=== PATIENT | female | born 1945 | race Caucasian/White ===

== ENCOUNTER → 2016-12-03 | Outpatient (CLI) | payer OTHER ==
[~2016-12-03] MED LIST: CLX/20 PO; FLEC50TA PO; GLC/500 PO; GLIP-197 PO; HYD10 PO; HYDR5TAB PO; HYDR5TAB57 PO; INSU1.2I SC; LATA0.5S OPB; LEVO75TA PO; METO50TA7 PO; PRAV80TA PO; SIMV40TA2 PO; TMB100 PO; WARF5TAB7 PO; XLTOPS OPB
[2016-12-04 14:17] LABS: BASO % 0.3 %; BASO ABS # 0.01 K/uL (0-0.2); COMPLETE YES; EOS % 1.1 %; HEMATOCRIT 32.8 % (37-47); IG% 0.5 %; LYMPH % 23.8 %; LYMPH ABS # 0.89 K/uL (1.2-3.4); MEAN CELL VOLUME 84.5 fL (80-100); MEAN CORPUSCULAR HEMOGLOBIN 27.1 pg (25-34); MEAN PLATELET VOLUME 11.5 fL (7.4-10.4); NEUT % 66.3 %; PLATELET COUNT 181 K/uL (130-400); RED BLOOD COUNT 3.88 M/uL (4.2-5.4); WHITE BLOOD COUNT 3.74 K/uL (4.8-10.8)
[2016-12-04 14:26] LABS: ESTIMATED AVERAGE GLUCOSE 220 mg/dl; HA1C FLAG Normal (Normal)
[2016-12-04 14:46] LABS: ALT/SGPT 32 U/L (12-78); AST/SGOT 39 U/L (15-37); BLOOD UREA NITROGEN 18 mg/dl (7-18); BUN/CREATININE RATIO 20.3 (10-20); CALCIUM 8.9 mg/dl (8.5-10.1); CARBON DIOXIDE 28 mmol/L (21-32); CHLORIDE 103 mmol/L (98-107); CREATININE 0.91 mg/dl (0.60-1.20); GLUCOSE 100 mg/dl (70-99); POTASSIUM 4.2 mmol/L (3.5-5.1); SODIUM 139 mmol/L (136-145)
[2016-12-04 14:54] LABS: ALKALINE PHOSPHATASE 132 U/L (45-117); CHOLESTEROL 147 mg/dl (0-200); CHOLESTEROL/HDL RATIO 3.1; HDL CHOLESTEROL 47 mg/dl; LDL CHOLESTEROL CALCULATED 68 mg/dl; THYROID STIMULATING HORMONE 0.449 uIu/ml (0.300-4.500); TRIGLYCERIDES 162 mg/dl (0-150); VERY LOW DENSITY LIPOPROT CALC 32 mg/dl
== END | disposition home or self-care (01) ==
LOC: C.LABSPEC 13:37
PROVIDERS: ATTEND Family Medicine
DX: Z00.00 Encounter for general adult medical examination without abnormal findings (principal); E11.9 Type 2 diabetes mellitus without complications; I48.91 Unspecified atrial fibrillation; E03.9 Hypothyroidism, unspecified

== ENCOUNTER → 2017-01-05 | Outpatient (CLI) | payer OTHER ==
--- NOTE | 2017-01-05 15:51 | DIAGNOSTIC IMAGING REPORT ---
KUB CLINICAL HISTORY: Nephrolithiasis. FINDINGS: 2 AP abdominal radiographs are compared to study dated 03/10/2016 and correlated with abdominal CT dated 03/07/2015. There is a nonobstructed abdominal bowel gas pattern. There is no radiographic evidence of nephrolithiasis. The right renal shadow is partially obscured by overlying colonic contents. Numerous phleboliths are seen in the pelvis. The skeletal structures are osteopenic. There is moderate lumbosacral spondylosis. Arthritic change is also present in the hips. IMPRESSION: There is no radiographic evidence of nephrolithiasis on today's examination. Electronically signed by: Ang Giraldo M.D. 01/05/2017 3:50 PM Dictated Date/Time: 01/05/2017 3:46 PM
== END | disposition home or self-care (01) ==
LOC: C.RAD 15:20
PROVIDERS: ATTEND Nurse Practitioner Family
DX: N20.0 Calculus of kidney (principal)

== ENCOUNTER → 2017-03-01 | Day surgery (SDC) | payer OTHER ==
[2017-02-19 13:10] VITALS: Ht 162.6 cm; Wt 95.5 kg
[~2017-03-01] VITALS: Ht 162.6 cm; Wt 95.5 kg
[~2017-03-01] MED LIST changes: +500ML BSS 0.3ML EPI 1:1000PF IRRIG ONE; +ACETAMINOPHEN 325 MG TAB PO PRN; +AMVISC PLUS 0.8ML SYRINGE INT OCU ONE; +ATROPINE SULFATE 0.1 MG/ML 5ML SYR IV PRN; +BRIMONIDINE TART 0.2% OP SOLN PER DROP CHARGE ONE; +BSS FLUSH ONE; +ENDOCOAT 0.85ML SYRINGE INT OCU ONE; +EpHEDrine SULFATE INJ 50 MG/ML AMP IV PRN; +EpINEphrine INJ 1MG/ML AMP 1 MG/ML AMP ONE; +FENTANYL CITRATE INJ 50 MCG/1 ML 2 ML VIAL IV PRN; -HYD10 PO; -HYDR5TAB PO; +LACTATED RINGER'S 1000ML 500 ML IV SCH; +LIDOCAINE 4% OP SOLN DROP CHARGE ONE; +LIDOCAINE 4% OP SOLN DROP CHARGE OPR SCH; +LIDOCAINE HCL 1% MPF 2 ML VIAL ONE; +MIDAZOLAM HCL 1 MG/ML 2ML VIAL ONE; +MOXIFLOXACIN OPH SOLN PER DROP CHARGE ONE; +ONDANSETRON INJ 2 MG/ML 2 ML VIAL IV PRN; +POVIDONE-IODINE OP SOLN 30 ML BTL ONE; -PRAV80TA PO; +PROPARACAINE 0.5% OP SOLN PER DROP CHARGE OPR SCH; -TMB100 PO; +TOBRAMYCIN/DEXAMETHASONE OPH OINT PER APPLN CHARGE ONE; -XLTOPS OPB
[2017-03-01] MEDS: PHENYLEPHRINE HCL 2.5% OP SOLN PER DROP CHARGE OPR SCH ×2 (06:52→06:57)
[2017-03-01] MEDS: TROPICAMIDE 1% OP SOLN PER DROP CHARGE OPR SCH ×2 (06:53→06:58)
[2017-03-01] MEDS: CYCLOPENTOLATE HCL 1% OP SOLN PER DROP CHARGE OPR SCH ×2 (06:54→06:59)
--- NOTE | 2017-03-01 06:54 | History & Physical Bridge - SC ---
H&P Re-Evaluation Bridge Note: I have examined the patient, reviewed the History & Physical and in the interval since the performance of the History & Physical I have noted the following changes of clinical significance: No changes noted
[2017-03-01] MEDS: KETOROLAC 0.5% OP SOLN PER DROP CHARGE OPR SCH ×2 (06:55→07:00)
[2017-03-01] MEDS: MOXIFLOXACIN OPH SOLN PER DROP CHARGE OPR SCH ×2 (06:56→07:06)
[2017-03-01 07:58] VITALS: TEMP 36.5
--- NOTE | 2017-03-01 07:58 | [facility] Post Operative Brief Note ---
Immediate Operative Summary Operative Date Mar 01, 2017. Pre-Operative Diagnosis Cataract Right Eye Post-Operative Diagnosis Same Procedure(s) Performed Right Cataract Phacoemulsification With Intraocular Lens Implant Surgeon Dr. Farris Price Accuracy Supervisor Surgeon(s) None Estimated Blood Loss 0 Findings cataract right eye Specimens None Complication(s) None Disposition Recovery Room / PACU
--- NOTE | 2017-03-01 07:58 | Discharge Instructions-SurgCtr ---
Discharge Instructions Date of Service Mar 01, 2017. Visit Reason for Visit: Right Cataract Discharge Discharge Diagnosis / Problem: cataract right eye Discharge Goals Goal(s): Improve function Medications Stopped Medications Name(s): METFORMIN STOPPED ON WEDNESDAY Activity Recommendations Activity Limitations: per Instructions/Follow-up section Lifting Limitations: no more than 5 pounds Anesthesia . Post Anesthesia Instructions: If you have had General Anesthesia or IV Sedation: * Do not drive today. * Resume driving when surgeon permits. * Do not make important decisions or sign legal documents today. * Call surgeon for: 1. Temperature elevations greater than 101 degrees F. 2. Uncontrollable pain. 3. Excessive bleeding. 4. Persistent nausea and vomiting. 5. Medication intolerance (nausea, vomiting or rash). * For nausea and vomiting use only clear liquids such as: tea, soda, bouillon until nausea subsides, then gradually increase diet as tolerated. * If you have any concerns or questions, call your surgeon's office. If physician is unavailable and it is an emergency, call 911 or go to the nearest emergency room. . Instructions / Follow-Up Instructions / Follow-Up ACTIVITY RECOMMENDATIONS: * Light activities * You may walk outside, read, watch television. * Mild irritation and blurred vision are common for the first few days, redness around the white part of the eye is common. MEDICATIONS: Resume previous medications unless instructed otherwise by your surgeon. Eye drops (today and tomorrow): Tobramycin - one drop in operative eye every 2 hours while awake Prednisolone 1% - one drop in operative eye every 2 hours while awake Ketorolac - one drop in operative eye every 2 hours while awake SPECIAL CARE INSTRUCTIONS: * If any problems or concerns, please call Dr. Farris's office at . * Keep plastic shield taped over eye to sleep at night. * Keep plastic shield taped over eye except to administer eye drops. * Keep plastic shield on until office visit the following day. FOLLOW UP VISIT: Follow-up with Dr. Farris in the [place] office as scheduled. If not already scheduled, please call the office at . Diet Recommendations Home Diet: resume previous diet Procedures Procedures Performed: Right Cataract Phacoemulsification With Intraocular Lens Implant Pending Studies Studies pending at discharge: no Medical Emergencies . Who to Call and When: Medical Emergencies: If at any time you feel your situation is an emergency, please call 911 immediately. . Non-Emergent Contact Non-Emergency issues call your: Criminal Psychologist . . "Provider Documentation" section prepared by Graham Farris. .
--- NOTE | 2017-03-01 08:19 | OPERATIVE REPORT ---
DATE OF OPERATION: 03/01/2017 PREOPERATIVE DIAGNOSIS: Cataract, right eye. POSTOPERATIVE DIAGNOSIS: Cataract, right eye. PROCEDURE: Phacoemulsification cataract extraction with intraocular lens placement, right eye. SURGEON: Dr. Farris. COMPLICATIONS: None. ESTIMATED BLOOD LOSS: None. ANESTHESIA: Topical with sedation. OPERATION AND FINDINGS: After informed consent was obtained in the holding area the patient was wheeled back to the Operating Room where cardiac monitoring leads and oxygen by nasal cannula was administered by Anesthesia. Gentle IV sedation was given, and the patient's right eye was prepped and draped in usual sterile fashion. A wire lid speculum was placed into the right eye and the operating microscope was swung into position. Using 0.12 forceps and a Supersharp blade a paracentesis port was made 3 o'clock hours away from the 9 o'clock position of patient's right eye. 1% non-preserved Lidocaine was then injected into the anterior chamber for anesthesia. A 2.2 mm keratotome blade was then used to make a shelved clear corneal incision at the 9 o'clock position of her right eye. Amvisc was injected into the anterior chamber and a cystotome and Utrata forceps were used to perform a curvilinear capsulorrhexis. BSS on a hydrodissection cannula was used to hydrodissect the lens nucleus away from the capsular bag. The phacoemulsification handpiece was then used in a stop and chop fashion to remove the lens nucleus. The irrigation and aspiration handpiece was then used to remove the residual cortical material. Amvisc was injected into the capsular bag and anterior chamber and a Bausch \T\ Lomb MX60, 24.5 Diopter intraocular lens was injected into the capsular bag. Irrigation and aspiration handpiece was used to remove the residual viscoelastic material. The wounds were hydrated and noted to be watertight. The wire lid speculum was removed from the eye. Vigamox, Brimonidine, and TobraDex ointment were placed on the eye and it was shielded. It should be noted that EndoCoat was used during the case to protect the cornea endothelium. DISPOSITION: The patient tolerated the procedure well and was wheeled to the post anesthesia care unit in stable condition. I attest to the content of the Intraoperative Record and any orders documented therein. Any exceptions are noted below. I attest to the content of the Intraoperative Record and any orders documented therein. Any exceptio ns are noted below.
[2017-03-01 08:25] VITALS: BP 131/81; PULSE 52; O2SAT 98
--- NOTE | 2017-03-01 08:51 | Anesthesia Progress Nt - [facility] ---
Anesthesia Post Op Note Date & Time Mar 01, 2017 at 08:51 Vital Signs Pain Intensity: 0 Vital Signs Past 12 Hours Date Time Temp Pulse Resp B/P Pulse Ox O2 Delivery O2 Flow Rate FiO2 03/01/17 08:25 52 18 131/81 98 Room Air 03/01/17 07:58 36.5 66 16 137/81 99 Room Air 03/01/17 06:45 36.3 54 18 136/64 100 Room Air Notes Mental Status: alert / awake / arousable, participated in evaluation Pt Amnestic to Procedure: Yes Nausea / Vomiting: adequately controlled Pain: adequately controlled Airway Patency, RR, SpO2: stable & adequate BP & HR: stable & adequate Hydration State: stable & adequate Anesthetic Complications: no major complications apparent
== END | disposition home or self-care (01) ==
LOC: X.SURG 06:34
PROVIDERS: ATTEND Ophthalmology
DX: H25.11 Age-related nuclear cataract, right eye (principal); E11.9 Type 2 diabetes mellitus without complications; E03.9 Hypothyroidism, unspecified; Z79.84 Long term (current) use of oral hypoglycemic drugs; Z79.899 Other long term (current) drug therapy

== ENCOUNTER → 2017-03-11 | Outpatient (CLI) | payer OTHER ==
[~2017-03-11] MED LIST changes: -500ML BSS 0.3ML EPI 1:1000PF IRRIG ONE; -ACETAMINOPHEN 325 MG TAB PO PRN; -AMVISC PLUS 0.8ML SYRINGE INT OCU ONE; -ATROPINE SULFATE 0.1 MG/ML 5ML SYR IV PRN; -BRIMONIDINE TART 0.2% OP SOLN PER DROP CHARGE ONE; -BSS FLUSH ONE; -ENDOCOAT 0.85ML SYRINGE INT OCU ONE; -EpHEDrine SULFATE INJ 50 MG/ML AMP IV PRN; -EpINEphrine INJ 1MG/ML AMP 1 MG/ML AMP ONE; -FENTANYL CITRATE INJ 50 MCG/1 ML 2 ML VIAL IV PRN; -LACTATED RINGER'S 1000ML 500 ML IV SCH; -LIDOCAINE 4% OP SOLN DROP CHARGE ONE; -LIDOCAINE 4% OP SOLN DROP CHARGE OPR SCH; -LIDOCAINE HCL 1% MPF 2 ML VIAL ONE; -MIDAZOLAM HCL 1 MG/ML 2ML VIAL ONE; -MOXIFLOXACIN OPH SOLN PER DROP CHARGE ONE; -ONDANSETRON INJ 2 MG/ML 2 ML VIAL IV PRN; -POVIDONE-IODINE OP SOLN 30 ML BTL ONE; -PROPARACAINE 0.5% OP SOLN PER DROP CHARGE OPR SCH; -TOBRAMYCIN/DEXAMETHASONE OPH OINT PER APPLN CHARGE ONE
[2017-03-11 18:23] LABS: BASO % 0.6 %; BASO ABS # 0.02 K/uL (0-0.2); COMPLETE YES; EOS % 1.5 %; HEMATOCRIT 33.1 % (37-47); IG% 0.3 %; LYMPH % 24.6 %; LYMPH ABS # 0.83 K/uL (1.2-3.4); MEAN CELL VOLUME 85.3 fL (80-100); MEAN CORPUSCULAR HGB CONC 30.5 g/dl (32-36); MEAN PLATELET VOLUME 11.3 fL (7.4-10.4); MONO % 9.5 %; NEUT % 63.5 %; PLATELET COUNT 171 K/uL (130-400); RED BLOOD COUNT 3.88 M/uL (4.2-5.4); WHITE BLOOD COUNT 3.38 K/uL (4.8-10.8)
[2017-03-11 18:30] LABS: INR 2.4 (0.9-1.1)
[2017-03-11 18:33] LABS: ALT/SGPT 31 U/L (12-78); AST/SGOT 29 U/L (15-37); BLOOD UREA NITROGEN 12 mg/dl (7-18); BUN/CREATININE RATIO 14.3 (10-20); CALCIUM 8.9 mg/dl (8.5-10.1); CARBON DIOXIDE 29 mmol/L (21-32); CHLORIDE 104 mmol/L (98-107); CREATININE 0.87 mg/dl (0.60-1.20); GLUCOSE 303 mg/dl (70-99); POTASSIUM 4.1 mmol/L (3.5-5.1); SODIUM 140 mmol/L (136-145)
[2017-03-11 18:35] LABS: ALB/GLOB RATIO 0.9 (0.9-2); CHOLESTEROL 129 mg/dl (0-200)
[2017-03-11 18:42] LABS: ALKALINE PHOSPHATASE 146 U/L (45-117); BETA-HYDROXYBUTYRATE 1.34 mg/dL (0.2-2.81); CHOLESTEROL/HDL RATIO 3.5; HDL CHOLESTEROL 37 mg/dl; LDL CHOLESTEROL CALCULATED 53 mg/dl; TRIGLYCERIDES 197 mg/dl (0-150); VERY LOW DENSITY LIPOPROT CALC 39 mg/dl
[2017-03-12 07:53] LABS: ESTIMATED AVERAGE GLUCOSE 240 mg/dl; HA1C FLAG Normal (Normal)
== END | disposition home or self-care (01) ==
LOC: C.LABSPEC 09:45
PROVIDERS: ATTEND Family Medicine
DX: E11.9 Type 2 diabetes mellitus without complications (principal); I48.91 Unspecified atrial fibrillation; E03.9 Hypothyroidism, unspecified

== ENCOUNTER → 2017-08-24 | Outpatient (CLI) | payer OTHER ==
[2017-08-24 13:48] LABS: INR 2.5 (0.9-1.1); PROTHROMBIN TIME (PATIENT) 28.3 SECONDS (9.0-12.0)
== END | disposition home or self-care (01) ==
LOC: C.LABSPEC 13:19
PROVIDERS: ATTEND Family Medicine
DX: Z79.01 Long term (current) use of anticoagulants (principal)

== ENCOUNTER → 2017-10-06 | Outpatient (CLI) | payer OTHER ==
[~2017-10-06] MED LIST changes: +GADAVIST IV PRN
--- NOTE | 2017-10-06 14:56 | DIAGNOSTIC IMAGING REPORT ---
PITUITARY ONLY COMBO CLINICAL HISTORY: PITUITARY HYPOTHYROIDISM TECHNIQUE: Multi axial MRI acquisition of multi phase enhancement images of the pituitary COMPARISON STUDY: None FINDINGS: Empty sella. Pituitary stock and optic chiasm are unremarkable. No abnormal enhancement characteristics. Minimal pituitary tissue. No evidence for an negatively enhancing nodule. Mild mucosal thickening posterior aspect of the nasopharynx and ethmoid sinuses. Moderate mucosal thickening left maxillary sinus. IMPRESSION: 1. Empty sella. 2. No significant pituitary tissue. 3. No abnormal enhancement characteristics. 4. Moderate scattered mucosal thickening of the sinuses. The above report was generated using voice recognition software. It may contain grammatical, syntax or spelling errors. Electronically signed by: Clovis Jett M.D. 10/06/2017 2:54 PM Dictated Date/Time: 10/06/2017 2:51 PM
== END | disposition home or self-care (01) ==
LOC: C.MRIBC 13:47
PROVIDERS: ATTEND Internal Medicine Endocrinology, Diabetes & Metabolism
DX: E03.8 Other specified hypothyroidism (principal); E23.6 Other disorders of pituitary gland

== ENCOUNTER 2017-12-05 21:45 | Inpatient (IN) | payer OTHER ==
[~2017-12-05] VITALS: Ht 160 cm; Wt 91.0 kg
[~2017-12-05 21:45] MED LIST changes: -GADAVIST IV PRN; -METO50TA7 PO; +METO50TA8 PO
[2017-12-05] MEDS ORDERED: SODIUM CHLORIDE 0.9% 500ML 500 ML IV STA (22:25)
[2017-12-05] MEDS ORDERED: ONDANSETRON INJ 2 MG/ML 2 ML VIAL IV STA (22:34)
[2017-12-05] MEDS ORDERED: XLTOPS OPB (22:40)
[2017-12-05] MEDS ORDERED: ZCR40 PO (22:40)
[2017-12-05] MEDS ORDERED: GLC5 PO (22:40)
[2017-12-05] MEDS ORDERED: TPRSR/50 PO (22:40)
[2017-12-05] MEDS ORDERED: LEVO125T5 PO (22:40)
--- NOTE | 2017-12-05 22:42 | DIAGNOSTIC IMAGING REPORT ---
CHEST ONE VIEW PORTABLE HISTORY: Atypical chest pain. COMPARISON: Chest 10/03/2015. FINDINGS: The heart remains mildly enlarged. The lungs are now pleural effusions. No pneumothorax. No evidence for pulmonary edema. No focal lung consolidations to suggest pneumonia. Calcifications at the aortic knob. IMPRESSION: Stable mild cardiomegaly. No acute process within the chest. Electronically signed by: Easton Crook M.D. 12/05/2017 10:40 PM Dictated Date/Time: 12/05/2017 10:39 PM
[2017-12-05 23:05] LABS: INFLUENZA B ANTIGEN Neg for Influ B (NEG)
[2017-12-05 23:09] LABS: BASO % 0.4 %; BASO ABS # 0.03 K/uL (0-0.2); EOS % 0.3 %; EOS ABS # 0.02 K/uL (0-0.5); HEMATOCRIT 30.4 % (37-47); HEMOGLOBIN 9.4 g/dL (12.0-16.0); IG# 0.02 K/uL (0.00-0.02); LYMPH % 13.5 %; LYMPH ABS # 1.04 K/uL (1.2-3.4); MEAN CELL VOLUME 79.2 fL (80-100); MEAN CORPUSCULAR HEMOGLOBIN 24.5 pg (25-34); MEAN CORPUSCULAR HGB CONC 30.9 g/dl (32-36); MEAN PLATELET VOLUME 9.8 fL (7.4-10.4); MONO % 10.2 %; MONO ABS # 0.78 K/uL (0.11-0.59); NEUT % 75.3 %; NEUT ABS # 5.79 K/uL (1.4-6.5); PLATELET COUNT 199 K/uL (130-400); RED CELL DISTRIBUTION WIDTH CV 16.6 % (11.5-14.5); RED CELL DISTRIBUTION WIDTH SD 47.6 fL (36.4-46.3); WHITE BLOOD COUNT 7.68 K/uL (4.8-10.8)
[2017-12-05 23:27] LABS: CALCIUM 8.9 mg/dl (8.5-10.1); CREATININE 1.15 mg/dl (0.60-1.20)
[2017-12-05 23:29] LABS: INR 3.3 (0.9-1.1)
[2017-12-05 23:50] LABS: PTT PATIENT 46.7 SECONDS (21.0-31.0)
[2017-12-06] VITALS (12 sets, daily range): BP systolic 111–136; BP diastolic 46–60; PULSE 66–74; TEMP 36.9–39.3; O2SAT 93–98; BMI 34.1
[2017-12-06 00:21] LABS: INFLUENZA A PCR Neg for Influ A (NEG); INFLUENZA B PCR Neg for Influ B (NEG)
--- NOTE | 2017-12-06 00:49 | EMERGENCY ROOM VISIT NOTE ---
History Report prepared by Dc: Clau Lawson Under the Supervision of: Dr. Rasta Fine M.D. First contact with patient: 22:19 Chief Complaint: NAUSEA Stated Complaint: TEMPERATURE, COUGH, THROWING UP, WEAK Nursing Triage Summary: c/o not feeling well since wednesday. c/o n/v cough and resp difficulty. History of Present Illness The patient is a 72 year old female who presents to the Emergency Room with complaints of persistent flu-like symptoms since December 03, 2017. She reports a heaviness feeling in her chest at that time, though denies any shortness of breath or sweating at the time. She stated that she felt like something was sitting on her chest for about an hour. It did resolve spontaneously and she has not had any recurrence of any chest discomfort since. She denies any history of CAD although states that she does have A. fib and takes Coumadin. She notes it turned into congestion, cough and vomiting the next day. She notes increased tiredness, sweating, and loss of appetite. She reports diarrhea. She notes intermittent fevers with the highest recorded of 102. She denies any abdominal pain. Per , they notified their PCP who prescribed Tamiflu and the patient has been taking it since December 04, 2017. She has had the flu shot this season. Source of History: patient Onset: December 03, 2017 Position: other (global) Quality: other (flu-like symptoms) Timing: other (persistent) Associated Symptoms: + fevers, + cough, + chest pain (chest heaviness), + vomiting, + diarrhea, No SOB, No abdominal pain Note: She notes sweating. Review of Systems See HPI for pertinent positives & negatives. A total of 10 systems reviewed and were otherwise negative. Past Medical & Surgical Medical Problems: (1) Afib (2) Asthma, Unspecified (3) Depressive Disorder Nec (4) Diab Brie Wo Compl, Type Ii Or Unspec Type, Not Uncntrld (5) Flu-like symptoms (6) Hypertension Nos (7) Hypothyroidism Nos (8) Kidney stone (9) NSTEMI (non-ST elevated myocardial infarction) (10) PAF (paroxysmal atrial fibrillation) (11) Pituitary tumor (12) UTI (urinary tract infection) Surgical Problems: (1) H/O: hysterectomy Family History Cancer Diabetes mellitus Heart disease Hypertension Social History Smoking Status: Never Smoker Alcohol Use: none Drug Use: none Marital Status: Housing Status: lives with family Occupation Status: retired Current/Historical Medications Scheduled Citalopram (Citalopram Hydrobromide), 20 MG PO QAM Flecainide Acetate (Tambocor), 50 MG PO BID Glipizide (Glipizide), 5 MG PO BID Hydrocortisone (Cortef), 10 MG PO QAM Hydrocortisone (Cortef), 5 MG PO AFTERNOON Insulin Glargine (Toujeo Solostar), 60 UNITS SC HS Latanoprost (Latanoprost), 1 DROP OPB HS Levothyroxine Sodium (Levothyroxine Sodium), 125 MCG PO QAM Metformin Hcl (Glucophage), 1,000 MG PO BID Metoprolol Succinate (Metoprolol Succinate ER), 50 MG PO BID Simvastatin (Simvastatin), 40 MG PO QPM Warfarin Sod (Jantoven), 5 MG PO 2XWK Warfarin Sod (Jantoven), 7.5 MG PO 5XWK Allergies Coded Allergies: Iodinated Diagnostic Agents (Verified Allergy, Unknown, RASH, 03/01/17) Sulfa Drugs (Verified Allergy, Unknown, HIVES, 03/01/17) Ciprofloxacin (Verified Adverse Reaction, Unknown, VOMITING, 03/01/17) Physical Exam Vital Signs Date Time Temp Pulse Resp B/P (MAP) Pulse Ox O2 Delivery O2 Flow Rate FiO2 12/06/17 00:05 96/43 12/06/17 00:00 69 18 95 Room Air 12/05/17 23:30 68 20 96 Room Air 12/05/17 23:00 66 20 97 Room Air 12/05/17 22:54 38.1 67 18 99/47 94 Room Air 12/05/17 22:31 96 Room Air 12/05/17 22:24 68 12/05/17 21:49 37.5 68 20 103/50 98 Room Air Physical Exam Constitutional: Vital signs reviewed. Coughing throughout exam. Eyes: Pupils are equal round reactive to light. Conjunctiva are noninjected. ENT: Pharynx is clear without erythema or exudate. Mucous membranes are dry. Neck supple without meningeal signs. Respiratory: Clear to auscultation bilaterally. Breath sounds are equal bilaterally. Cardiovascular: Regular rate and rhythm. No rubs or gallops. GI: Soft, nondistended and nontender. Bowel sounds are present. Musculoskeletal: No peripheral edema. No lower extremity tenderness. Integumentary: No cyanosis. Neurological: The patient is awake and alert. No focal deficits. Psychiatric: Normal affect. Medical Decision & Procedures ER Provider Diagnostic Interpretation: Radiology results as stated below per my review and the radiologist's interpretation: CHEST ONE VIEW PORTABLE HISTORY: Atypical chest pain. COMPARISON: Chest 10/03/2015. FINDINGS: The heart remains mildly enlarged. The lungs are now pleural effusions. No pneumothorax. No evidence for pulmonary edema. No focal lung consolidations to suggest pneumonia. Calcifications at the aortic knob. IMPRESSION: Stable mild cardiomegaly. No acute process within the chest. Electronically signed by: Easton Crook M.D. 12/05/2017 10:40 PM Dictated Date/Time: 12/05/2017 10:39 PM Laboratory Results 12/05/17 22:40 Red Blood Count 3.84, Mean Corpuscular Volume 79.2, Mean Corpuscular Hemoglobin 24.5, Mean Corpuscular Hemoglobin Concent 30.9, Mean Platelet Volume 9.8, Neutrophils (%) (Auto) 75.3, Lymphocytes (%) (Auto) 13.5, Monocytes (%) (Auto) 10.2, Eosinophils (%) (Auto) 0.3, Basophils (%) (Auto) 0.4, Neutrophils # (Auto ) 5.79, Lymphocytes # (Auto) 1.04, Monocytes # (Auto) 0.78, Eosinophils # (Auto ) 0.02, Basophils # (Auto) 0.03 12/05/17 22:40 Test 12/05/17 22:35 12/05/17 22:40 12/05/17 23:01 Influenza Type A (RT-PCR) Neg for Influ A (NEG) Influenza Type A Antigen Neg for Influ A (NEG) Influenza Type B Antigen Neg for Influ B (NEG) Influenza Type B (RT-PCR) Neg for Influ B (NEG) White Blood Count 7.68 K/uL (4.8-10.8) Red Blood Count 3.84 M/uL (4.2-5.4) Hemoglobin 9.4 g/dL (12.0-16.0) Hematocrit 30.4 % (37-47) Mean Corpuscular Volume 79.2 fL (80-100) Mean Corpuscular Hemoglobin 24.5 pg (25-34) Mean Corpuscular Hemoglobin Concent 30.9 g/dl (32-36) Platelet Count 199 K/uL (130-400) Mean Platelet Volume 9.8 fL (7.4-10.4) Neutrophils (%) (Auto) 75.3 % Lymphocytes (%) (Auto) 13.5 % Monocytes (%) (Auto) 10.2 % Eosinophils (%) (Auto) 0.3 % Basophils (%) (Auto) 0.4 % Neutrophils # (Auto) 5.79 K/uL (1.4-6.5) Lymphocytes # (Auto) 1.04 K/uL (1.2-3.4) Monocytes # (Auto) 0.78 K/uL (0.11-0.59) Eosinophils # (Auto) 0.02 K/uL (0-0.5) Basophils # (Auto) 0.03 K/uL (0-0.2) RDW Standard Deviation 47.6 fL (36.4-46.3) RDW Coefficient of Variation 16.6 % (11.5-14.5) Immature Granulocyte % (Auto) 0.3 % Immature Granulocyte # (Auto) 0.02 K/uL (0.00-0.02) Prothrombin Time 34.2 SECONDS (9.0-12.0) Prothromb Time International Ratio 3.3 (0.9-1.1) Activated Partial Thromboplast Time 46.7 SECONDS (21.0-31.0) Partial Thromboplastin Ratio 1.8 Anion Gap 9.0 mmol/L (3-11) Est Creatinine Clear Calc Drug Dose 46.9 ml/min Estimated GFR () 54.7 Estimated GFR (Non- 47.2 BUN/Creatinine Ratio 13.7 (10-20) Calcium Level 8.9 mg/dl (8.5-10.1) Bedside Troponin I 1.940 ng/ml (0-0.045) Laboratory results as reviewed by me. Medications Administered Medications (Trade) Dose Ordered Sig/Gerald Route Start Time Stop Time Status Last Admin Dose Admin Sodium Chloride 500 ml @ 999 mls/hr Q31M STAT IV 12/05/17 22:25 12/05/17 22:55 DC 12/05/17 22:52 999 MLS/HR Ondansetron HCl (Zofran Inj) 4 mg NOW STAT IV 12/05/17 22:34 12/05/17 22:35 DC 12/05/17 22:51 4 MG ECG Indication: chest pain Rate (beats per minute): 67 Rhythm: normal sinus Findings: RBBB, no ectopy Change: no significant change (When compared to 02/22/2015) Change: Patient's electrocardiogram per my interpretation. ED Course 2219: The patient was evaluated in room B11B. A complete history and physical exam was performed. 2225: Ordered Sodium Chloride 500 ml @ 999 mls/hr IV 2234: Ordered Zofran 4 mg IV 2330: I reassessed the patient at this time. She is feeling better and denies any current chest pain. I discussed the results and treatment plan with the patient. 2335: I spoke with Dr. Green, [facility] hospitalist. We discussed the patient's case. He recommends consulting with cardiology. The patient will be evaluated by the [facility] for further management. 2339: I spoke with Dr. Mcclendon, [facility] cardiology. We discussed the patient's case. He recommends heparin drip and further evaluation. 2346: I reassessed the patient at this time. She is currently taking Coumadin for atrial fibrillation. I will hold Heparin until we know the INR result. 2351: The patient's INR is 3.3. We will not heparinize the patient. Medical Decision This is a 72-year-old female who presents with flulike symptoms and chest pain. Differential diagnosis includes unstable angina, NE, pneumonia, bronchitis, influenza, dehydration. I did perform a limited focused review of portions of the patient's old chart on the electronic medical record. The patient has had no recent pertinent visits to this hospital. I did evaluate the patient as noted above. IV access was established. The patient was placed on a continuous security monitor. I did treat patient with normal saline IV. She was also given IV Zofran. I did order and personally review the patient's 12-lead EKG and chest x-ray as described above. Her twelve -lead EKG demonstrates a right bundle branch block. She has an abnormal EKG but there are no significant changes when compared to her prior EKG. She is currently denying any chest discomfort. She stated the last time she had chest discomfort was on Wednesday. I did order and review the patient's blood work as noted in the electronic medical record. She is anemic. Her troponin is 1.9. I did order a rapid flu test which was negative. PCR testing for flu was also negative. I did discuss the test results with the patient. Again she denies having any chest discomfort or shortness of breath. I did discuss the case with Dr. Mcclendon. Initially we are going to treat her with IV heparin but the patient's INR came back at 3.3 with an elevated PTT as well. I did discuss the case with the hospitalist and lining caser. Medication Reconcilliation Current Medication List: was personally reviewed by me Blood Pressure Screening Patient's blood pressure: Normal blood pressure Consults Time Called: 1900 Consulting Physician: Dr. Green [facility] hospitalist I spoke with Jayme Brower hospitalist. We discussed the patient's case. He recommends consulting with cardiology. The patient will be evaluated by the [facility] for further management. Additional Consults: Time Called: [phone] Consulted Physician: Jayme Zhou cardiology Returned Call: [phone] Additional Comments: I spoke with Jayme Zhou cardiology. We discussed the patient's case. He recommends heparin drip and further evaluation. Impression Primary Impression: ACS (acute coronary syndrome) Additional Impressions: Dehydration Flu-like symptoms Vomiting and diarrhea Anemia Supratherapeutic INR Scribe Attestation The scribe's documentation has been prepared under my direct and personally reviewed by me in its entirety. I confirm that the note above accurately reflects all work, treatment, procedures, and medical decision making performed by me. Departure Information Dispostion Being Evaluated By Hospitalist Referrals No Doctor, Assigned (PCP) Patient Instructions My [facility] Problem Qualifiers Additional Impressions: Anemia Anemia type: unspecified type Qualified Codes: D64.9 - Anemia, unspecified
[2017-12-06] MEDS ORDERED: HYDROCORTISONE IV 50 MG in SYRINGE 0 ML IV ONE (00:58)
[2017-12-06] MEDS ORDERED: HYDROCORTISONE SOD SUCCINATE 100 MG/2 ML VIAL IV STA (01:07)
[2017-12-06 02:16] LABS: INR 3.5 (0.9-1.1)
[2017-12-06] MEDS ORDERED: INSULIN GLARGINE SOLOSTAR 100 UNITS/ML 3 ML PEN SC SCH (02:30)
[2017-12-06] MEDS ORDERED: GLUCAGON FOR INJ 1 MG VIAL SQ PRN (02:30)
[2017-12-06] MEDS ORDERED: GLUCOSE 10 TABS/TUBE PO PRN (02:30)
[2017-12-06] MEDS ORDERED: DEXTROSE 50% 50 ML SYR IV PRN (02:30)
[2017-12-06] MEDS ORDERED: GLUCOSE 40% GEL 15 GM TUBE PO PRN (02:30)
[2017-12-06] MEDS: HYDROCORTISONE IV 50 MG in SYRINGE 0 ML IV SCH ×3 (02:44→17:27)
[2017-12-06] MEDS: NSS + 20MEQ KCL 1000ML 1,000 ML IV SCH ×2 (02:47→17:28)
[2017-12-06] MEDS ORDERED: ONDANSETRON INJ 2 MG/ML 2 ML VIAL IV PRN (03:00)
--- NOTE | 2017-12-06 03:02 | HISTORY & PHYSICAL EXAMINATION ---
DATE OF ADMISSION: 12/05/2017 PRIMARY CARE PHYSICIAN: Dr. Laron Murphy. CHIEF COMPLAINT: Chest tightness on Wednesday, followed by flu-like symptoms since then. HISTORY OF PRESENT COMPLAINT: She is a 72-year-old female with significant past medical history including type 2 diabetes with vascular disease, adenoma of the pituitary, history of intracranial hemorrhage, sleep apnea, pituitary apoplexy, diarrhea, hypothyroidism, adrenal insufficiency, and paroxysmal atrial fibrillation, apparently has been complaining of flu-like symptoms since Wednesday. On Wednesday evening when she was going to go out, she complained to have a central chest pressure and she did not go out, she stayed at home and since that night, she was complaining of cough with more shortness of breath, nausea and vomiting, and body aches. She called her physician on Wednesday and then was given Tamiflu for possible flu infection. Her condition got worse and today, she is here in the ER with ongoing symptoms of anorexia, cough, nausea, vomiting, and some diarrhea and body aches. Her flu has been negative, but incidentally, she was noted to have a troponin of 1.9. From that point, she was admitted to telemetry unit. Cardiology was consulted. Her INR is therapeutic, so heparin was not started. She does not have any acute chest pain at this time. PAST MEDICAL HISTORY: Significant for type 2 diabetes with vascular disease, history of pituitary adenoma and pituitary apoplexy, adrenal insufficiency, history of intracranial hemorrhage, history of left third nerve palsy, sleep apnea, hypothyroidism, atrial fibrillation and also recurrent urticaria. PAST SURGICAL HISTORY: Significant for surgery for anal fissure, removal of pelvic structure, cataract surgery, nasal septum repair, and stereotactic cranial and intradural navigation. FAMILY HISTORY: Nothing significant. SOCIAL HISTORY: She is . She lives with her . She does not drink and does not smoke and she has been reasonably ambulant. ALLERGIES: SHE IS ALLERGIC TO CONTRAST MEDIA, SULFA, AND CIPROFLOXACIN. MEDICATIONS: She has been on metformin 500 mg tablet 2 tablets b.i.d., citalopram 20 mg daily, Tambocor 50 mg b.i.d., glipizide 5 mg b.i.d., hydrocortisone 10 mg in the morning and 5 in the afternoon, insulin Glargine 60 units at night, latanoprost 1 drop OPB at bedtime, levothyroxine 125 mcg daily, Toprol-XL 50 mg b.i.d., simvastatin 40 mg daily, warfarin 5 mg and 7.5 mg as directed. REVIEW OF SYSTEMS: Other system review unremarkable except those mentioned in history of present complaint. PHYSICAL EXAMINATION: GENERAL: On examination in the Emergency Room, she was generally weak, but no acute distress. VITAL SIGNS: Temperature is 38.1, pulse was 69, blood pressure 99/47, saturation 94% on room air. HEENT: Unremarkable. NECK: Supple. No JVD, no bruit. CHEST: Clear to auscultate bilaterally. HEART: S1, S2 regular. ABDOMEN: Soft, benign, nontender, no organomegaly. Bowel sounds present. EXTREMITIES: Negative for any edema. MUSCULOSKELETAL SYSTEM: Did not show any acute arthritis involving any joint. CENTRAL NERVOUS SYSTEM: Alert, awake, oriented x3 and no focal sensory and/or motor deficit appreciated. She was generally weak. LABORATORY DATA: Noted today, white count was 7.68, H&H 9.4/30.4, platelet was 199. Sodium 134, potassium 4.9, chloride 98, chloride 98, carbon dioxide 27, BUN 16, creatinine 1.15, random glucose 113 and troponin was 1.940, that was POC troponin. Influenza A and B negative. INR 3.3 and PTT ratio 1.8. Chest x-ray, stable mild cardiomegaly and no acute process within the chest. EKG was in sinus rhythm, rate of 67 per minute, normal axis, right bundle-branch block with associated ST-T wave changes. IMPRESSION AND PLAN: 1. Flu-like symptoms seem to be resolving. We will not continue any more Tamiflu because flu has been negative. Chest x-ray is not showing any pneumonia. We will give some asymptomatic treatment as well. 2. Probable non-ST elevation myocardial infarction with high troponin. We will check serial cardiac enzymes, echocardiogram and cardiology evaluation. She is not having any acute symptoms or acute chest pain from this. 3. Diabetes type 2, on insulin. We will continue her current insulin, hold metformin, and put her on sliding scale coverage while in the hospital. 4. Pituitary apoplexy with adrenal insufficiency. Continue with her usual hydrocortisone, but we will give her a stress dose of hydrocortisone as well. 5. Hypothyroidism. Continue with replacement. 6. Paroxysmal atrial fibrillation. Her heart rate is in sinus rhythm right now. She has been on Coumadin, continue with that, and no acute symptoms at this time. 7. Gastrointestinal prophylaxis with proton-pump inhibitor. 8. Deep venous thrombosis prophylaxis. She has been on Coumadin and INR therapeutic. 9. Code status. She will be a full code. In my clinical assessment, the beneficiary meets criteria as per CMS for 2 midnights' stay in the hospital. CELIO
[2017-12-06] MEDS ORDERED: NURSING VERBAL MED ORDER ONE (04:00)
[2017-12-06] MEDS ORDERED: ACETAMINOPHEN 500 MG TAB PO ONE (04:03)
[2017-12-06] MEDS: LEVOTHYROXINE 125 MCG TAB PO SCH (05:31)
[2017-12-06 07:26] LABS: HEMATOCRIT 28.6 % (37-47); HEMOGLOBIN 8.8 g/dL (12.0-16.0); MEAN CELL VOLUME 79.2 fL (80-100); MEAN CORPUSCULAR HEMOGLOBIN 24.4 pg (25-34); MEAN CORPUSCULAR HGB CONC 30.8 g/dl (32-36); MEAN PLATELET VOLUME 9.8 fL (7.4-10.4); PLATELET COUNT 185 K/uL (130-400); RED CELL DISTRIBUTION WIDTH CV 16.7 % (11.5-14.5); RED CELL DISTRIBUTION WIDTH SD 48.2 fL (36.4-46.3); WHITE BLOOD COUNT 6.57 K/uL (4.8-10.8)
[2017-12-06 07:43] LABS: INR 3.8 (0.9-1.1)
[2017-12-06 08:02] LABS: CALCIUM 9.1 mg/dl (8.5-10.1); CREATININE 0.99 mg/dl (0.60-1.20); POTASSIUM 3.9 mmol/L (3.5-5.1)
[2017-12-06 08:14] LABS: PHOSPHORUS 2.9 mg/dl (2.5-4.9)
[2017-12-06] MEDS: CITALOPRAM 20 MG TAB PO SCH (08:48)
[2017-12-06] MEDS: METOPROLOL SUCC 50MG EXT REL TAB PO SCH ×2 (08:49→22:00)
[2017-12-06] MEDS: FLECAINIDE ACETATE 100 MG TAB PO SCH (08:54)
--- NOTE | 2017-12-06 08:55 | ECHOCARDIOGRAM REPORT ---
*NOTICE TO RECEIVING REPUBLICAN AGENCY This information is strictly Confidential and protected under [place] law. [place] law prohibits you from making any further disclosure of this information unless further disclosure is expressly permitted by the written consent of the person to whom it pertains or is authorized by law. A general authorization for the release of medical or other information is not sufficient for this purpose. Hospital accepts no responsibility if the information is made available to any other person, INCLUDING THE PATIENT. Interpretation Summary * Name: GILBERT MCCULLOUGH Study Date: 12/06/2017 06:22 AM BP: 122/46 mmHg * Patient Location: [facility] ([place]) HR: 71 * : 1945 (M/d/yyyy) Gender: Female Height: 64 in * Age: 72 yrs Ethnicity: [place] Weight: 194 lb * Ordering Physician: Ximena Green * Referring Physician: Self, Referred * Performed By: So Fisher RCS * * Reason For Study: CHEST PAIN * BSA: 1.9 m2 * The study was technically adequate. * -- Conclusions -- * Sinsus rhythm was present during the echocardiogram. * There is mild concentric left ventricular hypertrophy. * No regional wall motion abnormalities noted. * Ejection Fraction = 55-60%. * The right ventricle is normal in size and function. * The left atrium is mildly dilated. * There is mild mitral annular calcification. * Diastolic dysfunction, Grade II (pseudonormalization pattern). * There is trace tricuspid regurgitation. * The calculated pulmonary artery systolic presssure =36 mm Hg (upper limit of normal). Procedure Details * A complete two-dimensional transthoracic echocardiogram was performed (2D, M-mode, Doppler and color flow Doppler). Left Ventricle * The left ventricle is normal in size. * There is mild concentric left ventricular hypertrophy. * Left ventricular systolic function is normal. * Ejection Fraction = 55-60%. * The left ventricular wall motion is normal. * No regional wall motion abnormalities noted. Right Ventricle * The right ventricle is normal in size and function. * The right ventricular systolic function is normal as assessed by tricuspid annular plane systolic excursion (TAPSE) (normal >1.5 cm). Atria * The left atrium is mildly dilated. * Right atrial size is normal. * There is no evidence of atrial septal defect, but resolution does not allow assessment for a patent foramen ovale. Mitral Valve * There is mild mitral annular calcification. * There is no mitral valve stenosis. * Significant mitral regurgitation is absent. Tricuspid Valve * The tricuspid valve is normal. * There is no tricuspid stenosis. * There is trace tricuspid regurgitation. * The calculated pulmonary artery systolic presssure =36 mm Hg (upper limit of normal). Aortic Valve * The aortic valve is trileaflet. * Aortic stenosis is absent. * There is no significant aortic regurgitation. Pulmonic Valve * The pulmonary valve is not well seen, but the Doppler examination is normal without significant regurgitation or stenosis. Great Vessels * The aortic root and proximal ascending aorta are normal sized. Pericardium/Pleural * There is no pericardial effusion. Great Vessels * Normal inferior vena cava diameter and respiratory variation suggests normal central venous pressure. Left Ventricular Diastolic Function * Diastolic dysfunction, Grade II (pseudonormalization pattern). MMode 2D Measurements and Calculations IVSd 1.3 cm IVSs 1.7 cm LVIDd 4.6 cm LVIDs 3.2 cm LVPWd 1.2 cm LVPWs 1.4 cm IVS/LVPW 1.1 FS 30.6 % EDV(Teich) 95.5 ml ESV(Teich) 39.9 ml EF(Teich) 58.2 % EDV(cubed) 95.1 ml ESV(cubed) 31.7 ml EF(cubed) 66.6 % % IVS thick 31.1 % % LVPW thick 15.6 % LV mass(C)d 211.7 grams LV mass(C)dI 109.6 grams/m\S\2 LV mass(C)s 174.8 grams LV mass(C)sI 90.5 grams/m\S\2 SV(Teich) 55.7 ml SI(Teich) 28.8 ml/m\S\2 SV(cubed) 63.3 ml SI(cubed) 32.8 ml/m\S\2 Ao root diam 2.9 cm Ao root area 6.7 cm\S\2 ACS 1.9 cm LA dimension 4.1 cm LA/Ao 1.4 LVOT diam 1.8 cm LVOT area 2.5 cm\S\2 LVAd ap4 32.7 cm\S\2 LVLd ap4 7.8 cm EDV(MOD-sp4) 110.7 ml EDV(sp4-el) 115.9 ml LVAs ap4 21.7 cm\S\2 LVLs ap4 7.1 cm ESV(MOD-sp4) 56.5 ml ESV(sp4-el) 56.1 ml EF(MOD-sp4) 49.0 % EF(sp4-el) 51.6 % LVAd ap2 32.5 cm\S\2 LVLd ap2 8.0 cm EDV(MOD-sp2) 106.7 ml EDV(sp2-el) 111.9 ml LVAs ap2 20.5 cm\S\2 LVLs ap2 6.9 cm ESV(MOD-sp2) 48.9 ml ESV(sp2-el) 51.4 ml EF(MOD-sp2) 54.2 % EF(sp2-el) 54.1 % LVLd %diff 1.9 % EDV(MOD-bp) 108.4 ml LVLs %diff -2.18 % ESV(MOD-bp) 51.8 ml EF(MOD-bp) 52.2 % SV(MOD-sp4) 54.2 ml SI(MOD-sp4) 28.1 ml/m\S\2 SV(MOD-sp2) 57.8 ml SI(MOD-sp2) 29.9 ml/m\S\2 SV(MOD-bp) 56.6 ml SI(MOD-bp) 29.3 ml/m\S\2 SV(sp4-el) 59.8 ml SI(sp4-el) 31.0 ml/m\S\2 SV(sp2-el) 60.5 ml SI(sp2-el) 31.3 ml/m\S\2 Doppler Measurements and Calculations MV E max frank 148.3 cm/sec MV A max frank 85.7 cm/sec MV E/A 1.7 MV P1/2t max frank 144.9 cm/sec MV P1/2t 102.2 msec MVA(P1/2t) 2.2 cm\S\2 MV dec slope 415.5 cm/sec\S\2 MV dec time 0.28 sec Ao V2 max 194.7 cm/sec Ao max PG 15.2 mmHg Ao max PG (full) 6.9 mmHg JAYME(V,A) 1.8 cm\S\2 JAYME(V,D) 1.8 cm\S\2 LV V1 max PG 8.3 mmHg LV V1 max 144.0 cm/sec MR max frank 467.4 cm/sec MR max PG 87.6 mmHg PA V2 max 131.1 cm/sec PA max PG 6.9 mmHg TR max frank 276.1 cm/sec
[2017-12-06] MEDS ORDERED: HYDROCORTISONE 10 MG TAB PO SCH ×2 (09:00→21:00)
[2017-12-06] MEDS ORDERED: FLECAINIDE ACETATE 100 MG TAB PO SCH (09:00)
[2017-12-06] MEDS ORDERED: ASPIRIN 81 MG ECTAB PO STA (09:46)
--- NOTE | 2017-12-06 09:46 | Cardiology Consultation ---
Cardiology Consultation Date of Consultation: Dec 06, 2017 History of Present Illness Aubree Rivera is a 72 year old female seen in cardiology consultation per the request of Dr. Green for evaluation of non-ST segment elevation myocardial infarction. The patient has a past history of paroxysmal atrial fibrillation which previously came to recognition in 2011 when she was admitted at [facility] for [place] resection and had perioperative atrial fibrillation. She was treated with metoprolol and flecainide. Initially there were concerns regarding bleeding risk with her surgery and her history of ITP that she has not anticoagulated but subsequently after she recovered and her platelet count normalized she was placed on warfarin and has remained on anticoagulation for the last few years. She follows with MANSOOR Chávez with EP at [facility]. 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 She had recently transitioned to a new advertising copy writer, Dr. Albarado and her thyroid replacement had been increased. Dentition to her baseline fatigue, she noted that on Wednesday evening she and her were going out for her evening meal, and as they started to prepare she had a sensation of midline chest discomfort that persisted for approximately 2 hours. Because she felt poorly, but never made it out to dinner. If the evening or on she felt progressively worse. The chest discomfort was better but she felt feverish and also had vomiting and a cough. She had taken her temperature at home with readings of 102F. She called her primary care physician and discussed her symptoms and a prescription for Tamiflu was called in which she picked up on Wednesday morning. Throughout the day on Wednesday she continued to feel poorly with viral syndrome symptoms and she was concerned that perhaps she had the flu and so she came to the emergency room last evening at 2149. Influenza antigen and PCR testing has been negative for both influenza A and influenza B. Patient's troponin however was elevated last evening with reading of 1.94 ng/ml on presentation and subsequent readings of 2.23 and 1.71. Her TSH was noted to be low at 0.0-3 gunits per liter. She had episodic fevers last night with subjective temperatures of 31.8 and 39.3C received thousand milligrams oral acetaminophen at 4 am. At present, she is talkative and feeling better. She denies any chest discomfort or shortness of breath. She denies any recurrence of her chest discomfort that she experienced on Wednesday , did not recur with today of course be Wednesday morning. Past Medical/Surgical History Problem List: Medical Problems: (1) Afib (2) Asthma, Unspecified (3) Depressive Disorder Nec (4) Diab Brie Wo Compl, Type Ii Or Unspec Type, Not Uncntrld (5) Flu-like symptoms (6) Hypertension Nos (7) Hypothyroidism Nos (8) Kidney stone (9) NSTEMI (non-ST elevated myocardial infarction) (10) PAF (paroxysmal atrial fibrillation) (11) Pituitary tumor (12) UTI (urinary tract infection) Surgical Problems: (1) H/O: hysterectomy History Past Medical History: 1. Type 2 diabetes mellitus 2. History of pituitary adenoma for which she underwent endoscopic endonasal pituitary resection 12/11/2011 at [facility], with postoperative atrial fibrillation noted 3. History of ITP and apparent intracranial bleeding around the time for initial pituitary surgery, she was subsequent treated with corticosteroids for both supplementation and treatment of the ITP with subsequent normalization of her platelet count. -chronic pituitary apoplexy 4. Paroxysmal atrial fibrillation as noted 5. Recurrent urticaria, recent dermatology and allergy workup in progress 6. Left third nerve palsy 7. Obstructive sleep apnea 8. Allergy to radiographic contrast with hives noted in the past Past Surgical History: 1. Endoscopic endonasal pituitary resection 12/11/11 at [facility] 2. Surgery for anal fissure 3. Nasal septal repair Social History: She is . Her accompanies her at the bedside today. She is a nonsmoker Family History: non contributory Review Of Systems See above for pertinent positives & negatives. A total of 10 systems reviewed and were otherwise negative. Allergies Coded Allergies: Iodinated Diagnostic Agents (Verified Allergy, Unknown, RASH, 03/01/17) Sulfa Drugs (Verified Allergy, Unknown, HIVES, 03/01/17) Ciprofloxacin (Verified Adverse Reaction, Unknown, VOMITING, 03/01/17) Medications Reported Home Medications Medications Dose Route/Sig Max Daily Dose Days Date Category Dose Instructions Glipizide 5 Mg Tab 5 Mg PO BID 12/05/17 Reported Metoprolol Succinate ER (Metoprolol Succinate) 50 Mg Tabcr 50 Mg PO BID 12/05/17 Reported Latanoprost 37 Drops/2.5 Ml Soln 1 Drop OPB HS 12/05/17 Reported Levothyroxine Sodium 125 Mcg Tab 125 Mcg PO QAM 12/05/17 Reported Simvastatin 40 Mg Tab 40 Mg PO QPM 12/05/17 Reported Corina Solostar (Insulin Glargine) 300 Unit/Ml Inj 60 Units SC HS 02/19/17 Reported Cortef (Hydrocortisone) 5 Mg Tab 5 Mg PO AFTERNOON 02/19/17 Reported Tambocor (Flecainide Acetate) 50 Mg Tab 50 Mg PO BID 02/19/17 Reported Cortef (Hydrocortisone) 5 Mg Tab 10 Mg PO QAM 02/19/17 Reported Jantoven (Warfarin Sodium) 5 Mg Tab 7.5 Mg PO 5XWK 10/03/15 Reported TAKE 7.5 MG EVERY WEDNESDAY,WEDNESDAY,WEDNESDAY,WEDNESDAY AND WEDNESDAY OR OTHERWISE DIRECTED TO TAKE BY ANTICOAGULATION CLINIC/ Jantoven (Warfarin Sodium) 5 Mg Tab 5 Mg PO 2XWK 10/03/15 Reported TAKE 5 MG EVERY WEDNESDAY AND WEDNESDAY OR OTHERWISE DIRECTED TO TAKE BY ANTICOAGULATION CLINIC/ Glucophage (Metformin Hcl) 500 Mg Tab 1,000 Mg PO BID 10/03/15 Reported Citalopram Hydrobromide (Citalopram) 20 Mg Tab 20 Mg PO QAM 02/22/15 Reported Physical Exam Vital Signs (Last 8hrs): Last 8 Hrs Date Time Temp Pulse Resp B/P (MAP) Pulse Ox O2 Delivery O2 Flow Rate FiO2 12/06/17 07:50 36.9 67 18 123/53 (76) 94 12/06/17 05:29 37.1 12/06/17 04:00 Room Air 12/06/17 03:40 39.3 74 18 122/46 (71) 93 Room Air General Appearance: Alert and Oriented x3. NAD. Head: Normocephalic Atraumatic. Eyes: PERRLA, EOMI, conjunctiva and sclera clear Neck: Supple. No carotid bruits noted. No JVD. No HJD. Respiratory: Breath sounds clear to auscultation bilaterally. No w/r/r. Cardiovascular: Reg rate and rhythm. S1 and S2 noted. No murmurs, rubs, gallops. PMI non displace. Abdomen: Normal bowel sounds, soft nontender. no abdominal bruits. Extremities: No edema, no clubbing or cyanosis. distal pulses 2/4 bilaterally. Neuro: No focal deficits. Psychiatric: Normal affect. Data Last Resulted 12/06/17 06:51 Last Resulted 12/06/17 06:51 Past 24 Hours Test 12/05/17 22:40 12/06/17 01:50 12/06/17 06:51 Range/Units Prothromb Time International Ratio 3.3 H 3.5 H 3.8 *H 0.9-1.1 Prothrombin Time 34.2 H 36.3 H 38.6 H 9.0-12.0 SECONDS Troponin I 2.230 *H 1.710 *H 0-0.045 ng/ml EKG performed on and reviewed independently: Normal sinus rhythm at 67 bpm , with right bundle branch block, lateral ischemia cannot be excluded, but there is significant artifact and lateral leads, in comparison to her past EKG tracings with the [facility] system, she has no lateral repolarization changes related to her history of right bundle branch block. Assessment & Plan Impression: 72-year-old female 1. Acute viral illness with intermittent fever. Influenza A and B Ag , and PCR testes negative. 2. NSTEMI 3. PAF, elevated INR on coumadin, 3.8 4. Radiographic contrast allergy 5. Past intolerance to the antihistamine, Benadryl, change in mental status, agitation Discussion and recommendations: The patient is free of symptoms from an anginal standpoint at present. Her resting echocardiogram revealed mild left atrial enlargement, normal ejection fraction, no regional wall motion abnormalities. Right ventricular size and systolic function were normal. At present, given her lack of anginal symptoms with her only chest pain having been 3 days ago, there is no need for emergent cardiac catheterization. Discussed the options of proceeding with invasive coronary angiography during this hospital stay for definitive evaluation, or proceeding with medication therapy and consideration toward outpatient stress testing for further risk stratification patient is over her viral illness. At present, recommend that we hold her Coumadin as her INR is climbing, and need INR < 2 if cardiac catheterization is pursued. Continue supportive care. Patient will be reassessed tomorrow, we will have further discussion regarding proceeding with cardiac catheterization this hospital stay were outpatient stress testing. The patient describes herself as having anxiety. She is not sure that she would like to have cardiac catheterization and she is going to think about things. Regarding medication, will start aspirin 81 mg daily. Continue current dose of metoprolol succinate 50 mg twice a day, and continue prior dose of simvastatin. Flecainide is typically contraindicated in the setting of known structural heart disease or CAD. I however concerns about the risk of her developing rapid atrial fibrillation due to her high catecholamine state with her viral illness given the fact that she has been on this medication for 5 years, I think it is most reasonable first unit rather than abruptly discontinue it and therefore I have reduced the dose from 50 mg every 12 hours to 50 mg daily. She is to remain on telemetry. If she develops significant ventricular ectopy, will discontinue flecainide. Differ further corticosteroid treatment, thyroid supplementation to primary service.
[2017-12-06 13:55] LABS: INR 4.3 (0.9-1.1)
[2017-12-06] MEDS ORDERED: WARFARIN SOD 5 MG TAB PO SCH (16:00)
--- NOTE | 2017-12-06 18:19 | Progress Note ---
Medicine Progress Note Date & Time of Visit: Dec 06, 2017 at 18:19. Subjective Patient reports ongoing complaints of fever/chills/sweats overnight. Denies any other complaints of HEATH, SOB, cough, N/V/D. States she feels weak. No recurrence of chest pain. No urinary complaints. No other overnight events noted. Patient' s was at the bedside and updated. Objective Last 8 Hrs Date Time Temp Pulse Resp B/P (MAP) Pulse Ox O2 Delivery O2 Flow Rate FiO2 12/06/17 16:29 94 Room Air 12/06/17 16:01 37.0 69 16 136/54 (81) 98 Room Air 12/06/17 12:08 94 Room Air 12/06/17 11:19 37.2 66 18 112/47 (68) 95 Physical Exam: GENERAL: Patient is in no acute distress. HEENT: No acute trauma, normocephalic atraumatic, mucous membranes moist, no nasal congestion, no scleral icterus, conjunctivae clear. NECK: No stridor, trachea is midline. LUNGS: Clear to auscultation bilaterally, no wheeze, no rhonchi, breath sounds equal. HEART: Without murmurs gallops or rubs, regular rate and rhythm. ABDOMEN: Soft, nontender, bowel sounds positive, non distended, no hepatosplenomegaly EXTREMITIES: No cyanosis or edema, full range of motion of all the joints without pain or difficulty, no signs for acute trauma. NEUROLOGIC: Oriented x 3, no acute motor or sensory deficits, no focal weakness. SKIN: No rash, no jaundice, no diaphoresis. Laboratory Results: Last 24 Hours Test 12/05/17 22:35 12/05/17 22:40 12/05/17 23:01 12/06/17 01:50 Influenza Type A (RT-PCR) Neg for Influ A Influenza Type A Antigen Neg for Influ A Influenza Type B Antigen Neg for Influ B Influenza Type B (RT-PCR) Neg for Influ B White Blood Count 7.68 K/uL Red Blood Count 3.84 M/uL Hemoglobin 9.4 g/dL Hematocrit 30.4 % Mean Corpuscular Volume 79.2 fL Mean Corpuscular Hemoglobin 24.5 pg Mean Corpuscular Hemoglobin Concent 30.9 g/dl Platelet Count 199 K/uL Mean Platelet Volume 9.8 fL Neutrophils (%) (Auto) 75.3 % Lymphocytes (%) (Auto) 13.5 % Monocytes (%) (Auto) 10.2 % Eosinophils (%) (Auto) 0.3 % Basophils (%) (Auto) 0.4 % Neutrophils # (Auto) 5.79 K/uL Lymphocytes # (Auto) 1.04 K/uL Monocytes # (Auto) 0.78 K/uL Eosinophils # (Auto) 0.02 K/uL Basophils # (Auto) 0.03 K/uL RDW Standard Deviation 47.6 fL RDW Coefficient of Variation 16.6 % Immature Granulocyte % (Auto) 0.3 % Immature Granulocyte # (Auto) 0.02 K/uL Prothrombin Time 34.2 SECONDS 36.3 SECONDS Prothromb Time International Ratio 3.3 3.5 Activated Partial Thromboplast Time 46.7 SECONDS Partial Thromboplastin Ratio 1.8 Sodium Level 134 mmol/L Potassium Level 4.0 mmol/L Chloride Level 98 mmol/L Carbon Dioxide Level 27 mmol/L Anion Gap 9.0 mmol/L Blood Urea Nitrogen 16 mg/dl Creatinine 1.15 mg/dl Est Creatinine Clear Calc Drug Dose 46.9 ml/min Estimated GFR () 54.7 Estimated GFR (Non- 47.2 BUN/Creatinine Ratio 13.7 Random Glucose 133 mg/dl Calcium Level 8.9 mg/dl Bedside Troponin I 1.940 ng/ml Troponin I 2.230 ng/ml Test 12/06/17 06:51 12/06/17 06:57 12/06/17 10:56 12/06/17 12:58 White Blood Count 6.57 K/uL Red Blood Count 3.61 M/uL Hemoglobin 8.8 g/dL Hematocrit 28.6 % Mean Corpuscular Volume 79.2 fL Mean Corpuscular Hemoglobin 24.4 pg Mean Corpuscular Hemoglobin Concent 30.8 g/dl RDW Standard Deviation 48.2 fL RDW Coefficient of Variation 16.7 % Platelet Count 185 K/uL Mean Platelet Volume 9.8 fL Prothrombin Time 38.6 SECONDS 43.5 SECONDS Prothromb Time International Ratio 3.8 4.3 Sodium Level 134 mmol/L Potassium Level 3.9 mmol/L Chloride Level 100 mmol/L Carbon Dioxide Level 23 mmol/L Anion Gap 11.0 mmol/L Blood Urea Nitrogen 16 mg/dl Creatinine 0.99 mg/dl Est Creatinine Clear Calc Drug Dose 53.4 ml/min Estimated GFR () 65.5 Estimated GFR (Non- 56.5 BUN/Creatinine Ratio 16.2 Random Glucose 137 mg/dl Calcium Level 9.1 mg/dl Phosphorus Level 2.9 mg/dl Magnesium Level 1.9 mg/dl Troponin I 1.710 ng/ml 1.050 ng/ml Thyroid Stimulating Hormone (TSH) 0.023 uIu/ml 0.017 uIu/ml Bedside Glucose 144 mg/dl 216 mg/dl Free Thyroxine 1.45 ng/dl Free Triiodothyronine 1.53 pg/ml Test 12/06/17 15:45 12/06/17 16:46 Urine Color YELLOW Urine Appearance CLEAR Urine pH 5.0 Urine Specific Micro 1.023 Urine Protein NEG Urine Glucose (UA) NEG Urine Ketones 1+ Urine Occult Blood 1+ Urine Nitrite NEG Urine Bilirubin NEG Urine Urobilinogen NEG Urine Leukocyte Esterase SMALL Urine WBC (Auto) 5-10 /hpf Urine RBC (Auto) 0-4 /hpf Urine Hyaline Casts (Auto) 1-5 /lpf Urine Epithelial Cells (Auto) 20-30 /lpf Urine Bacteria (Auto) NEG Bedside Glucose 194 mg/dl Date/Time Source Procedure Growth Status 12/05/17 22:45 Blood Blood Culture - Preliminary Gram Positive Cocci Resulted 12/05/17 22:40 Blood Blood Culture - Preliminary Gram Positive Cocci Resulted 12/06/17 15:45 Stool C.difficile Toxin B Gene (PCR) - Final No C. difficile toxin B gene detected Complete Assessment & Plan FEVER/FLU-LIKE SYMPTOMS: -PCR flu negative thus tamiflu was stopped -blood cultures 2/2 bottles growing gram positive cocci, origin unknown -urine and sputum cultures ordered -Chest x-ray is negative NSTEMI: -elevated troponins, trending down -TTE negative for any wall motion abnormality, EF: -Cardiology consulted, appreciate recs -EKG RBBB -no chest pressure or heaviness since admission -anticoagulated with coumadin already DM TYPE II: -continue on insulin -hold metformin -added correction scale coverage while in the hospital. 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 -continue with current stress dose hydrocortisone HYPOTHYROIDISM: -recently had dose of synthroid raised by Endocrine, obtain TSH, Free T4 and Free T3 -has been over 6 weeks since dose was raised -continue current dose for now pending labs PAF: -rate controlled, in NSR presently -on Coumadin, with supratherapeutic INR, thus coumadin held Current Inpatient Medications: Current Inpatient Medications Medications (Trade) Dose Ordered Sig/Gerald Route Start Time Stop Time Status Last Admin Dose Admin Potassium Chloride/Sodium Chloride 1,000 ml @ 75 mls/hr [id number] IV 12/06/17 02:00 12/07/17 04:39 12/06/17 17:28 75 MLS/HR Citalopram Hydrobromide (celeXA TAB) 20 mg QAM PO 12/06/17 09:00 01/05/18 08:59 12/06/17 08:48 20 MG Glipizide (Glucotrol Tab) 5 mg BIDM PO 12/06/17 07:30 01/05/18 07:29 12/06/17 17:26 5 MG Latanoprost (Xalatan Oph Soln) 1 drops HS OPB 12/06/17 21:00 01/05/18 20:59 Levothyroxine Sodium (Synthroid Tab) 125 mcg DAILYBB PO 12/06/17 06:00 01/05/18 05:59 12/06/17 05:31 125 MCG Metoprolol Succinate (Toprol Xl Tab) 50 mg BID PO 12/06/17 09:00 01/05/18 08:59 12/06/17 08:49 50 MG Simvastatin (Zocor Tab) 40 mg QPM PO 12/06/17 21:00 01/05/18 20:59 Hydrocortisone Sodium Succinate 50 mg/Syringe 1 ml @ 4 mls/min Q8H IV 12/06/17 02:00 12/07/17 18:01 12/06/17 17:27 4 MLS/MIN Insulin Glargine (Lantus Solostar Pen) 60 units HS SC 12/06/17 21:00 01/05/18 20:59 Glucose (Glucose 40% Gel) 15-30 GRAMS 15 GRAMS... UD PRN PO 12/06/17 02:30 01/05/18 02:29 Glucose (Glucose Chew Tab) 4-8 Tablets 4 Tabl... UD PRN PO 12/06/17 02:30 2/28/18 02:29 Dextrose (Dextrose 50% 50ML Syringe) 25-50ML OF 50% DW IV FOR... UD PRN IV 12/06/17 02:30 01/05/18 02:29 Glucagon (Glucagon Inj) 1 mg UD PRN SQ 12/06/17 02:30 01/05/18 02:29 Ondansetron HCl (Zofran Inj) 4 mg Q6H PRN IV 12/06/17 03:00 01/05/18 02:59 12/06/17 03:09 4 MG Acetaminophen (Tylenol Tab) 1,000 mg Q8H PRN PO 12/06/17 04:15 01/05/18 04:14 Flecainide Acetate (Tambocor Tab) 50 mg DAILY PO 12/06/17 09:00 01/05/18 08:59 12/06/17 08:54 50 MG Aspirin (Ecotrin Tab) 81 mg QAM PO 12/07/17 09:00 01/06/18 08:59
[2017-12-06] MEDS: ACETAMINOPHEN 500 MG TAB PO PRN (19:49)
[2017-12-06] MEDS ORDERED: VANCOMYCIN CONSULT ACTIVE PRN (21:30)
[2017-12-06] MEDS: INSULIN GLARGINE SOLOSTAR 100 UNITS/ML 3 ML PEN SC SCH (21:59)
[2017-12-06] MEDS ORDERED: VANCOMYCIN INJ 2,000 MG in SODIUM CHLORIDE 0.9% 500ML 500 ML IV STA (21:59)
[2017-12-06] MEDS: SIMVASTATIN 40 MG TAB PO SCH (22:00)
[2017-12-06] MEDS: LATANOPROST 0.005% OP SOLN 2.5 ML BTL OPB SCH (22:01)
[2017-12-06] MEDS: INSULIN ASPART 100 UNITS/ML 3 ML PEN SC SCH (23:13)
[2017-12-07] VITALS (10 sets, daily range): BP systolic 98–121; BP diastolic 46–99; PULSE 57–66; TEMP 36.8–37; O2SAT 94–98
[2017-12-07] MEDS ORDERED: NURSING VERBAL MED ORDER ONE (01:30)
[2017-12-07] MEDS ORDERED: LORAZEPAM 0.5 MG TAB PO ONE ×2 (01:45→23:30)
[2017-12-07] MEDS: HYDROCORTISONE IV 50 MG in SYRINGE 0 ML IV SCH ×3 (01:59→18:32)
[2017-12-07] MEDS: LEVOTHYROXINE 125 MCG TAB PO SCH (06:15)
[2017-12-07 07:03] LABS: HEMATOCRIT 27.2 % (37-47); HEMOGLOBIN 8.3 g/dL (12.0-16.0); MEAN CELL VOLUME 79.3 fL (80-100); MEAN CORPUSCULAR HEMOGLOBIN 24.2 pg (25-34); MEAN CORPUSCULAR HGB CONC 30.5 g/dl (32-36); MEAN PLATELET VOLUME 9.7 fL (7.4-10.4); PLATELET COUNT 165 K/uL (130-400); RED CELL DISTRIBUTION WIDTH CV 16.4 % (11.5-14.5); RED CELL DISTRIBUTION WIDTH SD 47.2 fL (36.4-46.3); WHITE BLOOD COUNT 5.27 K/uL (4.8-10.8)
[2017-12-07 07:21] LABS: INR 4.4 (0.9-1.1)
[2017-12-07 07:39] LABS: CALCIUM 8.6 mg/dl (8.5-10.1); CREATININE 0.79 mg/dl (0.60-1.20)
[2017-12-07] MEDS: INSULIN ASPART 100 UNITS/ML 3 ML PEN SC SCH ×4 (09:25→21:26)
[2017-12-07] MEDS: CITALOPRAM 20 MG TAB PO SCH (09:26)
[2017-12-07] MEDS: ASPIRIN 81 MG ECTAB PO SCH (09:27)
[2017-12-07] MEDS: FLECAINIDE ACETATE 100 MG TAB PO SCH (09:28)
[2017-12-07] MEDS: METOPROLOL SUCC 50MG EXT REL TAB PO SCH ×2 (09:28→09:37)
--- NOTE | 2017-12-07 09:37 | Progress Note ---
Internal Med Progress Note Date of Service: Dec 07, 2017. Provider Documentation: SUBJECTIVE: Seen and examined at bedside Feeling better today Denies chest pain, SOB, dizziness Diarrhea resolved Denies any bleeding issues No other complaints OBJECTIVE: Vital Signs-as noted below Physical Exam: General Appearance:Moderately built and nourished, no apparent distress Head: normocephalic, Atraumatic Eyes: normal inspection, EOMI, PERRL Neck: supple, Trachea midline Respiratory/Chest: Normal breath sounds, CTA Cardiovascular: S1, S2, No murmur Abdomen/GI:Soft, Non tender, Bowel sounds present Extremities/Musculoskelatal:normal inspection, 1+ b/l edema Neurologic/Psych:AAOX3, grossly no focal neurological deficits Skin: normal color, warm Lab data as noted below. ASSESSMENT & PLAN: Staph.aureus Bacteremia (POA): Blood Cultures X2: Staph.aureus PCR flu negative Stool for C.diff negative CXR:No acute process Continue Vancomycin Day #2 Consulted ID ECHO:as below Repeat Blood cultures in AM NSTEMI: Troponin trended down ECHO: No wall motion abnormality Continue Aspirin, Statin, Metoprolol Planned to weaned off Flecainide Appreciate Cardiology Input INR:4.4 Planned for Stress test as outpatient P.Afib: Continue Metoprolol Also on Flecainide Coumadin on hold as INR supratherapeutic Monitor INR:4.4 today Consider Vit K if INR continues to rise DM II: continue ISS, lantus hold metformin H/O 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 continue stress dose hydrocortisone Plan to resume PO meds tomorrow Hypothyroidism: recently levothyroxine dose increased by Endocrine TSH:low Free T4: normal continue levothyroxine 125mcg daily Needs follow up with Endocrinology as outpatient upon DC Recurrent LE rash: Currently rash resolved 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 There is mild concentric left ventricular hypertrophy. No regional wall motion abnormalities noted. Ejection Fraction = 55-60%. The right ventricle is normal in size and function. The left atrium is mildly dilated. There is mild mitral annular calcification. Diastolic dysfunction, Grade II (pseudonormalization pattern). There is trace tricuspid regurgitation. The calculated pulmonary artery systolic pressure =36 mm Hg (upper limit of normal). Vital Signs: Date Time Temp Pulse Resp B/P (MAP) Pulse Ox O2 Delivery O2 Flow Rate FiO2 12/07/17 16:44 Room Air 12/07/17 16:10 36.9 59 16 118/53 (74) 97 Room Air 12/07/17 12:10 94 Room Air 12/07/17 12:04 36.8 59 20 115/99 (104) 97 Room Air 12/07/17 11:33 Room Air 12/07/17 10:36 Room Air 12/07/17 08:27 94 Room Air 12/07/17 07:25 37.0 65 20 121/66 (84) 98 Room Air 12/07/17 04:10 36.8 66 20 100/57 (71) 98 Room Air 12/07/17 04:00 Room Air 12/07/17 00:00 Room Air 12/06/17 23:03 36.9 66 18 119/60 (79) 95 Room Air 12/06/17 21:52 37.1 12/06/17 20:00 Room Air 12/06/17 19:42 37.0 73 18 129/53 (78) 96 Room Air Lab Results: Results Past 24 Hours Test 12/06/17 21:05 12/07/17 04:13 12/07/17 06:41 12/07/17 06:42 Range/Units Bedside Glucose 333 170 182 70-90 mg/dl White Blood Count 5.27 4.8-10.8 K/uL Red Blood Count 3.43 4.2-5.4 M/uL Hemoglobin 8.3 12.0-16.0 g/dL Hematocrit 27.2 37-47 % Mean Corpuscular Volume 79.3 80-100 fL Mean Corpuscular Hemoglobin 24.2 25-34 pg Mean Corpuscular Hemoglobin Concent 30.5 32-36 g/dl RDW Standard Deviation 47.2 36.4-46.3 fL RDW Coefficient of Variation 16.4 11.5-14.5 % Platelet Count 165 130-400 K/uL Mean Platelet Volume 9.7 7.4-10.4 fL Prothrombin Time 44.7 9.0-12.0 SECONDS Prothromb Time International Ratio 4.4 0.9-1.1 Sodium Level 137 136-145 mmol/L Potassium Level 4.0 3.5-5.1 mmol/L Chloride Level 107 98-107 mmol/L Carbon Dioxide Level 25 21-32 mmol/L Anion Gap 5.0 3-11 mmol/L Blood Urea Nitrogen 17 7-18 mg/dl Creatinine 0.79 0.60-1.20 mg/dl Est Creatinine Clear Calc Drug Dose 67.9 ml/min Estimated GFR () 86.1 Estimated GFR (Non- 74.3 BUN/Creatinine Ratio 21.9 10-20 Random Glucose 163 70-99 mg/dl Calcium Level 8.6 8.5-10.1 mg/dl Magnesium Level 2.2 1.8-2.4 mg/dl Test 12/07/17 11:00 12/07/17 17:07 Range/Units Bedside Glucose 269 171 70-90 mg/dl
[2017-12-07] MEDS: METOPROLOL TARTRATE 25 MG TAB PO SCH ×2 (09:38→21:00)
--- NOTE | 2017-12-07 09:48 | Cardiology Follow-Up ---
Subjective General Date of Service: Dec 07, 2017. Chief Complaint: follow up elevation of troponin, fever , h/o PAF Pt evaluation today including: conversation w/ patient, physical exam History of Present Illness The patient is a 72 year old female seen in follow up. Patient with no additional objective fever yesterday, overnight, or so far this am. She feels much better, "like a new person". Patient's blood cultures resulted 2/2 bottles for Staph aureus, sensitivities are pending. Patient denies chest pain or shortness of breath. Denies dental, or back pain. No foot wounds. Telemetry reveals SR, in 60-70 bpm range without AF or significant ventricular ectopy. Allergies Coded Allergies: Iodinated Diagnostic Agents (Verified Allergy, Unknown, RASH, 03/01/17) Sulfa Drugs (Verified Allergy, Unknown, HIVES, 03/01/17) Ciprofloxacin (Verified Adverse Reaction, Unknown, VOMITING, 03/01/17) Social History Smoking Status: Never Smoker Hx Tobacco Use In Past Year?: No Hx Alcohol Use - Type And Amou: No Hx Substance Use - Type And Am: No Problem List Medical Problems: (1) ACS (acute coronary syndrome) Status: Acute (2) Anemia Status: Acute (3) Dehydration Status: Acute (4) Supratherapeutic INR Status: Acute (5) Vomiting and diarrhea Status: Acute Physical Exam Vital Signs Last Vital Signs Documentation Date Time Temp Pulse Resp B/P (MAP) Pulse Ox O2 Delivery O2 Flow Rate FiO2 12/07/17 08:27 94 Room Air 12/07/17 07:25 37.0 65 20 121/66 (84) Physical Exam Constitutional: Level of Distress: NAD Head: atraumatic Neck: supple Lungs: Auscultation: no wheezing, no rales/crackles, no rhonchi Cardiovascular: Heart Auscultation: normal S1, normal S2, no murmurs, no rubs Abdomen: Inspection & Palpation: soft, non-distended Extremities: no cyanosis, no edema Neurologic: Gait & Station: pertinent finding (no focal deficits ) Assessment and Plan Assessment and Plan Impression: 72-year-old female 1. Sepsis, acute febrile illness, with blood cultures revealing Staphylococcus Aureus bacteremia -fevers improved. Subjectively improved. -No valvular vegetation within scope of TTE capability. -source likely recent recurrent leg lesions. 2. NSTEMI -suspect Type II , supply demand mismatch event given presentation, normal resting wall motion, and lack of ongoing anginal symptoms rather that acute intracoronary plaque rupture. 3. h/o PAF, currently in SR -coagulopathy, likely due to coumadin prehospital / sepsis 4. Radiographic contrast allergy 5. Past intolerance to the antihistamine, Benadryl, change in mental status, agitation Recommendations: Proceed with supportive care for infection, on vancomycin. If developed persistent culture positive bacteremia, would have low threshold for ISABELLE, but at present , clinical improvement noted and ISABELLE not indicated. INR continues to climb despite holding coumadin. Will Rx 2.5 mg oral vitamin K now as INR may continue to climb with antibiotics. No active bleeding. Even though pt's presentation does not suggest acute intracoronary plaque rupture, given elevated troponin, possible CAD, LVH on echo, will wean off flecainide. No ventricular ectopy noted. AF has been stable since is occurred at time of pituitary surgery in 2011. Transition metoprolol succinate to tartrate, and increase dose from 50 mg BID to 75 mg BID to make up for reduced flecainide. Continue ASA and simvastatin. I discussed option of proceeding with invasive cardiac catheterization this admission with patient when I met her on 12/06. Patient favored, and still favors more conservative approach first and therefore will plan for outpatient nuclear stress and follow up, with medical Rx in the interim. Recommend pt remains in hospital on telemetry. Laboratory Results Last 24 Hours Test 12/06/17 10:56 12/06/17 12:58 12/06/17 15:45 12/06/17 16:46 Bedside Glucose 216 mg/dl 194 mg/dl Prothrombin Time 43.5 SECONDS Prothromb Time International Ratio 4.3 Troponin I 1.050 ng/ml Thyroid Stimulating Hormone (TSH) 0.017 uIu/ml Free Thyroxine 1.45 ng/dl Free Triiodothyronine 1.53 pg/ml Urine Color YELLOW Urine Appearance CLEAR Urine pH 5.0 Urine Specific [place] 1.023 Urine Protein NEG Urine Glucose (UA) NEG Urine Ketones 1+ Urine Occult Blood 1+ Urine Nitrite NEG Urine Bilirubin NEG Urine Urobilinogen NEG Urine Leukocyte Esterase SMALL Urine WBC (Auto) 5-10 /hpf Urine RBC (Auto) 0-4 /hpf Urine Hyaline Casts (Auto) 1-5 /lpf Urine Epithelial Cells (Auto) 20-30 /lpf Urine Bacteria (Auto) NEG Test 12/06/17 21:05 12/07/17 04:13 12/07/17 06:41 12/07/17 06:42 Bedside Glucose 333 mg/dl 170 mg/dl 182 mg/dl White Blood Count 5.27 K/uL Red Blood Count 3.43 M/uL Hemoglobin 8.3 g/dL Hematocrit 27.2 % Mean Corpuscular Volume 79.3 fL Mean Corpuscular Hemoglobin 24.2 pg Mean Corpuscular Hemoglobin Concent 30.5 g/dl RDW Standard Deviation 47.2 fL RDW Coefficient of Variation 16.4 % Platelet Count 165 K/uL Mean Platelet Volume 9.7 fL Prothrombin Time 44.7 SECONDS Prothromb Time International Ratio 4.4 Sodium Level 137 mmol/L Potassium Level 4.0 mmol/L Chloride Level 107 mmol/L Carbon Dioxide Level 25 mmol/L Anion Gap 5.0 mmol/L Blood Urea Nitrogen 17 mg/dl Creatinine 0.79 mg/dl Est Creatinine Clear Calc Drug Dose 67.9 ml/min Estimated GFR () 86.1 Estimated GFR (Non- 74.3 BUN/Creatinine Ratio 21.9 Random Glucose 163 mg/dl Calcium Level 8.6 mg/dl Magnesium Level 2.2 mg/dl
--- NOTE | 2017-12-07 10:36 | Medical Consult ---
Consultation Date of Consultation: Dec 07, 2017. 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 Had appointment pending with Rheumatology. Late last week , patient started noting worsening chest pressure, then diffuse myalgias and arthralgias with worsening fatigue, nausea and vomiting and cough. He was ultimately admitted to the hospital and now has been found to have positive blood cultures for Staph aureus, sensitivities pending. Has been started on vancomycin, patient feeling somewhat better. Has had transthoracic echocardiogram showing no significant valvular disease. Chest x-ray, read by me , shows no obvious acute infiltrate. She states that her lower extremity recurrent skin rash had recently worsened with marked erythema of the lower knees of both legs. No other localizing symptoms. She does state that she had previous history of infected kidney stone with staph sepsis several years ago. Past Medical/Surgical History Medical Problems: (1) ACS (acute coronary syndrome) Status: Acute (2) Anemia Status: Acute (3) Dehydration Status: Acute (4) Supratherapeutic INR Status: Acute (5) Vomiting and diarrhea Status: Acute Medical Problems: (1) Afib (2) Asthma, Unspecified (3) Depressive Disorder Nec (4) Diab Brie Wo Compl, Type Ii Or Unspec Type, Not Uncntrld (5) Flu-like symptoms (6) Hypertension Nos (7) Hypothyroidism Nos (8) Kidney stone (9) NSTEMI (non-ST elevated myocardial infarction) (10) PAF (paroxysmal atrial fibrillation) (11) Pituitary tumor (12) UTI (urinary tract infection) Surgical Problems: (1) H/O: hysterectomy Family History Cancer Diabetes mellitus Heart disease Hypertension Social History Smoking Status: Never Smoker Drug Use: none Marital Status: Housing Status: lives with family Occupation Status: retired Allergies Coded Allergies: Iodinated Diagnostic Agents (Verified Allergy, Unknown, RASH, 03/01/17) Sulfa Drugs (Verified Allergy, Unknown, HIVES, 03/01/17) Ciprofloxacin (Verified Adverse Reaction, Unknown, VOMITING, 03/01/17) Current Inpatient Medications Current Inpatient Medications Medications (Trade) Dose Ordered Sig/Gerald Route Start Time Stop Time Status Last Admin Dose Admin Citalopram Hydrobromide (celeXA TAB) 20 mg QAM PO 12/06/17 09:00 01/05/18 08:59 12/07/17 09:26 20 MG Glipizide (Glucotrol Tab) 5 mg BIDM PO 12/06/17 07:30 01/05/18 07:29 12/07/17 09:25 5 MG Latanoprost (Xalatan Oph Soln) 1 drops HS OPB 12/06/17 21:00 01/05/18 20:59 12/06/17 22:01 1 DROPS Levothyroxine Sodium (Synthroid Tab) 125 mcg DAILYBB PO 12/06/17 06:00 01/05/18 05:59 12/07/17 06:15 125 MCG Simvastatin (Zocor Tab) 40 mg QPM PO 12/06/17 21:00 01/05/18 20:59 12/06/17 22:00 40 MG Hydrocortisone Sodium Succinate 50 mg/Syringe 1 ml @ 4 mls/min Q8H IV 12/06/17 02:00 12/07/17 18:01 12/07/17 09:31 4 MLS/MIN Insulin Glargine (Lantus Solostar Pen) 60 units HS SC 12/06/17 21:00 01/05/18 20:59 12/06/17 21:59 60 UNITS Glucose (Glucose 40% Gel) 15-30 GRAMS 15 GRAMS... UD PRN PO 12/06/17 02:30 01/05/18 02:29 Glucose (Glucose Chew Tab) 4-8 Tablets 4 Tabl... UD PRN PO 12/06/17 02:30 01/05/18 02:29 Dextrose (Dextrose 50% 50ML Syringe) 25-50ML OF 50% DW IV FOR... UD PRN IV 12/06/17 02:30 01/05/18 02:29 Glucagon (Glucagon Inj) 1 mg UD PRN SQ 12/06/17 02:30 01/05/18 02:29 Ondansetron HCl (Zofran Inj) 4 mg Q6H PRN IV 12/06/17 03:00 01/05/18 02:59 12/06/17 03:09 4 MG Acetaminophen (Tylenol Tab) 1,000 mg Q8H PRN PO 12/06/17 04:15 01/05/18 04:14 12/06/17 19:49 1,000 MG Flecainide Acetate (Tambocor Tab) 50 mg DAILY PO 12/06/17 09:00 01/05/18 08:59 12/07/17 09:28 50 MG Aspirin (Ecotrin Tab) 81 mg QAM PO 12/07/17 09:00 01/06/18 08:59 12/07/17 09:27 81 MG Miscellaneous Information (Consult) 1 ea UD PRN N/A 12/06/17 21:30 01/05/18 21:29 Insulin Aspart (novoLOG ASPART) SLIDING SCALE G... ACHS SC 12/06/17 23:00 01/05/18 22:59 12/07/17 09:25 6 UNITS Vancomycin HCl 1250 mg/Sodium Chloride 275 ml @ 125 mls/hr Q18H IV 12/07/17 16:00 12/21/17 15:59 Metoprolol Tartrate (Lopressor Tab) 75 mg BID PO 12/07/17 10:00 01/06/18 09:59 12/07/17 09:38 75 MG Review of Systems Constitutional: + fever, + chills, + weakness, + fatigue Eyes: No problem reported ENT: No problem reported Respiratory: + cough Cardiovascular: + chest pain Abdomen: + nausea, + vomiting Musculoskeletal: + joint pain, + muscle pain Genitourinary - Female: No problem reported Neurologic: + weakness Psychiatric: No problem reported Endocrine: + fatigue Hematologic / Lymphatic: No problem reported Integumentary: + new/changing skin lesions Allergic / Immunologic: No problem reported Physical Exam Date Time Temp Pulse Resp B/P (MAP) Pulse Ox O2 Delivery O2 Flow Rate FiO2 12/07/17 08:27 94 Room Air 12/07/17 07:25 37.0 65 20 121/66 (84) 98 Room Air 12/07/17 04:10 36.8 66 20 100/57 (71) 98 Room Air 12/07/17 04:00 Room Air 12/07/17 00:00 Room Air 12/06/17 23:03 36.9 66 18 119/60 (79) 95 Room Air 12/06/17 21:52 37.1 1/29/18 20:00 Room Air 12/06/17 19:42 37.0 73 18 129/53 (78) 96 Room Air 12/06/17 16:29 94 Room Air 12/06/17 16:01 37.0 69 16 136/54 (81) 98 Room Air 12/06/17 12:08 94 Room Air 12/06/17 11:19 37.2 66 18 112/47 (68) 95 General Appearance: WD/WN, no apparent distress Head: normocephalic, atraumatic Eyes: normal inspection, EOMI, sclerae normal ENT: normal ENT inspection, hearing grossly normal, pharynx normal Neck: supple, no adenopathy, thyroid normal, trachea midline Respiratory/Chest: chest non-tender, lungs clear, normal breath sounds, no respiratory distress Cardiovascular: regular rate, rhythm, no gallop, no murmur Abdomen/GI: normal bowel sounds, non tender, soft, no organomegaly Back: normal inspection, no CVA tenderness Extremities/Musculoskelatal: normal inspection, no calf tenderness, normal capillary refill, non-tender Neurologic/Psych: alert, normal mood/affect, oriented x 3 Skin: normal color, no rash, + pertinent finding (Some chronic venous stasis changes of lower extremities) Lymphatic: no adenopathy Laboratory Results Date/Time Source Procedure Growth Status 12/06/17 15:45 Stool C.difficile Toxin B Gene (PCR) - Final No C. difficile toxin B gene detected Complete Last 24 Hours Test 12/06/17 10:56 12/06/17 12:58 12/06/17 15:45 12/06/17 16:46 Bedside Glucose 216 mg/dl 194 mg/dl Prothrombin Time 43.5 SECONDS Prothromb Time International Ratio 4.3 Troponin I 1.050 ng/ml Thyroid Stimulating Hormone (TSH) 0.017 uIu/ml Free Thyroxine 1.45 ng/dl Free Triiodothyronine 1.53 pg/ml Urine Color YELLOW Urine Appearance CLEAR Urine pH 5.0 Urine Specific [place] 1.023 Urine Protein NEG Urine Glucose (UA) NEG Urine Ketones 1+ Urine Occult Blood 1+ Urine Nitrite NEG Urine Bilirubin NEG Urine Urobilinogen NEG Urine Leukocyte Esterase SMALL Urine WBC (Auto) 5-10 /hpf Urine RBC (Auto) 0-4 /hpf Urine Hyaline Casts (Auto) 1-5 /lpf Urine Epithelial Cells (Auto) 20-30 /lpf Urine Bacteria (Auto) NEG Test 12/06/17 21:05 12/07/17 04:13 12/07/17 06:41 12/07/17 06:42 Bedside Glucose 333 mg/dl 170 mg/dl 182 mg/dl White Blood Count 5.27 K/uL Red Blood Count 3.43 M/uL Hemoglobin 8.3 g/dL Hematocrit 27.2 % Mean Corpuscular Volume 79.3 fL Mean Corpuscular Hemoglobin 24.2 pg Mean Corpuscular Hemoglobin Concent 30.5 g/dl RDW Standard Deviation 47.2 fL RDW Coefficient of Variation 16.4 % Platelet Count 165 K/uL Mean Platelet Volume 9.7 fL Prothrombin Time 44.7 SECONDS Prothromb Time International Ratio 4.4 Sodium Level 137 mmol/L Potassium Level 4.0 mmol/L Chloride Level 107 mmol/L Carbon Dioxide Level 25 mmol/L Anion Gap 5.0 mmol/L Blood Urea Nitrogen 17 mg/dl Creatinine 0.79 mg/dl Est Creatinine Clear Calc Drug Dose 67.9 ml/min Estimated GFR () 86.1 Estimated GFR (Non- 74.3 BUN/Creatinine Ratio 21.9 Random Glucose 163 mg/dl Calcium Level 8.6 mg/dl Magnesium Level 2.2 mg/dl Patient Name: GILBERT MCCULLOUGH Unit Number: [id number] Dictated: 12/05/172238 Transcribed: 12/05/172238 [employer] Printed Date/Time: [~ rep prt dt]/[~ rep prt tm] [~ rep ct labl] - [~ rep ct ivnm] [facility] [place] [address] Dictated: 12/05/172238 Transcribed: 12/05/172238 [employer] Printed Date/Time: [~ rep prt dt]/[~ rep prt tm] [~ rep ct labl] - [~ rep ct ivnm] [~ rep ct add3]] CHEST ONE VIEW PORTABLE HISTORY: Atypical chest pain. COMPARISON: Chest 10/03/2015. FINDINGS: The heart remains mildly enlarged. The lungs are now pleural effusions. No pneumothorax. No evidence for pulmonary edema. No focal lung consolidations to suggest pneumonia. Calcifications at the aortic knob. IMPRESSION: Stable mild cardiomegaly. No acute process within the chest. Electronically signed by: Easton Crook M.D. 12/05/2017 10:40 PM Dictated Date/Time: 12/05/2017 10:39 PM The status of this report is Signed. Draft = Not yet reviewed or approved by Radiologist. Signed = Reviewed and approved by Radiologist. <AttendingPhy></AttendingPhy> <FamilyPhy>No Doctor, Assigned</FamilyPhy> < PrimaryPhy>No Doctor, Assigned</PrimaryPhy> <UnitNumber>[id number]</UnitNumber> <VisitNumber>[id number]</VisitNumber> <PatientName>GILBERT MCCULLOUGH</PatientName > <DateOfBirth>1945</DateOfBirth> <Location>C.EDB</Location> <ServiceDate> 12/05/17</ServiceDate> <MNE>ESINDI</MNE> <OrderingPhy>Rasta Fine MD</ OrderingPhy> <OrderingPhyMNE>f rep ord dr reyes</OrderingPhyMNE> <DictatingPhyMNE> f rep dict dr reyes</DictatingPhyMNE> <CCListMNE>f rep ct amy</CCListMNE> < AdmittingPhyMNE>f pt admit dr reyes</AdmittingPhyMNE> <AttendingPhyMNE>f pt attend dr reyes</AttendingPhyMNE> <ConsultingPhyMNE>f pt consult dr reyes</ConsultingPhyMNE> <FamilyPhyMNE>f pt fam dr reyes</FamilyPhyMNE> <OtherPhyMNE>f pt other dr reyes</OtherPhyMNE> < PrimaryPhyMNE>f pt prim care dr reyes</PrimaryPhyMNE> <ReferringPhyMNE>f pt referring dr reyes</ReferringPhyMNE> Assessment & Plan 72-year-old female with pituitary insufficiency on replacement therapy, recurrent lower extremity rash in erythema, possible diagnosis of vasculitis, now with Staph aureus bacteremia and possible acute coronary event. It is possible that origin as Staph is her lower extremity infection, as no other localizing signs or symptoms noted. No obvious evidence of endocarditis on transthoracic echocardiogram, will need to discuss with Cardiology the need for ISABELLE. For now, vancomycin appropriate until sensitivities available. Will need follow-up blood cultures to ensure clearance of bacteremia. Will try to obtain results of recent skin biopsy and may require rheumatology consult as well. Will follow.
--- NOTE | 2017-12-07 12:12 | Clinical Documentation Query ---
Dr. DIAZ, [facility] : Please Document Present on Admission Status for - Staph Aureus Bacteremia H&P notes an impression of "flu-like symptoms" with subsequent progress note of "fever/flu-like symptoms". Accordingly, not until cultures demonstrate S.Aureus bacteremia on hospital day #3 (but were drawn on admission) does bacteremia appear in the record. So as to avoid confusion and possible post discharge query, please explicitly document the present on admission status (POA) of this important clinical diagnosis. Thank you. (X ) Staph Aureus Bacteremia, POA ( ) Staph Aureus Bacteremia, not POA Thank You, Gabriele Sweeney, RN [phone]
--- NOTE | 2017-12-07 13:18 | Pharmacy Progress Note ---
Pharmacy Antibiotic Consult Date of Service: Dec 07, 2017. Pharmacy Dosing Scope Pharmacy is consulted to initiate vancomcyin IV dosing therapy, order appropriate labs and adjust drug dose/frequency. Subjective The patient is a 72 year old female admitted on Dec 06, 2017 at 00:41. Objective Height (Feet): 5 Height (Inches): 3.00 Weight (Kilograms): 91.000 Lab Results (24hrs): Test 12/06/17 15:45 12/07/17 06:41 12/07/17 06:42 12/07/17 11:00 Urine Color YELLOW Urine Appearance CLEAR (CLEAR) Urine pH 5.0 (4.5-7.5) Urine Specific [place] 1.023 (1.000-1.030) Urine Protein NEG (NEG) Urine Glucose (UA) NEG (NEG) Urine Ketones 1+ (NEG) Urine Occult Blood 1+ (NEG) Urine Nitrite NEG (NEG) Urine Bilirubin NEG (NEG) Urine Urobilinogen NEG (NEG) Urine Leukocyte Esterase SMALL (NEG) Urine WBC (Auto) 5-10 /hpf (0-5) Urine RBC (Auto) 0-4 /hpf (0-4) Urine Hyaline Casts (Auto) 1-5 /lpf (0-5) Urine Epithelial Cells (Auto) 20-30 /lpf (0-5) Urine Bacteria (Auto) NEG (NEG) Bedside Glucose 182 mg/dl (70-90) 269 mg/dl (70-90) White Blood Count 5.27 K/uL (4.8-10.8) Red Blood Count 3.43 M/uL (4.2-5.4) Hemoglobin 8.3 g/dL (12.0-16.0) Hematocrit 27.2 % (37-47) Mean Corpuscular Volume 79.3 fL (80-100) Mean Corpuscular Hemoglobin 24.2 pg (25-34) Mean Corpuscular Hemoglobin Concent 30.5 g/dl (32-36) RDW Standard Deviation 47.2 fL (36.4-46.3) RDW Coefficient of Variation 16.4 % (11.5-14.5) Platelet Count 165 K/uL (130-400) Mean Platelet Volume 9.7 fL (7.4-10.4) Prothrombin Time 44.7 SECONDS (9.0-12.0) Prothromb Time International Ratio 4.4 (0.9-1.1) Sodium Level 137 mmol/L (136-145) Potassium Level 4.0 mmol/L (3.5-5.1) Chloride Level 107 mmol/L (98-107) Carbon Dioxide Level 25 mmol/L (21-32) Anion Gap 5.0 mmol/L (3-11) Blood Urea Nitrogen 17 mg/dl (7-18) Creatinine 0.79 mg/dl (0.60-1.20) Est Creatinine Clear Calc Drug Dose 67.9 ml/min Estimated GFR () 86.1 Estimated GFR (Non- 74.3 BUN/Creatinine Ratio 21.9 (10-20) Random Glucose 163 mg/dl (70-99) Calcium Level 8.6 mg/dl (8.5-10.1) Magnesium Level 2.2 mg/dl (1.8-2.4) Micro Results: staph aureus bacteremia Assessment & Plan Patient with 2/2 positive staph aureus blood cultures. Will check a level early just to ensure adequate dosing. Loading dose: 2000 mg IV X 1 dose (given 12/06 @2200) then: 1250 mg IV every 18 hours. Goal trough level estimate: between 15 - 20 mcg/mL. Peak and trough or random level has been ordered for: @4980. Pharmacy will continue to follow and will adjust dose/frequency as necessary. Thank you
[2017-12-07] MEDS ORDERED: WARFARIN SOD 5 MG TAB PO SCH (16:00)
[2017-12-07] MEDS: VANCOMYCIN INJ 1,250 MG in SODIUM CHLORIDE 0.9% 250ML 250 ML IV SCH (16:49)
[2017-12-07] MEDS ORDERED: INSULIN GLARGINE SOLOSTAR 100 UNITS/ML 3 ML PEN SC SCH (21:00)
[2017-12-07] MEDS: LATANOPROST 0.005% OP SOLN 2.5 ML BTL OPB SCH (21:22)
[2017-12-07] MEDS: SIMVASTATIN 40 MG TAB PO SCH (21:23)
[2017-12-07] MEDS: INSULIN GLARGINE SOLOSTAR 100 UNITS/ML 3 ML PEN SC SCH (21:26)
[2017-12-07] MEDS ORDERED: LORAZEPAM 0.5 MG TAB PO PRN (23:15)
[2017-12-08] VITALS (9 sets, daily range): BP systolic 90–113; BP diastolic 39–62; PULSE 53–64; TEMP 36.5–37.3; O2SAT 92–100
[2017-12-08] MEDS: LEVOTHYROXINE 125 MCG TAB PO SCH (06:11)
[2017-12-08 07:46] LABS: HEMATOCRIT 27.3 % (37-47); HEMOGLOBIN 8.4 g/dL (12.0-16.0); MEAN CELL VOLUME 79.8 fL (80-100); MEAN CORPUSCULAR HEMOGLOBIN 24.6 pg (25-34); MEAN CORPUSCULAR HGB CONC 30.8 g/dl (32-36); MEAN PLATELET VOLUME 9.6 fL (7.4-10.4); NUCLEATED RED BLOOD CELL ABS 0.03 K/uL (0-0); PLATELET COUNT 168 K/uL (130-400); RED CELL DISTRIBUTION WIDTH CV 16.5 % (11.5-14.5); RED CELL DISTRIBUTION WIDTH SD 47.7 fL (36.4-46.3); WHITE BLOOD COUNT 4.57 K/uL (4.8-10.8)
[2017-12-08 07:55] LABS: INR 3.2 (0.9-1.1)
[2017-12-08] MEDS: ASPIRIN 81 MG ECTAB PO SCH (08:16)
[2017-12-08] MEDS: CITALOPRAM 20 MG TAB PO SCH (08:16)
[2017-12-08] MEDS: METOPROLOL TARTRATE 25 MG TAB PO SCH ×2 (08:17→21:20)
[2017-12-08] MEDS: FLECAINIDE ACETATE 100 MG TAB PO SCH (08:18)
[2017-12-08 08:22] LABS: CALCIUM 8.6 mg/dl (8.5-10.1); CREATININE 0.8 mg/dl (0.60-1.20); POTASSIUM 3.6 mmol/L (3.5-5.1)
[2017-12-08] MEDS: INSULIN ASPART 100 UNITS/ML 3 ML PEN SC SCH ×4 (08:45→21:29)
[2017-12-08] MEDS ORDERED: VANCOMYCIN TROUGH ONE (09:30)
--- NOTE | 2017-12-08 09:38 | Progress Note ---
Internal Med Progress Note Date of Service: Dec 08, 2017. Provider Documentation: SUBJECTIVE: Seen and examined at bedside No new complaints Denies chest pain, SOB, dizziness Denies any bleeding issues OBJECTIVE: Vital Signs-as noted below Physical Exam: General Appearance:Moderately built and nourished, no apparent distress Head: normocephalic, Atraumatic Eyes: normal inspection, EOMI, PERRL Neck: supple, Trachea midline Respiratory/Chest: Normal breath sounds, CTA Cardiovascular: S1, S2, No murmur Abdomen/GI:Soft, Non tender, Bowel sounds present Extremities/Musculoskelatal:normal inspection, 1+ b/l edema Neurologic/Psych:AAOX3, grossly no focal neurological deficits Skin: normal color, warm Lab data as noted below. ASSESSMENT & PLAN: Staph.aureus Bacteremia (POA): Blood Cultures X2: Staph.aureus PCR flu negative Stool for C.diff negative CXR:No acute process Continue Vancomycin Day # 3 Appreciate ID Input ECHO:as below Repeat Blood cultures: pending consider ISABELLE if persistence of bacteremia NSTEMI: Troponin trended down ECHO: No wall motion abnormality Continue Aspirin, Statin, Metoprolol Planned to weaned off Flecainide Appreciate Cardiology Input INR:4.4>>3.2 Patient preferred conservative management first over Cath on 12/06 Planned for Stress test as outpatient P.Afib: Continue Metoprolol Also on Flecainide Coumadin on hold as INR supratherapeutic Monitor INR:3.2 today Plan to resume Coumadin when appropriate DM II: continue ISS, lantus hold metformin H/O 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 Received stress dose hydrocortisone Po Cortef resumed today Hypothyroidism: recently levothyroxine dose increased by Endocrine TSH:low Free T4: normal continue levothyroxine 125mcg daily Needs follow up with Endocrinology as outpatient upon DC Recurrent LE rash: Currently rash resolved 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 There is mild concentric left ventricular hypertrophy. No regional wall motion abnormalities noted. Ejection Fraction = 55-60%. The right ventricle is normal in size and function. The left atrium is mildly dilated. There is mild mitral annular calcification. Diastolic dysfunction, Grade II (pseudonormalization pattern). There is trace tricuspid regurgitation. The calculated pulmonary artery systolic pressure =36 mm Hg (upper limit of normal). Vital Signs: Date Time Temp Pulse Resp B/P (MAP) Pulse Ox O2 Delivery O2 Flow Rate FiO2 12/08/17 08:18 36.5 60 18 111/62 (78) 100 Room Air 12/08/17 04:00 Room Air 12/08/17 03:38 36.5 61 18 103/56 (72) 92 Room Air 12/08/17 00:00 Room Air 12/07/17 23:40 36.8 59 17 114/59 (77) 97 Room Air 12/07/17 20:23 36.9 57 20 98/46 (63) 97 Room Air 12/07/17 20:00 97 Room Air 12/07/17 16:44 Room Air 12/07/17 16:10 36.9 59 16 118/53 (74) 97 Room Air 12/07/17 16:00 97 Room Air 12/07/17 12:10 94 Room Air 12/07/17 12:04 36.8 59 20 115/99 (104) 97 Room Air 12/07/17 11:33 Room Air 12/07/17 10:36 Room Air Lab Results: Results Past 24 Hours Test 12/07/17 11:00 12/07/17 17:07 12/07/17 21:20 12/08/17 06:47 Range/Units Bedside Glucose 269 171 173 103 70-90 mg/dl Test 12/08/17 07:23 Range/Units White Blood Count 4.57 4.8-10.8 K/uL Red Blood Count 3.42 4.2-5.4 M/uL Hemoglobin 8.4 12.0-16.0 g/dL Hematocrit 27.3 37-47 % Mean Corpuscular Volume 79.8 80-100 fL Mean Corpuscular Hemoglobin 24.6 25-34 pg Mean Corpuscular Hemoglobin Concent 30.8 32-36 g/dl RDW Standard Deviation 47.7 36.4-46.3 fL RDW Coefficient of Variation 16.5 11.5-14.5 % Platelet Count 168 130-400 K/uL Mean Platelet Volume 9.6 7.4-10.4 fL Nucleated RBC Absolute Count (auto) 0.03 0-0 K/uL Nucleated Red Blood Cells % 0.6 % Prothrombin Time 32.6 9.0-12.0 SECONDS Prothromb Time International Ratio 3.2 0.9-1.1 Sodium Level 140 136-145 mmol/L Potassium Level 3.6 3.5-5.1 mmol/L Chloride Level 107 98-107 mmol/L Carbon Dioxide Level 25 21-32 mmol/L Anion Gap 8.0 3-11 mmol/L Blood Urea Nitrogen 23 7-18 mg/dl Creatinine 0.80 0.60-1.20 mg/dl Est Creatinine Clear Calc Drug Dose 66.4 ml/min Estimated GFR () 84.8 Estimated GFR (Non- 73.1 BUN/Creatinine Ratio 28.0 10-20 Random Glucose 77 70-99 mg/dl Calcium Level 8.6 8.5-10.1 mg/dl Microbiology Results 12/08/17 Blood Culture, Received Pending 12/08/17 Blood Culture, Received Pending
[2017-12-08] MEDS ORDERED: HYDROCORTISONE 10 MG TAB PO ONE (09:45)
[2017-12-08] MEDS: VANCOMYCIN INJ 1,250 MG in SODIUM CHLORIDE 0.9% 250ML 250 ML IV SCH (10:21)
[2017-12-08 10:35] LABS: RETIC COUNT % 2.1 % (0.5-2.0)
--- NOTE | 2017-12-08 10:44 | Cardiology Follow-Up ---
Subjective General Date of Service: Dec 08, 2017. Chief Complaint: follow up elevation of troponin, fever , h/o PAF Pt evaluation today including: conversation w/ patient, physical exam History of Present Illness The patient is a 72 year old female seen in cardiology follow up. Patient is feeling well. Afebrile. Denies chest pain. Allergies Coded Allergies: Iodinated Diagnostic Agents (Verified Allergy, Intermediate, RASH, 12/07/17 ) Sulfa Antibiotics (Verified Allergy, Intermediate, HIVES, 12/07/17) Ciprofloxacin (Verified Adverse Reaction, Mild, VOMITING, 12/07/17) Social History Smoking Status: Never Smoker Hx Tobacco Use In Past Year?: No Hx Alcohol Use - Type And Amou: No Hx Substance Use - Type And Am: No Problem List Medical Problems: (1) ACS (acute coronary syndrome) Status: Acute (2) Anemia Status: Acute (3) Dehydration Status: Acute (4) Supratherapeutic INR Status: Acute (5) Vomiting and diarrhea Status: Acute Physical Exam Vital Signs Last Vital Signs Documentation Date Time Temp Pulse Resp B/P (MAP) Pulse Ox O2 Delivery O2 Flow Rate FiO2 12/08/17 10:37 Room Air 12/08/17 08:18 36.5 60 18 111/62 (78) 100 Physical Exam Constitutional: Level of Distress: NAD Head: atraumatic Neck: supple Lungs: Auscultation: no wheezing, no rales/crackles, no rhonchi Cardiovascular: Heart Auscultation: normal S1, normal S2, no murmurs, no rubs Abdomen: Inspection & Palpation: soft, non-distended Extremities: no cyanosis, no edema Neurologic: Gait & Station: pertinent finding (no focal deficits ) Assessment and Plan Assessment and Plan Impression: 72-year-old female 1. Sepsis, acute febrile illness, with blood cultures revealing Staphylococcus Aureus bacteremia -fevers improved. Subjectively improved. -No valvular vegetation within scope of TTE capability. -source likely recent recurrent leg lesions. 2. NSTEMI -suspect Type II , supply demand mismatch event given presentation, normal resting wall motion, and lack of ongoing anginal symptoms rather that acute intracoronary plaque rupture. 3. h/o PAF, currently in SR -coagulopathy, likely due to coumadin prehospital / sepsis 4. Radiographic contrast allergy 5. Past intolerance to the antihistamine, Benadryl, change in mental status, agitation Recommendations: Proceed with supportive care for infection, on vancomycin. If developed persistent culture positive bacteremia, would have low threshold for ISABELLE, but at present , clinical improvement noted and ISABELLE not indicated. INR trending down. Continue to hold coumadin. Even though pt's presentation does not suggest acute intracoronary plaque rupture, given elevated troponin, possible CAD, LVH on echo have been weaning flecainide. Will stop flecainide after am dose 12/08. No ventricular ectopy noted. AF has been stable since is occurred at time of pituitary surgery in 2011. Transition metoprolol succinate to tartrate, and increase dose from 50 mg BID to 75 mg BID to make up for reduced flecainide. Continue ASA and simvastatin. I discussed option of proceeding with invasive cardiac catheterization this admission with patient when I met her on 12/06. Patient initially favored conservative therapy with stress testing, but she states that she may be open to proceeding with cardiac catheterization this admission. In the meantime however, persistent mild anemia has been present with Hgb 8.4 g/dl and low MCV. Will proceed with iron studies , heme test stool. Recommend pt remains in hospital on telemetry. Laboratory Results Last 24 Hours Test 12/07/17 11:00 12/07/17 17:07 12/07/17 21:20 12/08/17 06:47 Bedside Glucose 269 mg/dl 171 mg/dl 173 mg/dl 103 mg/dl Test 12/08/17 07:23 12/08/17 09:25 12/08/17 10:03 12/08/17 10:22 White Blood Count 4.57 K/uL Red Blood Count 3.42 M/uL Hemoglobin 8.4 g/dL Hematocrit 27.3 % Mean Corpuscular Volume 79.8 fL Mean Corpuscular Hemoglobin 24.6 pg Mean Corpuscular Hemoglobin Concent 30.8 g/dl RDW Standard Deviation 47.7 fL RDW Coefficient of Variation 16.5 % Platelet Count 168 K/uL Mean Platelet Volume 9.6 fL Nucleated RBC Absolute Count (auto) 0.03 K/uL Nucleated Red Blood Cells % 0.6 % Prothrombin Time 32.6 SECONDS Prothromb Time International Ratio 3.2 Sodium Level 140 mmol/L Potassium Level 3.6 mmol/L Chloride Level 107 mmol/L Carbon Dioxide Level 25 mmol/L Anion Gap 8.0 mmol/L Blood Urea Nitrogen 23 mg/dl Creatinine 0.80 mg/dl Est Creatinine Clear Calc Drug Dose 66.4 ml/min Estimated GFR () 84.8 Estimated GFR (Non- 73.1 BUN/Creatinine Ratio 28.0 Random Glucose 77 mg/dl Calcium Level 8.6 mg/dl Vancomycin Level Trough 11.2 mcg/ml Transferrin % Saturation % Absolute Reticulocyte Count 0.08 10^6/uL Percent Reticulocyte Count 2.1 %
--- NOTE | 2017-12-08 10:50 | Infectious Disease Progress Nt ---
Progress Note Date of Service Dec 08, 2017. Subjective Pt evaluation today including: conversation w/ patient, physical exam, chart review, lab review, review of studies, conversation w/ information systems consultant, review of inpatient medication list Patient offers no new complaints today. Denies chest pain. Remains afebrile. No sensitivities as yet for Staph aureus isolate. Follow-up blood cultures are pending. All Other Systems: Reviewed and Negative Medications Current Inpatient Medications Medications (Trade) Dose Ordered Sig/Gerald Route Start Time Stop Time Status Last Admin Dose Admin Citalopram Hydrobromide (celeXA TAB) 20 mg QAM PO 12/06/17 09:00 01/05/18 08:59 12/08/17 08:16 20 MG Glipizide (Glucotrol Tab) 5 mg BIDM PO 12/06/17 07:30 01/05/18 07:29 12/08/17 08:16 5 MG Latanoprost (Xalatan Oph Soln) 1 drops HS OPB 12/06/17 21:00 01/05/18 20:59 12/07/17 21:22 1 DROPS Levothyroxine Sodium (Synthroid Tab) 125 mcg DAILYBB PO 12/06/17 06:00 01/05/18 05:59 12/08/17 06:11 125 MCG Simvastatin (Zocor Tab) 40 mg QPM PO 12/06/17 21:00 01/05/18 20:59 12/07/17 21:23 40 MG Insulin Glargine (Lantus Solostar Pen) 60 units HS SC 12/06/17 21:00 01/05/18 20:59 12/07/17 21:26 60 UNITS Glucose (Glucose 40% Gel) 15-30 GRAMS 15 GRAMS... UD PRN PO 12/06/17 02:30 01/05/18 02:29 Glucose (Glucose Chew Tab) 4-8 Tablets 4 Tabl... UD PRN PO 12/06/17 02:30 01/05/18 02:29 Dextrose (Dextrose 50% 50ML Syringe) 25-50ML OF 50% DW IV FOR... UD PRN IV 12/06/17 02:30 01/05/18 02:29 Glucagon (Glucagon Inj) 1 mg UD PRN SQ 12/06/17 02:30 2/28/18 02:29 Ondansetron HCl (Zofran Inj) 4 mg Q6H PRN IV 12/06/17 03:00 01/05/18 02:59 12/06/17 03:09 4 MG Acetaminophen (Tylenol Tab) 1,000 mg Q8H PRN PO 12/06/17 04:15 01/05/18 04:14 12/06/17 19:49 1,000 MG Aspirin (Ecotrin Tab) 81 mg QAM PO 12/07/17 09:00 01/06/18 08:59 12/08/17 08:16 81 MG Miscellaneous Information (Consult) 1 ea UD PRN N/A 12/06/17 21:30 01/05/18 21:29 Insulin Aspart (novoLOG ASPART) SLIDING SCALE G... ACHS SC 12/06/17 23:00 01/05/18 22:59 12/08/17 08:45 3 UNITS Vancomycin HCl 1250 mg/Sodium Chloride 275 ml @ 125 mls/hr Q18H IV 12/07/17 16:00 12/21/17 15:59 12/08/17 10:21 125 MLS/HR Metoprolol Tartrate (Lopressor Tab) 75 mg BID PO 12/07/17 10:00 01/06/18 09:59 12/08/17 08:17 75 MG Lorazepam (Ativan Tab) 0.5 mg HS PRN PO 12/07/17 23:15 01/06/18 23:14 Hydrocortisone (Cortef Tab) 10 mg QAM PO 12/09/17 08:00 01/08/18 07:59 Hydrocortisone (Cortef Tab) 5 mg DAILY@1500 PO 12/08/17 15:00 01/07/18 14:59 Objective Vital Signs Date Time Temp Pulse Resp B/P (MAP) Pulse Ox O2 Delivery O2 Flow Rate FiO2 12/08/17 10:37 Room Air 12/08/17 08:18 36.5 60 18 111/62 (78) 100 Room Air 12/08/17 08:01 94 Room Air 12/08/17 04:00 Room Air 12/08/17 03:38 36.5 61 18 103/56 (72) 92 Room Air 12/08/17 00:00 Room Air 12/07/17 23:40 36.8 59 17 114/59 (77) 97 Room Air 12/07/17 20:23 36.9 57 20 98/46 (63) 97 Room Air 12/07/17 20:00 97 Room Air 12/07/17 16:44 Room Air 12/07/17 16:10 36.9 59 16 118/53 (74) 97 Room Air 12/07/17 16:00 97 Room Air 12/07/17 12:10 94 Room Air 12/07/17 12:04 36.8 59 20 115/99 (104) 97 Room Air 12/07/17 11:33 Room Air Physical Exam General Appearance: WD/WN, no apparent distress Eyes: normal inspection, EOMI, sclerae normal ENT: normal ENT inspection, hearing grossly normal, pharynx normal Neck: supple, no adenopathy, thyroid normal, trachea midline Respiratory/Chest: chest non-tender, lungs clear, normal breath sounds, no respiratory distress Cardiovascular: regular rate, rhythm, no gallop, no murmur Abdomen: normal bowel sounds, non tender, soft, no organomegaly Extremities: non-tender, no calf tenderness, normal capillary refill Neurologic/Psychiatric: alert, oriented x 3 Skin: normal color, no rash Lymphatic: no adenopathy Laboratory Results RUN DATE: 12/07/17 [facility] PAGE 1 RUN TIME: 1053 Specimen Inquiry PATIENT: GILBERT MCCULLOUGH LOC: Danny U # : [id number] AGE/SX: 72/F ROOM: [facility] REG : 12/06/[address]: Braulio Cannon MD : [id number] BED: 1 DIS : STATUS: ADM IN TLOC: SPEC #: [id number] EDOUARD: 12/05/17 STATUS: RES REQ #: [id number] RECD: 12/05/[address]: Rasta Fine M.D. SOURCE: BLOOD ENTR: 12/05/[address]: Paula Kaur, Assigned [facility]: ORDERED: BLOOD CULTURE Procedure Result Verified Site BLD CULT Preliminary 12/07/17-1053 Organism 1 STAPHYLOCOCCUS AUREUS SENS SENSITIVITY TO FOLLOW Phoned Positive Blood Culture Gram Stain Report to CARLITO FUENTES on 12/06/17 At 1649 By JENA. Results were verbalized back to JENA. Last 24 Hours Test 12/07/17 11:00 12/07/17 17:07 12/07/17 21:20 12/08/17 06:47 Bedside Glucose 269 mg/dl 171 mg/dl 173 mg/dl 103 mg/dl Test 12/08/17 07:23 12/08/17 09:25 12/08/17 10:03 12/08/17 10:22 White Blood Count 4.57 K/uL Red Blood Count 3.42 M/uL Hemoglobin 8.4 g/dL Hematocrit 27.3 % Mean Corpuscular Volume 79.8 fL Mean Corpuscular Hemoglobin 24.6 pg Mean Corpuscular Hemoglobin Concent 30.8 g/dl RDW Standard Deviation 47.7 fL RDW Coefficient of Variation 16.5 % Platelet Count 168 K/uL Mean Platelet Volume 9.6 fL Nucleated RBC Absolute Count (auto) 0.03 K/uL Nucleated Red Blood Cells % 0.6 % Prothrombin Time 32.6 SECONDS Prothromb Time International Ratio 3.2 Sodium Level 140 mmol/L Potassium Level 3.6 mmol/L Chloride Level 107 mmol/L Carbon Dioxide Level 25 mmol/L Anion Gap 8.0 mmol/L Blood Urea Nitrogen 23 mg/dl Creatinine 0.80 mg/dl Est Creatinine Clear Calc Drug Dose 66.4 ml/min Estimated GFR () 84.8 Estimated GFR (Non- 73.1 BUN/Creatinine Ratio 28.0 Random Glucose 77 mg/dl Calcium Level 8.6 mg/dl Vancomycin Level Trough 11.2 mcg/ml Transferrin % Saturation % Absolute Reticulocyte Count 0.08 10^6/uL Percent Reticulocyte Count 2.1 % Assessment and Plan 72-year-old female with pituitary insufficiency on replacement therapy, recurrent lower extremity rash in erythema, possible diagnosis of vasculitis, now with Staph aureus bacteremia and possible acute coronary event. It is possible that origin as Staph is her lower extremity infection, as no other localizing signs or symptoms noted. No obvious evidence of endocarditis on transthoracic echocardiogram. Patient should be continued on IV vancomycin pending final sensitivity data. Suspect patient will require 2 weeks of IV antibiotic therapy. Will follow.
[2017-12-08] MEDS: CEFAZOLIN IV 2,000 MG in SYRINGE 0 ML IV SCH ×2 (14:21→21:31)
[2017-12-08] MEDS: HYDROCORTISONE 10 MG TAB PO SCH (15:34)
[2017-12-08] MEDS: LATANOPROST 0.005% OP SOLN 2.5 ML BTL OPB SCH (21:18)
[2017-12-08] MEDS: SIMVASTATIN 40 MG TAB PO SCH (21:20)
[2017-12-08] MEDS: INSULIN GLARGINE SOLOSTAR 100 UNITS/ML 3 ML PEN SC SCH (21:22)
[2017-12-09] VITALS (8 sets, daily range): BP systolic 98–133; BP diastolic 48–87; PULSE 58–113; TEMP 36.7–37.5; O2SAT 96–100; BMI 36.9
[2017-12-09] MEDS ORDERED: VANCOMYCIN TROUGH ONE ×2 (03:30→09:30)
[2017-12-09] MEDS: LEVOTHYROXINE 125 MCG TAB PO SCH (04:48)
[2017-12-09 06:03] LABS: HEMATOCRIT 28.2 % (37-47); HEMOGLOBIN 8.6 g/dL (12.0-16.0); MEAN CELL VOLUME 79.9 fL (80-100); MEAN CORPUSCULAR HEMOGLOBIN 24.4 pg (25-34); MEAN CORPUSCULAR HGB CONC 30.5 g/dl (32-36); MEAN PLATELET VOLUME 9.7 fL (7.4-10.4); NUCLEATED RED BLOOD CELL ABS 0.06 K/uL (0-0); PLATELET COUNT 184 K/uL (130-400); RED CELL DISTRIBUTION WIDTH SD 48.6 fL (36.4-46.3); WHITE BLOOD COUNT 7.18 K/uL (4.8-10.8)
[2017-12-09 06:37] LABS: CALCIUM 8.1 mg/dl (8.5-10.1); CREATININE 0.83 mg/dl (0.60-1.20); POTASSIUM 3.3 mmol/L (3.5-5.1)
[2017-12-09] MEDS: CEFAZOLIN IV 2,000 MG in SYRINGE 0 ML IV SCH ×3 (06:43→22:05)
[2017-12-09 06:44] LABS: INR 1.9 (0.9-1.1)
[2017-12-09] MEDS: INSULIN ASPART 100 UNITS/ML 3 ML PEN SC SCH ×4 (07:00→21:19)
[2017-12-09] MEDS ORDERED: POTASSIUM CHLORIDE 20 MEQ TABCR PO STA (07:57)
[2017-12-09] MEDS: METOPROLOL TARTRATE 25 MG TAB PO SCH ×2 (08:35→21:15)
[2017-12-09] MEDS: CITALOPRAM 20 MG TAB PO SCH (08:35)
[2017-12-09] MEDS: ASPIRIN 81 MG ECTAB PO SCH (08:35)
[2017-12-09] MEDS: POTASSIUM CHLR 10 MEQ / WTR 10 MEQ in PREMIXED WATER 100 ML IV SCH ×2 (08:36→09:30)
[2017-12-09] MEDS: HYDROCORTISONE 10 MG TAB PO SCH ×3 (08:36→13:58)
[2017-12-09] MEDS ORDERED: METOPROLOL TARTRATE 1 MG/ML VIAL IV PRN (08:45)
--- NOTE | 2017-12-09 08:49 | Progress Note ---
Internal Med Progress Note Date of Service: Dec 09, 2017. Provider Documentation: SUBJECTIVE: Seen and examined at bedside Patient had hypoglycemia and was in Afib RVR this morning Reports palpitations Denies chest pain, SOB, dizziness, nausea No other complaints OBJECTIVE: Vital Signs-as noted below Physical Exam: General Appearance:Moderately built and nourished, no apparent distress Head: normocephalic, Atraumatic Eyes: normal inspection, EOMI, PERRL Neck: supple, Trachea midline Respiratory/Chest: Normal breath sounds, CTA Cardiovascular: Irregularly irregular, No murmur Abdomen/GI:Soft, Non tender, Bowel sounds present Extremities/Musculoskelatal:normal inspection, 1+ b/l edema Neurologic/Psych:AAOX3, grossly no focal neurological deficits Skin: normal color, warm Lab data as noted below. ASSESSMENT & PLAN: Staph.aureus Bacteremia (POA): Blood Cultures X2: Staph.aureus PCR flu negative Stool for C.diff negative CXR:No acute process Continue Vancomycin Day # 2>>>Cefazolin Day # 2 Appreciate ID Input ECHO:as below Repeat Blood cultures: pending consider ISABELLE if persistence of bacteremia NSTEMI: Troponin trended down ECHO: No wall motion abnormality Continue Aspirin, Statin, Metoprolol Planned to weaned off Flecainide Appreciate Cardiology Input INR:4.4>>3.2>>1.9 Patient preferred conservative management first over Cath on 12/06 Planned for Stress test as outpatient P.Afib: Continue Metoprolol Lopressor PRN Flecainide discontinued Coumadin was initially held due to supratherapeutic INR Monitor INR:1.9 today Resume Coumadin today DM II: continue ISS, lantus hold metformin, glipizide monitor BG levels H/O 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 There is mild concentric left ventricular hypertrophy. No regional wall motion abnormalities noted. Ejection Fraction = 55-60%. The right ventricle is normal in size and function. The left atrium is mildly dilated. There is mild mitral annular calcification. Diastolic dysfunction, Grade II (pseudonormalization pattern). There is trace tricuspid regurgitation. The calculated pulmonary artery systolic pressure =36 mm Hg (upper limit of normal). Vital Signs: Date Time Temp Pulse Resp B/P (MAP) Pulse Ox O2 Delivery O2 Flow Rate FiO2 12/09/17 07:22 36.8 113 20 115/87 (96) 100 Room Air 12/09/17 04:21 36.7 58 19 133/54 (80) 96 Room Air 12/09/17 04:00 Room Air 12/09/17 00:32 37.4 59 19 101/51 (68) 97 Room Air 12/09/17 00:00 Room Air 12/08/17 20:51 37.3 64 22 113/39 (63) 97 Room Air 12/08/17 20:00 97 Room Air 12/08/17 16:25 37.1 61 22 105/47 (66) 96 Room Air 12/08/17 16:00 96 Room Air 12/08/17 12:01 94 Room Air 12/08/17 11:15 37.1 53 20 90/52 (65) Room Air 12/08/17 10:37 Room Air Lab Results: Results Past 24 Hours Test 12/08/17 09:25 12/08/17 10:22 12/08/17 11:07 12/08/17 16:36 Range/Units Vancomycin Level Trough 11.2 SEE COMMENT mcg/ml Absolute Reticulocyte Count 0.08 0.02-0.10 10^6/uL Percent Reticulocyte Count 2.1 0.5-2.0 % Iron Level 24 35-150 mcg/dl Total Iron Binding Capacity 323 250-450 mcg/dl Transferrin 257 200-360 mg/dl Transferrin % Saturation 7 15-50 % Ferritin 63.9 8.0-388.0 ng/ml Vitamin B12 Level 517 211-911 pg/mL Folate 14.61 >5.38 ng/mL Bedside Glucose 195 124 70-90 mg/dl Test 12/08/17 20:34 12/09/17 05:36 12/09/17 06:55 Range/Units Bedside Glucose 164 67 70-90 mg/dl White Blood Count 7.18 4.8-10.8 K/uL Red Blood Count 3.53 4.2-5.4 M/uL Hemoglobin 8.6 12.0-16.0 g/dL Hematocrit 28.2 37-47 % Mean Corpuscular Volume 79.9 80-100 fL Mean Corpuscular Hemoglobin 24.4 25-34 pg Mean Corpuscular Hemoglobin Concent 30.5 32-36 g/dl RDW Standard Deviation 48.6 36.4-46.3 fL RDW Coefficient of Variation 17.0 11.5-14.5 % Platelet Count 184 130-400 K/uL Mean Platelet Volume 9.7 7.4-10.4 fL Nucleated RBC Absolute Count (auto) 0.06 0-0 K/uL Nucleated Red Blood Cells % 0.8 % Prothrombin Time 20.2 9.0-12.0 SECONDS Prothromb Time International Ratio 1.9 0.9-1.1 Sodium Level 137 136-145 mmol/L Potassium Level 3.3 3.5-5.1 mmol/L Chloride Level 105 98-107 mmol/L Carbon Dioxide Level 26 21-32 mmol/L Anion Gap 6.0 3-11 mmol/L Blood Urea Nitrogen 22 7-18 mg/dl Creatinine 0.83 0.60-1.20 mg/dl Est Creatinine Clear Calc Drug Dose 64.0 ml/min Estimated GFR () 81.1 Estimated GFR (Non- 70.0 BUN/Creatinine Ratio 26.5 10-20 Random Glucose 50 70-99 mg/dl Calcium Level 8.1 8.5-10.1 mg/dl Magnesium Level 2.1 1.8-2.4 mg/dl
[2017-12-09] MEDS: FERROUS SULFATE 325 MG TAB PO SCH (09:00)
[2017-12-09] MEDS ORDERED: AMIODARONE IV BOLUS / DRIP IV STA (09:44)
[2017-12-09] MEDS ORDERED: IRON COMPLEX POLYSACCHARIDE W/VIT C 150 MG CAP PO ONE (09:48)
--- NOTE | 2017-12-09 09:58 | Cardiology Follow-Up ---
Subjective General Date of Service: Dec 09, 2017. Chief Complaint: follow up elevation of troponin, fever , h/o PAF Pt evaluation today including: conversation w/ patient, physical exam History of Present Illness The patient is a 72 year old female seen in cardiology follow-up. Morning hours this morning she developed heavy perspiration. She was found to have multiple low glucose levels down to the range of 50 mg/dL. She was received dextrose, juice, and breakfast and is feeling better at present with improved glucose levels. At 640 this morning there was no acute change in her cardiac rhythm, and now atrial fibrillation with a rate of 120-126 bpm with right bundle branch block morphology is present. I ordered a bedside EKG which confirmed the diagnosis of atrial fibrillation. Allergies Coded Allergies: Iodinated Diagnostic Agents (Verified Allergy, Intermediate, RASH, 12/07/17 ) Sulfa Antibiotics (Verified Allergy, Intermediate, HIVES, 12/07/17) Ciprofloxacin (Verified Adverse Reaction, Mild, VOMITING, 12/07/17) Social History Smoking Status: Never Smoker Hx Tobacco Use In Past Year?: No Hx Alcohol Use - Type And Amou: No Hx Substance Use - Type And Am: No Problem List Medical Problems: (1) ACS (acute coronary syndrome) Status: Acute (2) Anemia Status: Acute (3) Dehydration Status: Acute (4) Supratherapeutic INR Status: Acute (5) Vomiting and diarrhea Status: Acute Physical Exam Vital Signs Last Vital Signs Documentation Date Time Temp Pulse Resp B/P (MAP) Pulse Ox O2 Delivery O2 Flow Rate FiO2 12/09/17 07:22 36.8 113 20 115/87 (96) 100 Room Air Physical Exam Constitutional: Level of Distress: NAD Head: atraumatic Neck: supple Lungs: Auscultation: no wheezing, no rales/crackles, no rhonchi Cardiovascular: Heart Auscultation: normal S1, normal S2, no murmurs, no rubs, tachycardia, irregular rate rhythm Abdomen: Inspection & Palpation: soft, non-distended Extremities: no cyanosis, no edema Neurologic: Gait & Station: pertinent finding (no focal deficits ) Assessment and Plan Assessment and Plan EKG performed this morning 12/09/17 reviewed independently, atrial fibrillation with rate of 100-126 bpm, inferior T-wave inversion, perhaps due to underlying right bundle branch block versus ischemia. Impression: 72-year-old female 1. Sepsis, acute febrile illness, with blood cultures revealing Staphylococcus Aureus bacteremia -fevers improved. Symptoms subjectively improved. -No valvular vegetation within scope of TTE capability. -source likely recent recurrent leg lesions. 2. NSTEMI -suspect Type II , supply demand mismatch event given presentation, normal resting wall motion, and lack of ongoing anginal symptoms rather that acute intracoronary plaque rupture. 3. h/o PAF, converted to atrial fibrillation mildly elevated ventricular rate, 6 :40 AM 12/09/17 -coagulopathy, likely due to coumadin prehospital / sepsis , INR down to 1.9-12/09 after having held Coumadin and administered a dose of vitamin K. 4. Radiographic contrast allergy 5. Past intolerance to the antihistamine, Benadryl, change in mental status, agitation 6. Microcytic anemia, iron indices consistent with iron deficiency. Patient denies any gross blood in her stool. Hemoccult testing is pending. Recommendations: Proceed with supportive care for infection, on vancomycin. Repeat cultures are negative thus far. Sensitivities come back. Await infectious disease input regarding tapering antibiotic therapy. If developed persistent culture positive bacteremia, would have low threshold for ISABELLE, but at present , clinical improvement noted and ISABELLE not indicated. The patient previously been on low-dose flecainide plus metoprolol plus Coumadin having had episodes of paroxysmal atrial fibrillation at that time for transsphenoidal pituitary tumor resection in 2011. Her atrial fibrillation has been seemingly quiescent since then. I weaned her flecainide given concerns of elevated troponin underlying structural heart disease including mild left ventricular hypertrophy, and now she has developed recurrent atrial fibrillation the setting of sepsis and hypoglycemia. Her ejection fraction was normal regional wall motion abnormalities. At present , will continue her oral metoprolol and add IV amiodarone for acute rhythm control. Her INR is 1.9 today. Will give her dose of Coumadin today. Her INR has otherwise been therapeutic or even above goal I think it is reasonable to proceed with antiarrhythmic therapy. Her clinical presentation would suggest this was a type II ischemic event in the setting of fever of 102F, staph aureus bacteremia. Although she is improved from a infectious standpoint, she does have a microcytic anemia with hemoglobin in the mid 8 range and is now developed atrial fibrillation as well as hypoglycemia this morning. At present, I think we should delay her ischemic workup until these other issues are addressed. Her only episode of angina to place prior to presentation to the hospital, lasted 1.5 hours, and has not occurred again. Check daily INR. Regarding screening test prior to amiodarone initiation. She does have a history of thyroid dysfunction leading to her pituitary surgery. Her levothyroxine dosage recently been increased as an outpatient due to concerns of hypothyroidism, but most recent blood work in the hospital revealed a low TSH , and therefore her thyroid replacement is being adjusted by the hospitalist team. We will have to proceed with close monitoring for thyroid function given amiodarone use, but I think at present is still the best medication for her in the short term. Laboratory Results Last 24 Hours Test 12/08/17 10:22 12/08/17 11:07 12/08/17 16:36 12/08/17 20:34 Absolute Reticulocyte Count 0.08 10^6/uL Percent Reticulocyte Count 2.1 % Iron Level 24 mcg/dl Total Iron Binding Capacity 323 mcg/dl Transferrin 257 mg/dl Transferrin % Saturation 7 % Ferritin 63.9 ng/ml Vitamin B12 Level 517 pg/mL Folate 14.61 ng/mL Bedside Glucose 195 mg/dl 124 mg/dl 164 mg/dl Test 12/09/17 05:36 12/09/17 06:55 12/09/17 08:30 White Blood Count 7.18 K/uL Red Blood Count 3.53 M/uL Hemoglobin 8.6 g/dL Hematocrit 28.2 % Mean Corpuscular Volume 79.9 fL Mean Corpuscular Hemoglobin 24.4 pg Mean Corpuscular Hemoglobin Concent 30.5 g/dl RDW Standard Deviation 48.6 fL RDW Coefficient of Variation 17.0 % Platelet Count 184 K/uL Mean Platelet Volume 9.7 fL Nucleated RBC Absolute Count (auto) 0.06 K/uL Nucleated Red Blood Cells % 0.8 % Prothrombin Time 20.2 SECONDS Prothromb Time International Ratio 1.9 Sodium Level 137 mmol/L Potassium Level 3.3 mmol/L Chloride Level 105 mmol/L Carbon Dioxide Level 26 mmol/L Anion Gap 6.0 mmol/L Blood Urea Nitrogen 22 mg/dl Creatinine 0.83 mg/dl Est Creatinine Clear Calc Drug Dose 64.0 ml/min Estimated GFR () 81.1 Estimated GFR (Non- 70.0 BUN/Creatinine Ratio 26.5 Random Glucose 50 mg/dl Calcium Level 8.1 mg/dl Magnesium Level 2.1 mg/dl Bedside Glucose 67 mg/dl 124 mg/dl
[2017-12-09] MEDS ORDERED: AMIODARONE / D5W 100 ML IV SCH (10:00)
[2017-12-09] MEDS ORDERED: AMIODARONE / D5W 200 ML IV SCH (10:10)
[2017-12-09] MEDS: AMIODARONE / D5W 200 ML IV SCH (16:46)
[2017-12-09] MEDS: WARFARIN SOD 5 MG TAB PO SCH (16:51)
[2017-12-09] MEDS: LATANOPROST 0.005% OP SOLN 2.5 ML BTL OPB SCH (21:14)
[2017-12-09] MEDS: IRON COMPLEX POLYSACCHARIDE W/VIT C 150 MG CAP PO SCH (21:15)
[2017-12-09] MEDS: SIMVASTATIN 10 MG TAB PO SCH (21:15)
[2017-12-09] MEDS: INSULIN GLARGINE SOLOSTAR 100 UNITS/ML 3 ML PEN SC SCH (21:18)
[2017-12-10] VITALS (10 sets, daily range): BP systolic 100–137; BP diastolic 41–65; PULSE 63–78; TEMP 36.9–37.7; O2SAT 95–98; Ht 160 cm; Wt 91.0 kg
[2017-12-10] MEDS ORDERED: VANCOMYCIN TROUGH ONE (03:30)
[2017-12-10] MEDS: ACETAMINOPHEN 500 MG TAB PO PRN ×2 (04:17→22:35)
[2017-12-10] MEDS: AMIODARONE / D5W 200 ML IV SCH (04:20)
[2017-12-10] MEDS: LEVOTHYROXINE 125 MCG TAB PO SCH (06:17)
[2017-12-10] MEDS: CEFAZOLIN IV 2,000 MG in SYRINGE 0 ML IV SCH ×3 (06:17→22:35)
[2017-12-10] MEDS: INSULIN ASPART 100 UNITS/ML 3 ML PEN SC SCH ×4 (07:00→21:37)
[2017-12-10 07:25] LABS: HEMATOCRIT 28.6 % (37-47); HEMOGLOBIN 8.7 g/dL (12.0-16.0)
[2017-12-10 07:32] LABS: INR 1.5 (0.9-1.1)
[2017-12-10] MEDS: HYDROCORTISONE 10 MG TAB PO SCH ×2 (08:12→14:17)
[2017-12-10] MEDS: CITALOPRAM 20 MG TAB PO SCH (08:12)
[2017-12-10] MEDS: ASPIRIN 81 MG ECTAB PO SCH (08:13)
[2017-12-10] MEDS: FERROUS SULFATE 325 MG TAB PO SCH (08:13)
[2017-12-10] MEDS: IRON COMPLEX POLYSACCHARIDE W/VIT C 150 MG CAP PO SCH ×2 (08:13→21:31)
[2017-12-10] MEDS: METOPROLOL TARTRATE 25 MG TAB PO SCH (08:13)
[2017-12-10 08:19] LABS: CALCIUM 8.3 mg/dl (8.5-10.1); CREATININE 1.03 mg/dl (0.60-1.20); POTASSIUM 3.8 mmol/L (3.5-5.1)
--- NOTE | 2017-12-10 09:30 | Progress Note ---
Internal Med Progress Note Date of Service: Dec 10, 2017. Provider Documentation: SUBJECTIVE: Seen and examined at bedside Converted to Sinus Amiodarone ggt transitioned to po Had an Hypoglycemic episode this morning Denies chest pain, SOB, dizziness, nausea No other complaints OBJECTIVE: Vital Signs-as noted below Physical Exam: General Appearance:Moderately built and nourished, no apparent distress Head: normocephalic, Atraumatic Eyes: normal inspection, EOMI, PERRL Neck: supple, Trachea midline Respiratory/Chest: Normal breath sounds, CTA Cardiovascular: S1, S2, No murmur Abdomen/GI:Soft, Non tender, Bowel sounds present Extremities/Musculoskelatal:normal inspection, 1+ b/l edema Neurologic/Psych:AAOX3, grossly no focal neurological deficits Skin: normal color, warm Lab data as noted below. ASSESSMENT & PLAN: Staph.aureus Bacteremia (POA): Blood Cultures X2: Staph.aureus PCR flu negative Stool for C.diff negative CXR:No acute process Continue Vancomycin Day # 2>>>Cefazolin Day # 3 Appreciate ID Input ECHO:as below Repeat Blood cultures:No growth to date ISABELLE not indicated currently NSTEMI: Troponin trended down ECHO: No wall motion abnormality Continue Aspirin, Statin, Metoprolol Appreciate Cardiology Input Patient preferred conservative management first over Cath on 12/06 Planned for Stress test as outpatient P.Afib: Continue Metoprolol Flecainide discontinued Continue Amiodarone per cardiology INR:4.4>>3.2>>1.9>>>1.5 Coumadin was initially held due to supratherapeutic INR Monitor INR:1.5 today Continue Coumadin DM II: continue ISS, lantus hold metformin, glipizide monitor BG levels Pharmacy Glycemic control consult Lantus dose adjusted given hypoglycemic episodes H/O 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 There is mild concentric left ventricular hypertrophy. No regional wall motion abnormalities noted. Ejection Fraction = 55-60%. The right ventricle is normal in size and function. The left atrium is mildly dilated. There is mild mitral annular calcification. Diastolic dysfunction, Grade II (pseudonormalization pattern). There is trace tricuspid regurgitation. The calculated pulmonary artery systolic pressure =36 mm Hg (upper limit of normal). Vital Signs: Date Time Temp Pulse Resp B/P (MAP) Pulse Ox O2 Delivery O2 Flow Rate FiO2 12/10/17 08:01 98 Room Air 12/10/17 07:53 36.9 78 20 100/47 (64) 97 Room Air 12/10/17 04:30 37.1 69 28 132/65 (87) 98 Room Air 12/10/17 04:00 Room Air 12/10/17 01:03 37.2 63 17 103/57 (72) 98 Room Air 12/10/17 00:00 Room Air 12/09/17 20:55 37.2 67 22 111/48 (69) 98 Room Air 12/09/17 20:00 98 Room Air 12/09/17 16:00 96 Room Air 12/09/17 15:56 37.5 63 24 98/52 (67) 96 Room Air 12/09/17 12:30 37.5 58 20 105/55 (72) 99 Room Air 12/09/17 12:00 Room Air Lab Results: Results Past 24 Hours Test 12/09/17 11:21 12/09/17 16:08 12/09/17 21:12 12/10/17 06:26 Range/Units Bedside Glucose 210 152 142 56 70-90 mg/dl Test 12/10/17 06:45 12/10/17 06:56 Range/Units Bedside Glucose 76 70-90 mg/dl Hemoglobin 8.7 12.0-16.0 g/dL Hematocrit 28.6 37-47 % Prothrombin Time 15.5 9.0-12.0 SECONDS Prothromb Time International Ratio 1.5 0.9-1.1 Sodium Level 137 136-145 mmol/L Potassium Level 3.8 3.5-5.1 mmol/L Chloride Level 103 98-107 mmol/L Carbon Dioxide Level 26 21-32 mmol/L Anion Gap 7.0 3-11 mmol/L Blood Urea Nitrogen 19 7-18 mg/dl Creatinine 1.03 0.60-1.20 mg/dl Est Creatinine Clear Calc Drug Dose 52.7 ml/min Estimated GFR () 62.5 Estimated GFR (Non- 53.9 BUN/Creatinine Ratio 18.4 10-20 Random Glucose 83 70-99 mg/dl Calcium Level 8.3 8.5-10.1 mg/dl Magnesium Level 2.1 1.8-2.4 mg/dl
[2017-12-10] MEDS ORDERED: AMIODARONE 200 MG TAB PO ONE (09:44)
[2017-12-10] MEDS ORDERED: PHARMACY GLYCEMIC MGMT CONSULT PRN (09:59)
--- NOTE | 2017-12-10 11:06 | Pharmacy Progress Note ---
Glycemic Control Intl Consult Date of Service Dec 10, 2017. Scope Glycemic Pharmacist consulted by Dr Cannon on 12/10/17 for glycemic control and to write orders per [facility] inpatient glycemic control protocol Objective Weight (Kilograms): 93.000 Accuchecks BSG (last 24hrs): Test 12/09/17 11:21 12/09/17 16:08 12/09/17 21:12 12/10/17 06:26 Bedside Glucose 210 mg/dl (70-90) 152 mg/dl (70-90) 142 mg/dl (70-90) 56 mg/dl (70-90) Test 12/10/17 06:45 12/10/17 06:56 Bedside Glucose 76 mg/dl (70-90) Random Glucose 83 mg/dl (70-99) Laboratory Data (last 24hrs) Test 12/10/17 06:56 Anion Gap 7.0 mmol/L BUN/Creatinine Ratio 18.4 Blood Urea Nitrogen 19 mg/dl Creatinine 1.03 mg/dl Potassium Level 3.8 mmol/L Sodium Level 137 mmol/L Recent Pertinent Medications Outpatient Anti-diabetic Regimen: * Lantus 60 units HS * Glipizide 5mg PO BID * Metformin 1g PO BID * A1c = 10 % 03/11/17 - new A1c ordered with AM labs The patient is currently receiving: * Basal insulin: Lantus 60 units every 24 hours * Correctional Insulin: Novolog Correction per scale ACHS Goal Range: Low 110 mg/dL - High 140 mg/dL Correction Factor: 25 mg/dL/unit * Prandial insulin: Per carb ratio of 1 unit per 15 grams CHO consumed * Oral Agents: on hold Risk Factors for Insulin Resistance: * Steroids: Hydrocortisone 10mg po QAM 5mg po daily at 1500 - this is a home medication * Infection: staph aureus bacteremia - Ancef * Diet: Type 2 DM Assessment & Plan ASSESSMENT: * 72 year old uncontrolled type 2 diabetic admitted with staph aureus bacteremia , experiencing hypoglycemia as inpatient * Will start by reducing Lantus dose based on BSG and loosening CF and CR to prevent hypoglycemia and titrate to goal PLAN FOR INPATIENT GLYCEMIC CONTROL: * Holding outpatient oral diabetes medications * DECREASE Basal insulin with LANTUS SQ HS * 0 units for BSG < 110mg/dl * 20 units for BSG 110-160mg/dl * 40 units for BSG > 160mg/dl * LOOSEN: Correctional Insulin with NOVOLOG per scale ACHS or Q6hrs while NPO * Goal Range: Low 110 mg/dL - High 140 mg/dL * Correction Factor: 40 mg/dL/unit * Nutritional / Prandial insulin per carb ratio of 1 unit per 20 grams CHO consumed * Please note that the plan above was derived based on current level of insulin resistance and hospital stress. These recommendations are appropriate for inpatient admission only. Plan of care upon discharge will need to be reassessed to avoid potential outpatient hypo/hyperglycemia. Thank you.
--- NOTE | 2017-12-10 12:05 | Cardiology Follow-Up ---
Subjective General Date of Service: Dec 10, 2017. Chief Complaint: follow up elevation of troponin, fever , h/o PAF Pt evaluation today including: conversation w/ patient, physical exam, chart review, lab review, review of studies, conversation w/ market consultant, review of inpatient medication list History of Present Illness Patient feeling ok this AM. Feels tired but denies other acute complaints. SOB improved. Cough improving. No chest pain. NO orthopnea, PND or edema. No sense of palpitations or tachypalpitations. Telemetry reviewed: She converted to normal sinus rhythm approximately 11:00 a.m. yesterday, 12/09/17 Allergies Coded Allergies: Iodinated Diagnostic Agents (Verified Allergy, Intermediate, RASH, 12/07/17 ) Sulfa Antibiotics (Verified Allergy, Intermediate, HIVES, 12/07/17) Ciprofloxacin (Verified Adverse Reaction, Mild, VOMITING, 12/07/17) Social History Smoking Status: Never Smoker Hx Tobacco Use In Past Year?: No Hx Alcohol Use - Type And Amou: No Hx Substance Use - Type And Am: No Problem List Medical Problems: (1) ACS (acute coronary syndrome) Status: Acute (2) Anemia Status: Acute (3) Dehydration Status: Acute (4) Supratherapeutic INR Status: Acute (5) Vomiting and diarrhea Status: Acute Review of Systems Respiratory: No cough, No sputum, No wheezing, No shortness of breath, No dyspnea at rest, No hemoptysis Cardiac: No chest pain, No orthopnea, No PND, No edema, No palpitations Physical Exam Vital Signs Last Vital Signs Documentation Date Time Temp Pulse Resp B/P (MAP) Pulse Ox O2 Delivery O2 Flow Rate FiO2 12/10/17 08:01 98 Room Air 12/10/17 07:53 36.9 78 20 100/47 (64) Physical Exam Constitutional: General Apperance: overweight Level of Distress: NAD, chronically ill Head: atraumatic Neck: supple Lungs: Auscultation: no wheezing, no rales/crackles, no rhonchi Cardiovascular: Heart Auscultation: RRR, normal S1, normal S2, no murmurs, no rubs Abdomen: Inspection & Palpation: soft, non-distended Extremities: no cyanosis, no edema Neurologic: Gait & Station: pertinent finding (no focal deficits ) Assessment and Plan Assessment and Plan Impression: 72-year-old female 1. Sepsis, acute febrile illness, with blood cultures revealing Staphylococcus Aureus bacteremia -fevers improved. Symptoms subjectively improved. -No valvular vegetation within scope of TTE capability. -source likely recent recurrent leg lesions. -possible PICC line placement today 2. NSTEMI -suspect Type II , supply demand mismatch event given presentation, normal resting wall motion, and lack of ongoing anginal symptoms rather that acute intracoronary plaque rupture. 3. h/o PAF, converted to atrial fibrillation mildly elevated ventricular rate, 6 :40 AM 12/09/17, converting back to NSR approx 11:00 AM on 12/09/2017. -coagulopathy, likely due to coumadin prehospital / sepsis , INR down to 1.5 today. Need to determine when PICC line is to be placed and dose Coumadin appropriately 4. Radiographic contrast allergy 5. Past intolerance to the antihistamine, Benadryl, change in mental status, agitation 6. Microcytic anemia, iron indices consistent with iron deficiency. Patient denies any gross blood in her stool. Hemoccult testing is pending. Recommendations: Proceed with supportive care for infection, on cefazolin Repeat cultures are negative Await infectious disease input regarding tapering antibiotic therapy. Possible PICC line placement today. No indication for ISABELLE at this time. Patient converted to NSR yesterday on amiodarone gtt. D/C gtt and transition to oral amiodarone 200 mg BID. Reduce metoprolol to 50 mg BID. EKG in AM to monitor QT/Qtc. Continue Coumadin. INR 1.5 today. PICC line to be placed while INR lower. Consider future outpatient stress test vs inpatient cath pending on remainder of hospital course. Case discussed with Dr. Mcclendon. Will follow. CARDIOLOGY ATTENDING ADDENDUM: The patient was seen and personally examined. Agree with Amy Flanagan PA-C's findings and plans as documented above. Reducing medications today. The patient is otherwise stable. Laboratory Results Last 24 Hours Test 12/09/17 16:08 12/09/17 21:12 12/10/17 06:26 12/10/17 06:45 Bedside Glucose 152 mg/dl 142 mg/dl 56 mg/dl 76 mg/dl Test 12/10/17 06:56 Hemoglobin 8.7 g/dL Hematocrit 28.6 % Prothrombin Time 15.5 SECONDS Prothromb Time International Ratio 1.5 Sodium Level 137 mmol/L Potassium Level 3.8 mmol/L Chloride Level 103 mmol/L Carbon Dioxide Level 26 mmol/L Anion Gap 7.0 mmol/L Blood Urea Nitrogen 19 mg/dl Creatinine 1.03 mg/dl Est Creatinine Clear Calc Drug Dose 52.7 ml/min Estimated GFR () 62.5 Estimated GFR (Non- 53.9 BUN/Creatinine Ratio 18.4 Random Glucose 83 mg/dl Calcium Level 8.3 mg/dl Magnesium Level 2.1 mg/dl
[2017-12-10] MEDS ORDERED: PROMETHAZINE HCL INJ 12.5 MG in SODIUM CHLORIDE 0.9% 50ML 50 ML IV PRN (12:45)
--- NOTE | 2017-12-10 13:02 | Rheumatology Consultation ---
Rheumatology Consultation Date of Consultation: Dec 10, 2017. Reason for Consultation: Evaluation of the leukocytoclastic vasculitis History of Present Illness Patient is a 72-year-old female who is currently in the hospital for bacteremia for gram-positive cocci she is on IV antibiotics Prior to the admission she has had 5 years of an intermittent rash on her legs, this rash goes from her knees to her ankles. The rash is red . It starts as small little red areas then they seem to bland together. They are not painful and then they resolve. They do not form pustules they are not raised. Patient does not remember having of an had any other localizing symptoms at this time when she gets the rash. There has been no change in medication there has not been no change in local environment or products that she uses. 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 She was then referred to an autism teacher who could not identify any cause for the leukocytoclastic vasculitis. At that time an OLEGARIO was performed and other workup and she was told that she did not have lupus. They recommended that she see remote sensing surveyor I was consulted to determine if she has an underlying systemic vasculitis or whether this is just cutaneous vasculitis. Past Medical/Surgical History Medical History: diabetes (type 2), other (pituitary adenoma,3 ed nerve palsy left,sleep apnea) Surgical History: hysterectomy, other (anal fussure repair) Family History negative for vasculitis otherwise non contributory Social History Smoking Status: Never Smoker History of Alcohol Use: No Drug Use: none Marital Status: Housing Status: lives with family Occupation Status: retired Review of Systems Constitutional: No see HPI, No fever, No chills, No sweats, No weight loss, No weakness, No fatigue, No problem reported Eyes: No see HPI, No worsening of vision, No eye pain, No redness, No discharge , No diplopia, No problem reported ENT: No see HPI, No hearing loss, No unusual epistaxis, No nasal symptoms, No sore throat, No tinnitus, No dental problems, No trouble swallowing, No problem reported Respiratory: No see HPI, No cough, No sputum, No wheezing, No shortness of breath, No dyspnea on exertion, No dyspnea at rest, No hemoptysis, No problem reported Cardiac: No see HPI, No chest pain, No orthopnea, No PND, No edema, No claudication, No palpitations, No problem reported Abdomen: No see HPI, No pain, No nausea, No vomiting, No diarrhea, No constipation, No GI bleeding, No problem reported Heme: No see HPI, No abnormal bleeding/bruising, No clotting problems, No swollen lymph nodes, No night sweats, No problem reported Skin: + rash (She has visible discoloration on her shins and calves related to wear the vasculitis was but there is no evidence of active by vasculitis at this time.) Allergies Coded Allergies: Iodinated Diagnostic Agents (Verified Allergy, Intermediate, RASH, 12/07/17 ) Sulfa Antibiotics (Verified Allergy, Intermediate, HIVES, 12/07/17) Ciprofloxacin (Verified Adverse Reaction, Mild, VOMITING, 12/07/17) Medications Current Inpatient Medications Medications (Trade) Dose Ordered Sig/Gerald Route Start Time Stop Time Status Last Admin Dose Admin Citalopram Hydrobromide (celeXA TAB) 20 mg QAM PO 12/06/17 09:00 01/05/18 08:59 12/10/17 08:12 20 MG Glipizide (Glucotrol Tab) 5 mg BIDM PO 12/06/17 07:30 01/05/18 07:29 Future Hold 12/08/17 17:29 5 MG Latanoprost (Xalatan Oph Soln) 1 drops HS OPB 12/06/17 21:00 01/05/18 20:59 12/09/17 21:14 1 DROPS Levothyroxine Sodium (Synthroid Tab) 125 mcg DAILYBB PO 12/06/17 06:00 01/05/18 05:59 12/10/17 06:17 125 MCG Glucose (Glucose 40% Gel) 15-30 GRAMS 15 GRAMS... UD PRN PO 12/06/17 02:30 01/05/18 02:29 Glucose (Glucose Chew Tab) 4-8 Tablets 4 Tabl... UD PRN PO 12/06/17 02:30 01/05/18 02:29 Dextrose (Dextrose 50% 50ML Syringe) 25-50ML OF 50% DW IV FOR... UD PRN IV 12/06/17 02:30 01/05/18 02:29 Glucagon (Glucagon Inj) 1 mg UD PRN SQ 12/06/17 02:30 01/05/18 02:29 Acetaminophen (Tylenol Tab) 1,000 mg Q8H PRN PO 12/06/17 04:15 01/05/18 04:14 12/10/17 04:17 1,000 MG Aspirin (Ecotrin Tab) 81 mg QAM PO 12/07/17 09:00 01/06/18 08:59 12/10/17 08:13 81 MG Insulin Aspart (novoLOG ASPART) SLIDING SCALE G... ACHS SC 12/06/17 23:00 01/05/18 22:59 12/10/17 12:38 3 UNITS Lorazepam (Ativan Tab) 0.5 mg HS PRN PO 12/07/17 23:15 01/06/18 23:14 Hydrocortisone (Cortef Tab) 10 mg QAM PO 12/09/17 08:00 01/08/18 07:59 12/10/17 08:12 10 MG Hydrocortisone (Cortef Tab) 5 mg DAILY@1500 PO 12/08/17 15:00 01/07/18 14:59 12/09/17 13:58 5 MG Cefazolin Sodium 2000 mg/Syringe 15 ml @ 3.75 mls/ min Q8H IV 12/08/17 14:00 12/22/17 13:59 12/10/17 06:17 3.75 MLS/MIN Warfarin Sodium (Coumadin Tab) 5 mg DAILY@16 PO 12/09/17 16:00 01/08/18 15:59 12/09/17 16:51 5 MG Metoprolol Tartrate (Lopressor Iv) 2.5 mg Q6 PRN IV 12/09/17 08:45 01/08/18 08:44 Ferrous Sulfate (Feosol Tab) 325 mg QAM PO 12/09/17 09:00 01/08/18 08:59 12/10/17 08:13 325 MG Simvastatin (Zocor Tab) 10 mg PM PO 12/09/17 21:00 01/08/18 20:59 12/09/17 21:15 10 MG Polysaccharide Iron Complex (Niferex-150 w/ Vit C Cap) 150 mg BID PO 12/09/17 21:00 01/08/18 20:59 12/10/17 08:13 150 MG Warfarin Sodium (Coumadin Tab) 2 mg ONE ONCE PO 12/10/17 16:00 12/10/17 16:01 Miscellaneous Information (Consult Glycemic Management Pharmacy) 1 ea UD PRN N/A 12/10/17 09:59 01/09/18 09:58 Metoprolol Tartrate (Lopressor Tab) 50 mg BID PO 12/10/17 21:00 01/06/18 09:59 Amiodarone HCl (Cordarone Tab) 200 mg BID PO 12/10/17 21:00 01/09/18 20:59 Insulin Glargine (Lantus Solostar Pen) SEE PROTOCOL HS SC 12/10/17 21:00 01/09/18 20:59 Promethazine HCl 12.5 mg/Sodium Chloride 50.5 ml @ 204 mls/hr Q6H PRN IV 12/10/17 12:45 01/09/18 12:44 Physical Exam Date Time Temp Pulse Resp B/P (MAP) Pulse Ox O2 Delivery O2 Flow Rate FiO2 12/10/17 12:08 98 Room Air 12/10/17 10:59 37.1 63 20 114/63 (80) 97 Room Air 12/10/17 08:01 98 Room Air 12/10/17 07:53 36.9 78 20 100/47 (64) 97 Room Air 12/10/17 04:30 37.1 69 28 132/65 (87) 98 Room Air 12/10/17 04:00 Room Air 12/10/17 01:03 37.2 63 17 103/57 (72) 98 Room Air 12/10/17 00:00 Room Air 12/09/17 20:55 37.2 67 22 111/48 (69) 98 Room Air 12/09/17 20:00 98 Room Air 12/09/17 16:00 96 Room Air 12/09/17 15:56 37.5 63 24 98/52 (67) 96 Room Air General Appearance: WD/WN Eyes: bilateral eyes normal inspection ENT: normal ENT inspection Neck: supple, no adenopathy Respiratory: lungs clear, normal breath sounds, no respiratory distress Cardiovascular: regular rate, rhythm, no edema, no gallop Abdomen: normal bowel sounds Neurologic/Psychiatric: alert, oriented x 3 Skin: + rash (Patient has residual decoloration from her knees down from repeated episodes of leukocytoclastic vasculitis No active lesions now) Laboratory Results Last 24 Hours Test 12/09/17 16:08 12/09/17 21:12 12/10/17 06:26 12/10/17 06:45 Bedside Glucose 152 mg/dl 142 mg/dl 56 mg/dl 76 mg/dl Test 12/10/17 06:56 12/10/17 11:21 Hemoglobin 8.7 g/dL Hematocrit 28.6 % Prothrombin Time 15.5 SECONDS Prothromb Time International Ratio 1.5 Sodium Level 137 mmol/L Potassium Level 3.8 mmol/L Chloride Level 103 mmol/L Carbon Dioxide Level 26 mmol/L Anion Gap 7.0 mmol/L Blood Urea Nitrogen 19 mg/dl Creatinine 1.03 mg/dl Est Creatinine Clear Calc Drug Dose 52.7 ml/min Estimated GFR () 62.5 Estimated GFR (Non- 53.9 BUN/Creatinine Ratio 18.4 Random Glucose 83 mg/dl Calcium Level 8.3 mg/dl Magnesium Level 2.1 mg/dl Bedside Glucose 178 mg/dl Assessment & Plan Assessment & Plan: Leukocytoclastic vasculitis biopsy proven recurrent. she has had 6 episodes since 2012 painless coalescent, and then they resolve. not associated with any other localizing symptoms OLEGARIO and lupus work up was negative.Her hepatitis serologies are negative. recommend checking cryoglobulins I can follow up with the patient as an outpatient in 1 month , in the [place] office once this acute bacteremia has resolved the rash occurred prior to the bacteremia
[2017-12-10] MEDS ORDERED: WARFARIN SOD 2 MG TAB PO ONE (16:00)
[2017-12-10] MEDS: WARFARIN SOD 5 MG TAB PO SCH (17:56)
--- NOTE | 2017-12-10 19:04 | Infectious Disease Progress Nt ---
Progress Note Date of Service Dec 10, 2017. Subjective Pt evaluation today including: conversation w/ patient, physical exam, chart review, lab review, review of studies, conversation w/ strategic sourcing consultant, review of inpatient medication list Patient offers no new complaints today. Rheumatology consultation noted. Remains afebrile. No increase in shortness of breath or chest pain All Other Systems: Reviewed and Negative Medications Current Inpatient Medications Medications (Trade) Dose Ordered Sig/Gerald Route Start Time Stop Time Status Last Admin Dose Admin Citalopram Hydrobromide (celeXA TAB) 20 mg QAM PO 12/06/17 09:00 01/05/18 08:59 12/10/17 08:12 20 MG Glipizide (Glucotrol Tab) 5 mg BIDM PO 12/06/17 07:30 01/05/18 07:29 Future Hold 12/08/17 17:29 5 MG Latanoprost (Xalatan Oph Soln) 1 drops HS OPB 12/06/17 21:00 01/05/18 20:59 12/09/17 21:14 1 DROPS Levothyroxine Sodium (Synthroid Tab) 125 mcg DAILYBB PO 12/06/17 06:00 01/05/18 05:59 12/10/17 06:17 125 MCG Glucose (Glucose 40% Gel) 15-30 GRAMS 15 GRAMS... UD PRN PO 12/06/17 02:30 01/05/18 02:29 Glucose (Glucose Chew Tab) 4-8 Tablets 4 Tabl... UD PRN PO 12/06/17 02:30 01/05/18 02:29 Dextrose (Dextrose 50% 50ML Syringe) 25-50ML OF 50% DW IV FOR... UD PRN IV 12/06/17 02:30 01/05/18 02:29 Glucagon (Glucagon Inj) 1 mg UD PRN SQ 12/06/17 02:30 01/05/18 02:29 Acetaminophen (Tylenol Tab) 1,000 mg Q8H PRN PO 12/06/17 04:15 01/05/18 04:14 12/10/17 04:17 1,000 MG Aspirin (Ecotrin Tab) 81 mg QAM PO 12/07/17 09:00 01/06/18 08:59 12/10/17 08:13 81 MG Insulin Aspart (novoLOG ASPART) SLIDING SCALE G... ACHS SC 12/06/17 23:00 01/05/18 22:59 12/10/17 17:26 3 UNITS Lorazepam (Ativan Tab) 0.5 mg HS PRN PO 12/07/17 23:15 01/06/18 23:14 Hydrocortisone (Cortef Tab) 10 mg QAM PO 12/09/17 08:00 01/08/18 07:59 12/10/17 08:12 10 MG Hydrocortisone (Cortef Tab) 5 mg DAILY@1500 PO 12/08/17 15:00 01/07/18 14:59 12/10/17 14:17 5 MG Cefazolin Sodium 2000 mg/Syringe 15 ml @ 3.75 mls/ min Q8H IV 12/08/17 14:00 12/22/17 13:59 12/10/17 14:19 3.75 MLS/MIN Warfarin Sodium (Coumadin Tab) 5 mg DAILY@16 PO 12/09/17 16:00 01/08/18 15:59 12/10/17 17:56 5 MG Metoprolol Tartrate (Lopressor Iv) 2.5 mg Q6 PRN IV 12/09/17 08:45 01/08/18 08:44 Ferrous Sulfate (Feosol Tab) 325 mg QAM PO 12/09/17 09:00 01/08/18 08:59 12/10/17 08:13 325 MG Simvastatin (Zocor Tab) 10 mg PM PO 12/09/17 21:00 01/08/18 20:59 12/09/17 21:15 10 MG Polysaccharide Iron Complex (Niferex-150 w/ Vit C Cap) 150 mg BID PO 12/09/17 21:00 01/08/18 20:59 12/10/17 08:13 150 MG Miscellaneous Information (Consult Glycemic Management Pharmacy) 1 ea UD PRN N/A 12/10/17 09:59 01/09/18 09:58 Metoprolol Tartrate (Lopressor Tab) 50 mg BID PO 12/10/17 21:00 01/06/18 09:59 Amiodarone HCl (Cordarone Tab) 200 mg BID PO 12/10/17 21:00 01/09/18 20:59 Insulin Glargine (Lantus Solostar Pen) SEE PROTOCOL HS SC 12/10/17 21:00 01/09/18 20:59 Promethazine HCl 12.5 mg/Sodium Chloride 50.5 ml @ 204 mls/hr Q6H PRN IV 12/10/17 12:45 01/09/18 12:44 12/10/17 14:14 204 MLS/HR Objective Vital Signs Date Time Temp Pulse Resp B/P (MAP) Pulse Ox O2 Delivery O2 Flow Rate FiO2 12/10/17 16:01 98 Room Air 12/10/17 15:53 37.7 70 28 137/49 (78) 98 Room Air 12/10/17 12:08 98 Room Air 12/10/17 10:59 37.1 63 20 114/63 (80) 97 Room Air 12/10/17 08:01 98 Room Air 12/10/17 07:53 36.9 78 20 100/47 (64) 97 Room Air 12/10/17 04:30 37.1 69 28 132/65 (87) 98 Room Air 12/10/17 04:00 Room Air 12/10/17 01:03 37.2 63 17 103/57 (72) 98 Room Air 12/10/17 00:00 Room Air 12/09/17 20:55 37.2 67 22 111/48 (69) 98 Room Air 12/09/17 20:00 98 Room Air Physical Exam General Appearance: WD/WN, no apparent distress Eyes: normal inspection, EOMI, sclerae normal ENT: normal ENT inspection, pharynx normal Neck: supple, no adenopathy, thyroid normal, trachea midline Respiratory/Chest: chest non-tender, lungs clear, normal breath sounds, no respiratory distress Cardiovascular: regular rate, rhythm, no gallop, no murmur Abdomen: normal bowel sounds, non tender, soft, no organomegaly Extremities: non-tender, no calf tenderness, normal capillary refill Neurologic/Psychiatric: alert, oriented x 3 Skin: normal color, warm/dry Lymphatic: no adenopathy Laboratory Results RUN DATE: 12/08/17 [facility] LAB PAGE 1 RUN TIME: 1138 Specimen Inquiry PATIENT: GILBERT MCCULLOUGH LOC: Danny U # : [id number] AGE/SX: 72/F ROOM: [facility] REG : 12/06/[address]: Braulio Cannon MD : [id number] BED: 1 DIS : STATUS: ADM IN TLOC: SPEC #: [id number] EDOUARD: 12/05/17 STATUS: RES REQ #: [id number] RECD: 12/05/17 [facility] DR: Rasta Fine M.D. SOURCE: BLOOD ENTR: 12/05/[address]: Paula Kaur, Assigned SPDESC: ORDERED: BLOOD CULTURE Procedure Result Verified Site BLD CULT Preliminary 12/08/17-1138 Organism 1 STAPHYLOCOCCUS AUREUS SENS SENSITIVITY TO FOLLOW Phoned Positive Blood Culture Gram Stain Report to CARLITO FUENTES on 12/06/17 At 1649 By JENA. Results were verbalized back to JENA. 1. STAPHYLOCOCCUS AUREUS Target Route Dose RX AB Cost M.I.C. IQ ------ ----- ------ -- ------ -------- - ------ TRIMET/SULFA S <=0.5/ 9.5 * OXACILLIN S 0.5 VANCOMYCIN S 2 ERYTHROMYCIN R >4 TETRACYCLINE S <=4 CLINDAMYCIN R <=0.5 DAPTOMYCIN S 1 S = SENSITIVE I = INTERMEDIATE R = RESISTANT Last 24 Hours Test 12/09/17 21:12 12/10/17 06:26 12/10/17 06:45 12/10/17 06:56 Bedside Glucose 142 mg/dl 56 mg/dl 76 mg/dl Hemoglobin 8.7 g/dL Hematocrit 28.6 % Prothrombin Time 15.5 SECONDS Prothromb Time International Ratio 1.5 Sodium Level 137 mmol/L Potassium Level 3.8 mmol/L Chloride Level 103 mmol/L Carbon Dioxide Level 26 mmol/L Anion Gap 7.0 mmol/L Blood Urea Nitrogen 19 mg/dl Creatinine 1.03 mg/dl Est Creatinine Clear Calc Drug Dose 52.7 ml/min Estimated GFR () 62.5 Estimated GFR (Non- 53.9 BUN/Creatinine Ratio 18.4 Random Glucose 83 mg/dl Calcium Level 8.3 mg/dl Magnesium Level 2.1 mg/dl Test 12/10/17 11:21 12/10/17 16:40 Bedside Glucose 178 mg/dl 142 mg/dl Assessment and Plan 72-year-old female with pituitary insufficiency on replacement therapy, recurrent lower extremity rash in erythema, possible diagnosis of vasculitis, now with Staph aureus(MSSA) bacteremia and possible acute coronary event. It is possible that origin as Staph is her lower extremity infection, as no other localizing signs or symptoms noted. No obvious evidence of endocarditis on transthoracic echocardiogram. Patient to continue on cefazolin for now. Likely 2 weeks IV Rx. Will follow.
[2017-12-10] MEDS ORDERED: INSULIN GLARGINE SOLOSTAR 100 UNITS/ML 3 ML PEN SC SCH (21:00)
[2017-12-10] MEDS: LATANOPROST 0.005% OP SOLN 2.5 ML BTL OPB SCH (21:29)
[2017-12-10] MEDS: AMIODARONE 200 MG TAB PO SCH (21:30)
[2017-12-10] MEDS: SIMVASTATIN 10 MG TAB PO SCH (21:31)
[2017-12-10] MEDS: METOPROLOL TARTRATE 50 MG TAB PO SCH (21:32)
[2017-12-10] MEDS: INSULIN GLARGINE SOLOSTAR 100 UNITS/ML 3 ML PEN SC SCH (23:23)
[2017-12-11] MEDS ORDERED: POTASSIUM CHLORIDE 10 MEQ TABCR PO STA (02:51)
[2017-12-11 03:26] LABS: BASO % 0.4 %; BASO ABS # 0.03 K/uL (0-0.2); EOS ABS # 0.07 K/uL (0-0.5); HEMATOCRIT 31.1 % (37-47); HEMOGLOBIN 9.4 g/dL (12.0-16.0); IG# 0.18 K/uL (0.00-0.02); LYMPH % 15.8 %; LYMPH ABS # 1.13 K/uL (1.2-3.4); MEAN CELL VOLUME 79.9 fL (80-100); MEAN CORPUSCULAR HEMOGLOBIN 24.2 pg (25-34); MEAN CORPUSCULAR HGB CONC 30.2 g/dl (32-36); MEAN PLATELET VOLUME 9.8 fL (7.4-10.4); MONO ABS # 0.43 K/uL (0.11-0.59); NEUT % 74.3 %; NUCLEATED RED BLOOD CELL ABS 0.05 K/uL (0-0); PLATELET COUNT 214 K/uL (130-400); RED CELL DISTRIBUTION WIDTH CV 17.2 % (11.5-14.5); RED CELL DISTRIBUTION WIDTH SD 49.3 fL (36.4-46.3); WHITE BLOOD COUNT 7.14 K/uL (4.8-10.8)
[2017-12-11 03:34] LABS: INR 1.7 (0.9-1.1)
[2017-12-11 03:36] VITALS: BP 100/73; PULSE 90; TEMP 36.8; O2SAT 97
[2017-12-11 03:43] LABS: CALCIUM 8.9 mg/dl (8.5-10.1); CREATININE 0.94 mg/dl (0.60-1.20); POTASSIUM 4.2 mmol/L (3.5-5.1)
[2017-12-11] MEDS: CEFAZOLIN IV 2,000 MG in SYRINGE 0 ML IV SCH ×3 (06:03→21:33)
[2017-12-11] MEDS: LEVOTHYROXINE 125 MCG TAB PO SCH (06:04)
[2017-12-11 07:41] LABS: HEMOGLOBIN A1C 6.9 % (4.5-5.6)
[2017-12-11 07:54] VITALS: BP 126/70; PULSE 72; TEMP 37.4; O2SAT 98
[2017-12-11] MEDS: CITALOPRAM 20 MG TAB PO SCH (08:03)
[2017-12-11] MEDS: IRON COMPLEX POLYSACCHARIDE W/VIT C 150 MG CAP PO SCH ×2 (08:03→21:36)
[2017-12-11] MEDS: FERROUS SULFATE 325 MG TAB PO SCH (08:03)
[2017-12-11] MEDS: ASPIRIN 81 MG ECTAB PO SCH (08:03)
[2017-12-11] MEDS: HYDROCORTISONE 10 MG TAB PO SCH ×2 (08:04→16:23)
[2017-12-11] MEDS: METOPROLOL TARTRATE 50 MG TAB PO SCH ×2 (08:04→21:36)
[2017-12-11] MEDS: AMIODARONE 200 MG TAB PO SCH ×2 (08:04→21:35)
[2017-12-11] MEDS: INSULIN ASPART 100 UNITS/ML 3 ML PEN SC SCH ×4 (08:09→21:46)
--- NOTE | 2017-12-11 09:29 | Progress Note ---
Internal Med Progress Note Date of Service: Dec 11, 2017. Provider Documentation: SUBJECTIVE: Seen and examined at bedside Feels tired Requests to change Cortef to be given at 6:00 AM Denies chest pain, SOB, dizziness, nausea No other complaints Had PICC placed yesterday OBJECTIVE: Vital Signs-as noted below Physical Exam: General Appearance:Moderately built and nourished, no apparent distress Head: normocephalic, Atraumatic Eyes: normal inspection, EOMI, PERRL Neck: supple, Trachea midline Respiratory/Chest: Normal breath sounds, CTA Cardiovascular: S1, S2, No murmur Abdomen/GI:Soft, Non tender, Bowel sounds present Extremities/Musculoskelatal:normal inspection, 1+ b/l edema Neurologic/Psych:AAOX3, grossly no focal neurological deficits Skin: normal color, warm Lab data as noted below. ASSESSMENT & PLAN: Staph.aureus Bacteremia (POA): Blood Cultures X2: MSSA PCR flu negative Stool for C.diff negative CXR:No acute process Continue Vancomycin Day # 2>>>Cefazolin Day # 4 (Needs 2 weeks Abx) Appreciate ID Input ECHO:as below Repeat Blood cultures:No growth to date ISABELLE not indicated currently PICC line placed on 12/10/17 Needs Home Health NSTEMI: Troponin trended down ECHO: No wall motion abnormality Continue Aspirin, Statin, Metoprolol Appreciate Cardiology Input Patient preferred conservative management first over Cath on 12/06 Planned for Stress test as outpatient P.Afib: Continue Metoprolol Flecainide discontinued Continue Amiodarone per cardiology INR:4.4>>3.2>>1.9>>>1.5>>1.7 Coumadin was initially held due to supratherapeutic INR Monitor INR:1.7 today Continue Coumadin DM II: A1C:6.9 continue ISS, lantus hold metformin, glipizide monitor BG levels Pharmacy Glycemic control consult Lantus dose adjusted given hypoglycemic episodes H/O 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 Received stress dose hydrocortisone Continue Po Cortef Hypothyroidism: recently levothyroxine dose increased by Endocrine TSH:low Free T4: normal continue levothyroxine 125mcg daily Needs follow up with Endocrinology as outpatient upon DC Leukocytoclastic vasculitis H/O recurrent LE rash: Currently rash resolved Recent Skin Biopsy:Pathology suggestive of Leukocytoclastic Vasculitis Appreciate Rheumatology Input OLEGARIO, lupus, Hepatitis negative Cryoglobulins pending Needs follow up with Rheumatology Dr.Susan James in 1 month as outpatient at [place] office DVT Px: on Coumadin Code Status: Full Code Disposition: Monitor in Telemetry PROCEDURES: ECHO: Sinus rhythm was present during the echocardiogram. There is mild concentric left ventricular hypertrophy. No regional wall motion abnormalities noted. Ejection Fraction = 55-60%. The right ventricle is normal in size and function. The left atrium is mildly dilated. There is mild mitral annular calcification. Diastolic dysfunction, Grade II (pseudonormalization pattern). There is trace tricuspid regurgitation. The calculated pulmonary artery systolic pressure =36 mm Hg (upper limit of normal). Vital Signs: Date Time Temp Pulse Resp B/P (MAP) Pulse Ox O2 Delivery O2 Flow Rate FiO2 12/11/17 07:54 37.4 72 20 126/70 (88) 98 Room Air 12/11/17 07:45 Room Air 12/11/17 04:00 Room Air 12/11/17 03:36 36.8 90 17 100/73 (82) 97 Room Air 12/11/17 00:00 Room Air 12/10/17 23:35 37.5 63 17 103/41 (61) 95 Room Air 12/10/17 20:00 Room Air 12/10/17 19:28 37.3 74 23 130/55 (80) 96 Room Air 12/10/17 16:01 98 Room Air 12/10/17 15:53 37.7 70 28 137/49 (78) 98 Room Air 12/10/17 12:08 98 Room Air 12/10/17 10:59 37.1 63 20 114/63 (80) 97 Room Air Lab Results: Results Past 24 Hours Test 12/10/17 11:21 12/10/17 16:40 12/10/17 20:27 12/11/17 02:01 Range/Units Bedside Glucose 178 142 146 137 70-90 mg/dl Test 12/11/17 03:06 12/11/17 05:55 12/11/17 06:49 Range/Units White Blood Count 7.14 4.8-10.8 K/uL Red Blood Count 3.89 4.2-5.4 M/uL Hemoglobin 9.4 12.0-16.0 g/dL Hematocrit 31.1 37-47 % Mean Corpuscular Volume 79.9 80-100 fL Mean Corpuscular Hemoglobin 24.2 25-34 pg Mean Corpuscular Hemoglobin Concent 30.2 32-36 g/dl Platelet Count 214 130-400 K/uL Mean Platelet Volume 9.8 7.4-10.4 fL Neutrophils (%) (Auto) 74.3 % Lymphocytes (%) (Auto) 15.8 % Monocytes (%) (Auto) 6.0 % Eosinophils (%) (Auto) 1.0 % Basophils (%) (Auto) 0.4 % Neutrophils # (Auto) 5.30 1.4-6.5 K/uL Lymphocytes # (Auto) 1.13 1.2-3.4 K/uL Monocytes # (Auto) 0.43 0.11-0.59 K/uL Eosinophils # (Auto) 0.07 0-0.5 K/uL Basophils # (Auto) 0.03 0-0.2 K/uL RDW Standard Deviation 49.3 36.4-46.3 fL RDW Coefficient of Variation 17.2 11.5-14.5 % Immature Granulocyte % (Auto) 2.5 % Immature Granulocyte # (Auto) 0.18 0.00-0.02 K/uL Nucleated RBC Absolute Count (auto) 0.05 0-0 K/uL Nucleated Red Blood Cells % 0.7 % Prothrombin Time 17.4 9.0-12.0 SECONDS Prothromb Time International Ratio 1.7 0.9-1.1 Sodium Level 138 136-145 mmol/L Potassium Level 4.2 3.5-5.1 mmol/L Chloride Level 103 98-107 mmol/L Carbon Dioxide Level 30 21-32 mmol/L Anion Gap 5.0 3-11 mmol/L Blood Urea Nitrogen 18 7-18 mg/dl Creatinine 0.94 0.60-1.20 mg/dl Est Creatinine Clear Calc Drug Dose 57.7 ml/min Estimated GFR () 69.8 Estimated GFR (Non- 60.2 BUN/Creatinine Ratio 18.8 10-20 Random Glucose 97 70-99 mg/dl Estimated Average Glucose 151 mg/dl Hemoglobin A1c 6.9 4.5-5.6 % Calcium Level 8.9 8.5-10.1 mg/dl Magnesium Level 2.3 1.8-2.4 mg/dl Bedside Glucose 86 70-90 mg/dl
--- NOTE | 2017-12-11 13:00 | Cardiology Follow-Up ---
Subjective General Date of Service: Dec 11, 2017. Chief Complaint: follow up elevation of troponin, fever , h/o PAF Pt evaluation today including: conversation w/ patient, physical exam History of Present Illness The patient is a 72 year old female seen in follow up. Patient remains in SR on telemetry and EKG . No more AF since am of 12/09/17. Allergies Coded Allergies: Iodinated Diagnostic Agents (Verified Allergy, Intermediate, RASH, 12/07/17 ) Sulfa Antibiotics (Verified Allergy, Intermediate, HIVES, 12/07/17) Ciprofloxacin (Verified Adverse Reaction, Mild, VOMITING, 12/07/17) Social History Smoking Status: Never Smoker Hx Tobacco Use In Past Year?: No Hx Alcohol Use - Type And Amou: No Hx Substance Use - Type And Am: No Problem List Medical Problems: (1) ACS (acute coronary syndrome) Status: Acute (2) Anemia Status: Acute (3) Dehydration Status: Acute (4) Supratherapeutic INR Status: Acute (5) Vomiting and diarrhea Status: Acute Physical Exam Vital Signs Last Vital Signs Documentation Date Time Temp Pulse Resp B/P (MAP) Pulse Ox O2 Delivery O2 Flow Rate FiO2 12/11/17 07:54 37.4 72 20 126/70 (88) 98 Room Air Physical Exam Constitutional: General Apperance: overweight Level of Distress: NAD, chronically ill Head: atraumatic Neck: supple Lungs: Auscultation: no wheezing, no rales/crackles, no rhonchi Cardiovascular: Heart Auscultation: RRR, normal S1, normal S2, no murmurs, no rubs Abdomen: Inspection & Palpation: soft, non-distended Extremities: no cyanosis, no edema Neurologic: Gait & Station: pertinent finding (no focal deficits ) Assessment and Plan Assessment and Plan Impression: 72-year-old female 1. Sepsis, acute febrile illness, with blood cultures revealing MSSA bacteremia -fevers improved. Symptoms subjectively improved. -No valvular vegetation within scope of TTE capability. -source likely recent recurrent leg lesions. 2. NSTEMI -suspect Type II , supply demand mismatch event given presentation, normal resting wall motion, and lack of ongoing anginal symptoms rather that acute intracoronary plaque rupture. 3. h/o PAF, converted to atrial fibrillation mildly elevated ventricular rate, 6 :40 AM 12/09/17, then back to SR 2 hours after IV amiodrone on 12/09. 4. Radiographic contrast allergy 5. Past intolerance to the antihistamine, Benadryl, change in mental status, agitation 6. Microcytic anemia, iron indices consistent with iron deficiency. Patient denies any gross blood in her stool. Hemoccult testing is pending. 7. Pituitary insufficiency Recommendations: Continue antibiotics. Flecainide DC'd, transitioned to amiodarone and metoprolol. Back on coumadin. INR trending up compared to 12/10. Continue medication therapy for presumed underlying CAD. Simvastatin dose reduced given amiodarone therapy. Futher ischemic work up as outpt after IV antibiotics completed. Continue oral iron replacement. Laboratory Results Last 24 Hours Test 12/10/17 16:40 12/10/17 20:27 12/11/17 02:01 12/11/17 03:06 Bedside Glucose 142 mg/dl 146 mg/dl 137 mg/dl White Blood Count 7.14 K/uL Red Blood Count 3.89 M/uL Hemoglobin 9.4 g/dL Hematocrit 31.1 % Mean Corpuscular Volume 79.9 fL Mean Corpuscular Hemoglobin 24.2 pg Mean Corpuscular Hemoglobin Concent 30.2 g/dl Platelet Count 214 K/uL Mean Platelet Volume 9.8 fL Neutrophils (%) (Auto) 74.3 % Lymphocytes (%) (Auto) 15.8 % Monocytes (%) (Auto) 6.0 % Eosinophils (%) (Auto) 1.0 % Basophils (%) (Auto) 0.4 % Neutrophils # (Auto) 5.30 K/uL Lymphocytes # (Auto) 1.13 K/uL Monocytes # (Auto) 0.43 K/uL Eosinophils # (Auto) 0.07 K/uL Basophils # (Auto) 0.03 K/uL RDW Standard Deviation 49.3 fL RDW Coefficient of Variation 17.2 % Immature Granulocyte % (Auto) 2.5 % Immature Granulocyte # (Auto) 0.18 K/uL Nucleated RBC Absolute Count (auto) 0.05 K/uL Nucleated Red Blood Cells % 0.7 % Prothrombin Time 17.4 SECONDS Prothromb Time International Ratio 1.7 Sodium Level 138 mmol/L Potassium Level 4.2 mmol/L Chloride Level 103 mmol/L Carbon Dioxide Level 30 mmol/L Anion Gap 5.0 mmol/L Blood Urea Nitrogen 18 mg/dl Creatinine 0.94 mg/dl Est Creatinine Clear Calc Drug Dose 57.7 ml/min Estimated GFR () 69.8 Estimated GFR (Non- 60.2 BUN/Creatinine Ratio 18.8 Random Glucose 97 mg/dl Estimated Average Glucose 151 mg/dl Hemoglobin A1c 6.9 % Calcium Level 8.9 mg/dl Magnesium Level 2.3 mg/dl Test 12/11/17 05:55 12/11/17 06:49 12/11/17 09:40 Bedside Glucose 86 mg/dl Stool Occult Blood POSITIVE
[2017-12-11 15:40] VITALS: BP 102/58; PULSE 64; TEMP 37; O2SAT 98
[2017-12-11] MEDS: WARFARIN SOD 5 MG TAB PO SCH (16:23)
[2017-12-11] MEDS ORDERED: HEPARIN 100 UNIT/ML IV ONE (16:25)
[2017-12-11] MEDS ORDERED: FLUSH IV ONE (16:25)
[2017-12-11 19:39] VITALS: BP 109/64; PULSE 68; TEMP 37.4; O2SAT 97
[2017-12-11] MEDS: LATANOPROST 0.005% OP SOLN 2.5 ML BTL OPB SCH (21:34)
[2017-12-11] MEDS: SIMVASTATIN 10 MG TAB PO SCH (21:37)
[2017-12-11] MEDS: INSULIN GLARGINE SOLOSTAR 100 UNITS/ML 3 ML PEN SC SCH (21:43)
[2017-12-11 23:50] VITALS: BP 129/56; PULSE 64; TEMP 37.3; O2SAT 97
[2017-12-12 03:31] VITALS: BP 115/56; PULSE 67; TEMP 36.7; O2SAT 95
[2017-12-12] MEDS: CEFAZOLIN IV 2,000 MG in SYRINGE 0 ML IV SCH ×3 (05:51→22:14)
[2017-12-12] MEDS: LEVOTHYROXINE 125 MCG TAB PO SCH (05:52)
[2017-12-12] MEDS: HYDROCORTISONE 10 MG TAB PO SCH ×3 (05:52→16:55)
[2017-12-12 06:50] LABS: HEMATOCRIT 26.6 % (37-47)
[2017-12-12 07:19] LABS: CALCIUM 8.6 mg/dl (8.5-10.1); CREATININE 0.92 mg/dl (0.60-1.20); POTASSIUM 4.3 mmol/L (3.5-5.1)
[2017-12-12 07:30] VITALS: BP 115/47; PULSE 67; TEMP 37; O2SAT 97
[2017-12-12] MEDS: CITALOPRAM 20 MG TAB PO SCH (07:59)
[2017-12-12] MEDS: AMIODARONE 200 MG TAB PO SCH ×2 (07:59→22:02)
[2017-12-12] MEDS: IRON COMPLEX POLYSACCHARIDE W/VIT C 150 MG CAP PO SCH ×2 (08:00→22:01)
[2017-12-12] MEDS: METOPROLOL TARTRATE 50 MG TAB PO SCH ×2 (08:01→22:01)
[2017-12-12] MEDS: FERROUS SULFATE 325 MG TAB PO SCH (08:02)
[2017-12-12] MEDS: INSULIN ASPART 100 UNITS/ML 3 ML PEN SC SCH ×4 (08:06→22:09)
--- NOTE | 2017-12-12 08:38 | Progress Note ---
Internal Med Progress Note Date of Service: Dec 12, 2017. Provider Documentation: SUBJECTIVE: Seen and examined at bedside Reports generalized weakness Denies chest pain, SOB, dizziness, nausea Positive FOBT but patient denies any bleeding issues/melena No other complaints OBJECTIVE: Vital Signs-as noted below Physical Exam: General Appearance:Moderately built and nourished, no apparent distress Head: normocephalic, Atraumatic Eyes: normal inspection, EOMI, PERRL Neck: supple, Trachea midline Respiratory/Chest: Normal breath sounds, CTA Cardiovascular: S1, S2, No murmur Abdomen/GI:Soft, Non tender, Bowel sounds present Extremities/Musculoskelatal:normal inspection, 1+ b/l edema Neurologic/Psych:AAOX3, grossly no focal neurological deficits Skin: normal color, warm Lab data as noted below. ASSESSMENT & PLAN: Staph.aureus Bacteremia (POA): Blood Cultures X2: MSSA PCR flu negative Stool for C.diff negative CXR:No acute process Continue Vancomycin Day # 2>>>Cefazolin Day # 5 (Needs 2 weeks Abx) Appreciate ID Input ECHO:as below Repeat Blood cultures:No growth to date ISABELLE not indicated currently PICC line placed on 12/10/17 Needs Home Health NSTEMI: Troponin trended down ECHO: No wall motion abnormality Continue Aspirin, Statin, Metoprolol Appreciate Cardiology Input Patient preferred conservative management first over Cath on 12/06 Planned for Stress test as outpatient P.Afib: Continue Metoprolol Flecainide discontinued Continue Amiodarone per cardiology INR:4.4>>3.2>>1.9>>>1.5>>1.7>>2.0 Coumadin was initially held due to supratherapeutic INR Monitor INR:2.0 today Continue Coumadin Microcytic Anemia: Iron deficiency: Positive FOBT while on Aspirin and Coumadin H/O Polyps and Anal fissure per patient Patient denies any bleeding Issues Monitor Hb Patient currently not Interested in Blood transfusions Add Metamucil and stool softener Plan to hold Aspirin and Coumadin and GI eval if Hb continues to drop DM II: A1C:6.9 continue ISS, lantus hold metformin, glipizide monitor BG levels Pharmacy Glycemic control consult Lantus dose adjusted given hypoglycemic episodes H/O 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 Received stress dose hydrocortisone Continue Po Cortef Hypothyroidism: recently levothyroxine dose increased by Endocrine TSH:low Free T4: normal continue levothyroxine 125mcg daily Needs follow up with Endocrinology as outpatient upon DC Leukocytoclastic vasculitis H/O recurrent LE rash: Currently rash resolved Recent Skin Biopsy:Pathology suggestive of Leukocytoclastic Vasculitis Appreciate Rheumatology Input OLEGARIO, lupus, Hepatitis negative Cryoglobulins pending Needs follow up with Rheumatology Dr.Susan James in 1 month as outpatient at [place] office DVT Px: on Coumadin Code Status: Full Code Disposition: Monitor in Telemetry PROCEDURES: ECHO: Sinus rhythm was present during the echocardiogram. There is mild concentric left ventricular hypertrophy. No regional wall motion abnormalities noted. Ejection Fraction = 55-60%. The right ventricle is normal in size and function. The left atrium is mildly dilated. There is mild mitral annular calcification. Diastolic dysfunction, Grade II (pseudonormalization pattern). There is trace tricuspid regurgitation. The calculated pulmonary artery systolic pressure =36 mm Hg (upper limit of normal). Vital Signs: Date Time Temp Pulse Resp B/P (MAP) Pulse Ox O2 Delivery O2 Flow Rate FiO2 12/12/17 07:30 37.0 67 20 115/47 (69) 97 Room Air 12/12/17 04:00 Room Air 12/12/17 03:31 36.7 67 17 115/56 (75) 95 Room Air 12/12/17 00:00 Room Air 12/11/17 23:50 37.3 64 17 129/56 (80) 97 Room Air 12/11/17 20:00 Room Air 12/11/17 19:39 37.4 68 20 109/64 (79) 97 Room Air 12/11/17 16:00 Room Air 12/11/17 15:40 37.0 64 20 102/58 (73) 98 Room Air 12/11/17 12:00 Room Air Lab Results: Results Past 24 Hours Test 12/11/17 09:40 12/11/17 11:37 12/11/17 16:36 12/11/17 20:49 Range/Units Stool Occult Blood POSITIVE NEGATIVE Bedside Glucose 121 115 183 70-90 mg/dl Test 12/12/17 06:16 12/12/17 06:48 12/12/17 08:01 Range/Units Hemoglobin 8.0 12.0-16.0 g/dL Hematocrit 26.6 37-47 % Prothrombin Time 20.5 9.0-12.0 SECONDS Prothromb Time International Ratio 2.0 0.9-1.1 Sodium Level 136 136-145 mmol/L Potassium Level 4.3 3.5-5.1 mmol/L Chloride Level 102 98-107 mmol/L Carbon Dioxide Level 27 21-32 mmol/L Anion Gap 7.0 3-11 mmol/L Blood Urea Nitrogen 17 7-18 mg/dl Creatinine 0.92 0.60-1.20 mg/dl Est Creatinine Clear Calc Drug Dose 58.4 ml/min Estimated GFR () 71.6 Estimated GFR (Non- 61.8 BUN/Creatinine Ratio 18.5 10-20 Random Glucose 69 70-99 mg/dl Calcium Level 8.6 8.5-10.1 mg/dl Magnesium Level 2.2 1.8-2.4 mg/dl Bedside Glucose 75 70-90 mg/dl
[2017-12-12 08:39] LABS: HEMATOCRIT 27.9 % (37-47); HEMOGLOBIN 8.4 g/dL (12.0-16.0)
--- NOTE | 2017-12-12 11:35 | Pharmacy Progress Note ---
Pharmacy Glycemic Short Note 2 Date of Service Dec 12, 2017. OUTPATIENT ANTIDIABETIC REGIMEN: * Lantus 60 units HS * Glipizide 5mg PO BID * Metformin 1g PO BID Test 12/11/17 11:37 12/11/17 16:36 12/11/17 20:49 12/12/17 06:16 Bedside Glucose 121 mg/dl (70-90) 115 mg/dl (70-90) 183 mg/dl (70-90) Random Glucose 69 mg/dl (70-99) Test 12/12/17 06:48 Bedside Glucose 75 mg/dl (70-90) ASSESSMENT: * Blood sugars looking good, but did drop overnight, d/t too much basal, will reduce basal dose starting tonight and hold CR with breakfast to prevent hypoglycemia. * I will also change BSG parameters for Lantus dose so that patient does not get extra unless BSG > 180mg/dl. PLAN FOR INPATIENT GLYCEMIC CONTROL: * Holding outpatient oral diabetes medications * DECREASE Basal insulin with LANTUS SQ HS * 0 units for BSG < 110mg/dl * 30 units for BSG 110-180mg/dl * 40 units for BSG > 180mg/dl * Correctional Insulin with NOVOLOG per scale ACHS or Q6hrs while NPO - hold AM dose with breakfast * Goal Range: Low 110 mg/dL - High 140 mg/dL * Correction Factor: 40 mg/dL/unit * Nutritional / Prandial insulin per carb ratio of 1 unit per 15 grams CHO consumed PLAN FOR DISCHARGE: * A1c = 6.9% - no changes needed, unless pt is experiencing hypoglycemia as outpatient.
--- NOTE | 2017-12-12 12:00 | Cardiology Follow-Up ---
Subjective General Date of Service: Dec 12, 2017. Chief Complaint: follow up elevation of troponin, fever , h/o PAF Pt evaluation today including: conversation w/ patient, physical exam History of Present Illness The patient is a 72 year old female seen in follow up. Patient feeling well without fever, chest pain, palpitations or shortness of breath. Allergies Coded Allergies: Iodinated Diagnostic Agents (Verified Allergy, Intermediate, RASH, 12/07/17 ) Sulfa Antibiotics (Verified Allergy, Intermediate, HIVES, 12/07/17) Ciprofloxacin (Verified Adverse Reaction, Mild, VOMITING, 12/07/17) Social History Smoking Status: Never Smoker Hx Tobacco Use In Past Year?: No Hx Alcohol Use - Type And Amou: No Hx Substance Use - Type And Am: No Problem List Medical Problems: (1) ACS (acute coronary syndrome) Status: Acute (2) Anemia Status: Acute (3) Dehydration Status: Acute (4) Supratherapeutic INR Status: Acute (5) Vomiting and diarrhea Status: Acute Physical Exam Vital Signs Last Vital Signs Documentation Date Time Temp Pulse Resp B/P (MAP) Pulse Ox O2 Delivery O2 Flow Rate FiO2 12/12/17 11:11 Room Air 12/12/17 07:30 37.0 67 20 115/47 (69) 97 Physical Exam Constitutional: General Apperance: overweight Level of Distress: NAD, chronically ill Head: atraumatic Neck: supple Lungs: Auscultation: no wheezing, no rales/crackles, no rhonchi Cardiovascular: Heart Auscultation: RRR, normal S1, normal S2, no murmurs, no rubs Abdomen: Inspection & Palpation: soft, non-distended Extremities: no cyanosis, no edema Neurologic: Gait & Station: pertinent finding (no focal deficits ) Assessment and Plan Assessment and Plan Impression: 72-year-old female 1. Sepsis, acute febrile illness, with blood cultures revealing MSSA bacteremia -fevers improved. Symptoms subjectively improved. -No valvular vegetation within scope of TTE capability. -source likely recent recurrent leg lesions. 2. NSTEMI -suspect Type II , supply demand mismatch event given presentation, normal resting wall motion, and lack of ongoing anginal symptoms rather that acute intracoronary plaque rupture. 3. h/o PAF, converted to atrial fibrillation mildly elevated ventricular rate, 6 :40 AM 12/09/17, then back to SR 2 hours after IV amiodrone on 12/09. 4. Radiographic contrast allergy 5. Past intolerance to the antihistamine, Benadryl, change in mental status, agitation 6. Microcytic anemia, iron indices consistent with iron deficiency. Patient denies any gross blood in her stool. Hemoccult stool positive. 7. Pituitary insufficiency Recommendations: Continue antibiotics. Flecainide DC'd, transitioned to amiodarone and metoprolol. Had another episode of AF am of 12/11 , with spontaneous conversion to SR. Continue medication therapy for presumed underlying CAD. Simvastatin dose reduced given amiodarone therapy. Futher ischemic work up as outpt after IV antibiotics completed. Continue oral iron replacement. Has anemia, heme + stool, however no ideal time to consider endoscopy with recent bacteremia, and mild troponin elevation. She requires ASA and coumadin for [place] and stroke prevention, will continue for now. Laboratory Results Last 24 Hours Test 12/11/17 16:36 12/11/17 20:49 12/12/17 06:16 12/12/17 06:48 Bedside Glucose 115 mg/dl 183 mg/dl 75 mg/dl Hemoglobin 8.0 g/dL Hematocrit 26.6 % Prothrombin Time 20.5 SECONDS Prothromb Time International Ratio 2.0 Sodium Level 136 mmol/L Potassium Level 4.3 mmol/L Chloride Level 102 mmol/L Carbon Dioxide Level 27 mmol/L Anion Gap 7.0 mmol/L Blood Urea Nitrogen 17 mg/dl Creatinine 0.92 mg/dl Est Creatinine Clear Calc Drug Dose 58.4 ml/min Estimated GFR () 71.6 Estimated GFR (Non- 61.8 BUN/Creatinine Ratio 18.5 Random Glucose 69 mg/dl Calcium Level 8.6 mg/dl Magnesium Level 2.2 mg/dl Test 12/12/17 08:17 12/12/17 11:14 Hemoglobin 8.4 g/dL Hematocrit 27.9 % Bedside Glucose 168 mg/dl
[2017-12-12 12:03] VITALS: BP 116/53; PULSE 57; TEMP 36.9; O2SAT 96
[2017-12-12] MEDS: PSYLLIUM 58.6% PWD PACK S\\F PO SCH (12:40)
[2017-12-12] MEDS: ASPIRIN 81 MG ECTAB PO SCH (12:42)
[2017-12-12 16:11] VITALS: BP 109/64; PULSE 60; TEMP 37.1; O2SAT 98
[2017-12-12] MEDS: WARFARIN SOD 5 MG TAB PO SCH (16:54)
[2017-12-12 19:56] VITALS: BP 111/53; PULSE 65; TEMP 37.3; O2SAT 96
[2017-12-12] MEDS ORDERED: DOCUSATE SODIUM 100 MG CAP PO SCH (21:00)
[2017-12-12] MEDS: SIMVASTATIN 10 MG TAB PO SCH (21:59)
[2017-12-12] MEDS: LATANOPROST 0.005% OP SOLN 2.5 ML BTL OPB SCH (22:04)
[2017-12-12] MEDS: INSULIN GLARGINE SOLOSTAR 100 UNITS/ML 3 ML PEN SC SCH (22:08)
[2017-12-12 23:41] VITALS: BP 124/60; PULSE 58; TEMP 36.7; O2SAT 98
[2017-12-13 03:29] VITALS: BP 136/52; PULSE 62; TEMP 37; O2SAT 97
[2017-12-13] MEDS: LEVOTHYROXINE 125 MCG TAB PO SCH (06:18)
[2017-12-13] MEDS: CEFAZOLIN IV 2,000 MG in SYRINGE 0 ML IV SCH (06:20)
[2017-12-13 06:29] LABS: HEMATOCRIT 27.9 % (37-47); HEMOGLOBIN 8.4 g/dL (12.0-16.0); MEAN CELL VOLUME 80.9 fL (80-100); MEAN CORPUSCULAR HEMOGLOBIN 24.3 pg (25-34); MEAN CORPUSCULAR HGB CONC 30.1 g/dl (32-36); MEAN PLATELET VOLUME 9.7 fL (7.4-10.4); NUCLEATED RED BLOOD CELL ABS 0.03 K/uL (0-0); PLATELET COUNT 226 K/uL (130-400); RED CELL DISTRIBUTION WIDTH CV 17.1 % (11.5-14.5); RED CELL DISTRIBUTION WIDTH SD 49.9 fL (36.4-46.3); WHITE BLOOD COUNT 5.42 K/uL (4.8-10.8)
[2017-12-13 06:34] LABS: INR 2.1 (0.9-1.1)
[2017-12-13] MEDS: INSULIN ASPART 100 UNITS/ML 3 ML PEN SC SCH ×2 (07:00→11:06)
[2017-12-13 08:13] VITALS: BP 122/56; PULSE 63; TEMP 36.9; O2SAT 97
[2017-12-13] MEDS: AMIODARONE 200 MG TAB PO SCH (08:28)
[2017-12-13] MEDS: ASPIRIN 81 MG ECTAB PO SCH (08:28)
[2017-12-13] MEDS: METOPROLOL TARTRATE 50 MG TAB PO SCH (08:28)
[2017-12-13] MEDS: HYDROCORTISONE 10 MG TAB PO SCH (08:28)
[2017-12-13] MEDS: CITALOPRAM 20 MG TAB PO SCH (08:28)
[2017-12-13] MEDS: IRON COMPLEX POLYSACCHARIDE W/VIT C 150 MG CAP PO SCH (08:29)
[2017-12-13] MEDS: PSYLLIUM 58.6% PWD PACK S\\F PO SCH (08:29)
[2017-12-13] MEDS ORDERED: DAPTOMYCIN CONSULT ACTIVE SCH (10:11)
--- NOTE | 2017-12-13 10:13 | Progress Note ---
Internal Med Progress Note Date of Service: Dec 13, 2017. Provider Documentation: SUBJECTIVE: Seen and examined at bedside States feeling much better Denies chest pain, SOB, dizziness, nausea No acute bleeding issues Eager to get discharged No other complaints OBJECTIVE: Vital Signs-as noted below Physical Exam: General Appearance:Moderately built and nourished, no apparent distress Head: normocephalic, Atraumatic Eyes: normal inspection, EOMI, PERRL Neck: supple, Trachea midline Respiratory/Chest: Normal breath sounds, CTA Cardiovascular: S1, S2, No murmur Abdomen/GI:Soft, Non tender, Bowel sounds present Extremities/Musculoskelatal:normal inspection, 1+ b/l edema Neurologic/Psych:AAOX3, grossly no focal neurological deficits Skin: normal color, warm Lab data as noted below. ASSESSMENT & PLAN: Staph.aureus Bacteremia (POA): Blood Cultures X2: MSSA PCR flu negative Stool for C.diff negative CXR:No acute process Received 2 days of Vancomycin and 5 days of Cefazolin>>> switch to Daptomycin to complete 2 weeks course Appreciate ID Input (Discussed with ) ECHO:as below Repeat Blood cultures:No growth to date ISABELLE not indicated currently PICC line placed on 12/10/17 Needs Home Health NSTEMI: Likely Type II Troponin trended down ECHO: No wall motion abnormality Continue Aspirin, Metoprolol Appreciate Cardiology Input Patient preferred conservative management first over Cath on 12/06 Planned for Stress test as outpatient Zocor initially decreased in dose secondary to being started on amiodarone and since on Daptomycin, will hold it for now Plan to resume zocor as outpatient after completion of antibiotics. (Appreciate Cardiology help) P.Afib: Continue Metoprolol Flecainide discontinued Continue Amiodarone per cardiology INR:4.4>>3.2>>1.9>>>1.5>>1.7>>2.1 Coumadin was initially held due to supratherapeutic INR Monitor INR:2.1 today Continue Coumadin Microcytic Anemia: Iron deficiency: Positive FOBT while on Aspirin and Coumadin H/O Polyps and Anal fissure per patient Patient denies any bleeding Issues Monitor Hb Patient currently not Interested in Blood transfusions Add Metamucil and stool softener Advised to get Colonoscopy as outpatient DM II: A1C:6.9 continue ISS, lantus hold metformin, glipizide monitor BG levels Pharmacy Glycemic control consult Lantus dose adjusted given hypoglycemic episodes H/O 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 Received stress dose hydrocortisone Continue Po Cortef Hypothyroidism: recently levothyroxine dose increased by Endocrine TSH:low Free T4: normal continue levothyroxine 125mcg daily Needs follow up with Endocrinology as outpatient upon DC Leukocytoclastic vasculitis H/O recurrent LE rash: Currently rash resolved Recent Skin Biopsy:Pathology suggestive of Leukocytoclastic Vasculitis Appreciate Rheumatology Input OLEGARIO, lupus, Hepatitis negative Cryoglobulins pending Needs follow up with Rheumatology Dr.Susan James in 1 month as outpatient at [facility] DVT Px: on Coumadin Code Status: Full Code Disposition: Plan to discharge home today Follow up with your Primary Care Physician in 1 week Follow up with your Filing Machine Operator on at 10:45 Am and get Stress test as outpatient Follow up with Rheumatology Dr.Susan James in 4 weeks at [facility] Complete the IV antibiotics course as prescribed for 6 more days Get colonoscopy as outpatient as advised Also get Thyroid function test (TSH, Free T4) in 2 weeks and follow up with your doctor with results Follow up with Coumadin clinic for Coumadin dosing Seek immediate medical attention if your symptoms reoccur or worsen PROCEDURES: ECHO: Sinus rhythm was present during the echocardiogram. There is mild concentric left ventricular hypertrophy. No regional wall motion abnormalities noted. Ejection Fraction = 55-60%. The right ventricle is normal in size and function. The left atrium is mildly dilated. There is mild mitral annular calcification. Diastolic dysfunction, Grade II (pseudonormalization pattern). There is trace tricuspid regurgitation. The calculated pulmonary artery systolic pressure =36 mm Hg (upper limit of normal). Vital Signs: Date Time Temp Pulse Resp B/P (MAP) Pulse Ox O2 Delivery O2 Flow Rate FiO2 12/13/17 12:00 Room Air 12/13/17 11:53 36.8 54 16 118/56 (76) 97 Room Air 12/13/17 08:13 36.9 63 20 122/56 (78) 97 Room Air 12/13/17 08:00 Room Air 12/13/17 04:00 Room Air 12/13/17 03:29 37.0 62 17 136/52 (80) 97 Room Air 12/12/17 23:59 Room Air 12/12/17 23:41 36.7 58 22 124/60 (81) 98 Room Air 12/12/17 20:00 Room Air 12/12/17 19:56 37.3 65 65 111/53 (72) 96 Room Air 12/12/17 16:20 Room Air 12/12/17 16:11 37.1 60 20 109/64 (79) 98 Room Air Lab Results: Results Past 24 Hours Test 12/12/17 16:38 12/12/17 20:21 12/13/17 05:46 12/13/17 06:35 Range/Units Bedside Glucose 122 258 112 70-90 mg/dl White Blood Count 5.42 4.8-10.8 K/uL Red Blood Count 3.45 4.2-5.4 M/uL Hemoglobin 8.4 12.0-16.0 g/dL Hematocrit 27.9 37-47 % Mean Corpuscular Volume 80.9 80-100 fL Mean Corpuscular Hemoglobin 24.3 25-34 pg Mean Corpuscular Hemoglobin Concent 30.1 32-36 g/dl RDW Standard Deviation 49.9 36.4-46.3 fL RDW Coefficient of Variation 17.1 11.5-14.5 % Platelet Count 226 130-400 K/uL Mean Platelet Volume 9.7 7.4-10.4 fL Nucleated RBC Absolute Count (auto) 0.03 0-0 K/uL Nucleated Red Blood Cells % 0.5 % Prothrombin Time 22.1 9.0-12.0 SECONDS Prothromb Time International Ratio 2.1 0.9-1.1 Total Creatine Kinase 21 26-192 U/L Test 12/13/17 11:03 Range/Units Bedside Glucose 202 70-90 mg/dl
[2017-12-13] MEDS ORDERED: METO50TA16 PO (10:17)
[2017-12-13] MEDS ORDERED: ASPEC81 PO (10:17)
[2017-12-13] MEDS ORDERED: CRD200 PO (10:17)
--- NOTE | 2017-12-13 10:22 | Discharge Instructions ---
Discharge Instructions Date of Service Dec 13, 2017. Admission Reason for Admission: Flu-Like Symptoms, Nstemi, Paf Discharge Discharge Diagnosis / Problem: MSSA Bacteremia, Type II NSTEMI Discharge Goals Goal(s): Decrease discomfort, Improve function Activity Recommendations Activity Limitations: per Instructions/Follow-up section Lifting Limitations: gradually increase as tolerated Exercise/Sports Limitations: gradually increase as tolerated . Instructions / Follow-Up Instructions / Follow-Up Follow up with your Primary Care Physician in 1 week Follow up with your Chart Snatcher on at 10:45 Am and get Stress test as outpatient Follow up with Rheumatology Dr.Susan James in 4 weeks at [facility] Complete the IV antibiotics course as prescribed for 6 more days Get colonoscopy as outpatient as advised Get CPK levels in 1 week and follow up with your primary care physician Also get Thyroid function test (TSH, Free T4) in 2 weeks and follow up with your doctor with results Follow up with Coumadin clinic for Coumadin dosing Seek immediate medical attention if your symptoms reoccur or worsen Medication Changes: Your Zocor is discontinued. It will be restarted as outpatient after completion of your antibiotics Your were discontinued on Flecainide and started on amiodarone 200mg twice a day Your Metoprolol succinate is discontinued and started on Metoprolol Tartrate 50mg twice a day Also started on Aspirin 81mg daily Current Hospital Diet Patient's current hospital diet: AHA Diet (Heart Healthy), Diabetes Type 2 Diet Discharge Diet Recommended Diet: AHA Diet (Heart Healthy), Diabetes Type 2 Diet Pending Studies Studies pending at discharge: yes List of pending studies: Cryoglobulin levels Laboratory Results Hemoglobin A1c Test 12/11/17 03:06 Range/Units Estimated Average Glucose 151 mg/dl Hemoglobin A1c 6.9 H 4.5-5.6 % Medical Emergencies . Who to Call and When: Medical Emergencies: If at any time you feel your situation is an emergency, please call 911 immediately. . Non-Emergent Contact Non-Emergency issues call your: Primary Care Provider, Chart Snatcher Call Non-Emergent contact if: you have a fever, your pain is not controlled, your pain is worsening, your pain is unusual for you, your pain is concerning you, you have any medication questions If you develop any bleeding issues . . "Provider Documentation" section prepared by Braulio Cannon. . VTE Core Measure Inpt VTE Proph given/why not?: Warfarin (Coumadin)
--- NOTE | 2017-12-13 10:34 | Infectious Disease Progress Nt ---
Progress Note Date of Service Dec 13, 2017. Subjective Pt evaluation today including: conversation w/ patient, physical exam, chart review, lab review, review of studies, conversation w/ clinical program consultant, review of inpatient medication list Offers no new complaints today. Remains afebrile. No chest pain. Continues to tolerate antibiotics without apparent difficulty. Follow-up blood cultures negative. All Other Systems: Reviewed and Negative Medications Current Inpatient Medications Medications (Trade) Dose Ordered Sig/Gerald Route Start Time Stop Time Status Last Admin Dose Admin Citalopram Hydrobromide (celeXA TAB) 20 mg QAM PO 12/06/17 09:00 01/05/18 08:59 12/13/17 08:28 20 MG Glipizide (Glucotrol Tab) 5 mg BIDM PO 12/06/17 07:30 01/05/18 07:29 Future Hold 12/08/17 17:29 5 MG Latanoprost (Xalatan Oph Soln) 1 drops HS OPB 12/06/17 21:00 01/05/18 20:59 12/12/17 22:04 1 DROPS Levothyroxine Sodium (Synthroid Tab) 125 mcg DAILYBB PO 12/06/17 06:00 01/05/18 05:59 12/13/17 06:18 125 MCG Glucose (Glucose 40% Gel) 15-30 GRAMS 15 GRAMS... UD PRN PO 12/06/17 02:30 01/05/18 02:29 Glucose (Glucose Chew Tab) 4-8 Tablets 4 Tabl... UD PRN PO 12/06/17 02:30 01/05/18 02:29 Dextrose (Dextrose 50% 50ML Syringe) 25-50ML OF 50% DW IV FOR... UD PRN IV 12/06/17 02:30 01/05/18 02:29 Glucagon (Glucagon Inj) 1 mg UD PRN SQ 12/06/17 02:30 01/05/18 02:29 Acetaminophen (Tylenol Tab) 1,000 mg Q8H PRN PO 12/06/17 04:15 01/05/18 04:14 12/10/17 22:35 1,000 MG Aspirin (Ecotrin Tab) 81 mg QAM PO 12/07/17 09:00 01/06/18 08:59 12/13/17 08:28 81 MG Insulin Aspart (novoLOG ASPART) SLIDING SCALE G... ACHS SC 12/06/17 23:00 01/05/18 22:59 12/12/17 22:09 3 UNITS Lorazepam (Ativan Tab) 0.5 mg HS PRN PO 12/07/17 23:15 01/06/18 23:14 Hydrocortisone (Cortef Tab) 5 mg DAILY@1500 PO 12/08/17 15:00 01/07/18 14:59 12/12/17 16:55 5 MG Warfarin Sodium (Coumadin Tab) 5 mg DAILY@16 PO 12/09/17 16:00 01/08/18 15:59 12/12/17 16:54 5 MG Metoprolol Tartrate (Lopressor Iv) 2.5 mg Q6 PRN IV 12/09/17 08:45 01/08/18 08:44 Simvastatin (Zocor Tab) 10 mg PM PO 12/09/17 21:00 01/08/18 20:59 12/12/17 21:59 10 MG Polysaccharide Iron Complex (Niferex-150 w/ Vit C Cap) 150 mg BID PO 12/09/17 21:00 01/08/18 20:59 12/13/17 08:29 150 MG Miscellaneous Information (Consult Glycemic Management Pharmacy) 1 ea UD PRN N/A 12/10/17 09:59 01/09/18 09:58 Metoprolol Tartrate (Lopressor Tab) 50 mg BID PO 12/10/17 21:00 01/06/18 09:59 12/13/17 08:28 50 MG Amiodarone HCl (Cordarone Tab) 200 mg BID PO 12/10/17 21:00 01/09/18 20:59 12/13/17 08:28 200 MG Insulin Glargine (Lantus Solostar Pen) SEE PROTOCOL HS SC 12/10/17 21:00 01/09/18 20:59 12/12/17 22:08 40 UNITS Promethazine HCl 12.5 mg/Sodium Chloride 50.5 ml @ 204 mls/hr Q6H PRN IV 12/10/17 12:45 01/09/18 12:44 12/10/17 14:14 204 MLS/HR Hydrocortisone (Cortef Tab) 10 mg QAM PO 12/12/17 06:00 01/08/18 07:59 12/13/17 08:28 10 MG Docusate Sodium (coLACE CAP) 100 mg HS PO 12/12/17 21:00 01/11/18 20:59 Psyllium Hydrophilic Mucilloid (Metamucil Powder) 1 pkt QAM PO 12/12/17 09:00 01/11/18 08:59 12/12/17 12:40 1 PKT Daptomycin (Consult) 1 ea UD N/A 12/13/17 10:11 01/12/18 10:10 Objective Vital Signs Date Time Temp Pulse Resp B/P (MAP) Pulse Ox O2 Delivery O2 Flow Rate FiO2 12/13/17 08:13 36.9 63 20 122/56 (78) 97 Room Air 12/13/17 04:00 Room Air 12/13/17 03:29 37.0 62 17 136/52 (80) 97 Room Air 12/12/17 23:59 Room Air 12/12/17 23:41 36.7 58 22 124/60 (81) 98 Room Air 12/12/17 20:00 Room Air 12/12/17 19:56 37.3 65 65 111/53 (72) 96 Room Air 12/12/17 16:20 Room Air 12/12/17 16:11 37.1 60 20 109/64 (79) 98 Room Air 12/12/17 12:03 36.9 57 16 116/53 (74) 96 Room Air 12/12/17 11:11 Room Air Physical Exam General Appearance: WD/WN, no apparent distress Eyes: normal inspection, EOMI, sclerae normal ENT: normal ENT inspection, hearing grossly normal, pharynx normal Neck: supple, no adenopathy, thyroid normal, trachea midline Respiratory/Chest: chest non-tender, lungs clear, normal breath sounds, no respiratory distress Cardiovascular: regular rate, rhythm, no gallop, no murmur Abdomen: normal bowel sounds, non tender, soft, no organomegaly Extremities: non-tender, no pedal edema, + pedal edema Neurologic/Psychiatric: alert, normal mood/affect, oriented x 3 Skin: normal color, warm/dry, no rash Lymphatic: no adenopathy Laboratory Results RUN DATE: 12/10/17 [facility] LAB PAGE 1 RUN TIME: 821 Specimen Inquiry PATIENT: GILBERT MCCULLOUGH LOC: Danny U # : [id number] AGE/SX: 72/F ROOM: [facility] REG : 12/06/[address]: Braulio Cannon MD : [id number] BED: 1 DIS : STATUS: ADM IN TLOC: SPEC #: [id number] EDOUARD: 12/08/17 STATUS: RES REQ #: [id number] RECD: 12/08/[address]: Braulio Cannon MD SOURCE: BLOOD ENTR: 12/08/[address] [facility] [address]: Chance Carvajal MD [facility]: Laron Murphy M.D., Manabendra, M.D. Lesko, Michael G., DO ( [place]) ORDERED: BLOOD CULTURE Procedure Result Verified Site BLD CULT Preliminary 12/10/17-821 NO GROWTH TO DATE. Last 24 Hours Test 12/12/17 11:14 12/12/17 16:38 12/12/17 20:21 12/13/17 05:46 Bedside Glucose 168 mg/dl 122 mg/dl 258 mg/dl White Blood Count 5.42 K/uL Red Blood Count 3.45 M/uL Hemoglobin 8.4 g/dL Hematocrit 27.9 % Mean Corpuscular Volume 80.9 fL Mean Corpuscular Hemoglobin 24.3 pg Mean Corpuscular Hemoglobin Concent 30.1 g/dl RDW Standard Deviation 49.9 fL RDW Coefficient of Variation 17.1 % Platelet Count 226 K/uL Mean Platelet Volume 9.7 fL Nucleated RBC Absolute Count (auto) 0.03 K/uL Nucleated Red Blood Cells % 0.5 % Prothrombin Time 22.1 SECONDS Prothromb Time International Ratio 2.1 Test 12/13/17 06:35 Bedside Glucose 112 mg/dl Assessment and Plan 72-year-old female with pituitary insufficiency on replacement therapy, recurrent lower extremity rash in erythema, possible diagnosis of vasculitis, now with Staph aureus(MSSA) bacteremia and possible acute coronary event. It is possible that origin as Staph is her lower extremity infection, as no other localizing signs or symptoms noted. No obvious evidence of endocarditis on transthoracic echocardiogram. Given that patient is stable for outpatient therapy, would think that use of daptomycin 6 milligrams/kilogram daily would provide easiest outpatient therapy. Will need to follow CPK levels while on daptomycin. Will need to complete 2 weeks of IV antibiotics since no evidence of endocarditis.
[2017-12-13] MEDS ORDERED: DAPTOmycin IV 500 MG in SYRINGE 0 ML IV SCH (11:00)
[2017-12-13 11:53] VITALS: BP 118/56; PULSE 54; TEMP 36.8; O2SAT 97
--- NOTE | 2017-12-13 15:15 | Cardiology Follow-Up ---
Subjective General Date of Service: Dec 13, 2017. Chief Complaint: follow up elevation of troponin, fever , h/o PAF Pt evaluation today including: conversation w/ patient, conversation w/ family , physical exam History of Present Illness The patient is a 72 year old female seen in follow up. No additional AF on telemetry since 12/11.. SR at present. Denies chest pain or palpitations. Allergies Coded Allergies: Iodinated Diagnostic Agents (Verified Allergy, Intermediate, RASH, 12/07/17 ) Sulfa Antibiotics (Verified Allergy, Intermediate, HIVES, 12/07/17) Ciprofloxacin (Verified Adverse Reaction, Mild, VOMITING, 12/07/17) Social History Smoking Status: Never Smoker Hx Tobacco Use In Past Year?: No Hx Alcohol Use - Type And Amou: No Hx Substance Use - Type And Am: No Problem List Medical Problems: (1) ACS (acute coronary syndrome) Status: Acute (2) Anemia Status: Acute (3) Dehydration Status: Acute (4) Supratherapeutic INR Status: Acute (5) Vomiting and diarrhea Status: Acute Physical Exam Vital Signs Last Vital Signs Documentation Date Time Temp Pulse Resp B/P (MAP) Pulse Ox O2 Delivery O2 Flow Rate FiO2 12/13/17 12:00 Room Air 12/13/17 11:53 36.8 54 16 118/56 (76) 97 Physical Exam Constitutional: General Apperance: overweight Level of Distress: NAD, chronically ill Head: atraumatic Neck: supple Lungs: Auscultation: no wheezing, no rales/crackles, no rhonchi Cardiovascular: Heart Auscultation: RRR, normal S1, normal S2, no murmurs, no rubs Abdomen: Inspection & Palpation: soft, non-distended Extremities: no cyanosis, no edema Neurologic: Gait & Station: pertinent finding (no focal deficits ) Assessment and Plan Assessment and Plan Impression: 72-year-old female 1. Sepsis, acute febrile illness, with blood cultures revealing MSSA bacteremia -fevers improved. Symptoms subjectively improved. -No valvular vegetation within scope of TTE capability. -source likely recent recurrent leg lesions. 2. NSTEMI -suspect Type II , supply demand mismatch event given presentation, normal resting wall motion, and lack of ongoing anginal symptoms rather that acute intracoronary plaque rupture. 3. h/o PAF, converted to atrial fibrillation mildly elevated ventricular rate, 6 :40 AM 2/1/18, then back to SR 2 hours after IV amiodrone on 12/09, 2nd brief AF episode am of 12/11 4. Radiographic contrast allergy 5. Past intolerance to the antihistamine, Benadryl, change in mental status, agitation 6. Microcytic anemia, iron indices consistent with iron deficiency. Patient denies any gross blood in her stool. Hemoccult stool positive. 7. Pituitary insufficiency Recommendations: Continue antibiotics. ID input noted and appreciated. With Daptomycin need to hold statin therapy and I have therefore cancelled simvastatin. Flecainide DC'd, transitioned to amiodarone and metoprolol. Continue medication therapy for presumed underlying CAD. Simvastatin dose reduced given amiodarone therapy. Futher ischemic work up as outpt after IV antibiotics completed. Pt would like to follow up with me. I will request an appointment to be completed in 1-2 weeks. Continue oral iron replacement. Has anemia, heme + stool, however no ideal time to consider endoscopy with recent bacteremia, and mild troponin elevation. She requires ASA and coumadin for NC and stroke prevention, will continue for now. Stable from my perspective for DC. I will contact my office to request visit. Laboratory Results Last 24 Hours Test 12/12/17 16:38 12/12/17 20:21 12/13/17 05:46 12/13/17 06:35 Bedside Glucose 122 mg/dl 258 mg/dl 112 mg/dl White Blood Count 5.42 K/uL Red Blood Count 3.45 M/uL Hemoglobin 8.4 g/dL Hematocrit 27.9 % Mean Corpuscular Volume 80.9 fL Mean Corpuscular Hemoglobin 24.3 pg Mean Corpuscular Hemoglobin Concent 30.1 g/dl RDW Standard Deviation 49.9 fL RDW Coefficient of Variation 17.1 % Platelet Count 226 K/uL Mean Platelet Volume 9.7 fL Nucleated RBC Absolute Count (auto) 0.03 K/uL Nucleated Red Blood Cells % 0.5 % Prothrombin Time 22.1 SECONDS Prothromb Time International Ratio 2.1 Total Creatine Kinase 21 U/L Test 12/13/17 11:03 Bedside Glucose 202 mg/dl
--- NOTE | 2017-12-13 15:26 | Discharge Summary ---
Discharge Summary Date of Service Dec 13, 2017. Discharge Summary Admission Date: Dec 06, 2017 at 00:41 Discharge Date: Dec 13, 2017 Discharge Disposition: Home with services Principal Diagnosis: MSSA Bacteremia, Type II NSTEMI Procedures: ECHO: * Sinsus rhythm was present during the echocardiogram. * There is mild concentric left ventricular hypertrophy. * No regional wall motion abnormalities noted. * Ejection Fraction = 55-60%. * The right ventricle is normal in size and function. * The left atrium is mildly dilated. * There is mild mitral annular calcification. * Diastolic dysfunction, Grade II (pseudonormalization pattern). * There is trace tricuspid regurgitation. * The calculated pulmonary artery systolic presssure =36 mm Hg (upper limit of normal). CXR: Stable mild cardiomegaly. No acute process within the chest. Consultations: Cardiology, ID, Rheumatology Pending Studies/Follow-Up: Follow up with your Primary Care Physician in 1 week Follow up with your Relief Mate on at 10:45 Am and get Stress test as outpatient Follow up with Rheumatology Dr.Susan James in 4 weeks at [facility] Complete the IV antibiotics course as prescribed for 6 more days Get colonoscopy as outpatient as advised Get CPK levels in 1 week and follow up with your primary care physician Also get Thyroid function test (TSH, Free T4) in 2 weeks and follow up with your doctor with results Follow up with Coumadin clinic for Coumadin dosing Seek immediate medical attention if your symptoms reoccur or worsen Medication Changes: Your Zocor is discontinued. It will be restarted as outpatient after completion of your antibiotics Your were discontinued on Flecainide and started on amiodarone 200mg twice a day Your Metoprolol succinate is discontinued and started on Metoprolol Tartrate 50mg twice a day Also started on Aspirin 81mg daily Medication Reconciliation New Medications: Amiodarone HCl (Amiodarone HCl) 200 Mg Tab 200 MG PO BID for 30 Days, #60 TAB 1 Refill Aspirin (Aspirin EC Low Dose) 81 Mg Ectab 81 MG PO QAM for 30 Days, #30 EA Metoprolol Tartrate (Lopressor) (Lopressor) 50 Mg Tab 50 MG PO BID for 30 Days, #60 TAB 1 Refill Continued Medications: Citalopram (Citalopram Hydrobromide) 20 Mg Tab 20 MG PO QAM Glipizide (Glipizide) 5 Mg Tab 5 MG PO BID Hydrocortisone (Cortef) 5 Mg Tab 10 MG PO QAM Hydrocortisone (Cortef) 5 Mg Tab 5 MG PO AFTERNOON Insulin Glargine (Toujeo Solostar) 300 Unit/Ml Inj 60 UNITS SC HS Latanoprost (Latanoprost) 37 Drops/2.5 Ml Soln 1 DROP OPB HS Levothyroxine Sodium (Levothyroxine Sodium) 125 Mcg Tab 125 MCG PO QAM Metformin Hcl (Glucophage) 500 Mg Tab 1000 MG PO BID Warfarin Sod (Jantoven) 5 Mg Tab 5 MG PO 2XWK TAKE 5 MG EVERY WEDNESDAY AND WEDNESDAY OR OTHERWISE DIRECTED TO TAKE BY ANTICOAGULATION CLINIC/MD Warfarin Sod (Jantoven) 5 Mg Tab 7.5 MG PO 5XWK TAKE 7.5 MG EVERY WEDNESDAY,WEDNESDAY,WEDNESDAY,WEDNESDAY AND WEDNESDAY OR OTHERWISE DIRECTED TO TAKE BY ANTICOAGULATION CLINIC/MD Discontinued Medications: Flecainide Acetate (Tambocor) 50 Mg Tab 50 MG PO BID Metoprolol Succinate (Metoprolol Succinate ER) 50 Mg Tabcr 50 MG PO BID Simvastatin (Simvastatin) 40 Mg Tab 40 MG PO QPM Admission Information HPI (per Admitting provider): CHIEF COMPLAINT: Chest tightness on Wednesday, followed by flu-like symptoms since then. HISTORY OF PRESENT COMPLAINT: She is a 72-year-old female with significant past medical history including type 2 diabetes with vascular disease, adenoma of the pituitary, history of intracranial hemorrhage, sleep apnea, pituitary apoplexy, diarrhea, hypothyroidism, adrenal insufficiency, and paroxysmal atrial fibrillation, apparently has been complaining of flu-like symptoms since Wednesday. On Wednesday evening when she was going to go out, she complained to have a central chest pressure and she did not go out, she stayed at home and since that night, she was complaining of cough with more shortness of breath, nausea and vomiting, and body aches. She called her physician on Wednesday and then was given Tamiflu for possible flu infection. Her condition got worse and today, she is here in the ER with ongoing symptoms of anorexia, cough, nausea, vomiting, and some diarrhea and body aches. Her flu has been negative, but incidentally, she was noted to have a troponin of 1.9. From that point, she was admitted to telemetry unit. Cardiology was consulted. Her INR is therapeutic, so heparin was not started. She does not have any acute chest pain at this time. Physical Exam (per Admitting): PHYSICAL EXAMINATION: GENERAL: On examination in the Emergency Room, she was generally weak, but no acute distress. VITAL SIGNS: Temperature is 38.1, pulse was 69, blood pressure 99/47, saturation 94% on room air. HEENT: Unremarkable. NECK: Supple. No JVD, no bruit. CHEST: Clear to auscultate bilaterally. HEART: S1, S2 regular. ABDOMEN: Soft, benign, nontender, no organomegaly. Bowel sounds present. EXTREMITIES: Negative for any edema. MUSCULOSKELETAL SYSTEM: Did not show any acute arthritis involving any joint. CENTRAL NERVOUS SYSTEM: Alert, awake, oriented x3 and no focal sensory and/or motor deficit appreciated. She was generally weak. Hospital Course Staph.aureus Bacteremia (POA): Blood Cultures X2: MSSA PCR flu negative Stool for C.diff negative CXR:No acute process Received 2 days of Vancomycin and 5 days of Cefazolin>>> switch to Daptomycin to complete 2 weeks course Appreciate ID Input (Discussed with ) ECHO:as below Repeat Blood cultures:No growth to date ISABELLE not indicated currently PICC line placed on 12/10/17 Needs Home Health NSTEMI: Likely Type II Troponin trended down ECHO: No wall motion abnormality Continue Aspirin, Metoprolol Appreciate Cardiology Input Patient preferred conservative management first over Cath on 12/06 Planned for Stress test as outpatient Zocor initially decreased in dose secondary to being started on amiodarone and since on Daptomycin, will hold it for now Plan to resume zocor as outpatient after completion of antibiotics. (Appreciate Cardiology help) P.Afib: Continue Metoprolol Flecainide discontinued Continue Amiodarone per cardiology INR:4.4>>3.2>>1.9>>>1.5>>1.7>>2.1 Coumadin was initially held due to supratherapeutic INR Monitor INR:2.1 today Continue Coumadin Microcytic Anemia: Iron deficiency: Positive FOBT while on Aspirin and Coumadin H/O Polyps and Anal fissure per patient Patient denies any bleeding Issues Monitor Hb Patient currently not Interested in Blood transfusions Add Metamucil and stool softener Advised to get Colonoscopy as outpatient DM II: A1C:6.9 continue ISS, lantus hold metformin, glipizide monitor BG levels Pharmacy Glycemic control consult Lantus dose adjusted given hypoglycemic episodes H/O 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 Received stress dose hydrocortisone Continue Po Cortef Hypothyroidism: recently levothyroxine dose increased by Endocrine TSH:low Free T4: normal continue levothyroxine 125mcg daily Needs follow up with Endocrinology as outpatient upon DC Leukocytoclastic vasculitis H/O recurrent LE rash: Currently rash resolved Recent Skin Biopsy:Pathology suggestive of Leukocytoclastic Vasculitis Appreciate Rheumatology Input OLEGARIO, lupus, Hepatitis negative Cryoglobulins pending Needs follow up with Rheumatology Dr.Susan James in 1 month as outpatient at [facility] DVT Px: on Coumadin Code Status: Full Code Disposition: Plan to discharge home today Follow up with your Primary Care Physician in 1 week Follow up with your Relief Mate on at 10:45 Am and get Stress test as outpatient Follow up with Rheumatology Dr.Susan James in 4 weeks at [facility] Complete the IV antibiotics course as prescribed for 6 more days Get colonoscopy as outpatient as advised Also get Thyroid function test (TSH, Free T4) in 2 weeks and follow up with your doctor with results Follow up with Coumadin clinic for Coumadin dosing Seek immediate medical attention if your symptoms reoccur or worsen PROCEDURES: ECHO: Sinus rhythm was present during the echocardiogram. There is mild concentric left ventricular hypertrophy. No regional wall motion abnormalities noted. Ejection Fraction = 55-60%. The right ventricle is normal in size and function. The left atrium is mildly dilated. There is mild mitral annular calcification. Diastolic dysfunction, Grade II (pseudonormalization pattern). There is trace tricuspid regurgitation. The calculated pulmonary artery systolic pressure =36 mm Hg (upper limit of normal). Total time spent on discharge = 40 minutes This includes examination of the patient, discharge planning, medication reconciliation, and communication with other providers. Discharge Instructions Discharge Instructions Date of Service Dec 13, 2017. Admission Reason for Admission: Flu-Like Symptoms, Nstemi, Paf Discharge Discharge Diagnosis / Problem: MSSA Bacteremia, Type II NSTEMI Discharge Goals Goal(s): Decrease discomfort, Improve function Activity Recommendations Activity Limitations: per Instructions/Follow-up section Lifting Limitations: gradually increase as tolerated Exercise/Sports Limitations: gradually increase as tolerated . Instructions / Follow-Up Instructions / Follow-Up Follow up with your Primary Care Physician in 1 week Follow up with your Relief Mate on at 10:45 Am and get Stress test as outpatient Follow up with Rheumatology Dr.Susan James in 4 weeks at [facility] Complete the IV antibiotics course as prescribed for 6 more days Get colonoscopy as outpatient as advised Get CPK levels in 1 week and follow up with your primary care physician Also get Thyroid function test (TSH, Free T4) in 2 weeks and follow up with your doctor with results Follow up with Coumadin clinic for Coumadin dosing Seek immediate medical attention if your symptoms reoccur or worsen Medication Changes: Your Zocor is discontinued. It will be restarted as outpatient after completion of your antibiotics Your were discontinued on Flecainide and started on amiodarone 200mg twice a day Your Metoprolol succinate is discontinued and started on Metoprolol Tartrate 50mg twice a day Also started on Aspirin 81mg daily Current Hospital Diet Patient's current hospital diet: AHA Diet (Heart Healthy), Diabetes Type 2 Diet Discharge Diet Recommended Diet: AHA Diet (Heart Healthy), Diabetes Type 2 Diet Pending Studies Studies pending at discharge: yes List of pending studies: Cryoglobulin levels Laboratory Results Hemoglobin A1c Test 12/11/17 03:06 Range/Units Estimated Average Glucose 151 mg/dl Hemoglobin A1c 6.9 H 4.5-5.6 % Medical Emergencies . Who to Call and When: Medical Emergencies: If at any time you feel your situation is an emergency, please call 911 immediately. . Non-Emergent Contact Non-Emergency issues call your: Primary Care Provider, Relief Mate Call Non-Emergent contact if: you have a fever, your pain is not controlled, your pain is worsening, your pain is unusual for you, your pain is concerning you, you have any medication questions If you develop any bleeding issues . . "Provider Documentation" section prepared by Braulio Cannon. . VTE Core Measure Inpt VTE Proph given/why not?: Warfarin (Coumadin)
[2017-12-13 15:43] VITALS: BP 118/56; PULSE 54; TEMP 36.8; O2SAT 97
[2017-12-13] MEDS ORDERED: INSULIN ASPART 100 UNITS/ML 3 ML PEN SC SCH ×3 (16:15→21:00)
== END 2017-12-13 18:55 | disposition home or self-care (01) | DRG 871 ==
LOC: C.EDB 21:46 → C.2E 12-06 00:41 → ENRESERV 12-06 00:58
PROVIDERS: ADMIT Internal Medicine; ATTEND Internal Medicine
PROC: 05H933Z Insertion of Infusion Device into Right Brachial Vein, Percutaneous Approach (ICD-10-PCS; principal; 2017-12-10)
DX: R78.81 Bacteremia (principal); I21.4 Non-ST elevation (NSTEMI) myocardial infarction; A39.1 Waterhouse-Friderichsen syndrome; E27.40 Unspecified adrenocortical insufficiency; Z82.49 Family history of ischemic heart disease and other diseases of the circulatory system; Z83.3 Family history of diabetes mellitus; Z79.4 Long term (current) use of insulin; E03.9 Hypothyroidism, unspecified; I48.0 Paroxysmal atrial fibrillation; Z79.01 Long term (current) use of anticoagulants; A49.01 Methicillin susceptible Staphylococcus aureus infection, unspecified site; E11.9 Type 2 diabetes mellitus without complications; D50.9 Iron deficiency anemia, unspecified; L95.8 Other vasculitis limited to the skin

== ENCOUNTER → 2017-12-20 | Outpatient (CLI) | payer OTHER ==
[~2017-12-20] MED LIST changes: +ASPEC81 PO; +CRD200 PO; -FLEC50TA PO; +GLC5 PO; -GLIP-197 PO; -LATA0.5S OPB; +LEVO125T5 PO; -LEVO75TA PO; +METO50TA16 PO; -METO50TA8 PO; -SIMV40TA2 PO; +XLTOPS OPB
[2017-12-20 13:38] LABS: BASO % 0.4 %; BASO ABS # 0.02 K/uL (0-0.2); EOS ABS # 0.05 K/uL (0-0.5); HEMOGLOBIN 8.8 g/dL (12.0-16.0); IG# 0.03 K/uL (0.00-0.02); LYMPH % 14.7 %; LYMPH ABS # 0.75 K/uL (1.2-3.4); MEAN CELL VOLUME 80.6 fL (80-100); MEAN CORPUSCULAR HEMOGLOBIN 23.7 pg (25-34); MEAN CORPUSCULAR HGB CONC 29.3 g/dl (32-36); MEAN PLATELET VOLUME 9.6 fL (7.4-10.4); MONO % 8.8 %; MONO ABS # 0.45 K/uL (0.11-0.59); NEUT % 74.5 %; NEUT ABS # 3.81 K/uL (1.4-6.5); PLATELET COUNT 226 K/uL (130-400); RED CELL DISTRIBUTION WIDTH CV 17.3 % (11.5-14.5); RED CELL DISTRIBUTION WIDTH SD 50.6 fL (36.4-46.3); WHITE BLOOD COUNT 5.11 K/uL (4.8-10.8)
[2017-12-20 14:01] LABS: INR 3.6 (0.9-1.1)
== END | disposition home or self-care (01) ==
LOC: C.LABSPEC 12:33
PROVIDERS: ATTEND Family Medicine
DX: Z51.81 Encounter for therapeutic drug level monitoring (principal); Z79.01 Long term (current) use of anticoagulants; I21.4 Non-ST elevation (NSTEMI) myocardial infarction; B34.9 Viral infection, unspecified; E03.9 Hypothyroidism, unspecified

== ENCOUNTER → 2018-01-27 | Outpatient (CLI) | payer OTHER ==
[~2018-01-27] MED LIST changes: +AMIO200T4 PO; +ASPI81TA28 PO; +ATOR-22 PO; +CLR10 PO; +LSX20 PO; +METO50TA17 PO; +WARF-246 PO
[2018-01-27 18:51] LABS: ALBUMIN 3.3 gm/dl (3.4-5.0); ALT/SGPT 19 U/L (12-78); BLOOD UREA NITROGEN 23 mg/dl (7-18); CALCIUM 8.4 mg/dl (8.5-10.1); CARBON DIOXIDE 27 mmol/L (21-32); CREATININE 1.14 mg/dl (0.60-1.20); GLUCOSE 80 mg/dl (70-99); POTASSIUM 4.2 mmol/L (3.5-5.1); SODIUM 139 mmol/L (136-145)
[2018-01-27 18:52] LABS: INR 2.6 (0.9-1.1)
[2018-01-27 18:54] LABS: HEMATOCRIT 25.9 % (37-47); HEMOGLOBIN 7.5 g/dL (12.0-16.0); MEAN CORPUSCULAR HEMOGLOBIN 22.6 pg (25-34); MEAN PLATELET VOLUME 10.3 fL (7.4-10.4); PLATELET COUNT 223 K/uL (130-400); RED CELL DISTRIBUTION WIDTH CV 18.1 % (11.5-14.5); RED CELL DISTRIBUTION WIDTH SD 51.9 fL (36.4-46.3); WHITE BLOOD COUNT 6.06 K/uL (4.8-10.8)
[2018-01-27 18:56] LABS: ALKALINE PHOSPHATASE 96 U/L (45-117); AST/SGOT 19 U/L (15-37); TOTAL PROTEIN 6.9 gm/dl (6.4-8.2)
[2018-01-27 19:01] LABS: BASO % 0.7 %; BASO ABS # 0.04 K/uL (0-0.2); EOS % 1.5 %; EOS ABS # 0.09 K/uL (0-0.5); IG# 0.04 K/uL (0.00-0.02); LYMPH % 25.2 %; LYMPH ABS # 1.53 K/uL (1.2-3.4); MONO % 8.4 %; MONO ABS # 0.51 K/uL (0.11-0.59); NEUT % 63.5 %; NEUT ABS # 3.85 K/uL (1.4-6.5)
== END | disposition home or self-care (01) ==
LOC: C.LABSPEC 18:21
PROVIDERS: ATTEND Family Medicine
DX: R06.02 Shortness of breath (principal); Z79.01 Long term (current) use of anticoagulants

== ENCOUNTER → 2018-02-01 | Outpatient (CLI) | payer OTHER ==
[~2018-02-01] MED LIST changes: +FRRS300 PO; +HYD10 PO; +PANT1TAB3 PO
[2018-02-01 18:28] LABS: ALBUMIN 3.6 gm/dl (3.4-5.0); ALT/SGPT 19 U/L (12-78); BLOOD UREA NITROGEN 22 mg/dl (7-18); CALCIUM 9.2 mg/dl (8.5-10.1); CARBON DIOXIDE 27 mmol/L (21-32); CREATININE 1.12 mg/dl (0.60-1.20); GLUCOSE 57 mg/dl (70-99); SODIUM 139 mmol/L (136-145)
[2018-02-01 18:31] LABS: ALKALINE PHOSPHATASE 107 U/L (45-117); AST/SGOT 18 U/L (15-37); TOTAL PROTEIN 7.4 gm/dl (6.4-8.2)
[2018-02-01 19:00] LABS: HEMATOCRIT 28.4 % (37-47); HEMOGLOBIN 8.3 g/dL (12.0-16.0); MEAN CORPUSCULAR HEMOGLOBIN 22.8 pg (25-34); MEAN CORPUSCULAR HGB CONC 29.2 g/dl (32-36); MEAN PLATELET VOLUME 10.1 fL (7.4-10.4); PLATELET COUNT 252 K/uL (130-400); RED CELL DISTRIBUTION WIDTH CV 18.1 % (11.5-14.5); RED CELL DISTRIBUTION WIDTH SD 51.8 fL (36.4-46.3); WHITE BLOOD COUNT 8.98 K/uL (4.8-10.8)
[2018-02-01 19:15] LABS: BASO % 0.8 %; BASO ABS # 0.07 K/uL (0-0.2); EOS % 1.6 %; EOS ABS # 0.14 K/uL (0-0.5); IG# 0.05 K/uL (0.00-0.02); LYMPH ABS # 1.71 K/uL (1.2-3.4); MONO % 9.4 %; MONO ABS # 0.84 K/uL (0.11-0.59); NEUT % 68.6 %; NEUT ABS # 6.17 K/uL (1.4-6.5)
== END | disposition home or self-care (01) ==
LOC: C.LABSPEC 18:00
PROVIDERS: ATTEND Family Medicine
DX: R06.02 Shortness of breath (principal); R63.5 Abnormal weight gain; I48.91 Unspecified atrial fibrillation; D64.9 Anemia, unspecified

== ENCOUNTER → 2018-02-02 | Outpatient (CLI) | payer OTHER ==
--- NOTE | 2018-02-03 08:32 | ECHOCARDIOGRAM REPORT ---
*NOTICE TO RECEIVING CONSTITUTION PARTY AGENCY This information is strictly Confidential and protected under [place] law. [place] law prohibits you from making any further disclosure of this information unless further disclosure is expressly permitted by the written consent of the person to whom it pertains or is authorized by law. A general authorization for the release of medical or other information is not sufficient for this purpose. Hospital accepts no responsibility if the information is made available to any other person, INCLUDING THE PATIENT. Interpretation Summary * Name: GILBERT MCCULLOUGH Study Date: 02/02/2018 01:54 PM BP: 131/40 mmHg * Patient Location: [facility] HR: 58 * : 1945 (M/d/yyyy) Gender: Female Height: 64 in * Age: 72 yrs Ethnicity: [place] Weight: 214 lb * Ordering Physician: Laron Murphy * Referring Physician: Laron Murphy ([place]) * Performed By: Candida Rabago RDCS * * Reason For Study: SOB, Abnormal weight gain * BSA: 2.0 m2 * -- Conclusions -- * Normal LV chamber size with mild concentric LVH. * Normal LV systolic function, EF 60-65%. * No segmental left ventricular wall motion abnormalities are noted. * Grade III diastolic dysfunction (restrictive physiology). * Aortic valve sclerosis mild, without significant aortic valvular stenosis. * Calcified mitral apparatus. * There is mild mitral regurgitation. * There is no mitral valve stenosis. * Mild tricuspid regurgitation. * Mild left atrial enlargement. Procedure Details * A complete two-dimensional transthoracic echocardiogram was performed (2D, M-mode, Doppler and color flow Doppler). Left Ventricle * The left ventricle is normal in size. * There is mild concentric left ventricular hypertrophy. * Ejection Fraction = 60-65%. * Left ventricular systolic function is normal. * No segmental left ventricular wall motion abnormalities are noted. * The left ventricular wall motion is normal. Right Ventricle * The right ventricular cavity size is normal (basal dimension <4.2 cm in right ventricular apical 4-chamber view). * The right ventricular systolic function is normal as assessed by tricuspid annular plane systolic excursion (TAPSE) (normal >1.5 cm). Atria * The left atrium is mildly dilated. * Right atrial size is normal. * No ASD detected; PFO is not assessed. Mitral Valve * Calcified mitral apparatus. * There is no mitral valve stenosis. * There is mild mitral regurgitation. Tricuspid Valve * The tricuspid valve anatomy is normal. * There is no tricuspid stenosis. * There is mild tricuspid regurgitation. Aortic Valve * The aortic valve is trileaflet. * Aortic valve sclerosis mild, without significant aortic valvular stenosis. * There is no significant aortic regurgitation. Pulmonic Valve * The pulmonary valve is not well seen, but the Doppler examination is normal without significant regurgitation or stenosis. Great Vessels * The aortic root and proximal ascending aorta are normal sized. Pericardium/Pleural * There is no pericardial effusion. Left Ventricular Diastolic Function * Diastolic dysfunction, Grade III (restrictive pattern), consistent with markedly increased left atrial pressure. MMode 2D Measurements and Calculations IVSd 1.1 cm LVIDd 4.5 cm LVIDs 3.0 cm LVPWd 1.2 cm IVS/LVPW 0.90 FS 33.5 % EDV(Teich) 94.9 ml ESV(Teich) 35.8 ml EF(Teich) 62.3 % EDV(cubed) 94.2 ml ESV(cubed) 27.7 ml EF(cubed) 70.5 % LV mass(C)d 188.2 grams LV mass(C)dI 93.5 grams/m\S\2 SV(Teich) 59.1 ml SI(Teich) 29.4 ml/m\S\2 SV(cubed) 66.4 ml SI(cubed) 33.0 ml/m\S\2 Ao root diam 2.3 cm Ao root area 4.0 cm\S\2 ACS 1.7 cm LA dimension 4.2 cm asc Aorta Diam 1.9 cm LA/Ao 1.9 LVOT diam 2.0 cm LVOT area 3.1 cm\S\2 LVAd ap4 24.5 cm\S\2 LVLd ap4 7.4 cm EDV(MOD-sp4) 68.8 ml EDV(sp4-el) 68.9 ml LVAs ap4 14.1 cm\S\2 LVLs ap4 6.7 cm ESV(MOD-sp4) 26.0 ml ESV(sp4-el) 25.2 ml EF(MOD-sp4) 62.2 % EF(sp4-el) 63.4 % LVAd ap2 23.5 cm\S\2 LVLd ap2 7.5 cm EDV(MOD-sp2) 60.3 ml EDV(sp2-el) 62.3 ml LVAs ap2 13.6 cm\S\2 LVLs ap2 6.7 cm ESV(MOD-sp2) 22.3 ml ESV(sp2-el) 23.4 ml EF(MOD-sp2) 63.1 % EF(sp2-el) 62.5 % LVLd %diff 1.5 % EDV(MOD-bp) 64.8 ml LVLs %diff -0.64 % ESV(MOD-bp) 24.0 ml EF(MOD-bp) 63.0 % SV(MOD-sp4) 42.8 ml SI(MOD-sp4) 21.3 ml/m\S\2 SV(MOD-sp2) 38.1 ml SI(MOD-sp2) 18.9 ml/m\S\2 SV(MOD-bp) 40.8 ml SI(MOD-bp) 20.3 ml/m\S\2 SV(sp4-el) 43.7 ml SI(sp4-el) 21.7 ml/m\S\2 SV(sp2-el) 39.0 ml SI(sp2-el) 19.4 ml/m\S\2 Doppler Measurements and Calculations MV E max frank 153.1 cm/sec MV A max frank 81.4 cm/sec MV E/A 1.9 MV V2 max 176.9 cm/sec MV max PG 12.5 mmHg MV V2 mean 69.4 cm/sec MV mean PG 2.6 mmHg MV V2 VTI 51.4 cm MV P1/2t max frank 176.9 cm/sec MV P1/2t 77.1 msec MVA(P1/2t) 2.9 cm\S\2 MV dec slope 672.2 cm/sec\S\2 MV dec time 0.22 sec Ao V2 max 176.7 cm/sec Ao max PG 12.5 mmHg Ao max PG (full) 6.7 mmHg JAYME(V,A) 2.1 cm\S\2 JAYME(V,D) 2.1 cm\S\2 LV V1 max PG 5.8 mmHg LV V1 max 120.5 cm/sec MR max frank 495.2 cm/sec MR max PG 98.1 mmHg MR mean frank 397.0 cm/sec MR mean PG 69.5 mmHg MR VTI 167.2 cm PA V2 max 109.6 cm/sec PA max PG 4.8 mmHg PA acc slope 462.6 cm/sec\S\2 PA acc time 0.16 sec PI max frank 135.5 cm/sec PI max PG 7.3 mmHg PI dec slope 262.4 cm/sec\S\2 PI P1/2t 151.2 msec TR max frank 228.9 cm/sec PA pr(Accel) 6.1 mmHg
== END | disposition home or self-care (01) ==
LOC: C.CPL 13:40
PROVIDERS: ATTEND Family Medicine
DX: R06.02 Shortness of breath (principal); R63.5 Abnormal weight gain; R79.9 Abnormal finding of blood chemistry, unspecified

== ENCOUNTER 2018-02-06 12:52 | Inpatient (IN) | payer OTHER ==
[~2018-02-06] VITALS: Ht 162.6 cm; Wt 94.0 kg
[~2018-02-06 12:52] MED LIST changes: -AMIO200T4 PO; -ASPI81TA28 PO; -ATOR-22 PO; -CLR10 PO; -FRRS300 PO; -HYD10 PO; -METO50TA17 PO; -PANT1TAB3 PO; -WARF-246 PO
[2018-02-06] MEDS ORDERED: AMIO200T4 PO (13:13)
[2018-02-06] MEDS ORDERED: ATOR-22 PO (13:13)
[2018-02-06] MEDS ORDERED: WARF-246 PO (13:13)
[2018-02-06] MEDS ORDERED: METO50TA17 PO (13:13)
[2018-02-06] MEDS ORDERED: ASPI81TA28 PO (13:13)
[2018-02-06] MEDS ORDERED: CLR10 PO (13:14)
--- NOTE | 2018-02-06 13:17 | EMERGENCY ROOM VISIT NOTE ---
History Report prepared by Dc: Mason Barber Under the Supervision of: Dr. Ben Campbell M.D. First contact with patient: 12:58 Chief Complaint: DIZZY Stated Complaint: DIZZY,WEAK History of Present Illness The patient is a 72 year old female who presents to the Emergency Room with complaints of a constant headache rated as 2/10 that began prior to arrival. She complains of dizziness, diarrhea (3x yesterday), and SOB. She states that exertion worsens her symptoms and that sitting down and lying down relieves her symptoms. The patient states that she has gained 20 pounds in the past 3 weeks. She states that she takes steroids (pituitary tumor) and thyroid medication. Her last ultrasound was done at [facility] and she states she is supposed to get another ultrasound on 02/08/2018. She follows with Dr. Murphy who is her family doctor and Dr. Roman who is her sand temperer. She had a heart attack in November 2017. She denies leg swelling, chest pain, rashes, back pain, fevers, and urinary burning. 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 She denies leg swelling. Review of Systems See HPI for pertinent positives & negatives. A total of 10 systems reviewed and were otherwise negative. Past Medical & Surgical Medical Problems: (1) Afib (2) Asthma, Unspecified (3) Depressive Disorder Nec (4) Diab Brie Wo Compl, Type Ii Or Unspec Type, Not Uncntrld (5) Flu-like symptoms (6) Hypertension Nos (7) Hypothyroidism Nos (8) Kidney stone (9) NSTEMI (non-ST elevated myocardial infarction) (10) PAF (paroxysmal atrial fibrillation) (11) Pituitary tumor (12) UTI (urinary tract infection) (13) Volume overload Surgical Problems: (1) H/O: hysterectomy Family History Cancer Diabetes mellitus Heart disease Hypertension Social History Smoking Status: Never Smoker Alcohol Use: none Drug Use: none Marital Status: Housing Status: lives with family Occupation Status: retired Current/Historical Medications Scheduled Amiodarone Hcl (Cordarone), 200 MG PO DAILY Aspirin (Aspirin Ec), 81 MG PO DAILY Atorvastatin (Lipitor), 20 MG PO HS Citalopram (Citalopram Hydrobromide), 20 MG PO QAM Glipizide (Glipizide), 5 MG PO QAM Hydrocortisone (Cortef), 10 MG PO QAM Hydrocortisone (Cortef), 5 MG PO AFTERNOON Insulin Glargine (Toujeo Solostar), 66 UNITS SC HS Latanoprost (Latanoprost), 1 DROP OPB HS Levothyroxine Sodium (Levothyroxine Sodium), 125 MCG PO QAM Metformin Hcl (Glucophage), 1,000 MG PO BID Metoprolol Tartrate (Metoprolol Tartrate), 1 TAB PO BID Warfarin Sodium (Warfarin Sodium), 1 TAB PO DAILYUD Scheduled PRN Furosemide (Furosemide), 1 TAB PO DAILY PRN for EDEMA Loratadine (Claritin), 10 MG PO DAILY PRN for ALLERGIES Allergies Coded Allergies: Iodinated Diagnostic Agents (Verified Allergy, Intermediate, RASH, 02/06/18) Sulfa Antibiotics (Verified Allergy, Intermediate, HIVES, 02/06/18) Ciprofloxacin (Verified Adverse Reaction, Mild, VOMITING, 02/06/18) Physical Exam Vital Signs Date Time Temp Pulse Resp B/P (MAP) Pulse Ox O2 Delivery O2 Flow Rate FiO2 02/06/18 16:01 141/63 02/06/18 16:00 56 20 99 Room Air 02/06/18 15:31 148/56 02/06/18 15:30 56 19 99 Room Air 02/06/18 15:12 57 22 129/60 99 Room Air 02/06/18 14:30 56 17 123/58 100 Room Air 02/06/18 13:57 56 18 121/56 100 Room Air 02/06/18 13:19 57 02/06/18 13:11 58 106/49 100 58 129/61 58 97/58 02/06/18 12:55 36.7 58 20 94/49 97 Room Air Physical Exam GENERAL: Patient is tired appearing and in mild distress. EYES: Pale conjunctiva. No scleral icterus, unremarkable pupils. ENT: Mucous membranes moist, no nasal congestion. NECK: No masses appreciated, no meningismus, trachea is midline. RESPIRATORY: No dyspnea. Clear to auscultation and equal bilaterally. No wheeze , no rhonchi. CARDIOVASCULAR: Regular rate and rhythm. No murmurs, rubs, gallops appreciated. GASTROINTESTINAL: Distended abdomen with fluid wave. Minimal tenderness to palpation. Abdomen soft, no peritonitis. Distant bowel sounds. No masses appreciated. BACK: No midline tenderness, no CVA tenderness EXTREMITIES: Normal motion all extremities, no cyanosis, no edema. NEUROLOGIC: Alert and oriented, no acute motor or sensory deficits, no focal weakness, cranial nerves grossly intact. SKIN: No rash, no jaundice, no diaphoresis. Medical Decision & Procedures ER Provider Diagnostic Interpretation: Radiology results and stated below per my review and radiologist interpretation: SINGLE VIEW CHEST CLINICAL HISTORY: Atypical chest pain. FINDINGS: An AP, portable, upright chest radiograph is compared to study dated 12/05/2017. The examination is degraded by portable technique and patient rotation. The heart is enlarged and there is atherosclerotic calcification of the thoracic aorta. The pulmonary vasculature is noncongested. Chronic interstitial thickening is similar to previous. No airspace consolidation or large pleural effusion is identified. No pneumothorax is seen. The skeletal structures are osteopenic. The bony thorax is grossly intact. Calcific tendinopathy is noted in the right shoulder. IMPRESSION: Cardiomegaly with no acute cardiopulmonary abnormality. Electronically signed by: Ang Giraldo M.D. 02/06/2018 1:39 PM Dictated Date/Time: 02/06/2018 1:[address] SCAN OF THE ABDOMEN AND PELVIS WITHOUT IV CONTRAST CLINICAL HISTORY: Abdominal distention. COMPARISON STUDY: Abdominal CT dated 03/07/2015 an 09/22/2013. TECHNIQUE: CT scan of the abdomen and pelvis is performed from the lung bases to the proximal femora. Images are reviewed in the axial, sagittal, and coronal planes. IV contrast was not administered for this examination as per the referring clinician. Note that the examination was performed in suboptimal fashion without oral and IV contrast. A dose lowering technique was utilized adhering to the principles of ALARA. CT DOSE: 1503.10 mGy.cm FINDINGS: Lung bases: The heart is enlarged and without pericardial effusion. There is diminished attenuation of the cardiac blood pool as compared to the myocardium suggesting anemia. There is a small right pleural effusion with associated atelectasis. A 4 mm nodule in the right middle lobe on image #8 and a 3 mm pleural-based nodule in the right lower lobe along the major fissure seen on image #8 are unchanged from 2015 and of doubtful significance. There is a small hiatal hernia. Liver: The unenhanced liver is enlarged measuring 20.3 cm and cirrhotic in morphology. The liver is heterogeneous in attenuation. There is hypertrophy of the left lobe and caudate, as well as nodularity of the hepatic surface contour. There is no intrahepatic biliary ductal dilatation. Gallbladder: Mild gallbladder wall thickening is nonspecific, and likely related to cirrhosis and ascites. There is no convincing CT evidence of acute cholecystitis. Spleen: The spleen is enlarged, measuring 16.5 cm in length. Pancreas: Unenhanced pancreas is atrophic and grossly unremarkable. Adrenal glands: Unremarkable. Kidneys: The unenhanced kidneys are atrophic and without hydronephrosis. There are no renal calculi identified. There is no evidence of contour deforming renal mass lesion. Abdominal vasculature: The abdominal aorta is normal in course and caliber noting advanced atherosclerotic calcification. Bowel: There is mild colonic diverticulosis without CT evidence of acute diverticulitis. No bowel obstruction is seen. The appendix is well-visualized and normal. Peritoneum: There is a small volume of abdominopelvic ascites. No intraperitoneal free air is seen. There is a large fat and fluid containing hernia in the ventral pelvis. Lymphadenopathy: Mildly enlarged lymph nodes in the matilda hepatis measure up to 2.0 cm in short axis. These are likely related to chronic liver disease. Pelvic viscera: The bladder, bladder is normal as visualized. The uterus is surgically absent. No adnexal lesion is seen. Skeletal structures: The skeletal structures are osteopenic. Mild lumbosacral spondylosis is observed. Is a mild superior endplate compression deformity of T12. No lytic or blastic lesions are seen. Soft tissues: There is mild body wall edema. IMPRESSION: 1. Suboptimal examination without oral and IV contrast. 2. The liver is enlarged and cirrhotic in morphology. 3. Splenomegaly and a small volume of abdominopelvic ascites indicate portal hypertension. 4. Cardiomegaly and small right pleural effusion. 5. Mild colonic diverticulosis without CT evidence of acute diverticulitis. 6. Additional findings as above. Electronically signed by: Ang Giraldo M.D. 02/06/2018 3:10 PM Dictated Date/Time: 02/06/2018 3:00 PM Laboratory Results 02/06/18 13:18 Red Blood Count 3.64, Mean Corpuscular Volume 77.5, Mean Corpuscular Hemoglobin 21.7, Mean Corpuscular Hemoglobin Concent 28.0, Mean Platelet Volume 10.4, Neutrophils (%) (Auto) 67.0, Lymphocytes (%) (Auto) 20.3, Monocytes (%) (Auto) 9.9, Eosinophils (%) (Auto) 1.5, Basophils (%) (Auto) 0.6, Neutrophils # (Auto) 4.82, Lymphocytes # (Auto) 1.46, Monocytes # (Auto) 0.71, Eosinophils # (Auto) 0.11, Basophils # (Auto) 0.04 02/06/18 13:18 Test 02/06/18 13:18 White Blood Count 7.19 K/uL (4.8-10.8) Red Blood Count 3.64 M/uL (4.2-5.4) Hemoglobin 7.9 g/dL (12.0-16.0) Hematocrit 28.2 % (37-47) Mean Corpuscular Volume 77.5 fL (80-100) Mean Corpuscular Hemoglobin 21.7 pg (25-34) Mean Corpuscular Hemoglobin Concent 28.0 g/dl (32-36) Platelet Count 249 K/uL (130-400) Mean Platelet Volume 10.4 fL (7.4-10.4) Neutrophils (%) (Auto) 67.0 % Lymphocytes (%) (Auto) 20.3 % Monocytes (%) (Auto) 9.9 % Eosinophils (%) (Auto) 1.5 % Basophils (%) (Auto) 0.6 % Neutrophils # (Auto) 4.82 K/uL (1.4-6.5) Lymphocytes # (Auto) 1.46 K/uL (1.2-3.4) Monocytes # (Auto) 0.71 K/uL (0.11-0.59) Eosinophils # (Auto) 0.11 K/uL (0-0.5) Basophils # (Auto) 0.04 K/uL (0-0.2) RDW Standard Deviation 52.0 fL (36.4-46.3) RDW Coefficient of Variation 18.2 % (11.5-14.5) Immature Granulocyte % (Auto) 0.7 % Immature Granulocyte # (Auto) 0.05 K/uL (0.00-0.02) Giant Platelets 1+ Polychromasia 1+ Hypochromasia PRESENT Ovalocytes 1+ Anion Gap 10.0 mmol/L (3-11) Est Creatinine Clear Calc Drug Dose 40.5 ml/min Estimated GFR () 42.7 Estimated GFR (Non- 36.9 BUN/Creatinine Ratio 16.4 (10-20) Calcium Level 8.4 mg/dl (8.5-10.1) Magnesium Level 2.0 mg/dl (1.8-2.4) Total Bilirubin 0.4 mg/dl (0.2-1) Direct Bilirubin 0.1 mg/dl (0-0.2) Aspartate Amino Transf (AST/SGOT) 20 U/L (15-37) Alanine Aminotransferase (ALT/SGPT) 17 U/L (12-78) Alkaline Phosphatase 106 U/L (45-117) Total Creatine Kinase 65 U/L (26-192) Creatine Kinase MB 0.6 ng/ml (0.5-3.6) Creatine Kinase MB Ratio 0.9 (0-3.0) Troponin I < 0.015 ng/ml (0-0.045) C-Reactive Protein 2.46 mg/dl (0-0.29) Pro-B-Type Natriuretic Peptide 1905 pg/ml (0-900) Total Protein 7.2 gm/dl (6.4-8.2) Albumin 3.4 gm/dl (3.4-5.0) Lipase 217 U/L (73-393) Thyroid Stimulating Hormone (TSH) 0.172 uIu/ml (0.300-4.500) Laboratory results as reviewed by me. Medications Administered Medications (Trade) Dose Ordered Sig/Gerald Route Start Time Stop Time Status Last Admin Dose Admin Sodium Chloride 500 ml @ 999 mls/hr Q31M STAT IV 02/06/18 13:47 02/06/18 14:17 DC 02/06/18 13:57 999 MLS/HR ECG Per My Interpretation Indication: other (headache and dizziness) Rate (beats per minute): 57 Rhythm: sinus bradycardia Findings: RBBB, prolonged QT (504), other (anaterior T wave inversion which is seen on previous EKG; no STEMI) Change: Similar to previous EKGs. ED Course 1258: The patient was evaluated in room B12B. A complete history and physical exam was performed. 1345: I checked on the patient and she is stable. She is agreeable to IV fluids. 1415: I checked on the patient and she states she feels better after IV fluids. We will CT her abdomen. 1520: I checked on the patient and she notes she feels better. She is agreeable to coming into the hospital. 1546: Discussed the patient's case with Dr. Cannon. The patient will be evaluated for further treatment and disposition. 1550: Upon reevaluation, the patient is resting comfortably. Discussed results and treatment plan with the patient. She verbalized understanding and agreement with the treatment plan. The patient will be evaluated for further management. Medical Decision Differential: Sepsis, Infectious (UTI/Pneumonia/Meningitis/etc), Metabolic/ Electrolyte Abnormality, Cardiac, Dehydration, Anemia, Hepatic, Endocrine, Toxicologic, Neurologic, amongst other pathologies entertained. 72 yr old female arrives for evaluation of dizziness and abdominal distension. 20+lbs weight gain last 2-3 weeks of uncertain etiology. On arrival she appears dry with orthostatic VS thus given IV bolus. CT abdo with evidence portal hypertension and diffuse ascites likely secondary to this. With hypotension, renal insufficiency and new ascites in setting of significant weight gain I feel she will need to come in for further work-up. Suspect dehydration secondary to diarrhea. She has no evidence this is bacterial infectious. No evidence ACS nor PE at this time. Anemia chronic though mildly worse than usual. No significant headache, recent trauma, nor neuro deficits thus hold off from brain imaging at this time. Medication Reconcilliation Current Medication List: was personally reviewed by me Blood Pressure Screening Patient's blood pressure: Low blood pressure Blood pressure disposition: Did not require urgent referral Consults Time Called: 1540 Consulting Physician: Dr. Cannon Returned Call: 1546 Discussed the patient's case. The patient will be evaluated for further treatment and disposition. Impression Primary Impression: Portal hypertension Additional Impressions: Anemia Orthostatic hypotension Dehydration Ascites Scribe Attestation The scribe's documentation has been prepared under my direction and personally reviewed by me in its entirety. I confirm that the note above accurately reflects all work, treatment, procedures, and medical decision making performed by me. Departure Information Referrals Laron Murphy M.D. ([place]) (PCP) Patient Instructions My [facility] Problem Qualifiers
--- NOTE | 2018-02-06 13:40 | DIAGNOSTIC IMAGING REPORT ---
SINGLE VIEW CHEST CLINICAL HISTORY: Atypical chest pain. FINDINGS: An AP, portable, upright chest radiograph is compared to study dated 12/05/2017. The examination is degraded by portable technique and patient rotation. The heart is enlarged and there is atherosclerotic calcification of the thoracic aorta. The pulmonary vasculature is noncongested. Chronic interstitial thickening is similar to previous. No airspace consolidation or large pleural effusion is identified. No pneumothorax is seen. The skeletal structures are osteopenic. The bony thorax is grossly intact. Calcific tendinopathy is noted in the right shoulder. IMPRESSION: Cardiomegaly with no acute cardiopulmonary abnormality. Electronically signed by: Ang Giraldo M.D. 02/06/2018 1:39 PM Dictated Date/Time: 02/06/2018 1:38 PM
[2018-02-06] MEDS ORDERED: SODIUM CHLORIDE 0.9% 500ML 500 ML IV STA (13:47)
[2018-02-06 13:51] LABS: ALBUMIN 3.4 gm/dl (3.4-5.0); ALT/SGPT 17 U/L (12-78); AST/SGOT 20 U/L (15-37); BLOOD UREA NITROGEN 23 mg/dl (7-18); CALCIUM 8.4 mg/dl (8.5-10.1); CARBON DIOXIDE 23 mmol/L (21-32); CREATININE 1.41 mg/dl (0.60-1.20); GLUCOSE 83 mg/dl (70-99); LIPASE 217 U/L (73-393); POTASSIUM 4.6 mmol/L (3.5-5.1); SODIUM 139 mmol/L (136-145)
[2018-02-06 13:53] LABS: HEMATOCRIT 28.2 % (37-47); HEMOGLOBIN 7.9 g/dL (12.0-16.0); MEAN CELL VOLUME 77.5 fL (80-100); MEAN CORPUSCULAR HEMOGLOBIN 21.7 pg (25-34); MEAN PLATELET VOLUME 10.4 fL (7.4-10.4); PLATELET COUNT 249 K/uL (130-400); RED CELL DISTRIBUTION WIDTH CV 18.2 % (11.5-14.5); WHITE BLOOD COUNT 7.19 K/uL (4.8-10.8)
[2018-02-06 13:59] LABS: ALKALINE PHOSPHATASE 106 U/L (45-117); CKMB 0.6 ng/ml (0.5-3.6); TOTAL PROTEIN 7.2 gm/dl (6.4-8.2)
[2018-02-06 14:08] LABS: BASO % 0.6 %; BASO ABS # 0.04 K/uL (0-0.2); EOS % 1.5 %; EOS ABS # 0.11 K/uL (0-0.5); IG# 0.05 K/uL (0.00-0.02); LYMPH % 20.3 %; LYMPH ABS # 1.46 K/uL (1.2-3.4); MONO % 9.9 %; MONO ABS # 0.71 K/uL (0.11-0.59); NEUT ABS # 4.82 K/uL (1.4-6.5)
--- NOTE | 2018-02-06 15:11 | DIAGNOSTIC IMAGING REPORT ---
CT SCAN OF THE ABDOMEN AND PELVIS WITHOUT IV CONTRAST CLINICAL HISTORY: Abdominal distention. COMPARISON STUDY: Abdominal CT dated 03/07/2015 an 09/22/2013. TECHNIQUE: CT scan of the abdomen and pelvis is performed from the lung bases to the proximal femora. Images are reviewed in the axial, sagittal, and coronal planes. IV contrast was not administered for this examination as per the referring clinician. Note that the examination was performed in suboptimal fashion without oral and IV contrast. A dose lowering technique was utilized adhering to the principles of ALARA. CT DOSE: 1503.10 mGy.cm FINDINGS: Lung bases: The heart is enlarged and without pericardial effusion. There is diminished attenuation of the cardiac blood pool as compared to the myocardium suggesting anemia. There is a small right pleural effusion with associated atelectasis. A 4 mm nodule in the right middle lobe on image #8 and a 3 mm pleural-based nodule in the right lower lobe along the major fissure seen on image #8 are unchanged from 2015 and of doubtful significance. There is a small hiatal hernia. Liver: The unenhanced liver is enlarged measuring 20.3 cm and cirrhotic in morphology. The liver is heterogeneous in attenuation. There is hypertrophy of the left lobe and caudate, as well as nodularity of the hepatic surface contour. There is no intrahepatic biliary ductal dilatation. Gallbladder: Mild gallbladder wall thickening is nonspecific, and likely related to cirrhosis and ascites. There is no convincing CT evidence of acute cholecystitis. Spleen: The spleen is enlarged, measuring 16.5 cm in length. Pancreas: Unenhanced pancreas is atrophic and grossly unremarkable. Adrenal glands: Unremarkable. Kidneys: The unenhanced kidneys are atrophic and without hydronephrosis. There are no renal calculi identified. There is no evidence of contour deforming renal mass lesion. Abdominal vasculature: The abdominal aorta is normal in course and caliber noting advanced atherosclerotic calcification. Bowel: There is mild colonic diverticulosis without CT evidence of acute diverticulitis. No bowel obstruction is seen. The appendix is well-visualized and normal. Peritoneum: There is a small volume of abdominopelvic ascites. No intraperitoneal free air is seen. There is a large fat and fluid containing hernia in the ventral pelvis. Lymphadenopathy: Mildly enlarged lymph nodes in the matilda hepatis measure up to 2.0 cm in short axis. These are likely related to chronic liver disease. Pelvic viscera: The bladder, bladder is normal as visualized. The uterus is surgically absent. No adnexal lesion is seen. Skeletal structures: The skeletal structures are osteopenic. Mild lumbosacral spondylosis is observed. Is a mild superior endplate compression deformity of T12. No lytic or blastic lesions are seen. Soft tissues: There is mild body wall edema. IMPRESSION: 1. Suboptimal examination without oral and IV contrast. 2. The liver is enlarged and cirrhotic in morphology. 3. Splenomegaly and a small volume of abdominopelvic ascites indicate portal hypertension. 4. Cardiomegaly and small right pleural effusion. 5. Mild colonic diverticulosis without CT evidence of acute diverticulitis. 6. Additional findings as above. Electronically signed by: Ang Giraldo M.D. 02/06/2018 3:10 PM Dictated Date/Time: 02/06/2018 3:00 PM
[2018-02-06] MEDS ORDERED: ONDANSETRON INJ 2 MG/ML 2 ML VIAL IV PRN (17:00)
[2018-02-06] MEDS ORDERED: ACETAMINOPHEN 325 MG TAB PO PRN (17:00)
[2018-02-06] MEDS ORDERED: HYDROCORTISONE 10 MG TAB PO ONE (17:00)
[2018-02-06] MEDS ORDERED: PHARMACY GLYCEMIC MGMT CONSULT PRN (17:09)
--- NOTE | 2018-02-06 17:11 | History and Physical ---
History & Physical Date & Time of Service: Feb 06, 2018 at 17:11 Chief Complaint: Dizzy,Weak Primary Care Physician: Laron Murphy M.D. (NAVARRE) History of Present Illness Source: patient Patient is a 72 yr female with PMH of DM II, Diastolic CHF, MSSA bacteremia, P.Afib, Microcytic anemia, H/O pituitary tumor s/p surgery, Hypothyroidism, Leukocytoclastic Vasculitis and other problems who was recently treated for MSSA bacteremia presents with history of progressively worsening abdominal distention and fullness, dyspnea on exertion, weight gain of about 20 pounds in 3 weeks and leg swelling. She states she had 3 loose BMs yesterday which resolved. Also noticed that she had dizziness this morning and felt as if she would pass out which she believes could be secondary to low blood sugar levels and so came to ED for further evaluation. She reports that she follows with her health safety manager who increased her Cortef recently and since last 2 days she cut the dose in half as she thought the weight gain is secondary to side effects. She is scheduled to get an abdominal ultrasound on Wednesday as per her PCP recommendations. Also reports mild headache, no change in vision. Denies any history of chest pain, orthopnea, PND, diaphoresis, cough, fever, chills, LOC, nausea, vomiting, abdominal pain, blood in stools, dysuria. Past Medical/Surgical History Medical Problems: (1) ACS (acute coronary syndrome) (2) Afib (3) Anemia (4) Anticoagulated on Coumadin (5) Asthma, Unspecified (6) Atrial fibrillation with rapid ventricular response (7) Atrial fibrillation with RVR (8) Dehydration (9) Depressive Disorder Nec (10) Diab Brie Wo Compl, Type Ii Or Unspec Type, Not Uncntrld (11) Fever (12) Flu-like symptoms (13) Gastroenteritis (14) Hypertension Nos (15) Hypothyroidism Nos (16) [id number] (17) Kidney stone (18) Nausea & vomiting (19) Nausea vomiting and diarrhea (20) NSTEMI (non-ST elevated myocardial infarction) (21) PAF (paroxysmal atrial fibrillation) (22) Petechial rash (23) Pituitary tumor (24) Renal colic (25) Sepsis (26) Sepsis with hypotension (27) Supratherapeutic INR (28) Ureteral calculus, right (29) UTI (urinary tract infection) (30) Volume overload (31) Vomiting and diarrhea Surgical Problems: (1) H/O: hysterectomy Family History Cancer Diabetes mellitus Heart disease Hypertension Not contributory Social History Smoking Status: Never Smoker Alcohol Use: none Drug Use: none Marital Status: Housing status: lives with family Occupational Status: retired Immunizations History of Influenza Vaccine: Yes History of Tetanus Vaccine?: Unknown History of Pneumococcal: Yes History of Hepatitis B Vaccine: Unknown Allergies Coded Allergies: Iodinated Diagnostic Agents (Verified Allergy, Intermediate, RASH, 02/06/18) Sulfa Antibiotics (Verified Allergy, Intermediate, HIVES, 02/06/18) Ciprofloxacin (Verified Adverse Reaction, Mild, VOMITING, 02/06/18) Home Medications Scheduled Amiodarone Hcl (Cordarone), 200 MG PO DAILY Aspirin (Aspirin Ec), 81 MG PO DAILY Atorvastatin (Lipitor), 20 MG PO HS Citalopram (Citalopram Hydrobromide), 20 MG PO QAM Glipizide (Glipizide), 5 MG PO QAM Hydrocortisone (Cortef), 10 MG PO QAM Hydrocortisone (Cortef), 5 MG PO AFTERNOON Insulin Glargine (Toujeo Solostar), 66 UNITS SC HS Latanoprost (Latanoprost), 1 DROP OPB HS Levothyroxine Sodium (Levothyroxine Sodium), 125 MCG PO QAM Metformin Hcl (Glucophage), 1,000 MG PO BID Metoprolol Tartrate (Metoprolol Tartrate), 1 TAB PO BID Warfarin Sodium (Warfarin Sodium), 1 TAB PO DAILYUD Scheduled PRN Furosemide (Furosemide), 1 TAB PO DAILY PRN for EDEMA Loratadine (Claritin), 10 MG PO DAILY PRN for ALLERGIES Review of Systems See HPI for pertinent positives & negatives. A total of 10 systems reviewed and were otherwise negative. Physical Exam Vital Signs Date Time Temp Pulse Resp B/P (MAP) Pulse Ox O2 Delivery O2 Flow Rate FiO2 02/06/18 16:01 141/63 02/06/18 16:00 56 20 99 Room Air 02/06/18 15:31 148/56 02/06/18 15:30 56 19 99 Room Air 02/06/18 15:12 57 22 129/60 99 Room Air 02/06/18 14:30 56 17 123/58 100 Room Air 02/06/18 13:57 56 18 121/56 100 Room Air 02/06/18 13:19 57 02/06/18 13:11 58 106/49 100 58 129/61 58 97/58 02/06/18 12:55 36.7 58 20 94/49 97 Room Air General Appearance: no apparent distress, + obese Head: normocephalic, atraumatic Eyes: normal inspection, PERRL, EOMI, sclerae normal ENT: normal ENT inspection, hearing grossly normal Neck: supple, trachea midline Respiratory/Chest: chest non-tender, lungs clear, normal breath sounds, no respiratory distress, no accessory muscle use Cardiovascular: regular rate, rhythm, no murmur, + pertinent finding (1+ b/l edema) Abdomen/GI: normal bowel sounds, non tender, soft, + distended Back: normal inspection Extremities/Musculoskelatal: normal inspection, + pedal edema Neurologic/Psych: fruit cutter II-XII nml as tested, no motor/sensory deficits, alert, normal mood/affect, oriented x 3 Skin: normal color, warm/dry Diagnostics Laboratory Results Results Past 24 Hours Test 02/06/18 13:18 Range/Units White Blood Count 7.19 4.8-10.8 K/uL Red Blood Count 3.64 4.2-5.4 M/uL Hemoglobin 7.9 12.0-16.0 g/dL Hematocrit 28.2 37-47 % Mean Corpuscular Volume 77.5 80-100 fL Mean Corpuscular Hemoglobin 21.7 25-34 pg Mean Corpuscular Hemoglobin Concent 28.0 32-36 g/dl Platelet Count 249 130-400 K/uL Mean Platelet Volume 10.4 7.4-10.4 fL Neutrophils (%) (Auto) 67.0 % Lymphocytes (%) (Auto) 20.3 % Monocytes (%) (Auto) 9.9 % Eosinophils (%) (Auto) 1.5 % Basophils (%) (Auto) 0.6 % Neutrophils # (Auto) 4.82 1.4-6.5 K/uL Lymphocytes # (Auto) 1.46 1.2-3.4 K/uL Monocytes # (Auto) 0.71 0.11-0.59 K/uL Eosinophils # (Auto) 0.11 0-0.5 K/uL Basophils # (Auto) 0.04 0-0.2 K/uL RDW Standard Deviation 52.0 36.4-46.3 fL RDW Coefficient of Variation 18.2 11.5-14.5 % Immature Granulocyte % (Auto) 0.7 % Immature Granulocyte # (Auto) 0.05 0.00-0.02 K/uL Giant Platelets 1+ Polychromasia 1+ Hypochromasia PRESENT Ovalocytes 1+ Sodium Level 139 136-145 mmol/L Potassium Level 4.6 3.5-5.1 mmol/L Chloride Level 106 98-107 mmol/L Carbon Dioxide Level 23 21-32 mmol/L Anion Gap 10.0 3-11 mmol/L Blood Urea Nitrogen 23 7-18 mg/dl Creatinine 1.41 0.60-1.20 mg/dl Est Creatinine Clear Calc Drug Dose 40.5 ml/min Estimated GFR () 42.7 Estimated GFR (Non- 36.9 BUN/Creatinine Ratio 16.4 10-20 Random Glucose 83 70-99 mg/dl Calcium Level 8.4 8.5-10.1 mg/dl Magnesium Level 2.0 1.8-2.4 mg/dl Total Bilirubin 0.4 0.2-1 mg/dl Direct Bilirubin 0.1 0-0.2 mg/dl Aspartate Amino Transf (AST/SGOT) 20 15-37 U/L Alanine Aminotransferase (ALT/SGPT) 17 12-78 U/L Alkaline Phosphatase 106 45-117 U/L Total Creatine Kinase 65 26-192 U/L Creatine Kinase MB 0.6 0.5-3.6 ng/ml Creatine Kinase MB Ratio 0.9 0-3.0 Troponin I < 0.015 0-0.045 ng/ml C-Reactive Protein 2.46 0-0.29 mg/dl Pro-B-Type Natriuretic Peptide 1905 0-900 pg/ml Total Protein 7.2 6.4-8.2 gm/dl Albumin 3.4 3.4-5.0 gm/dl Lipase 217 73-393 U/L Thyroid Stimulating Hormone (TSH) 0.172 0.300-4.500 uIu/ml Diagnostic Radiology CT ABD: 1. Suboptimal examination without oral and IV contrast. 2. The liver is enlarged and cirrhotic in morphology. 3. Splenomegaly and a small volume of abdominopelvic ascites indicate portal hypertension. 4. Cardiomegaly and small right pleural effusion. 5. Mild colonic diverticulosis without CT evidence of acute diverticulitis. 6. Additional findings as above. CXR: Cardiomegaly with no acute cardiopulmonary abnormality. EKG Sinus Bradycardia, RBBB Impression Assessment and Plan Volume Overload: Likely multifactorial: Portal hypertension, Acute on chronic diastolic CHF exacerbation Seemed to be intravascularly volume depleted 2/2 diarrhea Will give Albumin, Lasix Low sodium diet Daily weight, I/Os, fluid restriction ECHO: on 02/02/18: * Normal LV systolic function, EF 60-65%. * No segmental left ventricular wall motion abnormalities are noted. * Grade III diastolic dysfunction (restrictive physiology). Monitor renal function, electrolytes while on diuretics Check abdominal ultrasound for ascites Consulted GI and Cardiology 1st set of Troponin negative Oxygen support PRN KHARI: Likely secondary to diarrhea and intravascular volume depletion Monitor renal function Avoid nephrotoxic agents Sinus Bradycardia: Hold Metoprolol P.Afib: Continue amiodarone Hold Coumadin as INR: 4.2 resume Coumadin as able monitor INR DM II: A1C:6.9 on 12/11/17 continue ISS, lantus hold metformin, glipizide monitor BG levels Pharmacy Glycemic control consult H/O 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 Continue Po Cortef Hypothyroidism: recently levothyroxine dose increased by Endocrine TSH:low check Free T4 continue levothyroxine 125mcg daily H/O Leukocytoclastic vasculitis H/O recurrent LE rash: stable Follows with Rheumatology DVT Px: on Coumadin Code Status: Full Code Resuscitation Status VTE Prophylaxis Will order VTE Prophylaxis: Yes
[2018-02-06] MEDS ORDERED: GLUCAGON FOR INJ 1 MG VIAL SQ PRN (17:15)
[2018-02-06] MEDS ORDERED: GLUCOSE 10 TABS/TUBE PO PRN (17:15)
[2018-02-06] MEDS ORDERED: GLUCOSE 40% GEL 15 GM TUBE PO PRN (17:15)
[2018-02-06] MEDS ORDERED: DEXTROSE 50% 50 ML SYR IV PRN (17:15)
--- NOTE | 2018-02-06 17:46 | DIAGNOSTIC IMAGING REPORT ---
ULTRASOUND ASCITES CHECK CLINICAL HISTORY: Ascites. COMPARISON STUDY: Abdominal CT performed the same 02/06/2018. FINDINGS: Real-time grayscale sonography of all 4 quadrants of the abdomen is performed to assess for abdominal ascites. There is a small volume of abdominopelvic ascites identified. IMPRESSION: Small volume of ascites. Electronically signed by: Ang Giraldo M.D. 02/06/2018 5:45 PM Dictated Date/Time: 02/06/2018 5:44 PM
[2018-02-06 17:53] VITALS: BP 98/61; PULSE 57; TEMP 36.9; O2SAT 99
[2018-02-06] MEDS ORDERED: ALBUMIN 25% 50 ML with FUROSEMIDE INJ 40 MG IV ONE ×2 (18:00)
[2018-02-06 18:01] VITALS: BP 98/61; PULSE 57; TEMP 36.9; O2SAT 99; BMI 37.3
[2018-02-06] MEDS ORDERED: NURSING VERBAL MED ORDER ONE (19:00)
[2018-02-06] MEDS ORDERED: ALBUMIN HUMAN 25% 12.5 GM/50 ML VIAL IV ONE (19:00)
[2018-02-06 19:33] VITALS: BP 122/62; PULSE 43; TEMP 36.9; O2SAT 100
[2018-02-06] MEDS: LATANOPROST 0.005% OP SOLN 2.5 ML BTL OPB SCH (20:54)
[2018-02-06] MEDS: ATORVASTATIN 20 MG TAB PO SCH (20:55)
[2018-02-06] MEDS: INSULIN GLARGINE SOLOSTAR 100 UNITS/ML 3 ML PEN SC SCH (20:56)
[2018-02-06] MEDS ORDERED: INSULIN ASPART 100 UNITS/ML 3 ML PEN SC SCH (21:00)
[2018-02-06] MEDS ORDERED: METOPROLOL TARTRATE 50 MG TAB PO SCH (21:00)
[2018-02-06] MEDS ORDERED: INSULIN GLARGINE SC SCH (21:00)
[2018-02-06 21:46] VITALS: PULSE 39; O2SAT 99
[2018-02-06 23:21] VITALS: BP 119/68; PULSE 61; TEMP 36.5; O2SAT 97
[2018-02-07] VITALS (12 sets, daily range): BP systolic 100–141; BP diastolic 61–81; PULSE 57–73; TEMP 36.1–37.5; O2SAT 92–99
--- NOTE | 2018-02-07 01:08 | Progress Note ---
Internal Med Progress Note Date of Service: Feb 07, 2018. Provider Documentation: Made aware by RN of hemoglobin of 6.9 Stool FOBT done at bedside negative Vital Signs: Date Time Temp Pulse Resp B/P (MAP) Pulse Ox O2 Delivery O2 Flow Rate FiO2 02/07/18 08:30 37.0 59 16 121/72 (88) 98 Room Air 02/07/18 04:00 Room Air 02/07/18 03:18 36.6 59 20 118/71 (87) 99 CPAP 02/07/18 00:00 Room Air 02/06/18 23:21 36.5 61 18 119/68 (85) 97 CPAP 02/06/18 21:46 39 99 21 02/06/18 20:00 Room Air 02/06/18 19:33 36.9 43 16 122/62 (82) 100 Room Air 02/06/18 18:01 36.9 57 20 98/61 99 Room Air 02/06/18 17:53 36.9 57 20 98/61 (73) 99 Room Air 02/06/18 17:35 55 22 134/66 96 02/06/18 17:00 55 22 134/66 96 Room Air 02/06/18 16:01 141/63 02/06/18 16:00 56 20 99 Room Air 02/06/18 15:31 148/56 02/06/18 15:30 56 19 99 Room Air 02/06/18 15:12 57 22 129/60 99 Room Air 02/06/18 14:30 56 17 123/58 100 Room Air 02/06/18 13:57 56 18 121/56 100 Room Air 02/06/18 13:19 57 02/06/18 13:11 58 106/49 100 58 129/61 58 97/58 02/06/18 12:55 36.7 58 20 94/49 97 Room Air Lab Results: Results Past 24 Hours Test 02/06/18 13:18 02/06/18 17:09 02/06/18 19:36 02/06/18 19:39 Range/Units White Blood Count 7.19 4.8-10.8 K/uL Red Blood Count 3.64 4.2-5.4 M/uL Hemoglobin 7.9 12.0-16.0 g/dL Hematocrit 28.2 37-47 % Mean Corpuscular Volume 77.5 80-100 fL Mean Corpuscular Hemoglobin 21.7 25-34 pg Mean Corpuscular Hemoglobin Concent 28.0 32-36 g/dl Platelet Count 249 130-400 K/uL Mean Platelet Volume 10.4 7.4-10.4 fL Neutrophils (%) (Auto) 67.0 % Lymphocytes (%) (Auto) 20.3 % Monocytes (%) (Auto) 9.9 % Eosinophils (%) (Auto) 1.5 % Basophils (%) (Auto) 0.6 % Neutrophils # (Auto) 4.82 1.4-6.5 K/uL Lymphocytes # (Auto) 1.46 1.2-3.4 K/uL Monocytes # (Auto) 0.71 0.11-0.59 K/uL Eosinophils # (Auto) 0.11 0-0.5 K/uL Basophils # (Auto) 0.04 0-0.2 K/uL RDW Standard Deviation 52.0 36.4-46.3 fL RDW Coefficient of Variation 18.2 11.5-14.5 % Immature Granulocyte % (Auto) 0.7 % Immature Granulocyte # (Auto) 0.05 0.00-0.02 K/uL Giant Platelets 1+ Polychromasia 1+ Hypochromasia PRESENT Ovalocytes 1+ Sodium Level 139 136-145 mmol/L Potassium Level 4.6 3.5-5.1 mmol/L Chloride Level 106 98-107 mmol/L Carbon Dioxide Level 23 21-32 mmol/L Anion Gap 10.0 3-11 mmol/L Blood Urea Nitrogen 23 7-18 mg/dl Creatinine 1.41 0.60-1.20 mg/dl Est Creatinine Clear Calc Drug Dose 40.5 ml/min Estimated GFR () 42.7 Estimated GFR (Non- 36.9 BUN/Creatinine Ratio 16.4 10-20 Random Glucose 83 70-99 mg/dl Calcium Level 8.4 8.5-10.1 mg/dl Magnesium Level 2.0 1.8-2.4 mg/dl Total Bilirubin 0.4 0.2-1 mg/dl Direct Bilirubin 0.1 0-0.2 mg/dl Aspartate Amino Transf (AST/SGOT) 20 15-37 U/L Alanine Aminotransferase (ALT/SGPT) 17 12-78 U/L Alkaline Phosphatase 106 45-117 U/L Total Creatine Kinase 65 26-192 U/L Creatine Kinase MB 0.6 0.5-3.6 ng/ml Creatine Kinase MB Ratio 0.9 0-3.0 Troponin I < 0.015 < 0.015 0-0.045 ng/ml C-Reactive Protein 2.46 0-0.29 mg/dl Pro-B-Type Natriuretic Peptide 1905 0-900 pg/ml Total Protein 7.2 6.4-8.2 gm/dl Albumin 3.4 3.4-5.0 gm/dl Lipase 217 73-393 U/L Thyroid Stimulating Hormone (TSH) 0.172 0.300-4.500 uIu/ml Bedside Prothrombin Time INR 4.2 0.9-1.1 Bedside Glucose 108 70-90 mg/dl Test 02/07/18 00:20 02/07/18 04:13 02/07/18 04:15 02/07/18 04:31 Range/Units Bedside Glucose 88 69 95 70-90 mg/dl Urine Color YELLOW Urine Appearance CLEAR CLEAR Urine pH 6.0 4.5-7.5 Urine Specific [place] 1.016 1.000-1.030 Urine Protein NEG NEG Urine Glucose (UA) NEG NEG Urine Ketones NEG NEG Urine Occult Blood NEG NEG Urine Nitrite NEG NEG Urine Bilirubin NEG NEG Urine Urobilinogen NEG NEG Urine Leukocyte Esterase TRACE NEG Urine WBC (Auto) 1-5 0-5 /hpf Urine RBC (Auto) 0-4 0-4 /hpf Urine Hyaline Casts (Auto) 1-5 0-5 /lpf Urine Epithelial Cells (Auto) 10-20 0-5 /lpf Urine Bacteria (Auto) NEG NEG Test 02/07/18 05:23 02/07/18 06:45 02/07/18 08:03 Range/Units White Blood Count 3.96 4.8-10.8 K/uL Red Blood Count 2.85 4.2-5.4 M/uL Hemoglobin 6.5 12.0-16.0 g/dL Hematocrit 22.1 37-47 % Mean Corpuscular Volume 77.5 80-100 fL Mean Corpuscular Hemoglobin 22.8 25-34 pg Mean Corpuscular Hemoglobin Concent 29.4 32-36 g/dl RDW Standard Deviation 51.9 36.4-46.3 fL RDW Coefficient of Variation 18.2 11.5-14.5 % Platelet Count 173 130-400 K/uL Mean Platelet Volume 9.7 7.4-10.4 fL Nucleated RBC Absolute Count (auto) 0.02 0-0 K/uL Nucleated Red Blood Cells % 0.5 % Prothrombin Time 34.0 9.0-12.0 SECONDS Prothromb Time International Ratio 3.3 0.9-1.1 Sodium Level 139 136-145 mmol/L Potassium Level 4.2 3.5-5.1 mmol/L Chloride Level 106 98-107 mmol/L Carbon Dioxide Level 25 21-32 mmol/L Anion Gap 8.0 3-11 mmol/L Blood Urea Nitrogen 25 7-18 mg/dl Creatinine 1.40 0.60-1.20 mg/dl Est Creatinine Clear Calc Drug Dose 40.5 ml/min Estimated GFR () 43.1 Estimated GFR (Non- 37.2 BUN/Creatinine Ratio 18.2 10-20 Random Glucose 106 70-99 mg/dl Calcium Level 8.2 8.5-10.1 mg/dl Magnesium Level 2.1 1.8-2.4 mg/dl Pro-B-Type Natriuretic Peptide 1543 0-900 pg/ml Thyroid Stimulating Hormone (TSH) 0.147 0.300-4.500 uIu/ml Free Thyroxine 0.97 0.80-1.60 ng/dl Bedside Glucose 86 70-90 mg/dl Transferrin % Saturation 15-50 %
[2018-02-07 06:04] LABS: HEMATOCRIT 22.1 % (37-47); HEMOGLOBIN 6.5 g/dL (12.0-16.0); MEAN CELL VOLUME 77.5 fL (80-100); MEAN CORPUSCULAR HEMOGLOBIN 22.8 pg (25-34); MEAN CORPUSCULAR HGB CONC 29.4 g/dl (32-36); MEAN PLATELET VOLUME 9.7 fL (7.4-10.4); NUCLEATED RED BLOOD CELL ABS 0.02 K/uL (0-0); PLATELET COUNT 173 K/uL (130-400); RED CELL DISTRIBUTION WIDTH CV 18.2 % (11.5-14.5); RED CELL DISTRIBUTION WIDTH SD 51.9 fL (36.4-46.3); WHITE BLOOD COUNT 3.96 K/uL (4.8-10.8)
[2018-02-07 06:07] LABS: INR 3.3 (0.9-1.1)
[2018-02-07] MEDS: LEVOTHYROXINE 125 MCG TAB PO SCH (06:11)
[2018-02-07 06:29] LABS: CALCIUM 8.2 mg/dl (8.5-10.1); CREATININE 1.4 mg/dl (0.60-1.20); POTASSIUM 4.2 mmol/L (3.5-5.1)
[2018-02-07] MEDS ORDERED: NURSING VERBAL MED ORDER ONE (08:45)
[2018-02-07] MEDS ORDERED: AMIODARONE 200 MG TAB PO SCH (09:00)
[2018-02-07] MEDS ORDERED: ASPIRIN 81 MG ECTAB PO SCH (09:00)
[2018-02-07] MEDS ORDERED: FUROSEMIDE 20 MG TAB PO SCH (09:00)
--- NOTE | 2018-02-07 09:06 | Progress Note ---
Medicine Progress Note Date & Time of Visit: Feb 07, 2018 at 08:51. Subjective seen resting in bed comfortable states she feels slightly better than yesterday can "move around" more with less dyspnea no chest pain no melena/hematochezia no other symptoms Objective Last 8 Hrs Date Time Temp Pulse Resp B/P (MAP) Pulse Ox O2 Delivery O2 Flow Rate FiO2 02/07/18 08:30 37.0 59 16 121/72 (88) 98 Room Air 02/07/18 04:00 Room Air 02/07/18 03:18 36.6 59 20 118/71 (87) 99 CPAP Physical Exam: General-oriented x 3, not in distress, speaks in sentences with no effort Head- atraumatic Eyes- PERRL, EOMI, anicteric ENT- dry oral mucosa, oropharynx clear Neck- supple, no JVD, no adenopathy, no thyromegaly; carotids +2/2, no bruits appreciated Lungs- mild rales bilateral bases Heart- normal rate, regular rhythm, (+) grade 2-3 holosystolic murmur Abdomen- normal bowel sounds, soft, nontender, mildly distended Extremities- no pretibial edema, no calf tenderness; peripheral pulses intact Neuro- alert, oriented x 3; no gross focal deficits Skin- warm & dry Laboratory Results: Last 24 Hours Test 02/06/18 13:18 02/06/18 17:09 02/06/18 19:36 02/06/18 19:39 White Blood Count 7.19 K/uL Red Blood Count 3.64 M/uL Hemoglobin 7.9 g/dL Hematocrit 28.2 % Mean Corpuscular Volume 77.5 fL Mean Corpuscular Hemoglobin 21.7 pg Mean Corpuscular Hemoglobin Concent 28.0 g/dl Platelet Count 249 K/uL Mean Platelet Volume 10.4 fL Neutrophils (%) (Auto) 67.0 % Lymphocytes (%) (Auto) 20.3 % Monocytes (%) (Auto) 9.9 % Eosinophils (%) (Auto) 1.5 % Basophils (%) (Auto) 0.6 % Neutrophils # (Auto) 4.82 K/uL Lymphocytes # (Auto) 1.46 K/uL Monocytes # (Auto) 0.71 K/uL Eosinophils # (Auto) 0.11 K/uL Basophils # (Auto) 0.04 K/uL RDW Standard Deviation 52.0 fL RDW Coefficient of Variation 18.2 % Immature Granulocyte % (Auto) 0.7 % Immature Granulocyte # (Auto) 0.05 K/uL Giant Platelets 1+ Polychromasia 1+ Hypochromasia PRESENT Ovalocytes 1+ Sodium Level 139 mmol/L Potassium Level 4.6 mmol/L Chloride Level 106 mmol/L Carbon Dioxide Level 23 mmol/L Anion Gap 10.0 mmol/L Blood Urea Nitrogen 23 mg/dl Creatinine 1.41 mg/dl Est Creatinine Clear Calc Drug Dose 40.5 ml/min Estimated GFR () 42.7 Estimated GFR (Non- 36.9 BUN/Creatinine Ratio 16.4 Random Glucose 83 mg/dl Calcium Level 8.4 mg/dl Magnesium Level 2.0 mg/dl Total Bilirubin 0.4 mg/dl Direct Bilirubin 0.1 mg/dl Aspartate Amino Transf (AST/SGOT) 20 U/L Alanine Aminotransferase (ALT/SGPT) 17 U/L Alkaline Phosphatase 106 U/L Total Creatine Kinase 65 U/L Creatine Kinase MB 0.6 ng/ml Creatine Kinase MB Ratio 0.9 Troponin I < 0.015 ng/ml < 0.015 ng/ml C-Reactive Protein 2.46 mg/dl Pro-B-Type Natriuretic Peptide 1905 pg/ml Total Protein 7.2 gm/dl Albumin 3.4 gm/dl Lipase 217 U/L Thyroid Stimulating Hormone (TSH) 0.172 uIu/ml Bedside Prothrombin Time INR 4.2 Bedside Glucose 108 mg/dl Test 02/07/18 00:20 02/07/18 04:13 02/07/18 04:15 02/07/18 04:31 Bedside Glucose 88 mg/dl 69 mg/dl 95 mg/dl Urine Color YELLOW Urine Appearance CLEAR Urine pH 6.0 Urine Specific [place] 1.016 Urine Protein NEG Urine Glucose (UA) NEG Urine Ketones NEG Urine Occult Blood NEG Urine Nitrite NEG Urine Bilirubin NEG Urine Urobilinogen NEG Urine Leukocyte Esterase TRACE Urine WBC (Auto) 1-5 /hpf Urine RBC (Auto) 0-4 /hpf Urine Hyaline Casts (Auto) 1-5 /lpf Urine Epithelial Cells (Auto) 10-20 /lpf Urine Bacteria (Auto) NEG Test 02/07/18 05:23 02/07/18 06:45 02/07/18 08:03 White Blood Count 3.96 K/uL Red Blood Count 2.85 M/uL Hemoglobin 6.5 g/dL Hematocrit 22.1 % Mean Corpuscular Volume 77.5 fL Mean Corpuscular Hemoglobin 22.8 pg Mean Corpuscular Hemoglobin Concent 29.4 g/dl RDW Standard Deviation 51.9 fL RDW Coefficient of Variation 18.2 % Platelet Count 173 K/uL Mean Platelet Volume 9.7 fL Nucleated RBC Absolute Count (auto) 0.02 K/uL Nucleated Red Blood Cells % 0.5 % Prothrombin Time 34.0 SECONDS Prothromb Time International Ratio 3.3 Sodium Level 139 mmol/L Potassium Level 4.2 mmol/L Chloride Level 106 mmol/L Carbon Dioxide Level 25 mmol/L Anion Gap 8.0 mmol/L Blood Urea Nitrogen 25 mg/dl Creatinine 1.40 mg/dl Est Creatinine Clear Calc Drug Dose 40.5 ml/min Estimated GFR () 43.1 Estimated GFR (Non- 37.2 BUN/Creatinine Ratio 18.2 Random Glucose 106 mg/dl Calcium Level 8.2 mg/dl Magnesium Level 2.1 mg/dl Pro-B-Type Natriuretic Peptide 1543 pg/ml Thyroid Stimulating Hormone (TSH) 0.147 uIu/ml Free Thyroxine 0.97 ng/dl Bedside Glucose 86 mg/dl Transferrin % Saturation % Assessment & Plan Volume Overload: Likely multifactorial: Acute on chronic diastolic CHF exacerbation, Portal hypertension Seemed to be intravascularly volume depleted 2/2 diarrhea ECHO: on 02/02/18: * Normal LV systolic function, EF 60-65%. * No segmental left ventricular wall motion abnormalities are noted. * Grade III diastolic dysfunction (restrictive physiology). -- Lasix + Albumin not given due to borderline BP negative 550cc i/o so far -- hold Lasix for now until evaluated by Cardiology Anemia -- in the setting of Liver Cirrhosis, Portal HTN -- r/o Esophageal Varices bleeding -- 1 unit pRBC ordered Anemia panel ordered -- GI consulted Acute Renal Failure on CKD 2 Likely secondary to diarrhea and intravascular volume depletion -- crea baseline at 0.9, now 1.4 -- hold Lasix until Cardio evaluates patient Sinus Bradycardia: Hold Metoprolol P.Afib: Continue amiodarone Hold Coumadin as INR: 4.2 INR 3.3 -- hold coumadin monitor DM II: A1C:6.9 on 12/11/17 continue ISS, lantus hold metformin, glipizide monitor BG levels Pharmacy Glycemic control consult H/O 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 Continue Po Cortef -- follows with Dr. Albarado advised patient to increase Cortef to 20mg in AM and 10 at noon patient changed this back to 10mg in AM and 5 at noon -- will consult Endocrinology Hypothyroidism: recently levothyroxine dose increased by Endocrine TSH:low Free T4 normal, on levothyroxine 125mcg daily -- consult Endo H/O Leukocytoclastic vasculitis H/O recurrent LE rash: stable Follows with Rheumatology DVT Px: on Coumadin INR supratherapeutic Code Status: Full Code Pending Cardio and GI eval pending PT/OT lives at home with Current Inpatient Medications: Current Inpatient Medications Medications (Trade) Dose Ordered Sig/Gerald Route Start Time Stop Time Status Last Admin Dose Admin Acetaminophen (Tylenol Tab) 650 mg Q4H PRN PO 02/06/18 17:00 03/08/18 16:59 Ondansetron HCl (Zofran Inj) 4 mg Q6H PRN IV 02/06/18 17:00 03/08/18 16:59 Glucose (Glucose 40% Gel) 15-30 GRAMS 15 GRAMS... UD PRN PO 02/06/18 17:15 03/08/18 17:14 Glucose (Glucose Chew Tab) 4-8 Tablets 4 Tabl... UD PRN PO 02/06/18 17:15 03/08/18 17:14 Dextrose (Dextrose 50% 50ML Syringe) 25-50ML OF 50% DW IV FOR... UD PRN IV 02/06/18 17:15 03/08/18 17:14 Glucagon (Glucagon Inj) 1 mg UD PRN SQ 02/06/18 17:15 03/08/18 17:14 Miscellaneous Information (Consult Glycemic Management Pharmacy) 1 ea UD PRN N/A 02/06/18 17:09 03/08/18 17:08 Atorvastatin Calcium (Lipitor Tab) 20 mg HS PO 02/06/18 21:00 03/08/18 20:59 02/06/18 20:55 20 MG Citalopram Hydrobromide (celeXA TAB) 20 mg QAM PO 02/07/18 09:00 03/09/18 08:59 Hydrocortisone (Cortef Tab) 10 mg DAILY@1500 PO 02/07/18 15:00 03/09/18 14:59 Hydrocortisone (Cortef Tab) 20 mg QAM PO 02/07/18 09:00 03/09/18 08:59 Latanoprost (Xalatan Oph Soln) 1 drops HS OPB 02/06/18 21:00 03/08/18 20:59 02/06/18 20:54 1 DROPS Levothyroxine Sodium (Synthroid Tab) 125 mcg DAILYBB PO 02/07/18 06:00 03/09/18 05:59 02/07/18 06:11 125 MCG Metoprolol Tartrate (Lopressor Tab) 50 mg BID PO 02/06/18 21:00 03/08/18 20:59 Future Hold Furosemide (Lasix Tab) 20 mg BID17 PO 02/07/18 09:00 03/09/18 08:59 Insulin Glargine (Lantus Solostar Pen) SEE DOSING PARAMETERS/SCALE HS SC 02/06/18 21:00 03/08/18 20:59 Insulin Aspart (novoLOG ASPART) SLIDING SCALE If C... Q6 SC 02/07/18 12:00 03/09/18 11:59 Miscellaneous Information (Nursing Verbal Med Order) 1 ea ONE ONCE N/A 02/07/18 08:45 02/07/18 08:46 UNV
[2018-02-07] MEDS: HYDROCORTISONE 10 MG TAB PO SCH ×2 (09:48→15:34)
[2018-02-07] MEDS: CITALOPRAM 20 MG TAB PO SCH (09:49)
--- NOTE | 2018-02-07 10:08 | Gastrointestinal Consultation ---
Gastrointestinal Consultation Date of Consultation: Feb 07, 2018 Attending Physician: Consult from Dr. Cannon; primary hospitalist Dr. Ramirez Consulting Physician: Dr. Amrit Narvaez Reason for Consultation: Cirrhosis History of Present Illness Patient is a 72 year old female patient of Dr. Laron Murphy in [place] with a hx of DM-2, NSTEMI (Nov 2017) during sepsis, Pituitary tumor S/P resection. She noticed an increasing abdominal girth over the past month and resultant SOB. She was undergoing an OP workup which included echocardiogram with 60% EF and w/ o valvular issues or evidence of right sided heart failure. She was scheduled for US today, however, yesterday at [facility], she felt dizzy, weak, SOB, very fatigued and nearly fainted. She was brought to [facility] by her . On arrival, she was found to be anemic, Hb 7.9 with further decrease this morning to 6.5. Cr is 1.4, up from her baseline of 0.[address] w/o IV contrast was suggestive of cirrhosis and portal HTN as well as a small amt of ascites. There was no biliary ductal dilation. US with ascites. The pt is seen and examined while she is resting in bed. She is awake, alert, oriented. She tells us that she feels better since admission. She denies any melena, hematochezia, nausea or vomiting. She did have a day of diarrhea on Wednesday which has since resolved. Her LFTs are normal. She denies any significant alcohol intake or previously increased alcohol intake. She does not have a family hx of cirrhosis. Her INR is elevated but she is on Coumadin. Past Medical/Surgical History Medical Problems: (1) ACS (acute coronary syndrome) Status: Acute (2) Anemia Status: Acute (3) Anemia Status: Acute (4) Ascites Status: Acute (5) Dehydration Status: Acute (6) Orthostatic hypotension Status: Acute (7) Portal hypertension Status: Acute (8) Supratherapeutic INR Status: Acute (9) Vomiting and diarrhea Status: Acute Past Medical History: 1. NSTEMI Nov 2017 2. A-fib, on Coumadin 3. Asthma 4. DM-2, on insulin 5. Depression 6. HTN 7. Kidney Stone 9. Pituitary tumor Past Surgical History: 1. Cataract surgery. 2. Total abdominal hysterectomy. 3. Pituitary tumor resection at [facility] 2011. 4. Prior colonoscopy approx 5 yrs ago. Family History Cancer Diabetes mellitus Heart disease Hypertension Social History Smoking Status: Never Smoker Alcohol Use: none Drug Use: none Marital Status: Housing Status: lives with family Occupation Status: retired Allergies Coded Allergies: Iodinated Diagnostic Agents (Verified Allergy, Intermediate, RASH, 02/06/18) Sulfa Antibiotics (Verified Allergy, Intermediate, HIVES, 02/06/18) Ciprofloxacin (Verified Adverse Reaction, Mild, VOMITING, 02/06/18) Current Medications Home Meds and Scripts Medications Dose Route/Sig Max Daily Dose Days Date Category Claritin (Loratadine) 10 Mg Tab 10 Mg PO DAILY PRN 02/06/18 Reported Furosemide 20 Mg Tab 1 Tab PO DAILY PRN 02/06/18 Reported Metoprolol Tartrate 50 Mg Tab 1 Tab PO BID 02/06/18 Reported Warfarin Sodium 5 Mg Tab 1 Tab PO DAILYUD 02/06/18 Reported Lipitor (Atorvastatin Calcium) 20 Mg Tab 20 Mg PO HS 02/06/18 Reported Aspirin Ec (Aspirin) 81 Mg Tab 81 Mg PO DAILY 02/06/18 Reported Cordarone (Amiodarone Hcl) 200 Mg Tab 200 Mg PO DAILY 02/06/18 Reported Glipizide 5 Mg Tab 5 Mg PO QAM 12/05/17 Reported Latanoprost 37 Drops/2.5 Ml Soln 1 Drop OPB HS 12/05/17 Reported Levothyroxine Sodium 125 Mcg Tab 125 Mcg PO QAM 12/05/17 Reported Toujeo Solostar (Insulin Glargine) 300 Unit/Ml Inj 66 Units SC HS 02/19/17 Reported Cortef (Hydrocortisone) 5 Mg Tab 5 Mg PO AFTERNOON 02/19/17 Reported Cortef (Hydrocortisone) 5 Mg Tab 10 Mg PO QAM 02/19/17 Reported Glucophage (Metformin Hcl) 500 Mg Tab 1,000 Mg PO BID 10/03/15 Reported Citalopram Hydrobromide (Citalopram) 20 Mg Tab 20 Mg PO QAM 02/22/15 Reported Review of Systems Constitutional: No fever, No chills, No sweats, No weight loss, No weakness Eyes: No eye pain, No redness ENT: No sore throat, No trouble swallowing, No pain on swallowing Respiratory: + shortness of breath (related to large abdomen), No cough, No wheezing, No dyspnea on exertion Cardiac: No chest pain, No edema, No palpitations Abdomen: + see HPI, + diarrhea (x 1 day on Wednesday), + problem reported ( enlarging abdominal girth during the past month), No pain, No nausea, No vomiting, No constipation, No GI bleeding, No dysphagia, No odynophagia, No acolic stools, No jaundice, No dark urine Female : No dysuria Neuro: No memory loss, No weakness, No numbness/tingling, No vertigo, No balance problems Psych: No depression symptoms, No anxiety, No insomnia Heme: No abnormal bleeding/bruising, No night sweats Endo: + fatigue, No excessive thirst, No excessive urination Skin: No rash, No itch, No new/changing skin lesions, No jaundice Physical Exam Date Time Temp Pulse Resp B/P (MAP) Pulse Ox O2 Delivery O2 Flow Rate FiO2 02/07/18 08:30 37.0 59 16 121/72 (88) 98 Room Air 02/07/18 04:00 Room Air 02/07/18 03:18 36.6 59 20 118/71 (87) 99 CPAP 02/07/18 00:00 Room Air 02/06/18 23:21 36.5 61 18 119/68 (85) 97 CPAP 02/06/18 21:46 39 99 21 02/06/18 20:00 Room Air 02/06/18 19:33 36.9 43 16 122/62 (82) 100 Room Air 02/06/18 18:01 36.9 57 20 98/61 99 Room Air 02/06/18 17:53 36.9 57 20 98/61 (73) 99 Room Air 02/06/18 17:35 55 22 134/66 96 02/06/18 17:00 55 22 134/66 96 Room Air 02/06/18 16:01 141/63 02/06/18 16:00 56 20 99 Room Air 02/06/18 15:31 148/56 02/06/18 15:30 56 19 99 Room Air 02/06/18 15:12 57 22 129/60 99 Room Air 02/06/18 14:30 56 17 123/58 100 Room Air 02/06/18 13:57 56 18 121/56 100 Room Air 02/06/18 13:19 57 02/06/18 13:11 58 106/49 100 58 129/61 58 97/58 02/06/18 12:55 36.7 58 20 94/49 97 Room Air General Appearance: no apparent distress Eyes: normal inspection, EOMI Neck: supple, no adenopathy, thyroid normal, no JVD Respiratory/Chest: chest non-tender, normal breath sounds, no accessory muscle use, + crackles (few at the right base) Cardiovascular: regular rate, rhythm, no JVD, no murmur Abdomen: normal bowel sounds, non tender, soft, no organomegaly, + distended ( moderate ascites) Extremities: normal inspection, no pedal edema, normal capillary refill Neurologic/Psych: alert, normal mood/affect, oriented x 3, + pertinent finding (no asterix) Skin: normal color, no jaundice, warm/dry, no rash Laboratory Results Last 24 Hours Test 02/06/18 13:18 02/06/18 17:09 02/06/18 19:36 02/06/18 19:39 White Blood Count 7.19 K/uL Red Blood Count 3.64 M/uL Hemoglobin 7.9 g/dL Hematocrit 28.2 % Mean Corpuscular Volume 77.5 fL Mean Corpuscular Hemoglobin 21.7 pg Mean Corpuscular Hemoglobin Concent 28.0 g/dl Platelet Count 249 K/uL Mean Platelet Volume 10.4 fL Neutrophils (%) (Auto) 67.0 % Lymphocytes (%) (Auto) 20.3 % Monocytes (%) (Auto) 9.9 % Eosinophils (%) (Auto) 1.5 % Basophils (%) (Auto) 0.6 % Neutrophils # (Auto) 4.82 K/uL Lymphocytes # (Auto) 1.46 K/uL Monocytes # (Auto) 0.71 K/uL Eosinophils # (Auto) 0.11 K/uL Basophils # (Auto) 0.04 K/uL RDW Standard Deviation 52.0 fL RDW Coefficient of Variation 18.2 % Immature Granulocyte % (Auto) 0.7 % Immature Granulocyte # (Auto) 0.05 K/uL Giant Platelets 1+ Polychromasia 1+ Hypochromasia PRESENT Ovalocytes 1+ Sodium Level 139 mmol/L Potassium Level 4.6 mmol/L Chloride Level 106 mmol/L Carbon Dioxide Level 23 mmol/L Anion Gap 10.0 mmol/L Blood Urea Nitrogen 23 mg/dl Creatinine 1.41 mg/dl Est Creatinine Clear Calc Drug Dose 40.5 ml/min Estimated GFR () 42.7 Estimated GFR (Non- 36.9 BUN/Creatinine Ratio 16.4 Random Glucose 83 mg/dl Calcium Level 8.4 mg/dl Magnesium Level 2.0 mg/dl Total Bilirubin 0.4 mg/dl Direct Bilirubin 0.1 mg/dl Aspartate Amino Transf (AST/SGOT) 20 U/L Alanine Aminotransferase (ALT/SGPT) 17 U/L Alkaline Phosphatase 106 U/L Total Creatine Kinase 65 U/L Creatine Kinase MB 0.6 ng/ml Creatine Kinase MB Ratio 0.9 Troponin I < 0.015 ng/ml < 0.015 ng/ml C-Reactive Protein 2.46 mg/dl Pro-B-Type Natriuretic Peptide 1905 pg/ml Total Protein 7.2 gm/dl Albumin 3.4 gm/dl Lipase 217 U/L Thyroid Stimulating Hormone (TSH) 0.172 uIu/ml Bedside Prothrombin Time INR 4.2 Bedside Glucose 108 mg/dl Test 02/07/18 00:20 02/07/18 04:13 02/07/18 04:15 02/07/18 04:31 Bedside Glucose 88 mg/dl 69 mg/dl 95 mg/dl Urine Color YELLOW Urine Appearance CLEAR Urine pH 6.0 Urine Specific [place] 1.016 Urine Protein NEG Urine Glucose (UA) NEG Urine Ketones NEG Urine Occult Blood NEG Urine Nitrite NEG Urine Bilirubin NEG Urine Urobilinogen NEG Urine Leukocyte Esterase TRACE Urine WBC (Auto) 1-5 /hpf Urine RBC (Auto) 0-4 /hpf Urine Hyaline Casts (Auto) 1-5 /lpf Urine Epithelial Cells (Auto) 10-20 /lpf Urine Bacteria (Auto) NEG Test 02/07/18 05:23 02/07/18 06:45 02/07/18 08:03 White Blood Count 3.96 K/uL Red Blood Count 2.85 M/uL Hemoglobin 6.5 g/dL Hematocrit 22.1 % Mean Corpuscular Volume 77.5 fL Mean Corpuscular Hemoglobin 22.8 pg Mean Corpuscular Hemoglobin Concent 29.4 g/dl RDW Standard Deviation 51.9 fL RDW Coefficient of Variation 18.2 % Platelet Count 173 K/uL Mean Platelet Volume 9.7 fL Nucleated RBC Absolute Count (auto) 0.02 K/uL Nucleated Red Blood Cells % 0.5 % Prothrombin Time 34.0 SECONDS Prothromb Time International Ratio 3.3 Sodium Level 139 mmol/L Potassium Level 4.2 mmol/L Chloride Level 106 mmol/L Carbon Dioxide Level 25 mmol/L Anion Gap 8.0 mmol/L Blood Urea Nitrogen 25 mg/dl Creatinine 1.40 mg/dl Est Creatinine Clear Calc Drug Dose 40.5 ml/min Estimated GFR () 43.1 Estimated GFR (Non- 37.2 BUN/Creatinine Ratio 18.2 Random Glucose 106 mg/dl Calcium Level 8.2 mg/dl Magnesium Level 2.1 mg/dl Pro-B-Type Natriuretic Peptide 1543 pg/ml Thyroid Stimulating Hormone (TSH) 0.147 uIu/ml Free Thyroxine 0.97 ng/dl Bedside Glucose 86 mg/dl Transferrin % Saturation % Impression Patient is a 72 year old female patient with imaging suggestive of liver cirrhosis and new ascites. She likely has NAFLD as she carries a hx of DM, obesity. Plan 1. Will r/o other causes of liver cirrhosis (Hep B/C, autoimmune hepatitis, Celiac Disease, Yosi's Disease, alpha 1-antitrypsin deficiency and hemochromatosis). 2. Diagnostic paracentesis to r/o malignancy and measure albumin, check for SBP. 3. After receiving results of above tests and optimization of kidney function, then will consider diuretics for management of the ascites. I have seen , examined and agree with the plan as outlined by MANSOOR Amanda as above. -Exam reveals soft abd -No signs of gi Bleeding or HE -Etiology of Cirrhosis is likely Fatty Liver -Plan as above -Hold diuretics until Kidney function has improved -Please order Yasmin and Ucr, U/A and work up renal failure
--- NOTE | 2018-02-07 10:36 | Pharmacy Progress Note ---
Glycemic Control Intl Consult Date of Service Feb 07, 2018. Scope Glycemic Pharmacist consulted by Dr Cannon on 02/06/18 for glycemic control and to write orders per [facility] inpatient glycemic control protocol Objective Weight (Kilograms): 97.300 Accuchecks BSG (last 24hrs): Test 02/06/18 13:18 02/06/18 19:36 02/07/18 00:20 02/07/18 04:13 Random Glucose 83 mg/dl (70-99) Bedside Glucose 108 mg/dl (70-90) 88 mg/dl (70-90) 69 mg/dl (70-90) Test 02/07/18 04:31 02/07/18 05:23 02/07/18 06:45 Bedside Glucose 95 mg/dl (70-90) 86 mg/dl (70-90) Random Glucose 106 mg/dl (70-99) Laboratory Data (last 24hrs) Test 02/06/18 13:18 02/07/18 05:23 Anion Gap 10.0 mmol/L 8.0 mmol/L BUN/Creatinine Ratio 16.4 18.2 Blood Urea Nitrogen 23 mg/dl 25 mg/dl Creatinine 1.41 mg/dl 1.40 mg/dl Potassium Level 4.6 mmol/L 4.2 mmol/L Sodium Level 139 mmol/L 139 mmol/L White Blood Count 7.19 K/uL 3.96 K/uL Red Blood Count 3.64 M/uL Hemoglobin 7.9 g/dL Hematocrit 28.2 % Mean Corpuscular Volume 77.5 fL Mean Corpuscular Hemoglobin 21.7 pg Mean Corpuscular Hemoglobin Concent 28.0 g/dl Platelet Count 249 K/uL Mean Platelet Volume 10.4 fL Neutrophils (%) (Auto) 67.0 % Lymphocytes (%) (Auto) 20.3 % Monocytes (%) (Auto) 9.9 % Eosinophils (%) (Auto) 1.5 % Basophils (%) (Auto) 0.6 % Neutrophils # (Auto) 4.82 K/uL Lymphocytes # (Auto) 1.46 K/uL Monocytes # (Auto) 0.71 K/uL Eosinophils # (Auto) 0.11 K/uL Basophils # (Auto) 0.04 K/uL Recent Pertinent Medications Outpatient Anti-diabetic Regimen: * Glipizide 5 mg qAM + metformin 1000 mg BID + Toujeo 66 units SQ HS * A1c = 6.9 % 12/11/18 Assessment & Plan ASSESSMENT: * 72 yr old T2DM female admitted with CHF exacerbation, KHARI, and anemia in the setting of liver cirrhosis. * Patient is maintained on 66 units of basal insulin plus oral anti-diabetic medications as an outpatient. * All BSGs are at or below goal so far this admission despite no insulin. I anticipate upward trend in BSGs throughout the day due to basal insulin deficiency. Patient is currently NPO with plans for diagnostic paracentesis. * Will utilize Lantus dosed per scale based on BSG until inpatient basal needs are determined. * Tighten bolus insulin CF/CR to weight and stress of 2. PLAN FOR INPATIENT GLYCEMIC CONTROL: * Holding outpatient oral diabetes medications * Basal insulin * Lantus 0-20 units SQ HS * 0 units for BSG less than 140 mg/dL * 10 units for BSG 140-180 mg/dL * 20 units for BSG greater than 180 mg/dL * Correctional Insulin * NOVOLOG per scale ACHS or Q6hrs while NPO * Goal Range: Low 120 mg/dL - High 160 mg/dL * Correction Factor: 25 mg/dL/unit * Nutritional / Prandial insulin per carb ratio of 1 unit per 8 grams CHO consumed * Please note that the plan above was derived based on current level of insulin resistance and hospital stress. These recommendations are appropriate for inpatient admission only. Plan of care upon discharge will need to be reassessed to avoid potential outpatient hypo/hyperglycemia. Thank you.
--- NOTE | 2018-02-07 11:40 | DIAGNOSTIC IMAGING REPORT ---
ULTRASOUND-GUIDED DIAGNOSTIC PARACENTESIS: HISTORY: Ascites. Cirrhosis. Procedure: The procedure and its risks, benefits and alternatives were discussed with the patient and written informed consent was obtained. Preliminary ultrasound of the abdomen was performed to determine a safe needle entry site. The right lower quadrant was prepped and draped in the usual sterile fashion. 1% Lidocaine was used for local anesthesia. An 18-gauge needle was inserted into the peritoneal space using ultrasound guidance. This was connected to tubing and a vacuum suction device. A total of 0.5 liters of yellow ascites was aspirated. The sheath was removed and a sterile dressing applied. The patient tolerated the procedure well and there were no immediate complications. IMPRESSION: Ultrasound-guided therapeutic paracentesis with aspiration of 0.5 liters of ascites. The specimen was sent to the laboratory for further evaluation. Electronically signed by: Easton Crook M.D. 02/07/2018 11:39 AM Dictated Date/Time: 02/07/2018 11:38 AM
--- NOTE | 2018-02-07 11:55 | Cardiology Consultation ---
Cardiology Consultation Date of Consultation: Feb 07, 2018 Requesting Physician: Davis Attending Cook Larder: Robert (Clovis Weir PA-C) History of Present Illness Patient is a 72 year old female seen at the request of Dr. Cannon. Reason for consultation is congestive heart failure. Patient presented to the [facility] Emergency Room on February with complaints of headache, dizziness, generalized weakness, and shortness of breath. Symptoms have been ongoing over the last week or so, becoming significantly worse while in spiritism yesterday. Hemoglobin on presentation was 7.9 g/dL, dropping to 6.5 g/dL this morning. Plan of care INR was mildly supratherapeutic at 4.2 on presentation, 3.3 this morning. She is currently receiving 1 unit of packed red blood cells without difficulty. Notes improvement in her presenting symptoms. Resting echocardiography performed on February 02, 2018 revealed normal LV chamber size with mild concentric LVH, normal LV systolic function, EF 60-65%. There were no segmental left ventricular wall motion abnormalities noted. Grade 3 diastolic dysfunction observed. No significant valvular heart disease noted. The patient notes complaints of worsening abdominal distention as well as weight gain over the last 2-3 weeks. She is currently undergoing evaluation as imaging this admission suggests liver cirrhosis with new ascites. Per documentation she was felt to be be volume overloaded on presentation as well as intravascularly dry secondary to diarrhea. She notes that when she was first diagnosed with paroxysmal atrial fibrillation she was symptomatic with rapid ventricular response however over the last few year she has been asymptomatic in regards to the atrial fibrillation. (Clovis Weir PA-C) Past Medical/Surgical History Problem List: Hospitalization in December 2017 with bacteremia, type II NSTEMI Paroxysmal atrial fibrillation first diagnosed in 12/2011 Chronic right bundle branch block [place] [facility] [place] treatment of a pituitary tumor, ITP, pituitary apoplexy Microcytic anemia Leukocytoclastic vasculitis Adrenal insufficiency Hypothyroidism Type 2 diabetes mellitus Sleep apnea Open angle glaucoma Hysterectomy Anal fissure repair Right 4th toe surgery Nasal surgery Cataract extraction (Clovis Weir PA-C) Family History Cancer Diabetes mellitus Heart disease Hypertension Mom with cancer. Dad with CAD. (Clovis Weir PA-C) Cancer Diabetes mellitus Heart disease Hypertension (Dawit Jones D.Luís) Social History Smoking Status: Never Smoker Alcohol Use: none Drug Use: none Marital Status: Housing Status: lives with family Occupation: retired (Clovis Weir PA-C) Review Of Systems General: 20 pound weight gain. Increased abdominal girth. cold. No overt riders. No fever. HEENT: Positive headache. No head trauma. Cardiovascular: No chest pain. No palpitations. No orthopnea or PND. No near syncope or true syncope. Pulmonary: Cough. Sleep apnea, CPAP therapy. Gastrointestinal: Diarrhea. No vomiting. No melena or hematochezia. Skin: +rash. Musculoskeletal: Back pain. Neurological: Denies history of TIA, CVA, or seizure. Complete review of system is otherwise as stated above, stated in the admission H&P, negative, or noncontributory. (Clovis Weir PA-C) Allergies Coded Allergies: Iodinated Diagnostic Agents (Verified Allergy, Intermediate, RASH, 02/06/18) Sulfa Antibiotics (Verified Allergy, Intermediate, HIVES, 02/06/18) Ciprofloxacin (Verified Adverse Reaction, Mild, VOMITING, 02/06/18) Medications Reported Home Medications Medications Dose Route/Sig Max Daily Dose Days Date Category Claritin (Loratadine) 10 Mg Tab 10 Mg PO DAILY PRN 02/06/18 Reported Furosemide 20 Mg Tab 1 Tab PO DAILY PRN 02/06/18 Reported Metoprolol Tartrate 50 Mg Tab 1 Tab PO BID 02/06/18 Reported Warfarin Sodium 5 Mg Tab 1 Tab PO DAILYUD 02/06/18 Reported Lipitor (Atorvastatin Calcium) 20 Mg Tab 20 Mg PO HS 02/06/18 Reported Aspirin Ec (Aspirin) 81 Mg Tab 81 Mg PO DAILY 02/06/18 Reported Cordarone (Amiodarone Hcl) 200 Mg Tab 200 Mg PO DAILY 02/06/18 Reported Glipizide 5 Mg Tab 5 Mg PO QAM 12/05/17 Reported Latanoprost 37 Drops/2.5 Ml Soln 1 Drop OPB HS 12/05/17 Reported Levothyroxine Sodium 125 Mcg Tab 125 Mcg PO QAM 12/05/17 Reported Toujeo Solostar (Insulin Glargine) 300 Unit/Ml Inj 66 Units SC HS 02/19/17 Reported Cortef (Hydrocortisone) 5 Mg Tab 5 Mg PO AFTERNOON 02/19/17 Reported Cortef (Hydrocortisone) 5 Mg Tab 10 Mg PO QAM 02/19/17 Reported Glucophage (Metformin Hcl) 500 Mg Tab 1,000 Mg PO BID 10/03/15 Reported Citalopram Hydrobromide (Citalopram) 20 Mg Tab 20 Mg PO QAM 02/22/15 Reported (Clovis Weir PA-C) Physical Exam Vital Signs (Last 8hrs): Last 8 Hrs Date Time Temp Pulse Resp B/P (MAP) Pulse Ox O2 Delivery O2 Flow Rate FiO2 02/07/18 11:17 37.0 57 18 127/71 98 02/07/18 10:05 37.0 59 18 122/65 97 02/07/18 09:46 36.8 58 18 108/63 02/07/18 08:30 37.0 59 16 121/72 (88) 98 Room Air 02/07/18 04:00 Room Air General: Alert and Oriented x3. NAD. HEENT: Normocephalic Atraumatic. PER, EOMI, conjunctiva and sclera pale Neck: Supple. No carotid bruits noted. No JVD. Respiratory: Breath sounds clear to auscultation bilaterally. No w/r/r. Cardiovascular: RRR. Grade 2 systolic murmur heard best at the lower left sternal border. No diastolic murmur. PMI is nondisplaced. Abdomen: Increased girth. Positive bowel sounds. No abdominal bruits. soft. Nontender. Extremities: Minimal distal bilateral lower extremity peripheral edema. No clubbing. No cyanosis. Distal pulses 1/4 bilaterally. Neuro: No focal deficits. Psychiatric: Normal affect. (Clovis Weir PA-C) Data Last 24 Hours Test 02/06/18 13:18 02/06/18 17:09 02/06/18 19:36 02/06/18 19:39 White Blood Count 7.19 K/uL Red Blood Count 3.64 M/uL Hemoglobin 7.9 g/dL Hematocrit 28.2 % Mean Corpuscular Volume 77.5 fL Mean Corpuscular Hemoglobin 21.7 pg Mean Corpuscular Hemoglobin Concent 28.0 g/dl Platelet Count 249 K/uL Mean Platelet Volume 10.4 fL Neutrophils (%) (Auto) 67.0 % Lymphocytes (%) (Auto) 20.3 % Monocytes (%) (Auto) 9.9 % Eosinophils (%) (Auto) 1.5 % Basophils (%) (Auto) 0.6 % Neutrophils # (Auto) 4.82 K/uL Lymphocytes # (Auto) 1.46 K/uL Monocytes # (Auto) 0.71 K/uL Eosinophils # (Auto) 0.11 K/uL Basophils # (Auto) 0.04 K/uL RDW Standard Deviation 52.0 fL RDW Coefficient of Variation 18.2 % Immature Granulocyte % (Auto) 0.7 % Immature Granulocyte # (Auto) 0.05 K/uL Giant Platelets 1+ Polychromasia 1+ Hypochromasia PRESENT Ovalocytes 1+ Sodium Level 139 mmol/L Potassium Level 4.6 mmol/L Chloride Level 106 mmol/L Carbon Dioxide Level 23 mmol/L Anion Gap 10.0 mmol/L Blood Urea Nitrogen 23 mg/dl Creatinine 1.41 mg/dl Est Creatinine Clear Calc Drug Dose 40.5 ml/min Estimated GFR () 42.7 Estimated GFR (Non- 36.9 BUN/Creatinine Ratio 16.4 Random Glucose 83 mg/dl Calcium Level 8.4 mg/dl Magnesium Level 2.0 mg/dl Total Bilirubin 0.4 mg/dl Direct Bilirubin 0.1 mg/dl Aspartate Amino Transf (AST/SGOT) 20 U/L Alanine Aminotransferase (ALT/SGPT) 17 U/L Alkaline Phosphatase 106 U/L Total Creatine Kinase 65 U/L Creatine Kinase MB 0.6 ng/ml Creatine Kinase MB Ratio 0.9 Troponin I < 0.015 ng/ml < 0.015 ng/ml C-Reactive Protein 2.46 mg/dl Pro-B-Type Natriuretic Peptide 1905 pg/ml Total Protein 7.2 gm/dl Albumin 3.4 gm/dl Lipase 217 U/L Thyroid Stimulating Hormone (TSH) 0.172 uIu/ml Bedside Prothrombin Time INR 4.2 Bedside Glucose 108 mg/dl Test 02/07/18 00:20 02/07/18 04:13 02/07/18 04:15 02/07/18 04:31 Bedside Glucose 88 mg/dl 69 mg/dl 95 mg/dl Urine Color YELLOW Urine Appearance CLEAR Urine pH 6.0 Urine Specific [place] 1.016 Urine Protein NEG Urine Glucose (UA) NEG Urine Ketones NEG Urine Occult Blood NEG Urine Nitrite NEG Urine Bilirubin NEG Urine Urobilinogen NEG Urine Leukocyte Esterase TRACE Urine WBC (Auto) 1-5 /hpf Urine RBC (Auto) 0-4 /hpf Urine Hyaline Casts (Auto) 1-5 /lpf Urine Epithelial Cells (Auto) 10-20 /lpf Urine Bacteria (Auto) NEG Test 02/07/18 05:23 02/07/18 06:45 02/07/18 08:03 02/07/18 09:54 White Blood Count 3.96 K/uL Red Blood Count 2.85 M/uL Hemoglobin 6.5 g/dL Hematocrit 22.1 % Mean Corpuscular Volume 77.5 fL Mean Corpuscular Hemoglobin 22.8 pg Mean Corpuscular Hemoglobin Concent 29.4 g/dl RDW Standard Deviation 51.9 fL RDW Coefficient of Variation 18.2 % Platelet Count 173 K/uL Mean Platelet Volume 9.7 fL Nucleated RBC Absolute Count (auto) 0.02 K/uL Nucleated Red Blood Cells % 0.5 % Prothrombin Time 34.0 SECONDS Prothromb Time International Ratio 3.3 Sodium Level 139 mmol/L Potassium Level 4.2 mmol/L Chloride Level 106 mmol/L Carbon Dioxide Level 25 mmol/L Anion Gap 8.0 mmol/L Blood Urea Nitrogen 25 mg/dl Creatinine 1.40 mg/dl Est Creatinine Clear Calc Drug Dose 40.5 ml/min Estimated GFR () 43.1 Estimated GFR (Non- 37.2 BUN/Creatinine Ratio 18.2 Random Glucose 106 mg/dl Calcium Level 8.2 mg/dl Magnesium Level 2.1 mg/dl Pro-B-Type Natriuretic Peptide 1543 pg/ml Thyroid Stimulating Hormone (TSH) 0.147 uIu/ml Free Thyroxine 0.97 ng/dl Bedside Glucose 86 mg/dl Transferrin % Saturation % Test 02/07/18 09:57 02/07/18 10:00 EKG on presentation revealed sinus bradycardia at 57 bpm. Chronic right bundle branch block. QTc 504 ms. EKG at 18:42:03 revealed what appears to be atrial fibrillation with a slow ventricular response, 45 bpm. Chronic right bundle branch block. EKG this morning reveals sinus bradycardia at 59 bpm. Chronic right bundle branch block. QTc 512 ms. Continuous telemetry monitoring overnight reveals what appears to be atrial fibrillation with a slow ventricular response (40-50 bpm), converting to sinus bradycardia in the 50s at 2309 Admission chest x-ray revealed cardiomegaly with no acute cardiopulmonary abnormality Abdomen/pelvis CT, abdominal ultrasound, paracentesis notes reviewed. (Clovis Weir PA-C) Assessment & Plan Paroxysmal atrial fibrillation with a slow ventricular response.Patient asymptomatic in regards to the atrial fibrillation, questionable symptomatic in regards to the bradycardia. Hold Metoprolol and amiodarone Maintain telemetry Possible need for permanent pacemaker implantation briefly discussed Hold Coumadin anticoagulation pending GI evaluation. Volume overload. No evidence of acute decompensated congestive heart failure. Imaging suggestive of liver cirrhosis and new ascites. Diuretics for management of ascites as per GI. Recent NSTEMI. Patient requests conservative medical management, declining evaluation via stress testing as well as diagnostic cardiac catheterization Further recommendations pending the above, evaluation by Dr. Jones, and her ongoing hospitalization. (Clovis Weir PA-C) Cardiology attending: Pt seen and examined, agree with findings and assessment as per Clovis Pinto. Pt with afib and slow ventricular response. Symptom unclear if due to afib, bradycardia, anemia or a combination. Will hold amio, metoprolol and coumadin. Will follow closely. (Dawit Jones, Becky.O.)
[2018-02-07] MEDS: INSULIN ASPART 100 UNITS/ML 3 ML PEN SC SCH ×2 (12:00→18:11)
[2018-02-07] MEDS ORDERED: WARFARIN SOD 5 MG TAB PO SCH (16:00)
[2018-02-07 16:06] LABS: HEP C IGG 13 YRS+OLDER_RFLX NEG (NEG)
[2018-02-07 16:30] LABS: HEMATOCRIT 27.4 % (37-47); HEMOGLOBIN 8.2 g/dL (12.0-16.0)
[2018-02-07] MEDS: INSULIN GLARGINE SOLOSTAR 100 UNITS/ML 3 ML PEN SC SCH (21:00)
[2018-02-07] MEDS: LATANOPROST 0.005% OP SOLN 2.5 ML BTL OPB SCH (22:16)
[2018-02-07] MEDS: ATORVASTATIN 20 MG TAB PO SCH (22:16)
[2018-02-08 03:35] VITALS: BP 130/56; PULSE 57; TEMP 35.9; O2SAT 99
[2018-02-08] MEDS: LEVOTHYROXINE 125 MCG TAB PO SCH (06:04)
[2018-02-08 07:38] VITALS: BP 132/62; PULSE 56; TEMP 36.7; O2SAT 98
[2018-02-08] MEDS: CITALOPRAM 20 MG TAB PO SCH (07:49)
[2018-02-08] MEDS: HYDROCORTISONE 10 MG TAB PO SCH ×2 (07:49→15:35)
[2018-02-08] MEDS: INSULIN ASPART 100 UNITS/ML 3 ML PEN SC SCH ×5 (08:01→21:00)
--- NOTE | 2018-02-08 09:10 | Progress Note ---
Medicine Progress Note Date & Time of Visit: Feb 08, 2018 at 09:10. Subjective seen sitting up in bed comfortable, appears brighter states she feels better today has more energy less dyspnea with exertion denies chest pain, palpitations no abdominal pain, melena/hematochezia no other symptoms Objective Last 8 Hrs Date Time Temp Pulse Resp B/P (MAP) Pulse Ox O2 Delivery O2 Flow Rate FiO2 02/08/18 07:38 36.7 56 20 132/62 (85) 98 Room Air BiPAP 02/08/18 04:00 Room Air 02/08/18 03:35 35.9 57 17 130/56 (80) 99 CPAP Physical Exam: General-oriented x 3, not in distress, speaks in sentences with no effort Eyes- anicteric ENT- oropharynx clear Neck- supple, no JVD, no adenopathy, no thyromegaly Lungs- clear breath sounds bilaterally Heart- normal rate, regular rhythm, (+) grade 2-3 holosystolic murmur Abdomen- normal bowel sounds, soft, nontender, non distended Extremities- no pretibial edema, no calf tenderness; peripheral pulses intact Neuro- alert, oriented x 3; no gross focal deficits Skin- warm & dry Laboratory Results: Last 24 Hours Test 02/07/18 11:25 02/07/18 14:33 02/07/18 16:38 02/07/18 20:25 Bedside Glucose 75 mg/dl 115 mg/dl 125 mg/dl Hemoglobin 8.2 g/dL Hematocrit 27.4 % Iron Level 37 mcg/dl Total Iron Binding Capacity 380 mcg/dl Transferrin 300 mg/dl Transferrin % Saturation 9 % Ferritin 6.7 ng/ml Folate 15.22 ng/mL Immunoglobulin A 209.0 mg/dL Hepatitis B Surface Antigen NEG Hepatitis C Antibody NEG Test 02/08/18 00:08 02/08/18 06:32 02/08/18 06:52 02/08/18 08:43 Bedside Glucose 150 mg/dl 79 mg/dl Vitamin B12 Level 348 pg/mL Assessment & Plan Volume Overload likely secondary to Portal hypertension vs. Acute on Chronic Diastolic CHF Seemed to be intravascularly volume depleted 2/2 diarrhea ECHO: on 02/02/18: * Normal LV systolic function, EF 60-65%. * No segmental left ventricular wall motion abnormalities are noted. * Grade III diastolic dysfunction (restrictive physiology). -- improved -- s/p Paracentesis ~500cc of ascitic fluids Ascitic Fluid Culture: pending -- plan for initiating diuretics when crea improves further will need GI and Cardio ff up Anemia, Iron Deficiency -- in the setting of Liver Cirrhosis, Portal HTN -- r/o Esophageal Varices bleeding -- 1 unit pRBC ordered Anemia panel ordered: Fe 35 -- Hg improved to 8.5 -- replete Iron -- GI consulted will need outpatient EGD and Colonoscopy Acute Renal Failure on CKD 2 Likely secondary to diarrhea and intravascular volume depletion -- crea baseline at 0.9, now improving from 1.4 to 1.2 -- hold diuretics until crea improves Sinus Bradycardia holding Metoprolol and Amio P.Afib on Coumadin sinus at present Metoprolol and Amio on hold INR 1.8 -- resume coumadin when ok with GI DM II: A1C:6.9 on 12/11/17 continue ISS, lantus hold metformin, glipizide monitor BG levels Pharmacy Glycemic control consult H/O 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 Continue Po Cortef -- discussed with Dr. Albarado continue present medications Hypothyroidism: recently levothyroxine dose increased by Endocrine Free T4 normal, -- discussed with Dr. Albarado continue present medications H/O Leukocytoclastic vasculitis H/O recurrent LE rash: stable Follows with Rheumatology DVT Px: on Coumadin INR 1.8 Code Status: Full Code Pending Cardio and GI eval in progress PT/OT lives at home with Current Inpatient Medications: Current Inpatient Medications Medications (Trade) Dose Ordered Sig/Gerald Route Start Time Stop Time Status Last Admin Dose Admin Acetaminophen (Tylenol Tab) 650 mg Q4H PRN PO 02/06/18 17:00 03/08/18 16:59 Ondansetron HCl (Zofran Inj) 4 mg Q6H PRN IV 02/06/18 17:00 03/08/18 16:59 Glucose (Glucose 40% Gel) 15-30 GRAMS 15 GRAMS... UD PRN PO 02/06/18 17:15 03/08/18 17:14 Glucose (Glucose Chew Tab) 4-8 Tablets 4 Tabl... UD PRN PO 02/06/18 17:15 03/08/18 17:14 Dextrose (Dextrose 50% 50ML Syringe) 25-50ML OF 50% DW IV FOR... UD PRN IV 02/06/18 17:15 03/08/18 17:14 Glucagon (Glucagon Inj) 1 mg UD PRN SQ 02/06/18 17:15 03/08/18 17:14 Miscellaneous Information (Consult Glycemic Management Pharmacy) 1 ea UD PRN N/A 02/06/18 17:09 03/08/18 17:08 Atorvastatin Calcium (Lipitor Tab) 20 mg HS PO 02/06/18 21:00 03/08/18 20:59 02/07/18 22:16 20 MG Citalopram Hydrobromide (celeXA TAB) 20 mg QAM PO 02/07/18 09:00 03/09/18 08:59 02/08/18 07:49 20 MG Hydrocortisone (Cortef Tab) 10 mg DAILY@1500 PO 02/07/18 15:00 03/09/18 14:59 02/07/18 15:34 10 MG Hydrocortisone (Cortef Tab) 20 mg QAM PO 02/07/18 09:00 03/09/18 08:59 02/08/18 07:49 20 MG Latanoprost (Xalatan Oph Soln) 1 drops HS OPB 02/06/18 21:00 03/08/18 20:59 02/07/18 22:16 1 DROPS Levothyroxine Sodium (Synthroid Tab) 125 mcg DAILYBB PO 02/07/18 06:00 03/09/18 05:59 02/08/18 06:04 125 MCG Metoprolol Tartrate (Lopressor Tab) 50 mg BID PO 02/06/18 21:00 03/08/18 20:59 Future Hold Furosemide (Lasix Tab) 20 mg BID17 PO 02/07/18 09:00 03/09/18 08:59 Future Hold Insulin Glargine (Lantus Solostar Pen) SEE DOSING PARAMETERS/SCALE HS SC 02/06/18 21:00 03/08/18 20:59 Insulin Aspart (novoLOG ASPART) SLIDING SCALE If C... ACHS SC 02/08/18 11:00 03/10/18 10:59
[2018-02-08 09:25] LABS: BASO % 1.2 %; BASO ABS # 0.05 K/uL (0-0.2); EOS ABS # 0.04 K/uL (0-0.5); HEMATOCRIT 28.4 % (37-47); HEMOGLOBIN 8.6 g/dL (12.0-16.0); IG# 0.02 K/uL (0.00-0.02); LYMPH % 23.7 %; LYMPH ABS # 0.98 K/uL (1.2-3.4); MEAN CELL VOLUME 78.5 fL (80-100); MEAN CORPUSCULAR HEMOGLOBIN 23.8 pg (25-34); MEAN CORPUSCULAR HGB CONC 30.3 g/dl (32-36); MEAN PLATELET VOLUME 9.2 fL (7.4-10.4); MONO % 8.2 %; MONO ABS # 0.34 K/uL (0.11-0.59); NEUT % 65.4 %; PLATELET COUNT 161 K/uL (130-400); RED CELL DISTRIBUTION WIDTH CV 18.1 % (11.5-14.5); RED CELL DISTRIBUTION WIDTH SD 51.5 fL (36.4-46.3); WHITE BLOOD COUNT 4.13 K/uL (4.8-10.8)
[2018-02-08] MEDS ORDERED: FERROUS SULFATE 325 MG TAB PO ONE (09:30)
[2018-02-08 09:32] LABS: INR 1.8 (0.9-1.1)
[2018-02-08 09:57] LABS: CALCIUM 8.8 mg/dl (8.5-10.1); CREATININE 1.27 mg/dl (0.60-1.20)
--- NOTE | 2018-02-08 10:00 | Cardiology Follow-Up ---
Subjective General Date of Service: Feb 08, 2018. Chief Complaint: SOB Pt evaluation today including: conversation w/ patient, physical exam, chart review, lab review, review of studies, review of inpatient medication list History of Present Illness Patient seen and examined. Chart, medications, and telemetry reviewed. Feels considerably better in regards to dyspnea, tiredness, fatigue. Denies chest pain. Denies palpitations. + Abdominal bloating. Denies orthopnea, PND, or lower extremity peripheral edema. Telemetry: Sinus bradycardia at 58 bpm currently. Bradycardic down to 37 bpm for a couple of seconds overnight. Atrial ectopy. No atrial fibrillation. No significant bradycardia over the last 24 hours. No pauses. Allergies Coded Allergies: Iodinated Diagnostic Agents (Verified Allergy, Intermediate, RASH, 02/06/18) Sulfa Antibiotics (Verified Allergy, Intermediate, HIVES, 02/06/18) Ciprofloxacin (Verified Adverse Reaction, Mild, VOMITING, 02/06/18) Social History Smoking Status: Never Smoker Hx Tobacco Use In Past Year?: No Hx Alcohol Use - Type And Amou: No Hx Substance Use - Type And Am: No Problem List Medical Problems: (1) ACS (acute coronary syndrome) Status: Acute (2) Anemia Status: Acute (3) Anemia Status: Acute (4) Ascites Status: Acute (5) Dehydration Status: Acute (6) Orthostatic hypotension Status: Acute (7) Portal hypertension Status: Acute (8) Supratherapeutic INR Status: Acute (9) Vomiting and diarrhea Status: Acute Physical Exam Vital Signs Last Vital Signs Documentation Date Time Temp Pulse Resp B/P (MAP) Pulse Ox O2 Delivery O2 Flow Rate FiO2 02/08/18 07:38 36.7 56 20 132/62 (85) 98 Room Air BiPAP 02/06/18 21:46 21 Physical Exam Constitutional: Level of Distress: NAD, chronically ill Ambulation: ambulating normally Psychiatric: Mental Status: active & alert Orientation: to time, to place, to person Memory: recent memory normal, remote memory normal Head: normocephalic, atraumatic Eyes: Pupils: PERRLA Neck: pertinent finding (Normal JVP) Lungs: Respiratory effort: no dyspnea Auscultation: breath sounds normal, no wheezing, no rales/crackles, no rhonchi Cardiovascular: Heart Auscultation: RRR, normal S1, normal S2, no rubs, no gallops, I/ [place] Peripheral Pulses: Radial Pulse: normal on the left, normal on the right Dorsalis Pedis Pulse: decreased on the left, decreased on the right Abdomen: Bowel Sounds: normal Inspection & Palpation: soft, no masses Extremities: no cyanosis, no edema, no clubbing Neurologic: Cranial Nerves: grossly intact Assessment and Plan Assessment and Plan Paroxysmal atrial fibrillation with a slow ventricular response.Probable symptomatic bradycardia. Continue without metoprolol and amiodarone for now. Maintain telemetry Resume lower dose metoprolol if/when heart rates increase. Hold Coumadin anticoagulation, pending GI evaluation/recommendations Possible need for future permanent pacemaker implantation discussed Volume overload. Imaging suggestive of liver cirrhosis and new ascites. Diuretics for management of ascites as per GI. Recent NSTEMI. Patient requests conservative medical management, recently declining evaluation via stress testing as well as diagnostic cardiac catheterization. Cardiology attending: Pt seen and examined, agree with findings and assessment as per Clovis Pinto. Has spontaneously converted to sinus bradycardia and currently states that she feels great. Much more strength and ease of breathing today. Rates still a little low despite sinus rhythm. Likely symptomatic due to afib. May ultimately require pacemaker implantation to be agle to give meds to maintain sinus. She is not very happy about this and states that she is anxious regarding any medical procedures but will think about it. Will monitor for now. Appreciate GI input. Laboratory Results Last 24 Hours Test 02/07/18 11:25 02/07/18 14:33 02/07/18 16:38 02/07/18 20:25 Bedside Glucose 75 mg/dl 115 mg/dl 125 mg/dl Hemoglobin 8.2 g/dL Hematocrit 27.4 % Iron Level 37 mcg/dl Total Iron Binding Capacity 380 mcg/dl Transferrin 300 mg/dl Transferrin % Saturation 9 % Ferritin 6.7 ng/ml Folate 15.22 ng/mL Immunoglobulin A 209.0 mg/dL Hepatitis B Surface Antigen NEG Hepatitis C Antibody NEG Test 02/08/18 00:08 02/08/18 06:32 02/08/18 06:52 02/08/18 09:15 Bedside Glucose 150 mg/dl 79 mg/dl Vitamin B12 Level 348 pg/mL White Blood Count 4.13 K/uL Red Blood Count 3.62 M/uL Hemoglobin 8.6 g/dL Hematocrit 28.4 % Mean Corpuscular Volume 78.5 fL Mean Corpuscular Hemoglobin 23.8 pg Mean Corpuscular Hemoglobin Concent 30.3 g/dl Platelet Count 161 K/uL Mean Platelet Volume 9.2 fL Neutrophils (%) (Auto) 65.4 % Lymphocytes (%) (Auto) 23.7 % Monocytes (%) (Auto) 8.2 % Eosinophils (%) (Auto) 1.0 % Basophils (%) (Auto) 1.2 % Neutrophils # (Auto) 2.70 K/uL Lymphocytes # (Auto) 0.98 K/uL Monocytes # (Auto) 0.34 K/uL Eosinophils # (Auto) 0.04 K/uL Basophils # (Auto) 0.05 K/uL RDW Standard Deviation 51.5 fL RDW Coefficient of Variation 18.1 % Immature Granulocyte % (Auto) 0.5 % Immature Granulocyte # (Auto) 0.02 K/uL Polychromasia 1+ Hypochromasia PRESENT Microcytosis PRESENT Prothrombin Time 18.2 SECONDS Prothromb Time International Ratio 1.8
[2018-02-08 11:54] VITALS: BP 121/69; PULSE 57; TEMP 37.1; O2SAT 97
--- NOTE | 2018-02-08 13:11 | Gastroenterology Progress Note ---
Progress Note Date of Service: Feb 08, 2018 Subjective Pt evaluation today including: conversation w/ patient, physical exam, chart review, lab review, review of studies, review of inpatient medication list Ms. Rivera is a 72 yr old female admitted on 02/06 for a near syncopal episode. Hb on arrival 7.9, decreased to 6.5, received one unit of RBCs, Hb today 8.1. Occult stool (-). Imaging with new cirrhosis. Paracentesis with small amt of ascites, 564 WBCs with 15% neutrophils (argues against SBP). Cr 1.4 on arrival, 1.2 today. Feels well today. Review of Systems Constitutional: No fever ENT: No hearing loss Respiratory: No cough Abdomen: + problem reported (enlarged abdominal girth x 1 month), No pain Musculoskeletal: No joint pain Female : No dysuria Neuro: No memory loss Psych: No depression symptoms Heme: No abnormal bleeding/bruising Endo: No fatigue Skin: No rash Medications Current Inpatient Medications Medications (Trade) Dose Ordered Sig/Gerald Route Start Time Stop Time Status Last Admin Dose Admin Acetaminophen (Tylenol Tab) 650 mg Q4H PRN PO 02/06/18 17:00 03/08/18 16:59 Ondansetron HCl (Zofran Inj) 4 mg Q6H PRN IV 02/06/18 17:00 03/08/18 16:59 Glucose (Glucose 40% Gel) 15-30 GRAMS 15 GRAMS... UD PRN PO 02/06/18 17:15 03/08/18 17:14 Glucose (Glucose Chew Tab) 4-8 Tablets 4 Tabl... UD PRN PO 02/06/18 17:15 03/08/18 17:14 Dextrose (Dextrose 50% 50ML Syringe) 25-50ML OF 50% DW IV FOR... UD PRN IV 02/06/18 17:15 03/08/18 17:14 Glucagon (Glucagon Inj) 1 mg UD PRN SQ 02/06/18 17:15 03/08/18 17:14 Miscellaneous Information (Consult Glycemic Management Pharmacy) 1 ea UD PRN N/A 02/06/18 17:09 03/08/18 17:08 Atorvastatin Calcium (Lipitor Tab) 20 mg HS PO 02/06/18 21:00 03/08/18 20:59 02/07/18 22:16 20 MG Citalopram Hydrobromide (celeXA TAB) 20 mg QAM PO 02/07/18 09:00 03/09/18 08:59 02/08/18 07:49 20 MG Hydrocortisone (Cortef Tab) 10 mg DAILY@1500 PO 02/07/18 15:00 03/09/18 14:59 02/07/18 15:34 10 MG Hydrocortisone (Cortef Tab) 20 mg QAM PO 02/07/18 09:00 03/09/18 08:59 02/08/18 07:49 20 MG Latanoprost (Xalatan Oph Soln) 1 drops HS OPB 02/06/18 21:00 03/08/18 20:59 02/07/18 22:16 1 DROPS Levothyroxine Sodium (Synthroid Tab) 125 mcg DAILYBB PO 02/07/18 06:00 03/09/18 05:59 02/08/18 06:04 125 MCG Metoprolol Tartrate (Lopressor Tab) 50 mg BID PO 02/06/18 21:00 03/08/18 20:59 Future Hold Furosemide (Lasix Tab) 20 mg BID17 PO 02/07/18 09:00 03/09/18 08:59 Future Hold Insulin Glargine (Lantus Solostar Pen) SEE DOSING PARAMETERS/SCALE HS SC 02/06/18 21:00 03/08/18 20:59 Insulin Aspart (novoLOG ASPART) SLIDING SCALE If C... ACHS SC 02/08/18 11:00 03/10/18 10:59 02/08/18 12:16 2 UNITS Ferrous Sulfate (Feosol Tab) 325 mg BIDM PO 02/08/18 16:45 03/10/18 16:44 Objective Vital Signs Date Time Temp Pulse Resp B/P (MAP) Pulse Ox O2 Delivery O2 Flow Rate FiO2 02/08/18 11:54 37.1 57 20 121/69 (86) 97 Room Air 02/08/18 08:00 Room Air 02/08/18 07:38 36.7 56 20 132/62 (85) 98 Room Air BiPAP 02/08/18 04:00 Room Air 02/08/18 03:35 35.9 57 17 130/56 (80) 99 CPAP 02/08/18 00:00 Room Air 02/07/18 23:35 36.1 58 17 111/63 (79) 99 Room Air 02/07/18 20:00 Room Air 02/07/18 19:35 37.1 62 18 105/65 (78) 97 Room Air 02/07/18 16:00 Room Air 02/07/18 15:36 66 97 02/07/18 15:12 37.1 66 18 100/61 (74) 97 Room Air 02/07/18 13:07 37.5 63 20 123/71 92 Physical Exam General Appearance: no apparent distress ENT: pharynx normal Neck: supple, no adenopathy, thyroid normal, no JVD Respiratory/Chest: lungs clear Cardiovascular: regular rate, rhythm, no JVD, + systolic murmur (2/6 ) Abdomen: non tender, soft Extremities: non-tender, no pedal edema Neurologic/Psych: alert, normal mood/affect, oriented x 3 Laboratory Results Last 24 Hours Test 02/07/18 14:33 02/07/18 16:38 02/07/18 20:25 02/08/18 00:08 Hemoglobin 8.2 g/dL Hematocrit 27.4 % Iron Level 37 mcg/dl Total Iron Binding Capacity 380 mcg/dl Transferrin 300 mg/dl Transferrin % Saturation 9 % Ferritin 6.7 ng/ml Folate 15.22 ng/mL Immunoglobulin A 209.0 mg/dL Hepatitis B Surface Antigen NEG Hepatitis C Antibody NEG Bedside Glucose 115 mg/dl 125 mg/dl 150 mg/dl Test 02/08/18 06:32 02/08/18 06:52 02/08/18 09:15 02/08/18 10:44 Bedside Glucose 79 mg/dl 105 mg/dl Vitamin B12 Level 348 pg/mL White Blood Count 4.13 K/uL Red Blood Count 3.62 M/uL Hemoglobin 8.6 g/dL Hematocrit 28.4 % Mean Corpuscular Volume 78.5 fL Mean Corpuscular Hemoglobin 23.8 pg Mean Corpuscular Hemoglobin Concent 30.3 g/dl Platelet Count 161 K/uL Mean Platelet Volume 9.2 fL Neutrophils (%) (Auto) 65.4 % Lymphocytes (%) (Auto) 23.7 % Monocytes (%) (Auto) 8.2 % Eosinophils (%) (Auto) 1.0 % Basophils (%) (Auto) 1.2 % Neutrophils # (Auto) 2.70 K/uL Lymphocytes # (Auto) 0.98 K/uL Monocytes # (Auto) 0.34 K/uL Eosinophils # (Auto) 0.04 K/uL Basophils # (Auto) 0.05 K/uL RDW Standard Deviation 51.5 fL RDW Coefficient of Variation 18.1 % Immature Granulocyte % (Auto) 0.5 % Immature Granulocyte # (Auto) 0.02 K/uL Polychromasia 1+ Hypochromasia PRESENT Microcytosis PRESENT Prothrombin Time 18.2 SECONDS Prothromb Time International Ratio 1.8 Sodium Level 138 mmol/L Potassium Level 4.0 mmol/L Chloride Level 107 mmol/L Carbon Dioxide Level 27 mmol/L Anion Gap 4.0 mmol/L Blood Urea Nitrogen 22 mg/dl Creatinine 1.27 mg/dl Est Creatinine Clear Calc Drug Dose 44.4 ml/min Estimated GFR () 48.5 Estimated GFR (Non- 41.8 BUN/Creatinine Ratio 17.1 Random Glucose 101 mg/dl Calcium Level 8.8 mg/dl Assessment and Plan Ms. 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 No evidence of hepatic encephalopathy or GI bleeding. Plan: 1. Eventual colonoscopy for iron deficiency anemia. 2. EGD as OP for screening for esophageal varices. 3. Will see in GI clinic in the next month and will consider diuretics at that time. Pt should have f/u electrolytes and BNP approx one week after DC. 4. Will review results of serology when available. I have seen , examined and agree with the plan as outlined by MANSOOR Amanda as above. -exam reveals soft abd -Improved today -Has clinical Cirrhosis, however, in review of her labs and presentation, certainly think that cirrhosis is contributory, however, with elevated BNP and and both a ascitic fluid total protein of 2.9 (greater than 2.5) and albumin of 1.8 this would suggest possible cardiac etiology. Follows with cardiology and they are adjusting medications. Only has trace ascites and if needs diuretics then would start low with something such as 50 mg of aldactone +/- lasix. Encouraged low salt diet. -outpt endoscopies for anemia (heme -) during hospitalization -Follow Cr to baseline (less than 1)
--- NOTE | 2018-02-08 14:03 | Pharmacy Progress Note ---
Pharmacy Glycemic Short Note 2 Date of Service Feb 08, 2018. OUTPATIENT ANTIDIABETIC REGIMEN: * Glipizide 5 mg qAM + metformin 1000 mg BID + Toujeo 66 units SQ HS * A1c = 6.9 % 12/11/18 Item Value Date Time Bedside Glucose 105 mg/dl H 02/08/18 1044 Bedside Glucose 79 mg/dl 02/08/18 0632 Bedside Glucose 150 mg/dl H 02/08/18 0008 Bedside Glucose 125 mg/dl H 02/07/18 2025 Bedside Glucose 115 mg/dl H 02/07/18 1638 Bedside Glucose 75 mg/dl 02/07/18 1125 Bedside Glucose 86 mg/dl 02/07/18 0645 Bedside Glucose 95 mg/dl H 02/07/18 0431 ASSESSMENT: * 72 yr old T2DM female with possibly too tightly controlled diabetes --> experiencing hypoglycemia as an outpatient? * Patient is maintained on 66 units of basal insulin plus oral anti-diabetic medications as an outpatient but NO basal insulin has been required x 48hrs+. * Despite no basal insulin, all BSGs are at or below goal range. * Pt is only receiving prandial insulin. * Pt with adequate HS --> AM drop in BSG without correctional or basal insulin at HS. Will d/c basal insulin * Post-prandial BSGs are in goal range. No changes needed to CF/CR. PLAN FOR INPATIENT GLYCEMIC CONTROL: * Hold outpatient oral diabetes medications * Basal insulin * D/C * Bolus insulin * NovoLog per scale ACHS or Q6hrs while NPO * Goal Range: Low 120 mg/dL - High 160 mg/dL * Correction Factor: 25 mg/dL/unit * Nutritional / Prandial insulin per carb ratio of 1 unit per 8 grams CHO consumed PLAN FOR DISCHARGE: * May consider decreasing vs stopping basal insulin (Toujeo) at discharge if patient is experiencing outpatient hypoglycemia.
[2018-02-08 15:48] VITALS: BP 123/53; PULSE 58; TEMP 36.8; O2SAT 98
[2018-02-08] MEDS: FERROUS SULFATE 325 MG TAB PO SCH (18:04)
[2018-02-08 19:30] VITALS: BP 121/67; PULSE 57; TEMP 36.6; O2SAT 97
[2018-02-08] MEDS ORDERED: NURSING VERBAL MED ORDER ONE (19:30)
[2018-02-08] MEDS: LATANOPROST 0.005% OP SOLN 2.5 ML BTL OPB SCH (21:15)
[2018-02-08] MEDS: ATORVASTATIN 20 MG TAB PO SCH (21:15)
[2018-02-08 23:35] VITALS: BP 126/67; PULSE 58; TEMP 36.4; O2SAT 98
[2018-02-09 03:35] VITALS: BP 117/66; PULSE 58; TEMP 36.3; O2SAT 98
[2018-02-09] MEDS: LEVOTHYROXINE 125 MCG TAB PO SCH (06:00)
[2018-02-09] MEDS: HYDROCORTISONE 10 MG TAB PO SCH ×2 (06:01→14:37)
[2018-02-09 06:49] LABS: INR 1.4 (0.9-1.1)
[2018-02-09 06:53] LABS: HEMATOCRIT 26.5 % (37-47); HEMOGLOBIN 7.8 g/dL (12.0-16.0); MEAN CELL VOLUME 77.9 fL (80-100); MEAN CORPUSCULAR HEMOGLOBIN 22.9 pg (25-34); MEAN CORPUSCULAR HGB CONC 29.4 g/dl (32-36); MEAN PLATELET VOLUME 9.2 fL (7.4-10.4); NUCLEATED RED BLOOD CELL ABS 0.04 K/uL (0-0); PLATELET COUNT 159 K/uL (130-400); RED CELL DISTRIBUTION WIDTH CV 18.6 % (11.5-14.5); WHITE BLOOD COUNT 3.78 K/uL (4.8-10.8)
[2018-02-09 07:09] LABS: CREATININE 1.25 mg/dl (0.60-1.20)
[2018-02-09 07:10] LABS: CALCIUM 8.4 mg/dl (8.5-10.1)
[2018-02-09 07:25] VITALS: BP 130/63; PULSE 64; TEMP 36.9; O2SAT 98
[2018-02-09] MEDS: FERROUS SULFATE 325 MG TAB PO SCH ×2 (07:33→17:23)
[2018-02-09] MEDS: INSULIN ASPART 100 UNITS/ML 3 ML PEN SC SCH ×4 (07:35→21:00)
[2018-02-09 08:04] LABS: BASO % 0.8 %; BASO ABS # 0.03 K/uL (0-0.2); EOS % 1.3 %; EOS ABS # 0.05 K/uL (0-0.5); IG# 0.05 K/uL (0.00-0.02); LYMPH % 26.7 %; LYMPH ABS # 1.01 K/uL (1.2-3.4); MONO % 7.9 %; NEUT ABS # 2.34 K/uL (1.4-6.5)
[2018-02-09] MEDS: CITALOPRAM 20 MG TAB PO SCH (08:42)
--- NOTE | 2018-02-09 10:28 | Cardiology Follow-Up ---
Subjective General Date of Service: Feb 09, 2018. Chief Complaint: SOB Pt evaluation today including: conversation w/ patient, physical exam, chart review, lab review, review of studies, review of inpatient medication list History of Present Illness Patient seen and examined. Chart, medications, and telemetry reviewed. No complaints. Denies chest pain, palpitations, abdominal bloating, orthopnea, PND, or lower extremity peripheral edema. Telemetry: Sinus rhythm at 64 bpm. Bradycardia down to 40 bpm for a brief period of time last on 02/08/2018 at 09:03:24. No atrial fibrillation. Allergies Coded Allergies: Iodinated Diagnostic Agents (Verified Allergy, Intermediate, RASH, 02/06/18) Sulfa Antibiotics (Verified Allergy, Intermediate, HIVES, 02/06/18) Ciprofloxacin (Verified Adverse Reaction, Mild, VOMITING, 02/06/18) Social History Smoking Status: Never Smoker Hx Tobacco Use In Past Year?: No Hx Alcohol Use - Type And Amou: No Hx Substance Use - Type And Am: No Problem List Medical Problems: (1) ACS (acute coronary syndrome) Status: Acute (2) Anemia Status: Acute (3) Anemia Status: Acute (4) Ascites Status: Acute (5) Dehydration Status: Acute (6) Orthostatic hypotension Status: Acute (7) Portal hypertension Status: Acute (8) Supratherapeutic INR Status: Acute (9) Vomiting and diarrhea Status: Acute Physical Exam Vital Signs Last Vital Signs Documentation Date Time Temp Pulse Resp B/P (MAP) Pulse Ox O2 Delivery O2 Flow Rate FiO2 02/09/18 08:00 Room Air 02/09/18 07:25 36.9 64 16 130/63 (85) 98 02/06/18 21:46 21 Physical Exam Constitutional: Level of Distress: NAD, chronically ill Ambulation: ambulating normally Psychiatric: Mental Status: active & alert Orientation: to time, to place, to person Memory: recent memory normal, remote memory normal Head: normocephalic, atraumatic Eyes: Pupils: PERRLA Neck: pertinent finding (Normal JVP) Lungs: Respiratory effort: no dyspnea Auscultation: breath sounds normal, no wheezing, no rales/crackles, no rhonchi Cardiovascular: Heart Auscultation: RRR, normal S1, normal S2, no rubs, no gallops, I/ [place] Peripheral Pulses: Radial Pulse: normal on the left, normal on the right Dorsalis Pedis Pulse: decreased on the left, decreased on the right Abdomen: Bowel Sounds: normal Inspection & Palpation: soft, no masses Extremities: no cyanosis, no edema, no clubbing Neurologic: Cranial Nerves: grossly intact Assessment and Plan Assessment and Plan Paroxysmal atrial fibrillation with a slow ventricular response. Symptomatic bradycardia, resolved following discontinuation of metoprolol and amiodarone. Continue without metoprolol and amiodarone for now. Resume lower dose metoprolol if/when heart rates increase and/or atrial fibrillation reoccurs. Outpatient ambulatory electrocardiography Possible need for future permanent pacemaker implantation discussed No anticoagulation at least until after EGD/colonoscopy, pending GI recommendations No current cardiac indication for the initiation of diuretic therapy. Conservative medical management requested in regards to CAD, declining evaluation via stress testing as well as diagnostic cardiac catheterization. Outpatient follow-up with her Power System Dispatcher, Dr. Roman. Cardiology attending: Pt seen and examined, agree with findings and assessment as per Cl[place]is Pinto. Has remained in sinus. Without complaint. Will hold off anticoagulation until GIB workup complete. Medical management for CAD as per patient's wishes. Holding both amio and metoprolol, will resume as rates allow. Laboratory Results Last 24 Hours Test 02/08/18 10:44 02/08/18 16:23 02/08/18 20:27 02/09/18 06:05 Bedside Glucose 105 mg/dl 118 mg/dl 142 mg/dl 85 mg/dl Test 02/09/18 06:10 02/09/18 06:51 White Blood Count 3.78 K/uL Red Blood Count 3.40 M/uL Hemoglobin 7.8 g/dL Hematocrit 26.5 % Mean Corpuscular Volume 77.9 fL Mean Corpuscular Hemoglobin 22.9 pg Mean Corpuscular Hemoglobin Concent 29.4 g/dl Platelet Count 159 K/uL Mean Platelet Volume 9.2 fL Neutrophils (%) (Auto) 62.0 % Lymphocytes (%) (Auto) 26.7 % Monocytes (%) (Auto) 7.9 % Eosinophils (%) (Auto) 1.3 % Basophils (%) (Auto) 0.8 % Neutrophils # (Auto) 2.34 K/uL Lymphocytes # (Auto) 1.01 K/uL Monocytes # (Auto) 0.30 K/uL Eosinophils # (Auto) 0.05 K/uL Basophils # (Auto) 0.03 K/uL RDW Standard Deviation 53.0 fL RDW Coefficient of Variation 18.6 % Immature Granulocyte % (Auto) 1.3 % Immature Granulocyte # (Auto) 0.05 K/uL Nucleated RBC Absolute Count (auto) 0.04 K/uL Nucleated Red Blood Cells % 1.0 % Hypochromasia PRESENT Microcytosis PRESENT Prothrombin Time 14.7 SECONDS Prothromb Time International Ratio 1.4 Sodium Level 140 mmol/L Potassium Level 4.0 mmol/L Chloride Level 107 mmol/L Carbon Dioxide Level 25 mmol/L Anion Gap 8.0 mmol/L Blood Urea Nitrogen 21 mg/dl Creatinine 1.25 mg/dl Est Creatinine Clear Calc Drug Dose 44.8 ml/min Estimated GFR () 49.4 Estimated GFR (Non- 42.6 BUN/Creatinine Ratio 16.4 Random Glucose 71 mg/dl Calcium Level 8.4 mg/dl Bedside Glucose 106 mg/dl
[2018-02-09 11:59] VITALS: BP 123/57; PULSE 59; TEMP 37.2; O2SAT 95
[2018-02-09 12:15] LABS: HEMATOCRIT 26.9 % (37-47); HEMOGLOBIN 7.9 g/dL (12.0-16.0)
--- NOTE | 2018-02-09 12:46 | Gastroenterology Progress Note ---
Progress Note Date of Service: Feb 09, 2018 Subjective Pt evaluation today including: conversation w/ patient, physical exam, chart review, review of studies, review of inpatient medication list Ms. Rivera is a 72 yr old female admitted for a near syncopal episode. On arrival Hb 6.5 on arrival, increased to 8.2 after one unit of RBCs. CT with cirrhosis. Paracentesis w/o SBP, with high SAAG and normal cytology. Today Hb drifted back down to 7.8 w/o gross GI bleeding. No abdominal pain. Review of Systems Constitutional: No fever ENT: No hearing loss Respiratory: No cough Cardiac: No chest pain Abdomen: No pain, No nausea, No vomiting, No GI bleeding, No dysphagia Female : No dysuria Psych: No depression symptoms Heme: No abnormal bleeding/bruising Endo: No fatigue Medications Current Inpatient Medications Medications (Trade) Dose Ordered Sig/Gerald Route Start Time Stop Time Status Last Admin Dose Admin Acetaminophen (Tylenol Tab) 650 mg Q4H PRN PO 02/06/18 17:00 03/08/18 16:59 Ondansetron HCl (Zofran Inj) 4 mg Q6H PRN IV 02/06/18 17:00 03/08/18 16:59 Glucose (Glucose 40% Gel) 15-30 GRAMS 15 GRAMS... UD PRN PO 02/06/18 17:15 03/08/18 17:14 Glucose (Glucose Chew Tab) 4-8 Tablets 4 Tabl... UD PRN PO 02/06/18 17:15 03/08/18 17:14 Dextrose (Dextrose 50% 50ML Syringe) 25-50ML OF 50% DW IV FOR... UD PRN IV 02/06/18 17:15 03/08/18 17:14 Glucagon (Glucagon Inj) 1 mg UD PRN SQ 02/06/18 17:15 03/08/18 17:14 Miscellaneous Information (Consult Glycemic Management Pharmacy) 1 ea UD PRN N/A 02/06/18 17:09 03/08/18 17:08 Atorvastatin Calcium (Lipitor Tab) 20 mg HS PO 02/06/18 21:00 03/08/18 20:59 02/08/18 21:15 20 MG Citalopram Hydrobromide (celeXA TAB) 20 mg QAM PO 4/2/18 09:00 03/09/18 08:59 02/09/18 08:42 20 MG Hydrocortisone (Cortef Tab) 10 mg DAILY@1500 PO 02/07/18 15:00 03/09/18 14:59 02/08/18 15:35 10 MG Latanoprost (Xalatan Oph Soln) 1 drops HS OPB 02/06/18 21:00 03/08/18 20:59 02/08/18 21:15 1 DROPS Levothyroxine Sodium (Synthroid Tab) 125 mcg DAILYBB PO 02/07/18 06:00 03/09/18 05:59 02/09/18 06:00 125 MCG Metoprolol Tartrate (Lopressor Tab) 50 mg BID PO 02/06/18 21:00 03/08/18 20:59 Future Hold Furosemide (Lasix Tab) 20 mg BID17 PO 02/07/18 09:00 03/09/18 08:59 Future Hold Insulin Aspart (novoLOG ASPART) SLIDING SCALE If C... ACHS SC 02/08/18 11:00 03/10/18 10:59 02/09/18 12:07 4 UNITS Ferrous Sulfate (Feosol Tab) 325 mg BIDM PO 02/08/18 16:45 03/10/18 16:44 02/09/18 07:33 325 MG Hydrocortisone (Cortef Tab) 20 mg DAILY@0600 PO 02/09/18 06:00 03/11/18 05:59 02/09/18 06:01 20 MG Objective Vital Signs Date Time Temp Pulse Resp B/P (MAP) Pulse Ox O2 Delivery O2 Flow Rate FiO2 02/09/18 12:00 Room Air 02/09/18 11:59 37.2 59 20 123/57 (79) 95 Room Air 02/09/18 08:00 Room Air 02/09/18 07:25 36.9 64 16 130/63 (85) 98 Room Air 02/09/18 03:40 CPAP 02/09/18 03:35 36.3 58 18 117/66 (83) 98 CPAP 02/08/18 23:45 Room Air 02/08/18 23:35 36.4 58 18 126/67 (86) 98 CPAP 02/08/18 21:15 Room Air 02/08/18 19:30 36.6 57 22 121/67 (85) 97 Room Air 02/08/18 16:00 Room Air 02/08/18 15:48 36.8 58 16 123/53 (76) 98 Room Air Physical Exam General Appearance: no apparent distress ENT: pharynx normal Neck: thyroid normal, no JVD Respiratory/Chest: lungs clear Cardiovascular: regular rate, rhythm, no JVD, + systolic murmur (2/6) Abdomen: non tender, soft Extremities: non-tender Neurologic/Psych: alert, normal mood/affect, oriented x 3 Skin: no jaundice Laboratory Results Last 24 Hours Test 02/08/18 16:23 02/08/18 20:27 02/09/18 06:05 02/09/18 06:10 Bedside Glucose 118 mg/dl 142 mg/dl 85 mg/dl White Blood Count 3.78 K/uL Red Blood Count 3.40 M/uL Hemoglobin 7.8 g/dL Hematocrit 26.5 % Mean Corpuscular Volume 77.9 fL Mean Corpuscular Hemoglobin 22.9 pg Mean Corpuscular Hemoglobin Concent 29.4 g/dl Platelet Count 159 K/uL Mean Platelet Volume 9.2 fL Neutrophils (%) (Auto) 62.0 % Lymphocytes (%) (Auto) 26.7 % Monocytes (%) (Auto) 7.9 % Eosinophils (%) (Auto) 1.3 % Basophils (%) (Auto) 0.8 % Neutrophils # (Auto) 2.34 K/uL Lymphocytes # (Auto) 1.01 K/uL Monocytes # (Auto) 0.30 K/uL Eosinophils # (Auto) 0.05 K/uL Basophils # (Auto) 0.03 K/uL RDW Standard Deviation 53.0 fL RDW Coefficient of Variation 18.6 % Immature Granulocyte % (Auto) 1.3 % Immature Granulocyte # (Auto) 0.05 K/uL Nucleated RBC Absolute Count (auto) 0.04 K/uL Nucleated Red Blood Cells % 1.0 % Hypochromasia PRESENT Microcytosis PRESENT Prothrombin Time 14.7 SECONDS Prothromb Time International Ratio 1.4 Sodium Level 140 mmol/L Potassium Level 4.0 mmol/L Chloride Level 107 mmol/L Carbon Dioxide Level 25 mmol/L Anion Gap 8.0 mmol/L Blood Urea Nitrogen 21 mg/dl Creatinine 1.25 mg/dl Est Creatinine Clear Calc Drug Dose 44.8 ml/min Estimated GFR () 49.4 Estimated GFR (Non- 42.6 BUN/Creatinine Ratio 16.4 Random Glucose 71 mg/dl Calcium Level 8.4 mg/dl Test 02/09/18 06:51 02/09/18 11:01 02/09/18 11:53 Bedside Glucose 106 mg/dl 139 mg/dl Hemoglobin 7.9 g/dL Hematocrit 26.9 % Assessment and Plan Ms. 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 No evidence of hepatic encephalopathy or GI bleeding. Plan: 1. EGD/colonoscopy to be arranged as OP, though if any gross GI bleeding or dramatic drop in Hb/Hct then would arrange as an inpatient. 2. GI clinic appt in [place] on April 06. 3. Pt should have kidney function and BNP labs in a week. 4. Will review results of serology when available. I have seen , examined and agree with the plan as outlined by MANSOOR Amanda as above. -exam reveals soft abd -No signs of bleeding -Outpt EGD/Colon unless signs of bleeding
--- NOTE | 2018-02-09 13:11 | Progress Note ---
Medicine Progress Note Date & Time of Visit: Feb 09, 2018 at 13:11. Subjective Sitting up in bed comfortable, in good spirits States she feels fine overall Dizziness chest pain shortness of breath palpitations Ambulating with no problems No abdominal pain, nausea No BMs since yesterday No signs of bleeding Objective Last 8 Hrs Date Time Temp Pulse Resp B/P (MAP) Pulse Ox O2 Delivery O2 Flow Rate FiO2 02/09/18 12:00 Room Air 02/09/18 11:59 37.2 59 20 123/57 (79) 95 Room Air 02/09/18 08:00 Room Air 02/09/18 07:25 36.9 64 16 130/63 (85) 98 Room Air Physical Exam: General-oriented x 3, not in distress, speaks in sentences with no effort Neck- supple, no JVD Lungs- clear breath sounds bilaterally, no rales or wheezes Heart- normal rate, regular rhythm, (+) grade 2-3 holosystolic murmur Abdomen- normal bowel sounds, soft, nontender, non distended Extremities- no pretibial edema, no calf tenderness Neuro- alert, oriented x 3; no gross focal deficits Skin- warm & dry Laboratory Results: Last 24 Hours Test 02/08/18 16:23 02/08/18 20:27 02/09/18 06:05 02/09/18 06:10 Bedside Glucose 118 mg/dl 142 mg/dl 85 mg/dl White Blood Count 3.78 K/uL Red Blood Count 3.40 M/uL Hemoglobin 7.8 g/dL Hematocrit 26.5 % Mean Corpuscular Volume 77.9 fL Mean Corpuscular Hemoglobin 22.9 pg Mean Corpuscular Hemoglobin Concent 29.4 g/dl Platelet Count 159 K/uL Mean Platelet Volume 9.2 fL Neutrophils (%) (Auto) 62.0 % Lymphocytes (%) (Auto) 26.7 % Monocytes (%) (Auto) 7.9 % Eosinophils (%) (Auto) 1.3 % Basophils (%) (Auto) 0.8 % Neutrophils # (Auto) 2.34 K/uL Lymphocytes # (Auto) 1.01 K/uL Monocytes # (Auto) 0.30 K/uL Eosinophils # (Auto) 0.05 K/uL Basophils # (Auto) 0.03 K/uL RDW Standard Deviation 53.0 fL RDW Coefficient of Variation 18.6 % Immature Granulocyte % (Auto) 1.3 % Immature Granulocyte # (Auto) 0.05 K/uL Nucleated RBC Absolute Count (auto) 0.04 K/uL Nucleated Red Blood Cells % 1.0 % Hypochromasia PRESENT Microcytosis PRESENT Prothrombin Time 14.7 SECONDS Prothromb Time International Ratio 1.4 Sodium Level 140 mmol/L Potassium Level 4.0 mmol/L Chloride Level 107 mmol/L Carbon Dioxide Level 25 mmol/L Anion Gap 8.0 mmol/L Blood Urea Nitrogen 21 mg/dl Creatinine 1.25 mg/dl Est Creatinine Clear Calc Drug Dose 44.8 ml/min Estimated GFR () 49.4 Estimated GFR (Non- 42.6 BUN/Creatinine Ratio 16.4 Random Glucose 71 mg/dl Calcium Level 8.4 mg/dl Test 02/09/18 06:51 02/09/18 11:01 02/09/18 11:53 Bedside Glucose 106 mg/dl 139 mg/dl Hemoglobin 7.9 g/dL Hematocrit 26.9 % Assessment & Plan Volume Overload likely secondary to Portal hypertension vs. Acute on Chronic Diastolic CHF Seemed to be intravascularly volume depleted 2/2 diarrhea ECHO: on 02/02/18: * Normal LV systolic function, EF 60-65%. * No segmental left ventricular wall motion abnormalities are noted. * Grade III diastolic dysfunction (restrictive physiology). -- improved -- s/p Paracentesis ~500cc of ascitic fluid Ascitic Fluid Culture: negative -- plan for initiating diuretics when crea improves further will need GI and Cardio ff up Anemia, Iron Deficiency -- in the setting of Liver Cirrhosis, Portal HTN -- r/o Esophageal Varices bleeding -- 1 unit pRBC ordered Anemia panel ordered: Fe 35 -- Hg improved to 8.5 now 7.8 again -- monitor closely check FOBT -- replete Iron -- GI consulted will need inpatient vs. 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 Albarado continue present medications Hypothyroidism: recently levothyroxine dose increased by Endocrine Free T4 normal, -- discussed with Dr. Albarado continue present medications H/O Leukocytoclastic vasculitis H/O recurrent LE rash: stable Follows with Rheumatology DVT Px: on Coumadin INR 1.4 avoid anticoagulants until GI bleed ruled out Code Status: Full Code Pending Cardio and GI eval in progress PT/OT lives at home with Current Inpatient Medications: Current Inpatient Medications Medications (Trade) Dose Ordered Sig/Gerald Route Start Time Stop Time Status Last Admin Dose Admin Acetaminophen (Tylenol Tab) 650 mg Q4H PRN PO 02/06/18 17:00 03/08/18 16:59 Ondansetron HCl (Zofran Inj) 4 mg Q6H PRN IV 02/06/18 17:00 03/08/18 16:59 Glucose (Glucose 40% Gel) 15-30 GRAMS 15 GRAMS... UD PRN PO 02/06/18 17:15 03/08/18 17:14 Glucose (Glucose Chew Tab) 4-8 Tablets 4 Tabl... UD PRN PO 02/06/18 17:15 03/08/18 17:14 Dextrose (Dextrose 50% 50ML Syringe) 25-50ML OF 50% DW IV FOR... UD PRN IV 02/06/18 17:15 03/08/18 17:14 Glucagon (Glucagon Inj) 1 mg UD PRN SQ 02/06/18 17:15 03/08/18 17:14 Miscellaneous Information (Consult Glycemic Management Pharmacy) 1 ea UD PRN N/A 02/06/18 17:09 03/08/18 17:08 Atorvastatin Calcium (Lipitor Tab) 20 mg HS PO 02/06/18 21:00 03/08/18 20:59 02/08/18 21:15 20 MG Citalopram Hydrobromide (celeXA TAB) 20 mg QAM PO 02/07/18 09:00 03/09/18 08:59 02/09/18 08:42 20 MG Hydrocortisone (Cortef Tab) 10 mg DAILY@1500 PO 02/07/18 15:00 03/09/18 14:59 02/08/18 15:35 10 MG Latanoprost (Xalatan Oph Soln) 1 drops HS OPB 02/06/18 21:00 03/08/18 20:59 02/08/18 21:15 1 DROPS Levothyroxine Sodium (Synthroid Tab) 125 mcg DAILYBB PO 02/07/18 06:00 03/09/18 05:59 02/09/18 06:00 125 MCG Metoprolol Tartrate (Lopressor Tab) 50 mg BID PO 02/06/18 21:00 03/08/18 20:59 Future Hold Furosemide (Lasix Tab) 20 mg BID17 PO 02/07/18 09:00 03/09/18 08:59 Future Hold Insulin Aspart (novoLOG ASPART) SLIDING SCALE If C... ACHS SC 02/08/18 11:00 03/10/18 10:59 02/09/18 12:07 4 UNITS Ferrous Sulfate (Feosol Tab) 325 mg BIDM PO 02/08/18 16:45 03/10/18 16:44 02/09/18 07:33 325 MG Hydrocortisone (Cortef Tab) 20 mg DAILY@0600 PO 02/09/18 06:00 03/11/18 05:59 02/09/18 06:01 20 MG
[2018-02-09] MEDS ORDERED: PANTOprazole INJ 40 MG in SYRINGE 0 ML IV ONE (13:15)
[2018-02-09 15:52] LABS: ANA SCREEN TC 249X NEGATIVE (NEGATIVE); HEPATITIS A IGM TC 51813E NON-REACTIVE (NON-REACTIVE); HEPATITIS B CORE IGM TC51854R NON-REACTIVE (NON-REACTIVE)
[2018-02-09 16:05] VITALS: BP 103/60; PULSE 67; TEMP 36.7; O2SAT 99
[2018-02-09 21:05] VITALS: BP 118/58; PULSE 57; TEMP 36.8; O2SAT 97
[2018-02-09] MEDS: PANTOprazole INJ 40 MG in SYRINGE 0 ML IV SCH (21:49)
[2018-02-09] MEDS: ATORVASTATIN 20 MG TAB PO SCH (21:49)
[2018-02-09] MEDS: LATANOPROST 0.005% OP SOLN 2.5 ML BTL OPB SCH (21:49)
[2018-02-09 23:33] VITALS: BP 120/70; PULSE 56; TEMP 36.9; O2SAT 98
[2018-02-10 03:40] VITALS: BP 121/60; PULSE 58; TEMP 36.5; O2SAT 99
[2018-02-10] MEDS: LEVOTHYROXINE 125 MCG TAB PO SCH (06:15)
[2018-02-10] MEDS: HYDROCORTISONE 10 MG TAB PO SCH ×2 (06:16→16:40)
[2018-02-10 06:55] LABS: HEMATOCRIT 26.8 % (37-47); HEMOGLOBIN 7.8 g/dL (12.0-16.0); MEAN CELL VOLUME 79.1 fL (80-100); MEAN CORPUSCULAR HGB CONC 29.1 g/dl (32-36); MEAN PLATELET VOLUME 9.5 fL (7.4-10.4); PLATELET COUNT 170 K/uL (130-400); RED CELL DISTRIBUTION WIDTH CV 18.9 % (11.5-14.5); WHITE BLOOD COUNT 4.12 K/uL (4.8-10.8)
[2018-02-10] MEDS: INSULIN ASPART 100 UNITS/ML 3 ML PEN SC SCH ×3 (07:00→16:15)
[2018-02-10 07:03] LABS: INR 1.3 (0.9-1.1)
[2018-02-10 07:21] LABS: BASO ABS # 0.04 K/uL (0-0.2); EOS % 1.2 %; EOS ABS # 0.05 K/uL (0-0.5); IG# 0.06 K/uL (0.00-0.02); LYMPH % 28.6 %; LYMPH ABS # 1.18 K/uL (1.2-3.4); MONO % 6.8 %; MONO ABS # 0.28 K/uL (0.11-0.59); NEUT % 60.9 %; NEUT ABS # 2.51 K/uL (1.4-6.5)
[2018-02-10 07:25] LABS: CALCIUM 8.6 mg/dl (8.5-10.1); CREATININE 1.16 mg/dl (0.60-1.20)
[2018-02-10 07:30] VITALS: BP 136/61; PULSE 58; TEMP 36.9; O2SAT 97
[2018-02-10] MEDS: FERROUS SULFATE 325 MG TAB PO SCH ×2 (07:58→16:55)
[2018-02-10] MEDS: PANTOprazole INJ 40 MG in SYRINGE 0 ML IV SCH (07:58)
[2018-02-10] MEDS: CITALOPRAM 20 MG TAB PO SCH (07:58)
[2018-02-10] MEDS ORDERED: DOCUSATE SODIUM/SENNA 50/8.6MG TAB PO SCH (09:00)
--- NOTE | 2018-02-10 09:17 | Pharmacy Progress Note ---
Pharmacy Glycemic Short Note 2 Date of Service Feb 10, 2018. OUTPATIENT ANTIDIABETIC REGIMEN: * Glipizide 5 mg qAM + metformin 1000 mg BID + Toujeo 66 units SQ HS * A1c = 6.9 % 12/11/18 ASSESSMENT: * 72 yr old T2DM female with possibly too tightly controlled diabetes --> per Belinda, the patient is having multiple low blood sugars over the past month. They do wake the patient up at night. Her PMH includes Asthma, NSTEMI, PAF, hypothyroidism, pituitary tumor s/p removal * Patient is maintained on 66 units of basal insulin plus oral anti-diabetic medications as an outpatient but NO basal insulin has been required x 96hrs+. * Despite no basal insulin, all BSGs are at or below goal range. * Restart metformin. Did remove carbohydrate ratio for lunch but blood sugar spiked significantly at lunch. Re-added carbohydrate ratio for dinner. PLAN FOR INPATIENT GLYCEMIC CONTROL: * metformin 1 gm PO BID starting at lunch * Bolus insulin * NovoLog per scale ACHS or Q6hrs while NPO * Goal Range: Low 120 mg/dL - High 160 mg/dL * Correction Factor: 30 mg/dL/unit * Nutritional / Prandial insulin per carb ratio of 1 unit per 10 grams CHO consumed PLAN FOR DISCHARGE: * Reduce Toujeo by at least half to 20-30 units daily. (appears to be driven via dietary choices. Patient eats much more at home) * Stop glipizide as may increase risk of hypoglycemia with insulin * can continue metformin as an outpatient
--- NOTE | 2018-02-10 09:43 | Cardiology Follow-Up ---
Subjective General Date of Service: Feb 10, 2018. Chief Complaint: SOB Pt evaluation today including: conversation w/ patient, physical exam, chart review, lab review, review of studies, review of inpatient medication list History of Present Illness Patient seen and examined. Chart, medications, and telemetry reviewed. No complaints. Denies chest pain, palpitations, abdominal bloating, orthopnea, PND, or lower extremity peripheral edema. Telemetry: Sinus bradycardia/sinus at 56-60 bpm. 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 No atrial fibrillation. Allergies Coded Allergies: Iodinated Diagnostic Agents (Verified Allergy, Intermediate, RASH, 02/06/18) Sulfa Antibiotics (Verified Allergy, Intermediate, HIVES, 02/06/18) Ciprofloxacin (Verified Adverse Reaction, Mild, VOMITING, 02/06/18) Social History Smoking Status: Never Smoker Hx Tobacco Use In Past Year?: No Hx Alcohol Use - Type And Amou: No Hx Substance Use - Type And Am: No Problem List Medical Problems: (1) ACS (acute coronary syndrome) Status: Acute (2) Anemia Status: Acute (3) Anemia Status: Acute (4) Ascites Status: Acute (5) Dehydration Status: Acute (6) Orthostatic hypotension Status: Acute (7) Portal hypertension Status: Acute (8) Supratherapeutic INR Status: Acute (9) Vomiting and diarrhea Status: Acute Physical Exam Vital Signs Last Vital Signs Documentation Date Time Temp Pulse Resp B/P (MAP) Pulse Ox O2 Delivery O2 Flow Rate FiO2 02/10/18 08:37 Room Air 02/10/18 07:30 36.9 58 16 136/61 (86) 97 02/06/18 21:46 21 Physical Exam Constitutional: Level of Distress: NAD, chronically ill Ambulation: ambulating normally Psychiatric: Mental Status: active & alert Orientation: to time, to place, to person Memory: recent memory normal, remote memory normal Head: normocephalic, atraumatic Eyes: Pupils: PERRLA Neck: pertinent finding (Normal JVP) Lungs: Respiratory effort: no dyspnea Auscultation: breath sounds normal, no wheezing, no rales/crackles, no rhonchi Cardiovascular: Heart Auscultation: RRR, normal S1, normal S2, no rubs, no gallops, I/ [place] Peripheral Pulses: Radial Pulse: normal on the left, normal on the right Dorsalis Pedis Pulse: decreased on the left, decreased on the right Abdomen: Bowel Sounds: normal Inspection & Palpation: soft, no masses Extremities: no cyanosis, no edema, no clubbing Neurologic: Cranial Nerves: grossly intact Assessment and Plan Assessment and Plan Paroxysmal atrial fibrillation with a slow ventricular response. Symptomatic bradycardia, resolved following discontinuation of metoprolol and amiodarone. Continue without metoprolol and amiodarone for now. Resume lower dose metoprolol if/when heart rates increase and/or atrial fibrillation reoccurs. Outpatient ambulatory electrocardiography Possible need for future permanent pacemaker implantation discussed No anticoagulation at least until after EGD/colonoscopy, pending GI recommendations No current cardiac indication for the initiation of diuretic therapy. Conservative medical management requested in regards to CAD, declining evaluation via stress testing as well as diagnostic cardiac catheterization. Outpatient follow-up with her Cat Hooker, Dr. Roman. Office aware, will contact patient after discharge. Cardiology attending: Pt seen and examined, agree with findings and assessment as per Clovis Pinto. Will cont with metoprolol and amio. No anticoagulation until anemia work up completed. Conservative management for possible CAD as per patient's wishes. Laboratory Results Last 24 Hours Test 02/09/18 11:01 02/09/18 11:53 02/09/18 16:09 02/09/18 21:09 Bedside Glucose 139 mg/dl 112 mg/dl 137 mg/dl Hemoglobin 7.9 g/dL Hematocrit 26.9 % Test 02/09/18 23:59 02/10/18 03:51 02/10/18 06:12 02/10/18 06:39 Bedside Glucose 139 mg/dl 96 mg/dl 86 mg/dl White Blood Count 4.12 K/uL Red Blood Count 3.39 M/uL Hemoglobin 7.8 g/dL Hematocrit 26.8 % Mean Corpuscular Volume 79.1 fL Mean Corpuscular Hemoglobin 23.0 pg Mean Corpuscular Hemoglobin Concent 29.1 g/dl Platelet Count 170 K/uL Mean Platelet Volume 9.5 fL Neutrophils (%) (Auto) 60.9 % Lymphocytes (%) (Auto) 28.6 % Monocytes (%) (Auto) 6.8 % Eosinophils (%) (Auto) 1.2 % Basophils (%) (Auto) 1.0 % Neutrophils # (Auto) 2.51 K/uL Lymphocytes # (Auto) 1.18 K/uL Monocytes # (Auto) 0.28 K/uL Eosinophils # (Auto) 0.05 K/uL Basophils # (Auto) 0.04 K/uL RDW Standard Deviation 54.0 fL RDW Coefficient of Variation 18.9 % Immature Granulocyte % (Auto) 1.5 % Immature Granulocyte # (Auto) 0.06 K/uL Large Platelets 1+ Giant Platelets 1+ Polychromasia 1+ Hypochromasia PRESENT Prothrombin Time 13.4 SECONDS Prothromb Time International Ratio 1.3 Sodium Level 140 mmol/L Potassium Level 4.0 mmol/L Chloride Level 108 mmol/L Carbon Dioxide Level 27 mmol/L Anion Gap 6.0 mmol/L Blood Urea Nitrogen 19 mg/dl Creatinine 1.16 mg/dl Est Creatinine Clear Calc Drug Dose 48.0 ml/min Estimated GFR () 54.1 Estimated GFR (Non- 46.7 BUN/Creatinine Ratio 16.0 Random Glucose 69 mg/dl Calcium Level 8.6 mg/dl
[2018-02-10] MEDS: METFORMIN HCL 500 MG TAB PO SCH ×2 (12:01→16:55)
[2018-02-10 12:05] VITALS: BP 121/63; PULSE 58; TEMP 36.7; O2SAT 97
--- NOTE | 2018-02-10 15:33 | Progress Note ---
Medicine Progress Note Date & Time of Visit: Feb 10, 2018 at 15:25. Subjective seen resting in bed, comfortable states she feels fine overall no chest pain, dyspnea, palpitations, dizziness no melena/hematochezia, abdominal pain ambulating in the hallways, no problems states she is ready and would like to be discharged today no other symptoms Objective Last 8 Hrs Date Time Temp Pulse Resp B/P (MAP) Pulse Ox O2 Delivery O2 Flow Rate FiO2 02/10/18 12:12 Room Air 02/10/18 12:05 36.7 58 20 121/63 (82) 97 Room Air 02/10/18 08:37 Room Air 02/10/18 07:30 36.9 58 16 136/61 (86) 97 Physical Exam: General-oriented x 3, not in distress, speaks in sentences with no effort Neck- supple, no JVD Lungs- clear breath sounds bilaterally Heart- normal rate, regular rhythm, (+) grade 2-3 holosystolic murmur Abdomen- normal bowel sounds, soft, nontender, non distended Extremities- no pretibial edema, no calf tenderness Neuro- alert, oriented x 3; no gross focal deficits Skin- warm & dry Laboratory Results: Last 24 Hours Test 02/09/18 16:09 02/09/18 21:09 02/09/18 23:59 02/10/18 03:51 Bedside Glucose 112 mg/dl 137 mg/dl 139 mg/dl 96 mg/dl Test 02/10/18 06:12 02/10/18 06:39 02/10/18 11:29 White Blood Count 4.12 K/uL Red Blood Count 3.39 M/uL Hemoglobin 7.8 g/dL Hematocrit 26.8 % Mean Corpuscular Volume 79.1 fL Mean Corpuscular Hemoglobin 23.0 pg Mean Corpuscular Hemoglobin Concent 29.1 g/dl Platelet Count 170 K/uL Mean Platelet Volume 9.5 fL Neutrophils (%) (Auto) 60.9 % Lymphocytes (%) (Auto) 28.6 % Monocytes (%) (Auto) 6.8 % Eosinophils (%) (Auto) 1.2 % Basophils (%) (Auto) 1.0 % Neutrophils # (Auto) 2.51 K/uL Lymphocytes # (Auto) 1.18 K/uL Monocytes # (Auto) 0.28 K/uL Eosinophils # (Auto) 0.05 K/uL Basophils # (Auto) 0.04 K/uL RDW Standard Deviation 54.0 fL RDW Coefficient of Variation 18.9 % Immature Granulocyte % (Auto) 1.5 % Immature Granulocyte # (Auto) 0.06 K/uL Large Platelets 1+ Giant Platelets 1+ Polychromasia 1+ Hypochromasia PRESENT Prothrombin Time 13.4 SECONDS Prothromb Time International Ratio 1.3 Sodium Level 140 mmol/L Potassium Level 4.0 mmol/L Chloride Level 108 mmol/L Carbon Dioxide Level 27 mmol/L Anion Gap 6.0 mmol/L Blood Urea Nitrogen 19 mg/dl Creatinine 1.16 mg/dl Est Creatinine Clear Calc Drug Dose 48.0 ml/min Estimated GFR () 54.1 Estimated GFR (Non- 46.7 BUN/Creatinine Ratio 16.0 Random Glucose 69 mg/dl Calcium Level 8.6 mg/dl Bedside Glucose 86 mg/dl 243 mg/dl Assessment & Plan Volume Overload likely secondary to Portal hypertension vs. Acute on Chronic Diastolic CHF Seemed to be intravascularly volume depleted 2/2 diarrhea ECHO: on 02/02/18: * Normal LV systolic function, EF 60-65%. * No segmental left ventricular wall motion abnormalities are noted. * Grade III diastolic dysfunction (restrictive physiology). -- improved -- s/p Paracentesis ~500cc of ascitic fluid Ascitic Fluid Culture: negative -- Cardiology and GI NOT recommending diuretics at this time close ff up with Cardiology and GI Anemia, Iron Deficiency -- in the setting of Liver Cirrhosis, Portal HTN -- r/o Esophageal Varices -- 1 unit pRBC ordered Anemia panel ordered: Fe 35 -- Hg improved 7.8- remained the same x 3 days -- GI consulted- Dr. Narvaez/MANSOOR Magdaleno outpatient EGD on 02/16/18 GI ff up with MANSOOR Magdaleno on 02/21/18 -- will need PRP, Liver Profile and BNP on Wednesday at PCP ff up as per GI Acute Renal Failure on CKD 2 Likely secondary to diarrhea and intravascular volume depletion crea on admission 1.4 improved to 1.1 monitor Sinus Bradycardia Cardiology consulted- Dr. Jones/CARMEN Weir recommend to hold Metoprolol and Amiodarone may consider pacemaker placement in the future ff up with Dr. 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 Continue Po Cortef Hypothyroidism: recently levothyroxine dose increased by Endocrine Free T4 0.17 continue Lthyroxine H/O Leukocytoclastic vasculitis H/O recurrent LE rash: stable Follows with Rheumatology Pending d/c home ff up with PCP in 3-5 days EGD on 02/16 ff up with GI 02/21 ff up with Cardio as scheduled Current Inpatient Medications: Current Inpatient Medications Medications (Trade) Dose Ordered Sig/Gerald Route Start Time Stop Time Status Last Admin Dose Admin Acetaminophen (Tylenol Tab) 650 mg Q4H PRN PO 02/06/18 17:00 03/08/18 16:59 Ondansetron HCl (Zofran Inj) 4 mg Q6H PRN IV 02/06/18 17:00 03/08/18 16:59 Glucose (Glucose 40% Gel) 15-30 GRAMS 15 GRAMS... UD PRN PO 02/06/18 17:15 03/08/18 17:14 Glucose (Glucose Chew Tab) 4-8 Tablets 4 Tabl... UD PRN PO 02/06/18 17:15 03/08/18 17:14 Dextrose (Dextrose 50% 50ML Syringe) 25-50ML OF 50% DW IV FOR... UD PRN IV 02/06/18 17:15 03/08/18 17:14 Glucagon (Glucagon Inj) 1 mg UD PRN SQ 02/06/18 17:15 03/08/18 17:14 Miscellaneous Information (Consult Glycemic Management Pharmacy) 1 ea UD PRN N/A 02/06/18 17:09 03/08/18 17:08 Atorvastatin Calcium (Lipitor Tab) 20 mg HS PO 02/06/18 21:00 03/08/18 20:59 02/09/18 21:49 20 MG Citalopram Hydrobromide (celeXA TAB) 20 mg QAM PO 02/07/18 09:00 03/09/18 08:59 02/10/18 07:58 20 MG Hydrocortisone (Cortef Tab) 10 mg DAILY@1500 PO 02/07/18 15:00 03/09/18 14:59 02/09/18 14:37 10 MG Latanoprost (Xalatan Oph Soln) 1 drops HS OPB 02/06/18 21:00 03/08/18 20:59 02/09/18 21:49 1 DROPS Levothyroxine Sodium (Synthroid Tab) 125 mcg DAILYBB PO 02/07/18 06:00 03/09/18 05:59 02/10/18 06:15 125 MCG Metoprolol Tartrate (Lopressor Tab) 50 mg BID PO 02/06/18 21:00 03/08/18 20:59 Future Hold Furosemide (Lasix Tab) 20 mg BID17 PO 02/07/18 09:00 03/09/18 08:59 Future Hold Insulin Aspart (novoLOG ASPART) SLIDING SCALE If C... ACHS SC 02/08/18 11:00 03/10/18 10:59 02/10/18 12:03 4 UNITS Ferrous Sulfate (Feosol Tab) 325 mg BIDM PO 02/08/18 16:45 03/10/18 16:44 02/10/18 07:58 325 MG Hydrocortisone (Cortef Tab) 20 mg DAILY@0600 PO 02/09/18 06:00 03/11/18 05:59 02/10/18 06:16 20 MG Pantoprazole Sodium 40 mg/ Syringe 10 ml @ 5 mls/min DAILY@21 IV 02/09/18 21:00 03/11/18 20:59 02/10/18 07:58 5 MLS/MIN Senna/Docusate Sodium (Senokot S Tab) 1 tab QAM PO 02/10/18 09:00 03/12/18 08:59 02/10/18 09:38 1 TAB Metformin HCl (Glucophage Tab) 1,000 mg BIDM PO 02/10/18 12:00 03/12/18 11:59 02/10/18 12:01 1,000 MG
[2018-02-10] MEDS ORDERED: FRRS300 PO (15:37)
[2018-02-10] MEDS ORDERED: PANT1TAB3 PO (15:37)
[2018-02-10] MEDS ORDERED: HYD10 PO ×2 (15:37)
--- NOTE | 2018-02-10 15:47 | Discharge Instructions ---
Discharge Instructions Date of Service Feb 10, 2018. Admission Reason for Admission: Orthostatic Hypotension, Volume Overload Discharge Discharge Diagnosis / Problem: LIVER CIRRHOSIS WITH ASCITES, ANEMIA Discharge Goals Goal(s): Diagnostic testing, Therapeutic intervention Activity Recommendations Activity Limitations: as noted below (NO HEAVY EXERTION UNTIL RE-EVALUATED BY PRIMARY CARE PHYSICIAN) Lifting Limitations: until after follow-up appointment Exercise/Sports Limitations: until after follow-up appointment Driving or Machine Use: NO DRIVING UNTIL RE-EVALUATED BY PRIMARY CARE PHYSICIAN . Instructions / Follow-Up Instructions / Follow-Up PLEASE REVIEW YOUR NEW MEDICATION LIST AND FOLLOW INSTRUCTIONS CAREFULLY. CALL YOUR PRIMARY CARE PHYSICIAN OR RETURN TO ER IMMEDIATELY IF WITH RECURRENCE OF SYMPTOMS, INCREASING ABDOMINAL GIRTH, LEG SWELLING, SHORTNESS OF BREATH, CHEST PAIN, WEAKNESS, FATIGUE, BLOOD IN THE STOOL. FOLLOW UP WITH PRIMARY CARE PHYSICIAN IN 3-5 DAYS. UPPER GI ENDOSCOPY SCHEDULED FOR 02/16/18. PLEASE CALL THE GASTROENTEROLOGY OFFICE PRIOR FOR MORE INFORMATION. TEL. NO. FOLLOW UP WITH SUPERVISOR FINE GRADING ON 02/21/18. FOLLOW UP WITH SKILLED NURSING FACILITY COUNSELOR SCHEDULED. Current Hospital Diet Patient's current hospital diet: Diabetes Type 2 Diet, Low Sodium Diet (2gm Na) Discharge Diet Recommended Diet: Low Sodium Diet (2gm Na), Diabetes Type 2 Diet Procedures Procedures Performed: PARACENTESIS (REMOVAL OF FLUID FROM THE ABDOMINAL CAVITY); CT SCAN OF THE ABDOMEN/PELVIS Pending Studies Studies pending at discharge: yes List of pending studies: REPEAT BLOODWORK ON FOLLOW UP WITH PRIMARY CARE PHYSICIAN Laboratory Results Hemoglobin A1c Test 12/11/17 03:06 Range/Units Estimated Average Glucose 151 mg/dl Hemoglobin A1c 6.9 H 4.5-5.6 % Medical Emergencies . Who to Call and When: Medical Emergencies: If at any time you feel your situation is an emergency, please call 911 immediately. . Non-Emergent Contact Non-Emergency issues call your: Primary Care Provider, Hide Selector, Central Supply Manager Call Non-Emergent contact if: you have a fever, wound has increased drainage, wound has increased redness, wound has increased pain, you have any medication questions . . "Provider Documentation" section prepared by Demetris Ramirez. .
[2018-02-10 15:48] VITALS: BP 121/63; PULSE 58; TEMP 36.7; O2SAT 97
--- NOTE | 2018-02-10 15:55 | Discharge Summary ---
Discharge Summary Date of Service Feb 10, 2018. Discharge Summary Admission Date: Feb 06, 2018 at 16:59 Discharge Date: Feb 10, 2018 Discharge Disposition: Home Principal Diagnosis: Volume Overload likely secondary to Portal hypertension Secondary Diagnoses/Problems: Please refer to hospital course below. Procedures: s/p Paracentesis, 500cc Ascitic Fluid s/p [address] SCAN OF THE ABDOMEN AND PELVIS WITHOUT IV CONTRAST CLINICAL HISTORY: Abdominal distention. COMPARISON STUDY: Abdominal CT dated 03/07/2015 an 09/22/2013. TECHNIQUE: CT scan of the abdomen and pelvis is performed from the lung bases to the proximal femora. Images are reviewed in the axial, sagittal, and coronal planes. IV contrast was not administered for this examination as per the referring clinician. Note that the examination was performed in suboptimal fashion without oral and IV contrast. A dose lowering technique was utilized adhering to the principles of ALARA. CT DOSE: 1503.10 mGy.cm FINDINGS: Lung bases: The heart is enlarged and without pericardial effusion. There is diminished attenuation of the cardiac blood pool as compared to the myocardium suggesting anemia. There is a small right pleural effusion with associated atelectasis. A 4 mm nodule in the right middle lobe on image #8 and a 3 mm pleural-based nodule in the right lower lobe along the major fissure seen on image #8 are unchanged from 2015 and of doubtful significance. There is a small hiatal hernia. Liver: The unenhanced liver is enlarged measuring 20.3 cm and cirrhotic in morphology. The liver is heterogeneous in attenuation. There is hypertrophy of the left lobe and caudate, as well as nodularity of the hepatic surface contour. There is no intrahepatic biliary ductal dilatation. Gallbladder: Mild gallbladder wall thickening is nonspecific, and likely related to cirrhosis and ascites. There is no convincing CT evidence of acute cholecystitis. Spleen: The spleen is enlarged, measuring 16.5 cm in length. Pancreas: Unenhanced pancreas is atrophic and grossly unremarkable. Adrenal glands: Unremarkable. Kidneys: The unenhanced kidneys are atrophic and without hydronephrosis. There are no renal calculi identified. There is no evidence of contour deforming renal mass lesion. Abdominal vasculature: The abdominal aorta is normal in course and caliber noting advanced atherosclerotic calcification. Bowel: There is mild colonic diverticulosis without CT evidence of acute diverticulitis. No bowel obstruction is seen. The appendix is well-visualized and normal. Peritoneum: There is a small volume of abdominopelvic ascites. No intraperitoneal free air is seen. There is a large fat and fluid containing hernia in the ventral pelvis. Lymphadenopathy: Mildly enlarged lymph nodes in the matilda hepatis measure up to 2.0 cm in short axis. These are likely related to chronic liver disease. Pelvic viscera: The bladder, bladder is normal as visualized. The uterus is surgically absent. No adnexal lesion is seen. Skeletal structures: The skeletal structures are osteopenic. Mild lumbosacral spondylosis is observed. Is a mild superior endplate compression deformity of T12. No lytic or blastic lesions are seen. Soft tissues: There is mild body wall edema. IMPRESSION: 1. Suboptimal examination without oral and IV contrast. 2. The liver is enlarged and cirrhotic in morphology. 3. Splenomegaly and a small volume of abdominopelvic ascites indicate portal hypertension. 4. Cardiomegaly and small right pleural effusion. 5. Mild colonic diverticulosis without CT evidence of acute diverticulitis. 6. Additional findings as above. Electronically signed by: Ang Giraldo M.D. 02/06/2018 3:10 PM Dictated Date/Time: 02/06/2018 3:00 PM ULTRASOUND ASCITES CHECK CLINICAL HISTORY: Ascites. COMPARISON STUDY: Abdominal CT performed the same 02/06/2018. FINDINGS: Real-time grayscale sonography of all 4 quadrants of the abdomen is performed to assess for abdominal ascites. There is a small volume of abdominopelvic ascites identified. IMPRESSION: Small volume of ascites. Electronically signed by: Ang Giraldo M.D. 02/06/2018 5:45 PM ULTRASOUND-GUIDED DIAGNOSTIC PARACENTESIS: HISTORY: Ascites. Cirrhosis. Procedure: The procedure and its risks, benefits and alternatives were discussed with the patient and written informed consent was obtained. Preliminary ultrasound of the abdomen was performed to determine a safe needle entry site. The right lower quadrant was prepped and draped in the usual sterile fashion. 1% Lidocaine was used for local anesthesia. An 18-gauge needle was inserted into the peritoneal space using ultrasound guidance. This was connected to tubing and a vacuum suction device. A total of 0.5 liters of yellow ascites was aspirated. The sheath was removed and a sterile dressing applied. The patient tolerated the procedure well and there were no immediate complications. IMPRESSION: Ultrasound-guided therapeutic paracentesis with aspiration of 0.5 liters of ascites. The specimen was sent to the laboratory for further evaluation. Electronically signed by: Easton Crook M.D. 02/07/2018 11:39 AM Consultations: GI Dr. Narvaez, Cardio Dr. Jones/CARMEN Weir Pending Studies/Follow-Up: Please refer to hospital course below. Medication Reconciliation New Medications: Pantoprazole (Protonix) 40 Mg Tab 40 MG PO DAILY for 30 Days, #30 TAB 1 Refill take 30 minutes before breakfast Ferrous Sulfate (Ferrous Sulfate) 325 Mg Tab 325 MG PO BIDM for 30 Days, #60 TAB 2 Refills Hydrocortisone (Cortef) 10 Mg Tab 20 MG PO DAILY@0600 for 30 Days Hydrocortisone (Cortef) 10 Mg Tab 10 MG PO DAILY@1500 for 30 Days Continued Medications: Aspirin (Aspirin Ec) 81 Mg Tab 81 MG PO DAILY Atorvastatin (Lipitor) 20 Mg Tab 20 MG PO HS, TAB Citalopram (Citalopram Hydrobromide) 20 Mg Tab 20 MG PO QAM Insulin Glargine (Toujeo Solostar) 300 Unit/Ml Inj 66 UNITS SC HS Latanoprost (Latanoprost) 37 Drops/2.5 Ml Soln 1 DROP OPB HS Levothyroxine Sodium (Levothyroxine Sodium) 125 Mcg Tab 125 MCG PO QAM Loratadine (Claritin) 10 Mg Tab 10 MG PO DAILY PRN for ALLERGIES, TAB Metformin Hcl (Glucophage) 500 Mg Tab 1000 MG PO BID Discontinued Medications: Amiodarone Hcl (Cordarone) 200 Mg Tab 200 MG PO DAILY, TAB Furosemide (Furosemide) 20 Mg Tab 1 TAB PO DAILY PRN for EDEMA Glipizide (Glipizide) 5 Mg Tab 5 MG PO QAM Hydrocortisone (Cortef) 5 Mg Tab 10 MG PO QAM Hydrocortisone (Cortef) 5 Mg Tab 5 MG PO AFTERNOON Metoprolol Tartrate (Metoprolol Tartrate) 50 Mg Tab 1 TAB PO BID Warfarin Sodium (Warfarin Sodium) 5 Mg Tab 1 TAB PO DAILYUD Admission Information HPI (per Admitting provider): Patient is a 72 yr female with PMH of DM II, Diastolic CHF, MSSA bacteremia, P.Afib, Microcytic anemia, H/O pituitary tumor s/p surgery, Hypothyroidism, Leukocytoclastic Vasculitis and other problems who was recently treated for MSSA bacteremia presents with history of progressively worsening abdominal distention and fullness, dyspnea on exertion, weight gain of about 20 pounds in 3 weeks and leg swelling. She states she had 3 loose BMs yesterday which resolved. Also noticed that she had dizziness this morning and felt as if she would pass out which she believes could be secondary to low blood sugar levels and so came to ED for further evaluation. She reports that she follows with her chief nurse executive who increased her Cortef recently and since last 2 days she cut the dose in half as she thought the weight gain is secondary to side effects. She is scheduled to get an abdominal ultrasound on Wednesday as per her PCP recommendations. Also reports mild headache, no change in vision. Denies any history of chest pain, orthopnea, PND, diaphoresis, cough, fever, chills, LOC, nausea, vomiting, abdominal pain, blood in stools, dysuria. Physical Exam (per Admitting): General Appearance: no apparent distress, + obese Head: normocephalic, atraumatic Eyes: normal inspection, PERRL, EOMI, sclerae normal ENT: normal ENT inspection, hearing grossly normal Neck: supple, trachea midline Respiratory/Chest: chest non-tender, lungs clear, normal breath sounds, no respiratory distress, no accessory muscle use Cardiovascular: regular rate, rhythm, no murmur, + pertinent finding (1+ b/ l edema) Abdomen/GI: normal bowel sounds, non tender, soft, + distended Back: normal inspection Extremities/Musculoskelatal: normal inspection, + pedal edema Neurologic/Psych: assisted living manager II-XII nml as tested, no motor/sensory deficits, alert , normal mood/affect, oriented x 3 Skin: normal color, warm/dry Hospital Course Volume Overload likely secondary to Portal hypertension Seemed to be intravascularly volume depleted 2/2 diarrhea ECHO: on 02/02/18: * Normal LV systolic function, EF 60-65%. * No segmental left ventricular wall motion abnormalities are noted. * Grade III diastolic dysfunction (restrictive physiology). -- s/p Paracentesis ~500cc of ascitic fluid Ascitic Fluid Culture: negative -- improved -- Cardiology and GI NOT recommending diuretics at this time close ff up with Cardiology and GI Dyspnea on Exertion, secondary to Anemia, Iron Deficiency -- in the setting of Liver Cirrhosis, Portal HTN -- r/o Esophageal Varices -- Hg noted to be 6.5 -- 1 unit pRBC ordered Anemia panel ordered: Fe 35, Iron supplement started -- Hg improved to 7.8- remained the same x 3 days -- GI consulted- Dr. Narvaez/MANSOOR Magdaleno outpatient EGD on 02/16/18 to r/o GI bleed/Esophageal Varices GI ff up with MANSOOR Magdaleno on 02/21/18 -- will need PRP, Liver Profile and BNP on Wednesday at PCP ff up as per GI Acute Renal Failure on CKD 2 Likely secondary to diarrhea and intravascular volume depletion crea on admission 1.4 improved to 1.1 monitor Sinus Bradycardia Cardiology consulted- Dr. Jones/CARMEN Weir recommend to hold Metoprolol and Amiodarone may consider pacemaker placement in the future ff up with Counter Hop Dr. Roman as scheduled P.Afib on Coumadin sinus at present Cardiology consulted Metoprolol and Amio on hold due to sinus bradycardia holding Coumadin until EGD is done, and cleared by GI (r/o GI bleed) DM II: A1C:6.9 on 12/11/17 patient reports she is still having hypoglycemia despite reduction of Glipizide to daily discontinue Glipizide for now continue Tujeo and Metformin ff up with Endo H/O 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 Continue Po Cortef Hypothyroidism: recently levothyroxine dose increased by Endocrine Free T4 0.17 continue Lthyroxine H/O Leukocytoclastic vasculitis H/O recurrent LE rash: stable Follows with Rheumatology Lung Nodules Lung bases: The heart is enlarged and without pericardial effusion. There is diminished attenuation of the cardiac blood pool as compared to the myocardium suggesting anemia. There is a small right pleural effusion with associated atelectasis. A 4 mm nodule in the right middle lobe on image #8 and a 3 mm pleural-based nodule in the right lower lobe along the major fissure seen on image #8 are unchanged from 2015 and of doubtful significance. There is a small hiatal hernia. -- please monitor as outpatient d/c home ff up with PCP in 3-5 days EGD on 02/16 at [facility] ff up with GI 02/21 at [facility] ff up with Cardio as scheduled Total time spent on discharge = 55 minutes This includes examination of the patient, discharge planning, medication reconciliation, and communication with other providers. Discharge Instructions Discharge Instructions Date of Service Feb 10, 2018. Admission Reason for Admission: Orthostatic Hypotension, Volume Overload Discharge Discharge Diagnosis / Problem: LIVER CIRRHOSIS WITH ASCITES, ANEMIA Discharge Goals Goal(s): Diagnostic testing, Therapeutic intervention Activity Recommendations Activity Limitations: as noted below (NO HEAVY EXERTION UNTIL RE-EVALUATED BY PRIMARY CARE PHYSICIAN) Lifting Limitations: until after follow-up appointment Exercise/Sports Limitations: until after follow-up appointment Driving or Machine Use: NO DRIVING UNTIL RE-EVALUATED BY PRIMARY CARE PHYSICIAN . Instructions / Follow-Up Instructions / Follow-Up PLEASE REVIEW YOUR NEW MEDICATION LIST AND FOLLOW INSTRUCTIONS CAREFULLY. CALL YOUR PRIMARY CARE PHYSICIAN OR RETURN TO ER IMMEDIATELY IF WITH RECURRENCE OF SYMPTOMS, SHORTNESS OF BREATH, CHEST PAIN, WEAKNESS, FATIGUE, BLOOD IN THE STOOL. FOLLOW UP WITH PRIMARY CARE PHYSICIAN IN 3-5 DAYS. UPPER GI ENDOSCOPY SCHEDULED FOR 02/16/18. PLEASE CALL THE GASTROENTEROLOGY OFFICE PRIOR FOR MORE INFORMATION. TEL. NO. FOLLOW UP WITH CUSTOMER EXPERIENCE CONSULTANT ON 02/21/18. FOLLOW UP WITH BALANCE WHEEL MOTION INSPECTOR SCHEDULED. Current Hospital Diet Patient's current hospital diet: Diabetes Type 2 Diet, Low Sodium Diet (2gm Na) Discharge Diet Recommended Diet: Low Sodium Diet (2gm Na), Diabetes Type 2 Diet Procedures Procedures Performed: PARACENTESIS (REMOVAL OF FLUID FROM THE ABDOMINAL CAVITY); CT SCAN OF THE ABDOMEN/PELVIS Pending Studies Studies pending at discharge: yes List of pending studies: REPEAT BLOODWORK ON FOLLOW UP WITH PRIMARY CARE PHYSICIAN Laboratory Results Hemoglobin A1c Test 12/11/17 03:06 Range/Units Estimated Average Glucose 151 mg/dl Hemoglobin A1c 6.9 H 4.5-5.6 % Medical Emergencies . Who to Call and When: Medical Emergencies: If at any time you feel your situation is an emergency, please call 911 immediately. . Non-Emergent Contact Non-Emergency issues call your: Primary Care Provider, Counter Hop, Digital Project Coordinator Call Non-Emergent contact if: you have a fever, wound has increased drainage, wound has increased redness, wound has increased pain, you have any medication questions . . "Provider Documentation" section prepared by Demetris Ramirez.
[2018-02-10 16:31] VITALS: Ht 162.6 cm; Wt 94.0 kg
--- NOTE | 2018-02-10 16:41 | Gastroenterology Progress Note ---
Progress Note Date of Service: Feb 10, 2018 Subjective Pt evaluation today including: conversation w/ patient, physical exam, chart review, lab review, review of studies, review of inpatient medication list Ms. 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 Hb today 7.8 (was 6.2 earlier this admission, received one unit of blood today. Paracentesis w/o evidence of SBP or malignancy, SAAG high, though total protein high as well. She feels well today and anticipates DC soon. No evidence of GI bleeding or confusion. Serology (-) for autoimmune disease, Celiac Disease and Hep A/B/C. Review of Systems Constitutional: No fever ENT: No hearing loss Respiratory: No cough Abdomen: + see HPI, No pain, No nausea, No vomiting Female : No dysuria Psych: No depression symptoms Endo: No fatigue Skin: No rash Medications Current Inpatient Medications Medications (Trade) Dose Ordered Sig/Gerald Route Start Time Stop Time Status Last Admin Dose Admin Acetaminophen (Tylenol Tab) 650 mg Q4H PRN PO 02/06/18 17:00 03/08/18 16:59 Ondansetron HCl (Zofran Inj) 4 mg Q6H PRN IV 02/06/18 17:00 03/08/18 16:59 Glucose (Glucose 40% Gel) 15-30 GRAMS 15 GRAMS... UD PRN PO 02/06/18 17:15 03/08/18 17:14 Glucose (Glucose Chew Tab) 4-8 Tablets 4 Tabl... UD PRN PO 02/06/18 17:15 03/08/18 17:14 Dextrose (Dextrose 50% 50ML Syringe) 25-50ML OF 50% DW IV FOR... UD PRN IV 02/06/18 17:15 03/08/18 17:14 Glucagon (Glucagon Inj) 1 mg UD PRN SQ 02/06/18 17:15 03/08/18 17:14 Miscellaneous Information (Consult Glycemic Management Pharmacy) 1 ea UD PRN N/A 02/06/18 17:09 03/08/18 17:08 Atorvastatin Calcium (Lipitor Tab) 20 mg HS PO 02/06/18 21:00 03/08/18 20:59 02/09/18 21:49 20 MG Citalopram Hydrobromide (celeXA TAB) 20 mg QAM PO 02/07/18 09:00 03/09/18 08:59 02/10/18 07:58 20 MG Hydrocortisone (Cortef Tab) 10 mg DAILY@1500 PO 02/07/18 15:00 03/09/18 14:59 02/09/18 14:37 10 MG Latanoprost (Xalatan Oph Soln) 1 drops HS OPB 02/06/18 21:00 03/08/18 20:59 02/09/18 21:49 1 DROPS Levothyroxine Sodium (Synthroid Tab) 125 mcg DAILYBB PO 02/07/18 06:00 03/09/18 05:59 02/10/18 06:15 125 MCG Metoprolol Tartrate (Lopressor Tab) 50 mg BID PO 02/06/18 21:00 03/08/18 20:59 Future Hold Furosemide (Lasix Tab) 20 mg BID17 PO 02/07/18 09:00 03/09/18 08:59 Future Hold Insulin Aspart (novoLOG ASPART) SLIDING SCALE If C... ACHS SC 02/08/18 11:00 03/10/18 10:59 02/10/18 12:03 4 UNITS Ferrous Sulfate (Feosol Tab) 325 mg BIDM PO 02/08/18 16:45 03/10/18 16:44 02/10/18 07:58 325 MG Hydrocortisone (Cortef Tab) 20 mg DAILY@0600 PO 02/09/18 06:00 03/11/18 05:59 02/10/18 06:16 20 MG Pantoprazole Sodium 40 mg/ Syringe 10 ml @ 5 mls/min DAILY@,21 IV 02/09/18 21:00 03/11/18 20:59 02/10/18 07:58 5 MLS/MIN Senna/Docusate Sodium (Senokot S Tab) 1 tab QAM PO 02/10/18 09:00 03/12/18 08:59 02/10/18 09:38 1 TAB Metformin HCl (Glucophage Tab) 1,000 mg BIDM PO 02/10/18 12:00 03/12/18 11:59 02/10/18 12:01 1,000 MG Objective Vital Signs Date Time Temp Pulse Resp B/P (MAP) Pulse Ox O2 Delivery O2 Flow Rate FiO2 02/10/18 15:48 36.7 58 20 97 Room Air 02/10/18 12:12 Room Air 02/10/18 12:05 36.7 58 20 121/63 (82) 97 Room Air 02/10/18 08:37 Room Air 02/10/18 07:30 36.9 58 16 136/61 (86) 97 02/10/18 04:00 Room Air 02/10/18 03:40 36.5 58 18 121/60 (80) 99 CPAP 02/09/18 23:59 Room Air 02/09/18 23:33 36.9 56 17 120/70 (87) 98 Room Air 02/09/18 21:05 36.8 57 20 118/58 (78) 97 Room Air 02/09/18 20:00 Room Air Physical Exam General Appearance: no apparent distress ENT: pharynx normal Neck: no JVD Respiratory/Chest: lungs clear Cardiovascular: regular rate, rhythm, no JVD, + systolic murmur (2/6) Abdomen: non tender, soft, + pertinent finding (minimal ascites) Extremities: normal inspection, no pedal edema Neurologic/Psych: alert, normal mood/affect, oriented x 3 Skin: no jaundice Laboratory Results Last 24 Hours Test 02/09/18 21:09 02/09/18 23:59 02/10/18 03:51 02/10/18 06:12 Bedside Glucose 137 mg/dl 139 mg/dl 96 mg/dl White Blood Count 4.12 K/uL Red Blood Count 3.39 M/uL Hemoglobin 7.8 g/dL Hematocrit 26.8 % Mean Corpuscular Volume 79.1 fL Mean Corpuscular Hemoglobin 23.0 pg Mean Corpuscular Hemoglobin Concent 29.1 g/dl Platelet Count 170 K/uL Mean Platelet Volume 9.5 fL Neutrophils (%) (Auto) 60.9 % Lymphocytes (%) (Auto) 28.6 % Monocytes (%) (Auto) 6.8 % Eosinophils (%) (Auto) 1.2 % Basophils (%) (Auto) 1.0 % Neutrophils # (Auto) 2.51 K/uL Lymphocytes # (Auto) 1.18 K/uL Monocytes # (Auto) 0.28 K/uL Eosinophils # (Auto) 0.05 K/uL Basophils # (Auto) 0.04 K/uL RDW Standard Deviation 54.0 fL RDW Coefficient of Variation 18.9 % Immature Granulocyte % (Auto) 1.5 % Immature Granulocyte # (Auto) 0.06 K/uL Large Platelets 1+ Giant Platelets 1+ Polychromasia 1+ Hypochromasia PRESENT Prothrombin Time 13.4 SECONDS Prothromb Time International Ratio 1.3 Sodium Level 140 mmol/L Potassium Level 4.0 mmol/L Chloride Level 108 mmol/L Carbon Dioxide Level 27 mmol/L Anion Gap 6.0 mmol/L Blood Urea Nitrogen 19 mg/dl Creatinine 1.16 mg/dl Est Creatinine Clear Calc Drug Dose 48.0 ml/min Estimated GFR () 54.1 Estimated GFR (Non- 46.7 BUN/Creatinine Ratio 16.0 Random Glucose 69 mg/dl Calcium Level 8.6 mg/dl Test 02/10/18 06:39 02/10/18 11:29 Bedside Glucose 86 mg/dl 243 mg/dl Assessment and Plan Ms. 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 No evidence of hepatic encephalopathy or GI bleeding. She is anemic with is likely multifactorial and esophageal varices and colon cancer should be ruled out. Plan: 1. EGD scheduled for 02/16 in the OR at [place]. Pt refuses colonoscopy ( became hypotensive during prep for prior attempt). We agreed to revisit this is a few months. 2. GI clinic appt in [place] on February 21 and April 06. 3. Pt should have kidney function and BNP labs in a week. 4. Low salt diet reviewed in detail. 5. Would D/C w/o diuretics but will consider starting them in the OP setting at GI appt. Attending Addm: I have seen, examined and agree with the plan as outlined above by MANSOOR Amanda. -No signs of bleeding -outpt Endo this upcoming week -Cr improved
== END 2018-02-10 17:07 | disposition home or self-care (01) | DRG 441 ==
LOC: C.EDB 12:53 → C.2T 16:59 → ENRESERV 17:08
PROVIDERS: ADMIT Internal Medicine; ATTEND Internal Medicine
DX: K76.6 Portal hypertension (principal); I50.33 Acute on chronic diastolic (congestive) heart failure; I13.0 Hypertensive heart and chronic kidney disease with heart failure and stage 1 through stage 4 chronic kidney disease, or unspecified chronic kidney disease; R18.8 Other ascites; K74.60 Unspecified cirrhosis of liver; Z86.718 Personal history of other venous thrombosis and embolism; E11.9 Type 2 diabetes mellitus without complications; J45.909 Unspecified asthma, uncomplicated; F32.9 Major depressive disorder, single episode, unspecified; I25.2 Old myocardial infarction; Z83.3 Family history of diabetes mellitus; Z79.4 Long term (current) use of insulin; N18.2 Chronic kidney disease, stage 2 (mild); Z79.84 Long term (current) use of oral hypoglycemic drugs; Z79.01 Long term (current) use of anticoagulants; Z88.2 Allergy status to sulfonamides; Z88.1 Allergy status to other antibiotic agents; Z88.8 Allergy status to other drugs, medicaments and biological substances; E86.0 Dehydration; I95.9 Hypotension, unspecified; H40.10X0 Unspecified open-angle glaucoma, stage unspecified; I48.0 Paroxysmal atrial fibrillation; K76.0 Fatty (change of) liver, not elsewhere classified; D50.9 Iron deficiency anemia, unspecified; R00.1 Bradycardia, unspecified; R91.1 Solitary pulmonary nodule

== ENCOUNTER → 2018-02-15 | Outpatient (CLI) | payer OTHER ==
[~2018-02-15] MED LIST changes: -ASPEC81 PO; +ASPI81TA28 PO; +ATOR-22 PO; +CLR10 PO; -CRD200 PO; +FRRS300 PO; -GLC5 PO; +HYD10 PO; -HYDR5TAB57 PO; -LSX20 PO; -METO50TA16 PO; +PANT1TAB3 PO; -WARF5TAB7 PO
[2018-02-15 18:40] LABS: ALBUMIN 3.6 gm/dl (3.4-5.0); BLOOD UREA NITROGEN 22 mg/dl (7-18); CALCIUM 8.6 mg/dl (8.5-10.1); CARBON DIOXIDE 25 mmol/L (21-32); CREATININE 1.13 mg/dl (0.60-1.20); GLUCOSE 89 mg/dl (70-99); POTASSIUM 4.4 mmol/L (3.5-5.1); SODIUM 138 mmol/L (136-145)
[2018-02-15 18:43] LABS: HEMATOCRIT 29.2 % (37-47); HEMOGLOBIN 8.5 g/dL (12.0-16.0); MEAN CELL VOLUME 80.9 fL (80-100); MEAN CORPUSCULAR HEMOGLOBIN 23.5 pg (25-34); MEAN CORPUSCULAR HGB CONC 29.1 g/dl (32-36); MEAN PLATELET VOLUME 10.3 fL (7.4-10.4); PLATELET COUNT 143 K/uL (130-400); RED CELL DISTRIBUTION WIDTH CV 20.5 % (11.5-14.5)
[2018-02-15 18:44] LABS: BASO % 0.8 %; BASO ABS # 0.03 K/uL (0-0.2); EOS % 1.1 %; EOS ABS # 0.04 K/uL (0-0.5); IG# 0.02 K/uL (0.00-0.02); LYMPH % 13.1 %; LYMPH ABS # 0.47 K/uL (1.2-3.4); MONO % 7.5 %; MONO ABS # 0.27 K/uL (0.11-0.59); NEUT % 76.9 %; NEUT ABS # 2.77 K/uL (1.4-6.5)
[2018-02-15 18:46] LABS: ALKALINE PHOSPHATASE 100 U/L (45-117); ALT/SGPT 18 U/L (12-78); AST/SGOT 16 U/L (15-37); TOTAL PROTEIN 7.1 gm/dl (6.4-8.2)
== END | disposition home or self-care (01) ==
LOC: C.LABSPEC 17:43
PROVIDERS: ATTEND Family Medicine
DX: D64.9 Anemia, unspecified (principal); K74.60 Unspecified cirrhosis of liver; R06.02 Shortness of breath

== ENCOUNTER → 2018-03-15 | Outpatient (CLI) | payer OTHER ==
[~2018-03-15] MED LIST changes: +DOCU50CA10 PO; +GLIM1TAB2 PO; +HYDR5TAB PO; +METO50TA16 PO
[2018-03-15 19:01] LABS: BASO % 1.4 %; BASO ABS # 0.08 K/uL (0-0.2); EOS % 6.6 %; EOS ABS # 0.38 K/uL (0-0.5); HEMATOCRIT 34.9 % (37-47); HEMOGLOBIN 10.5 g/dL (12.0-16.0); IG# 0.04 K/uL (0.00-0.02); LYMPH % 14.2 %; LYMPH ABS # 0.82 K/uL (1.2-3.4); MEAN CELL VOLUME 81.7 fL (80-100); MEAN CORPUSCULAR HEMOGLOBIN 24.6 pg (25-34); MEAN CORPUSCULAR HGB CONC 30.1 g/dl (32-36); MEAN PLATELET VOLUME 10.5 fL (7.4-10.4); MONO ABS # 0.35 K/uL (0.11-0.59); NEUT % 71.1 %; NEUT ABS # 4.12 K/uL (1.4-6.5); PLATELET COUNT 216 K/uL (130-400); RED CELL DISTRIBUTION WIDTH CV 20.2 % (11.5-14.5); RED CELL DISTRIBUTION WIDTH SD 60.4 fL (36.4-46.3); WHITE BLOOD COUNT 5.79 K/uL (4.8-10.8)
[2018-03-15 19:14] LABS: ALBUMIN 3.5 gm/dl (3.4-5.0); ALT/SGPT 27 U/L (12-78); AST/SGOT 25 U/L (15-37); BLOOD UREA NITROGEN 20 mg/dl (7-18); CALCIUM 9.2 mg/dl (8.5-10.1); CARBON DIOXIDE 26 mmol/L (21-32); CREATININE 1.07 mg/dl (0.60-1.20); GLUCOSE 86 mg/dl (70-99); POTASSIUM 4.3 mmol/L (3.5-5.1); SODIUM 140 mmol/L (136-145)
[2018-03-15 19:17] LABS: ALKALINE PHOSPHATASE 109 U/L (45-117); TOTAL PROTEIN 7.1 gm/dl (6.4-8.2)
[2018-03-16 06:55] LABS: HEMOGLOBIN A1C 5.4 % (4.5-5.6)
== END | disposition home or self-care (01) ==
LOC: C.LABSPEC 17:47
PROVIDERS: ATTEND Family Medicine
DX: E11.9 Type 2 diabetes mellitus without complications (principal)

== ENCOUNTER 2018-06-03 21:39 | Inpatient (IN) | payer OTHER ==
[~2018-06-03] VITALS: Ht 162.6 cm; Wt 95.3 kg
[~2018-06-03 21:39] MED LIST changes: -HYD10 PO; -INSU1.2I SC; -LEVO125T5 PO; -XLTOPS OPB
[2018-06-03] MEDS ORDERED: ACETAMINOPHEN 325 MG TAB PO STA (22:03)
--- NOTE | 2018-06-03 22:28 | DIAGNOSTIC IMAGING REPORT ---
CHEST ONE VIEW PORTABLE CLINICAL HISTORY: Sepsis. COMPARISON STUDY: Chest radiograph April 20, 2018. FINDINGS: Lung volumes are normal. No pneumothorax or pleural effusion is noted. There is no evidence for pulmonary edema or pneumonia. Moderate cardiomegaly is unchanged. The appearance of the chest is unchanged. IMPRESSION: No acute cardiopulmonary findings. Electronically signed by: Vishal Nj M.D. 06/03/2018 10:27 PM Dictated Date/Time: 06/03/2018 10:26 PM
[2018-06-03] MEDS ORDERED: PANT40TA PO (22:38)
[2018-06-03] MEDS ORDERED: FERR1TAB62 PO (22:38)
[2018-06-03] MEDS ORDERED: HYDR5TAB57 PO ×2 (22:38)
[2018-06-03] MEDS ORDERED: XLTOPS OPB (22:40)
[2018-06-03] MEDS ORDERED: LEVO125T5 PO (22:40)
[2018-06-03 23:13] LABS: BASO % 0.3 %; BASO ABS # 0.02 K/uL (0-0.2); EOS % 0.3 %; EOS ABS # 0.02 K/uL (0-0.5); HEMATOCRIT 38.9 % (37-47); HEMOGLOBIN 12.4 g/dL (12.0-16.0); IG# 0.02 K/uL (0.00-0.02); LYMPH % 8.7 %; LYMPH ABS # 0.51 K/uL (1.2-3.4); MEAN CORPUSCULAR HEMOGLOBIN 27.7 pg (25-34); MEAN CORPUSCULAR HGB CONC 31.9 g/dl (32-36); MONO % 5.7 %; MONO ABS # 0.33 K/uL (0.11-0.59); NEUT % 84.7 %; NEUT ABS # 4.93 K/uL (1.4-6.5); PLATELET COUNT 158 K/uL (130-400); RED CELL DISTRIBUTION WIDTH CV 15.8 % (11.5-14.5); RED CELL DISTRIBUTION WIDTH SD 50.3 fL (36.4-46.3); WHITE BLOOD COUNT 5.83 K/uL (4.8-10.8)
[2018-06-03 23:19] LABS: INR 1.1 (0.9-1.1); PTT PATIENT 26.6 SECONDS (21.0-31.0)
[2018-06-03 23:28] LABS: ALBUMIN 3.3 gm/dl (3.4-5.0); CALCIUM 9.3 mg/dl (8.5-10.1); CREATININE 1.09 mg/dl (0.60-1.20); TOTAL PROTEIN 6.9 gm/dl (6.4-8.2)
[2018-06-03] MEDS ORDERED: ONDANSETRON INJ 2 MG/ML 2 ML VIAL IV STA (23:40)
[2018-06-04] VITALS (9 sets, daily range): BP systolic 94–156; BP diastolic 49–74; PULSE 64–113; TEMP 36.9–38.9; O2SAT 92–97; Ht 162.6 cm; Wt 95.3 kg
[2018-06-04] MEDS ORDERED: SODIUM CHLORIDE 0.9% 500ML 500 ML IV STA (00:20)
[2018-06-04] MEDS ORDERED: CEFTRIAXONE SOD INJ 1 GM ADDVIAL IV STA (00:54)
--- NOTE | 2018-06-04 01:44 | EMERGENCY ROOM VISIT NOTE ---
History Report prepared by Dc: Jesus Feliciano Under the Supervision of: Dr. Rasta Fine M.D. First contact with patient: 21:55 Chief Complaint: FEVER Stated Complaint: FEVER, WEAK,NAUSEAS History of Present Illness The patient is a 72 year old female who presents to the Emergency Room with complaints of constant fever and weakness beginning today. She reports that she currently feels like "a tank ran over me." She reports that her highest temperature was 103 and was decreased to 102 after being given Tylenol at 1830 today. She notes a cough without sputum production, and denies chest pain, vomiting, diarrhea, shortness of breath, headache, abdominal pain, rash, or tick bite. She notes that she is nauseous and reports frequent urination. The patient reports that she had similar symptoms 6 months ago, at which time she was found to have a blood infection and heart attack. She notes history of a pituitary tumor , cirrhosis of the liver, and states that she is not currently on blood thinners. She notes that this week she has had palpations with her A- fib. She called her internal medicine nurse who increased her medication. This seemed to help with her palpitations. Source of History: patient Onset: today Position: other (global) Symptom Intensity: 103 Quality: other (fever) Timing: constant Modifying Factors (Relieving): tylenol Associated Symptoms: + nausea, No headache, No chest pain, No SOB, No vomiting, No rash Review of Systems See HPI for pertinent positives & negatives. A total of 10 systems reviewed and were otherwise negative. Past Medical & Surgical Medical Problems: (1) Afib (2) Anticoagulated on Coumadin (3) Asthma, Unspecified (4) Cirrhosis of liver (5) Colonoscopy planned (6) Dehydration (7) Depressive Disorder Nec (8) Diab Brie Wo Compl, Type Ii Or Unspec Type, Not Uncntrld (9) Flu-like symptoms (10) Gastroenteritis (11) Hypertension Nos (12) Hypothyroidism Nos (13) [id number] (14) Kidney stone (15) Nausea & vomiting (16) NSTEMI (non-ST elevated myocardial infarction) (17) Petechial rash (18) Pituitary tumor (19) Renal colic (20) Sepsis (21) Ureteral calculus, right (22) UTI (urinary tract infection) (23) Volume overload Surgical Problems: (1) H/O: hysterectomy (2) History of pituitary surgery (3) Hx of cataract surgery Family History Cancer Diabetes mellitus Heart disease Hypertension Social History Smoking Status: Never Smoker Alcohol Use: none Drug Use: none Marital Status: Housing Status: lives with family Occupation Status: retired Current/Historical Medications Scheduled Aspirin (Aspirin Ec), 81 MG PO DAILY Atorvastatin (Lipitor), 20 MG PO HS Citalopram (Citalopram Hydrobromide), 20 MG PO QAM Ferrous Sulfate (Ferrous Sulfate), 325 MG PO BID Glimepiride (Glimepiride), 1 MG PO DAILY Hydrocortisone (Cortef), 20 MG PO QAM Hydrocortisone (Cortef), 10 MG PEG QD@1500 Latanoprost (Latanoprost), 1 DROP OPB HS Levothyroxine Sodium (Levothyroxine Sodium), 125 MCG PO QAM Metformin Hcl (Glucophage), 1,000 MG PO BID Metoprolol Tartrate (Lopressor) (Lopressor), 25 MG PO TID Pantoprazole (Protonix), 40 MG PO DAILY Allergies Coded Allergies: Iodinated Diagnostic Agents (Verified Allergy, Intermediate, RASH, 03/16/18) Sulfa Antibiotics (Verified Allergy, Intermediate, HIVES, 03/16/18) Ciprofloxacin (Verified Adverse Reaction, Mild, VOMITING, 03/16/18) Physical Exam Vital Signs Date Time Temp Pulse Resp B/P (MAP) Pulse Ox O2 Delivery O2 Flow Rate FiO2 06/03/18 23:41 38.0 06/03/18 23:40 66 18 96/49 96 Room Air 06/03/18 22:39 Room Air 06/03/18 21:45 39.0 102 18 102/66 94 Room Air Physical Exam Constitutional: Vital signs reviewed. Eyes: Pupils are equal round reactive to light. Conjunctiva are noninjected. ENT: Pharynx is clear without erythema or exudate. Mucous membranes are moist. Neck supple without meningeal signs. Respiratory: Clear to auscultation bilaterally. Breath sounds are equal bilaterally. Cardiovascular: Regular rate and normal rhythm. No rubs or gallops. GI: Soft, nondistended and nontender. Bowel sounds are present. Musculoskeletal: No peripheral edema. No lower extremity tenderness. No CVA tenderness. Integumentary: No cyanosis. Neurological: The patient is awake and alert. No focal deficits. Psychiatric: Normal affect. Medical Decision & Procedures ER Provider Diagnostic Interpretation: Radiology results as stated below per my review and the radiologist's interpretation: Patient: GILBERT MCCULLOUGH Address1: [address] [place] [address] DR Murillo Rec: [id number] Address2: Acct ID: [id number] [facility] Zip: [place] [address] Date: 1945 Sex: F Room/Bed: Ref Phy: Laron Murphy M.D. ([facility]) SC: MEAGHAN Att Phy: Report #: [id number] [place] Phy: Laron Murphy M.D. ([facility] Test: CXR1P Admit Phy: Collection Analyst: MARY Interpreting Phy: Vishal Nj MD Diagnosis: FEVER, WEAK,NAUSEAS Ordering Phy: Rasta Fine MD Service Date: 06/03/18 Admit Date: 06/03/18 MNE: [id number] CONF: DICTATED BY: Vishal Nj MD]] CC: Laron Murphy M.D. ([facility]) Rasta Fine M.D. Endcc: [~ rep ct add3]] CHEST ONE VIEW PORTABLE CLINICAL HISTORY: Sepsis. COMPARISON STUDY: Chest radiograph April 20, 2018. FINDINGS: Lung volumes are normal. No pneumothorax or pleural effusion is noted. There is no evidence for pulmonary edema or pneumonia. Moderate cardiomegaly is unchanged. The appearance of the chest is unchanged. IMPRESSION: No acute cardiopulmonary findings. Electronically signed by: Vishal Nj M.D. 06/03/2018 10:27 PM Dictated Date/Time: 06/03/2018 10:26 PM Laboratory Results 06/03/18 22:50 Red Blood Count 4.47, Mean Corpuscular Volume 87.0, Mean Corpuscular Hemoglobin 27.7, Mean Corpuscular Hemoglobin Concent 31.9, Mean Platelet Volume 11.0, Neutrophils (%) (Auto) 84.7, Lymphocytes (%) (Auto) 8.7, Monocytes (%) (Auto) 5.7, Eosinophils (%) (Auto) 0.3, Basophils (%) (Auto) 0.3, Neutrophils # (Auto) 4.93, Lymphocytes # (Auto) 0.51, Monocytes # (Auto) 0.33, Eosinophils # (Auto) 0.02, Basophils # (Auto) 0.02 06/03/18 22:50 Test 06/03/18 22:50 06/03/18 22:51 06/04/18 00:10 White Blood Count 5.83 K/uL (4.8-10.8) Red Blood Count 4.47 M/uL (4.2-5.4) Hemoglobin 12.4 g/dL (12.0-16.0) Hematocrit 38.9 % (37-47) Mean Corpuscular Volume 87.0 fL (80-100) Mean Corpuscular Hemoglobin 27.7 pg (25-34) Mean Corpuscular Hemoglobin Concent 31.9 g/dl (32-36) Platelet Count 158 K/uL (130-400) Mean Platelet Volume 11.0 fL (7.4-10.4) Neutrophils (%) (Auto) 84.7 % Lymphocytes (%) (Auto) 8.7 % Monocytes (%) (Auto) 5.7 % Eosinophils (%) (Auto) 0.3 % Basophils (%) (Auto) 0.3 % Neutrophils # (Auto) 4.93 K/uL (1.4-6.5) Lymphocytes # (Auto) 0.51 K/uL (1.2-3.4) Monocytes # (Auto) 0.33 K/uL (0.11-0.59) Eosinophils # (Auto) 0.02 K/uL (0-0.5) Basophils # (Auto) 0.02 K/uL (0-0.2) RDW Standard Deviation 50.3 fL (36.4-46.3) RDW Coefficient of Variation 15.8 % (11.5-14.5) Immature Granulocyte % (Auto) 0.3 % Immature Granulocyte # (Auto) 0.02 K/uL (0.00-0.02) Prothrombin Time 11.8 SECONDS (9.0-12.0) Prothromb Time International Ratio 1.1 (0.9-1.1) Activated Partial Thromboplast Time 26.6 SECONDS (21.0-31.0) Partial Thromboplastin Ratio 1.0 Anion Gap 9.0 mmol/L (3-11) Est Creatinine Clear Calc Drug Dose 50.1 ml/min Estimated GFR () 58.3 Estimated GFR (Non- 50.3 BUN/Creatinine Ratio 12.4 (10-20) Calcium Level 9.3 mg/dl (8.5-10.1) Total Bilirubin 0.5 mg/dl (0.2-1) Aspartate Amino Transf (AST/SGOT) 36 U/L (15-37) Alanine Aminotransferase (ALT/SGPT) 37 U/L (12-78) Alkaline Phosphatase 123 U/L (45-117) Total Protein 6.9 gm/dl (6.4-8.2) Albumin 3.3 gm/dl (3.4-5.0) Globulin 3.6 gm/dl (2.5-4.0) Albumin/Globulin Ratio 0.9 (0.9-2) Bedside Lactic Acid Venous 3.24 mmol/L (0.90-1.70) Urine Color YELLOW Urine Appearance CLEAR (CLEAR) Urine pH 6.0 (4.5-7.5) Urine Specific [place] 1.018 (1.000-1.030) Urine Protein NEG (NEG) Urine Glucose (UA) NEG (NEG) Urine Ketones NEG (NEG) Urine Occult Blood TRACE (NEG) Urine Nitrite NEG (NEG) Urine Bilirubin NEG (NEG) Urine Urobilinogen NEG (NEG) Urine Leukocyte Esterase MODERATE (NEG) Urine WBC (Auto) >30 /hpf (0-5) Urine RBC (Auto) 0-4 /hpf (0-4) Urine Hyaline Casts (Auto) 1-5 /lpf (0-5) Urine Epithelial Cells (Auto) 5-10 /lpf (0-5) Urine Bacteria (Auto) 2+ (NEG) Laboratory results as reviewed by me. Medications Administered Medications (Trade) Dose Ordered Sig/Gerald Route Start Time Stop Time Status Last Admin Dose Admin Acetaminophen (Tylenol Tab) 650 mg NOW STAT PO 06/03/18 22:03 06/03/18 22:05 DC 06/03/18 22:57 650 MG Ondansetron HCl (Zofran Inj) 4 mg NOW STAT IV 06/03/18 23:40 06/03/18 23:41 DC 06/04/18 00:11 4 MG Sodium Chloride 500 ml @ 999 mls/hr Q31M STAT IV 06/04/18 00:20 06/04/18 00:50 DC 06/04/18 00:37 999 MLS/HR Ceftriaxone Sodium (Rocephin Inj) 1 gm NOW STAT IV 06/04/18 00:54 06/04/18 00:55 DC 06/04/18 01:08 1 GM ECG Per My Interpretation Indication: palpitations Rate (beats per minute): 64 Rhythm: normal sinus Findings: other (RBBB, no PVCs) ED Course 2199: The patient was evaluated in room A10. A complete history and physical exam was performed. 2202: Ordered Tylenol 650 mg PO 2252: I updated with the patient. Her second blood cultures are being drawn. 0: The patient was unable to give urine sample and is requesting something to alleviate her nausea. 0: Ordered Zofran 4 mg IV 0020: Ordered Sodium Chloride 500 ml @ 999 mls/hr IV 0052: I updated with the patient. Her blood pressure is somewhat low, but she feels better now after fluids. I spoke with Dr. Gibran Delacruz Hospitalist. He will reevaluate the patient for hospitalization. 0054: Ordered Rocephin 1 gm IV Medical Decision This is a 72-year-old female who presents with fever. Differential diagnosis includes Sirs, sepsis, bacteremia, UTI, pneumonia. I did perform a limited focused review of portions of the patient's old chart on the electronic medical record. The patient was admitted in April for bowel prep due to a history of syncope with bowel prep. I did evaluate the patient as noted above. The patient is presenting with fever and generalized malaise. She is slightly hypotensive but states that she normally runs this low. IV access was established. The patient was placed on a continuous claims technician. I did order and personally review the patient's 12-lead EKG and chest x-ray as described above. I did order and review the patient's blood work as noted in the electronic medical record. Her white blood cell count is elevated. I did order urinalysis with did show evidence of infection. Previously she had been admitted for bacteremia. Her blood pressure did decrease here below her low normal and so she was given a bolus of normal saline IV. She was also given Tylenol for her fever and Zofran for nausea. I did recommend hospitalization for further care and evaluation. I did discuss the case with the hospitalist and mental health case manager. He recommended IV Rocephin. I did treat her with a gram of IV Rocephin. Medication Reconcilliation Current Medication List: was personally reviewed by me Blood Pressure Screening Patient's blood pressure: Normal blood pressure Blood pressure disposition: Did not require urgent referral Consults Time Called: 46 Consulting Physician: Dr. Gibran Santillan Returned Call: [address] Gibran Delacruz [facility]. He will reevaluate the patient for hospitalization. Impression Primary Impression: Sepsis Additional Impressions: UTI (urinary tract infection) Hypotension Scribe Attestation The scribe's documentation has been prepared under my direct and personally reviewed by me in its entirety. I confirm that the note above accurately reflects all work, treatment, procedures, and medical decision making performed by me. Departure Information Dispostion Being Evaluated By Hospitalist Referrals Laron Murphy M.D.[facility]) (PCP) Patient Instructions My [facility] Problem Qualifiers Primary Impression: Sepsis Sepsis type: sepsis due to unspecified organism Qualified Codes: A41.9 - Sepsis, unspecified organism Additional Impressions: UTI (urinary tract infection) Urinary tract infection type: acute cystitis Hematuria presence: without hematuria Qualified Codes: N30.00 - Acute cystitis without hematuria Hypotension Hypotension type: unspecified hypotension type Qualified Codes: I95.9 - Hypotension, unspecified
[2018-06-04] MEDS ORDERED: ALUMINUM/MAGNESIUM/SIMETH (MAALOX MAX) 30 ML UDC PO PRN (02:00)
[2018-06-04] MEDS ORDERED: PIPERACILL/TAZOBAC IV 3.375 GM in DEXTROSE 5% 100ML 100 ML IV SCH (02:00)
[2018-06-04] MEDS ORDERED: ONDANSETRON INJ 2 MG/ML 2 ML VIAL IV PRN (02:00)
[2018-06-04] MEDS ORDERED: POLYETHYLENE (MIRALAX) 17 GM PACK PO PRN (02:00)
[2018-06-04] MEDS ORDERED: PIPERACILL/TAZOBAC CONSULT ACTIVE PRN (02:00)
[2018-06-04] MEDS ORDERED: NITROGLYCERIN 0.4 MG SL PER TAB CHARGE SL PRN (02:00)
[2018-06-04] MEDS ORDERED: DEXTROSE 50% 50 ML SYR IV PRN (03:30)
[2018-06-04] MEDS ORDERED: GLUCAGON FOR INJ 1 MG VIAL IM PRN (03:30)
[2018-06-04] MEDS ORDERED: CARBOHYDRATES FOR HYPOGLYCEMIA PO PRN (03:30)
[2018-06-04] MEDS ORDERED: GLUCOSE 40% GEL 15 GM TUBE PO PRN (03:30)
[2018-06-04] MEDS ORDERED: GLUCOSE 10 TABS/TUBE PO PRN (03:30)
[2018-06-04] MEDS ORDERED: PIPERACILL/TAZOBAC IV 3.375 GM in D5W 100 ML IV ONE (03:45)
[2018-06-04] MEDS: ACETAMINOPHEN 325 MG TAB PO PRN ×2 (03:53→21:53)
[2018-06-04 04:28] LABS: BASO % 0.2 %; BASO ABS # 0.01 K/uL (0-0.2); EOS % 0.6 %; EOS ABS # 0.03 K/uL (0-0.5); HEMATOCRIT 35.7 % (37-47); HEMOGLOBIN 11.2 g/dL (12.0-16.0); IG# 0.02 K/uL (0.00-0.02); LYMPH % 10.7 %; LYMPH ABS # 0.52 K/uL (1.2-3.4); MEAN CELL VOLUME 87.5 fL (80-100); MEAN CORPUSCULAR HEMOGLOBIN 27.5 pg (25-34); MEAN CORPUSCULAR HGB CONC 31.4 g/dl (32-36); MONO % 6.4 %; MONO ABS # 0.31 K/uL (0.11-0.59); NEUT % 81.7 %; NEUT ABS # 3.97 K/uL (1.4-6.5); PLATELET COUNT 121 K/uL (130-400); RED CELL DISTRIBUTION WIDTH CV 15.8 % (11.5-14.5); RED CELL DISTRIBUTION WIDTH SD 50.3 fL (36.4-46.3); WHITE BLOOD COUNT 4.86 K/uL (4.8-10.8)
[2018-06-04] MEDS ORDERED: SODIUM CHLORIDE 0.9% 1000ML 1,000 ML IV SCH (05:00)
[2018-06-04 05:06] LABS: ALBUMIN 2.9 gm/dl (3.4-5.0); CALCIUM 8.4 mg/dl (8.5-10.1); CREATININE 1.12 mg/dl (0.60-1.20); POTASSIUM 3.7 mmol/L (3.5-5.1); TOTAL PROTEIN 6.3 gm/dl (6.4-8.2)
--- NOTE | 2018-06-04 05:08 | HISTORY & PHYSICAL EXAMINATION ---
DATE OF ADMISSION: 06/04/2018 CHIEF COMPLAINT: Not feeling well, fever. HISTORY OF PRESENT ILLNESS: This is a 72-year-old female with past medical history significant for iron deficiency anemia, paroxysmal atrial fibrillation, no longer on Coumadin because of liver cirrhosis, diabetes, hypothyroidism, history of pituitary tumor status post surgery, DIAZ cirrhosis, portal hypertension, chronic kidney disease stage II, history of leukocytoclastic vasculitis, right bundle branch block, history of ITP, presents with not feeling well, nauseous, temp spikes, and increased frequency of urination since yesterday. In the ER, she has had temp spikes and her point of care lactic acid is 3.2 and also blood pressure on the lower side, so we were called for admission. Currently resting comfortably, hemodynamically stable. Denies any headaches, no blurred vision, no earache, no runny nose, no sore throat, no difficulty swallowing. No cough, no chest pain, no shortness of breath, no abdominal pain. Normal bowel and bladder movements. Last couple of days, she was sleeping at home most of the time . ALLERGIES: CIPROFLOXACIN, IODINATED DIAGNOSTIC AGENTS, SULFA ANTIBIOTICS. PAST MEDICAL HISTORY: As mentioned above. PAST SURGICAL HISTORY: Status post hysterectomy, pituitary surgery, history of cataract surgery, repair of nasal septum, EGDs, exploration of sphenoid sinus. MEDICATIONS: Patient is on Lopressor 25 mg p.o. t.i.d., glimepiride 1 mg p.o. daily, Colace 50 mg p.o. b.i.d., ferrous sulfate 325 mg p.o. b.i.d., Protonix 20 mg p.o. daily, Cortef 20 mg in the a.m. and 10 mg at 3:30 p.m., Lipitor 20 mg p.o. daily, aspirin 81 mg p.o. daily, levothyroxine 25 mcg p.o. daily, citalopram 20 mg p.o. daily, metformin 2000 mg p.o. b.i.d. FAMILY HISTORY: Significant for father has heart disorder. Sister has glaucoma. Mother has asthma. SOCIAL HISTORY: . No smoking history, no alcohol history, no drug abuse. REVIEW OF SYMPTOMS: As per HPI. Rest of review of systems negative. PHYSICAL EXAMINATION: GENERAL: The patient is of moderate build, not in distress. VITAL SIGNS: Temperature 39, pulse 66, respiratory rate 18, blood pressure 96/49, oxygen 96% room air. HEENT: No pallor, no icterus. Pupils equal, round, and reactive to light. NECK: No JVD, no neck masses, no carotid bruits. CARDIOVASCULAR: S1, S2 heard. Regular rate and rhythm, no murmur, no gallop. RESPIRATORY SYSTEM: Clear to auscultation bilaterally. No wheezing, no crackles. ABDOMEN: Soft, bowel sounds present. Nontender. No distention. CENTRAL NERVOUS SYSTEM: Cranial nerves II through XII grossly intact, nonfocal. EXTREMITIES: No edema, no erythema. LABORATORY DATA: WBC 5.8, hemoglobin 12.4, hematocrit 38.9, platelets 158. Sodium 137, potassium 4, chloride 100, bicarbonate 28, BUN 14, creatinine 1.09, serum glucose 111. Point of care lactic acid 3.2, calcium 9.3, total bilirubin 0.5, AST 36, ALT 37, alkaline phosphatase is 123. PT is 11.8, INR 1.1, APTT 26.6. Urinalysis positive for leukocyte esterase. Chest x-ray, no acute process seen. EKG: Normal sinus rhythm at a rate of 64, right bundle branch block seen. No significant changes from previous EKG. ASSESSMENT AND PLAN: This is a 72-year-old female who presents with possible sepsis from a urinary tract infection. 1. Possible sepsis from urinary tract infection, presents with tachycardia, temperature spike, and elevated point of care lactic acid of 3.2, urinalysis positive for leukocyte esterase. We will follow the repeat lactic acid. Will empirically started her on Zosyn and vancomycin. Follow the urine culture and blood cultures. We will monitor hemodynamics. Monitor on the tele floor. 2. History of pituitary adenoma, status post surgery, on Cortef. 3. History of diabetes, hold metformin and glimepiride. Will place on Lantus insulin sliding scale. Follow the blood sugars. 4. History of hypertension, continue Lopressor. 5. History of leukocytoclastic vasculitis, stable. 6. History of iron deficiency anemia, iron pills. 7. History of hypothyroidism, on Synthroid. 8. History of paroxysmal atrial fibrillation, on Lopressor, we will continue withholding parameters. Coumadin was stopped because of liver cirrhosis 9 Diaz cirrhosis. Follow up with GI. 10. Depression, on Celexa. 11. Deep venous thrombosis prophylaxis, SCDs for now. 12. Disposition: Admit to tele floor. Expect to discharge home and follow with family doctor. Level 1 full code. MTDD
[2018-06-04] MEDS ORDERED: VANCOMYCIN IV 1,000 MG in SODIUM CHLORIDE 0.9% 250ML 250 ML IV SCH (05:30)
[2018-06-04] MEDS ORDERED: VANCOMYCIN CONSULT ACTIVE PRN (05:30)
[2018-06-04] MEDS ORDERED: IBUPROFEN 200 MG TAB PO ONE (05:30)
[2018-06-04] MEDS: LEVOTHYROXINE 125 MCG TAB PO SCH (05:39)
[2018-06-04] MEDS ORDERED: VANCOMYCIN IV 2,000 MG in SODIUM CHLORIDE 0.9% 500ML 500 ML IV SCH (06:00)
[2018-06-04] MEDS: MAGNESIUM SULFATE 1GM / D5W 100 ML IV SCH ×2 (07:43→09:12)
[2018-06-04] MEDS: METOPROLOL TARTRATE 25 MG TAB PO SCH ×3 (07:47→21:11)
[2018-06-04] MEDS: ASPIRIN 81 MG ECTAB PO SCH (07:48)
[2018-06-04] MEDS: CITALOPRAM 20 MG TAB PO SCH (07:48)
[2018-06-04] MEDS: FERROUS SULFATE 325 MG TAB PO SCH ×2 (07:48→21:11)
[2018-06-04] MEDS: PANTOprazole SOD 40 MG TAB PO SCH (07:49)
[2018-06-04] MEDS ORDERED: HYDROCORTISONE SOD SUCCINATE 100 MG/2 ML VIAL IV STA (08:11)
[2018-06-04] MEDS: INSULIN ASPART 100 UNITS/ML 3 ML PEN SC SCH ×4 (08:13→21:18)
--- NOTE | 2018-06-04 08:39 | Progress Note ---
Medicine Progress Note Date & Time of Visit: Jun 04, 2018 at 08:39. Subjective Seen resting in bed, comfortable States she feels improved compared to yesterday Denies abdominal pain, nausea urinary symptoms today No shortness of breath, no chest pain Denies other symptoms Objective Last 8 Hrs Date Time Temp Pulse Resp B/P (MAP) Pulse Ox O2 Delivery O2 Flow Rate FiO2 06/04/18 07:25 37.2 68 16 94/49 (64) 96 Room Air 06/04/18 06:31 37.3 73 06/04/18 05:00 38.0 06/04/18 04:57 38.9 74 18 114/53 94 Room Air 06/04/18 04:36 38.9 111 19 110/64 (79) 92 Room Air 06/04/18 02:52 70 18 96/51 95 Room Air Physical Exam: General-oriented 3, not in distress, speaking sentences Head- atraumatic Eyes-anicteric ENT- oropharynx clear Neck- supple, no JVD Lungs- clear to auscultation bilaterally, no rales wheezes Heart- regular rhythm; no murmur, normal rate Abdomen- normal bowel sounds, soft, nontender, nondistended, no CVA tenderness Extremities- no pretibial edema, no calf tenderness; peripheral pulses intact Neuro- alert, oriented x 3; no gross focal neurologic deficits Skin- warm & dry Laboratory Results: Last 24 Hours Test 06/03/18 22:50 06/03/18 22:51 06/04/18 00:10 06/04/18 04:20 White Blood Count 5.83 K/uL 4.86 K/uL Red Blood Count 4.47 M/uL 4.08 M/uL Hemoglobin 12.4 g/dL 11.2 g/dL Hematocrit 38.9 % 35.7 % Mean Corpuscular Volume 87.0 fL 87.5 fL Mean Corpuscular Hemoglobin 27.7 pg 27.5 pg Mean Corpuscular Hemoglobin Concent 31.9 g/dl 31.4 g/dl Platelet Count 158 K/uL 121 K/uL Mean Platelet Volume 11.0 fL 10.0 fL Neutrophils (%) (Auto) 84.7 % 81.7 % Lymphocytes (%) (Auto) 8.7 % 10.7 % Monocytes (%) (Auto) 5.7 % 6.4 % Eosinophils (%) (Auto) 0.3 % 0.6 % Basophils (%) (Auto) 0.3 % 0.2 % Neutrophils # (Auto) 4.93 K/uL 3.97 K/uL Lymphocytes # (Auto) 0.51 K/uL 0.52 K/uL Monocytes # (Auto) 0.33 K/uL 0.31 K/uL Eosinophils # (Auto) 0.02 K/uL 0.03 K/uL Basophils # (Auto) 0.02 K/uL 0.01 K/uL RDW Standard Deviation 50.3 fL 50.3 fL RDW Coefficient of Variation 15.8 % 15.8 % Immature Granulocyte % (Auto) 0.3 % 0.4 % Immature Granulocyte # (Auto) 0.02 K/uL 0.02 K/uL Prothrombin Time 11.8 SECONDS Prothromb Time International Ratio 1.1 Activated Partial Thromboplast Time 26.6 SECONDS Partial Thromboplastin Ratio 1.0 Sodium Level 137 mmol/L 138 mmol/L Potassium Level 4.0 mmol/L 3.7 mmol/L Chloride Level 100 mmol/L 101 mmol/L Carbon Dioxide Level 28 mmol/L 29 mmol/L Anion Gap 9.0 mmol/L 8.0 mmol/L Blood Urea Nitrogen 14 mg/dl 13 mg/dl Creatinine 1.09 mg/dl 1.12 mg/dl Est Creatinine Clear Calc Drug Dose 50.1 ml/min 48.8 ml/min Estimated GFR () 58.3 56.4 Estimated GFR (Non- 50.3 48.7 BUN/Creatinine Ratio 12.4 11.9 Random Glucose 111 mg/dl 74 mg/dl Calcium Level 9.3 mg/dl 8.4 mg/dl Total Bilirubin 0.5 mg/dl 0.4 mg/dl Aspartate Amino Transf (AST/SGOT) 36 U/L 32 U/L Alanine Aminotransferase (ALT/SGPT) 37 U/L 33 U/L Alkaline Phosphatase 123 U/L 111 U/L Total Protein 6.9 gm/dl 6.3 gm/dl Albumin 3.3 gm/dl 2.9 gm/dl Globulin 3.6 gm/dl 3.4 gm/dl Albumin/Globulin Ratio 0.9 0.9 Bedside Lactic Acid Venous 3.24 mmol/L Urine Color YELLOW Urine Appearance CLEAR Urine pH 6.0 Urine Specific Premium 1.018 Urine Protein NEG Urine Glucose (UA) NEG Urine Ketones NEG Urine Occult Blood TRACE Urine Nitrite NEG Urine Bilirubin NEG Urine Urobilinogen NEG Urine Leukocyte Esterase MODERATE Urine WBC (Auto) >30 /hpf Urine RBC (Auto) 0-4 /hpf Urine Hyaline Casts (Auto) 1-5 /lpf Urine Epithelial Cells (Auto) 5-10 /lpf Urine Bacteria (Auto) 2+ Lactic Acid Level 2.9 mmol/L Magnesium Level 1.5 mg/dl Test 06/04/18 06:25 06/04/18 07:34 Bedside Glucose 75 mg/dl 118 mg/dl Date/Time Source Procedure Growth Status 06/03/18 22:57 Blood Blood Culture Pending Received 06/03/18 22:50 Blood Blood Culture Pending Received 06/04/18 00:10 Urine , Random Urine Culture Pending Received Assessment & Plan ASSESSMENT AND PLAN: This is a 72-year-old female who presents with possible sepsis from a urinary tract infection. 1. Possible sepsis from urinary tract infection, presents with tachycardia, temperature spike, and elevated point of care lactic acid of 3.2, urinalysis positive for leukocyte esterase. -Fever curve improving BP in the lower side Lactic acid improving -Cultures pending -Continue empiric vancomycin and Zosyn Intravenous NSS Patient will need stress dose hydrocortisone to be started today Monitor closely in telemetry unit 2. History of pituitary adenoma, status post surgery, on Cortef. Hold p.o. Cortef Transition to stress dose IV hydrocortisone Glycemic control consult 3. History of diabetes, hold metformin and glimepiride. Glycemic control consult placed as patient will be on IV hydrocortisone 4. History of hypertension BP in the lower side Monitor while on metoprolol 5. History of leukocytoclastic vasculitis, stable. 6. History of iron deficiency anemia, iron pills. 7. History of hypothyroidism, on Synthroid. 8. History of paroxysmal atrial fibrillation, on Lopressor, we will continue withholding parameters. 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 Follow up with GI. 10. Depression, on Celexa. 11. Deep venous thrombosis prophylaxis, SCDs for now. 12. Disposition: Admit to tele floor. Expect to discharge home and follow with family doctor. Level 1 full code. Current Inpatient Medications: Current Inpatient Medications Medications (Trade) Dose Ordered Sig/Gerald Route Start Time Stop Time Status Last Admin Dose Admin Sodium Chloride 1,000 ml @ 0 mls/hr [id number] IV 06/04/18 05:00 06/04/18 03:53 80 MLS/HR Acetaminophen (Tylenol Tab) 650 mg Q4H PRN PO 06/04/18 02:00 07/04/18 01:59 06/04/18 03:53 650 MG Al Hydrox/Mg Hydrox/Simethicone (Maalox Max Susp) 15 ml Q4H PRN PO 06/04/18 02:00 07/04/18 01:59 Ondansetron HCl (Zofran Inj) 4 mg Q6H PRN IV 06/04/18 02:00 07/04/18 01:59 Nitroglycerin (Nitrostat Tab) 0.4 mg UD PRN SL 06/04/18 02:00 07/04/18 01:59 Polyethylene (Miralax Powder Packet) 17 gm DAILY PRN PO 06/04/18 02:00 07/04/18 01:59 Aspirin (Ecotrin Tab) 81 mg DAILY PO 06/04/18 09:00 07/04/18 08:59 06/04/18 07:48 81 MG Atorvastatin Calcium (Lipitor Tab) 20 mg HS PO 06/04/18 21:00 07/04/18 20:59 Citalopram Hydrobromide (celeXA TAB) 20 mg QAM PO 06/04/18 09:00 07/04/18 08:59 06/04/18 07:48 20 MG Latanoprost (Xalatan Oph Soln) 1 drops HS OPB 06/04/18 21:00 07/04/18 20:59 Levothyroxine Sodium (Synthroid Tab) 125 mcg DAILYBB PO 06/04/18 06:30 07/04/18 06:29 06/04/18 05:39 125 MCG Metoprolol Tartrate (Lopressor Tab) 25 mg TID PO 06/04/18 09:00 07/04/18 08:59 Pantoprazole Sodium (Protonix Tab) 40 mg DAILY PO 06/04/18 09:00 07/04/18 08:59 06/04/18 07:49 40 MG Ferrous Sulfate (Feosol Tab) 325 mg BID PO 06/04/18 09:00 07/04/18 08:59 06/04/18 07:48 325 MG Miscellaneous Information (Consult) 1 ea UD PRN N/A 06/04/18 02:00 07/04/18 01:59 Insulin Glargine (Lantus Solostar Pen) 5 units BID SC 06/04/18 09:00 07/04/18 08:59 06/04/18 08:13 5 UNITS Insulin Aspart (novoLOG ASPART) SLIDING SCALE G... ACHS SC 06/04/18 06:30 07/04/18 06:59 06/04/18 08:13 2 UNITS Glucose (Glucose 40% Gel) 15-30 GRAMS 15 GRAMS... UD PRN PO 06/04/18 03:30 07/04/18 03:29 Glucose (Glucose Chew Tab) 4-8 Tablets 4 Tabl... UD PRN PO 06/04/18 03:30 07/04/18 03:29 Dextrose (Dextrose 50% 50ML Syringe) 25-50ML 25ML FOR ... UD PRN IV 06/04/18 03:30 07/04/18 03:29 Glucagon (Glucagon Inj) 1 mg UD PRN IM 06/04/18 03:30 07/04/18 03:29 Carbohydrates (Carbohydrates For Hypoglycemia) 15-30 GRAMS 15 grams if BSG 54-69... UD PRN PO 06/04/18 03:30 07/04/18 03:29 Piperacillin Sod/ Tazobactam Sod 3.375 gm/Dextrose 115 ml @ 28.75 mls/ hr Q8H IV 06/04/18 10:00 06/14/18 09:59 Vancomycin HCl (Consult) 1 ea UD PRN N/A 06/04/18 05:30 07/04/18 05:29 Vancomycin HCl 2000 mg/Sodium Chloride 540 ml @ 200 mls/hr TODAY@0600 IV 06/04/18 06:00 06/04/18 08:41 06/04/18 05:41 200 MLS/HR Vancomycin HCl 1500 mg/Sodium Chloride 530 ml @ 200 mls/hr Q20H IV 06/05/18 02:00 06/15/18 01:59 Hydrocortisone Sodium Succinate (Solu-Cortef IV) 100 mg NOW STAT IV 06/04/18 08:11 06/04/18 08:12 UNV Hydrocortisone Sodium Succinate 50 mg/Syringe 1 ml @ 4 mls/min Q6H IV 06/04/18 14:30 07/04/18 14:29 UNV Miscellaneous Information (Consult Glycemic Management Pharmacy) 1 ea NOW STAT N/A 06/04/18 08:11 06/04/18 08:12 UNV Sodium Chloride 1,000 ml @ 80 mls/hr [id number] IV 06/04/18 08:30 07/04/18 08:29
[2018-06-04] MEDS ORDERED: PHARMACY GLYCEMIC MGMT CONSULT SCH (08:56)
[2018-06-04] MEDS ORDERED: HYDROCORTISONE 10 MG TAB PO SCH ×2 (09:00→15:00)
[2018-06-04] MEDS ORDERED: HYDROCORTISONE IV 100 MG in SYRINGE 0 ML IV ONE (09:00)
[2018-06-04] MEDS ORDERED: INSULIN GLARGINE SOLOSTAR 100 UNITS/ML 3 ML PEN SC SCH (09:00)
[2018-06-04] MEDS: SODIUM CHLORIDE 0.9% 1000ML 1,000 ML IV SCH ×2 (09:13→21:11)
[2018-06-04] MEDS: PIPERACILL/TAZOBAC IV 3.375 GM in D5W 100ML IV SCH ×2 (09:59→17:26)
[2018-06-04] MEDS ORDERED: NURSING VERBAL MED ORDER ONE (12:23)
[2018-06-04] MEDS: HYDROCORTISONE IV 50 MG in SYRINGE 0 ML IV SCH ×2 (13:53→21:11)
--- NOTE | 2018-06-04 14:30 | Pharmacy Progress Note ---
Glycemic Control Intl Consult Date of Service Jun 04, 2018. Scope Glycemic Pharmacist consulted by Dr Ramirez on 06/04/18 for glycemic control and to write orders per [facility] inpatient glycemic control protocol Objective Weight (Kilograms): 90.600 Accuchecks BSG (last 24hrs): Test 06/03/18 22:50 06/04/18 04:20 06/04/18 06:25 06/04/18 07:34 Random Glucose 111 mg/dl (70-99) 74 mg/dl (70-99) Bedside Glucose 75 mg/dl (70-90) 118 mg/dl (70-90) Test 06/04/18 11:23 Bedside Glucose 244 mg/dl (70-90) Laboratory Data (last 24hrs) Test 06/03/18 22:50 06/04/18 04:20 Anion Gap 9.0 mmol/L 8.0 mmol/L BUN/Creatinine Ratio 12.4 11.9 Blood Urea Nitrogen 14 mg/dl 13 mg/dl Creatinine 1.09 mg/dl 1.12 mg/dl Potassium Level 4.0 mmol/L 3.7 mmol/L Sodium Level 137 mmol/L 138 mmol/L White Blood Count 5.83 K/uL 4.86 K/uL Red Blood Count 4.47 M/uL 4.08 M/uL Hemoglobin 12.4 g/dL 11.2 g/dL Hematocrit 38.9 % 35.7 % Mean Corpuscular Volume 87.0 fL 87.5 fL Mean Corpuscular Hemoglobin 27.7 pg 27.5 pg Mean Corpuscular Hemoglobin Concent 31.9 g/dl 31.4 g/dl Platelet Count 158 K/uL 121 K/uL Mean Platelet Volume 11.0 fL 10.0 fL Neutrophils (%) (Auto) 84.7 % 81.7 % Lymphocytes (%) (Auto) 8.7 % 10.7 % Monocytes (%) (Auto) 5.7 % 6.4 % Eosinophils (%) (Auto) 0.3 % 0.6 % Basophils (%) (Auto) 0.3 % 0.2 % Neutrophils # (Auto) 4.93 K/uL 3.97 K/uL Lymphocytes # (Auto) 0.51 K/uL 0.52 K/uL Monocytes # (Auto) 0.33 K/uL 0.31 K/uL Eosinophils # (Auto) 0.02 K/uL 0.03 K/uL Basophils # (Auto) 0.02 K/uL 0.01 K/uL Recent Pertinent Medications Outpatient Anti-diabetic Regimen: * Glimepiride 1mg PO Daily * Metformin 1000mg PO BID * A1c = 5.4 % 03/15/18 The patient is currently receiving: * Basal insulin: Lantus 5 units every 12 hours * Correctional Insulin: Novolog Correction per scale ACHS Goal Range: Low 110 mg/dL - High 140 mg/dL Correction Factor: 30 mg/dL/unit * Prandial insulin: Per carb ratio of 1 unit per 10 grams CHO consumed * Oral Agents: On Hold Risk Factors for Insulin Resistance: * Steroids: HC 50mg IV Q6H * Infection: IV Vancomycin & Zosyn * Diet: Type 2 DM Assessment & Plan ASSESSMENT: * 72 year old admitted with sepsis UTI on IV Vancomycin and Zosyn, PMH significant for pituitary adenoma, s/p surgery, on PO hydrocortisone as outpatient daily, transitioned to stress dose of IV hydrocortisone. * Type 2 Diabetic, known to pharmacy glycemic service from December of this month, at that time patient was taking Lantus 60 units daily - confirmed with patient she is no longer on any insulin as outpatient. * Patient's blood sugar up to 244mg/dl prior to lunch, will tighten CF and CR and increase Lantus dose slowly based on BSG, and add overnight accuchecks for IV steroids, although hydrocortisone has least effect on blood sugar. PLAN FOR INPATIENT GLYCEMIC CONTROL: * Continue Holding outpatient oral diabetes medications * Basal insulin with LANTUS SQ BID * 10 units for BSG < 180 * 15 units for BSG 180mg/dl or greater * Correctional Insulin with NOVOLOG per scale ACHS or Q6hrs while NPO and overnight at 0000 and 0400 * Goal Range: Low 110 mg/dL - High 140 mg/dL * TIGHTEN: Correction Factor: 20 mg/dL/unit * TIGHTEN: Nutritional / Prandial insulin per carb ratio of 1 unit per 6 grams CHO consumed * Please note that the plan above was derived based on current level of insulin resistance and hospital stress. These recommendations are appropriate for inpatient admission only. Plan of care upon discharge will need to be reassessed to avoid potential outpatient hypo/hyperglycemia. Thank you.
[2018-06-04] MEDS ORDERED: INSULIN ASPART 100 UNITS/ML 3 ML PEN SC SCH (16:30)
[2018-06-04] MEDS: ATORVASTATIN 20 MG TAB PO SCH (21:11)
[2018-06-04] MEDS: LATANOPROST 0.005% OP SOLN 2.5 ML BTL OPB SCH (21:11)
[2018-06-04] MEDS: INSULIN GLARGINE SOLOSTAR 100 UNITS/ML 3 ML PEN SC SCH (21:19)
[2018-06-05] VITALS (7 sets, daily range): BP systolic 111–149; BP diastolic 53–67; PULSE 43–67; TEMP 36.6–37.1; O2SAT 96–100
[2018-06-05] MEDS: PIPERACILL/TAZOBAC IV 3.375 GM in D5W 100ML IV SCH ×3 (01:42→17:37)
[2018-06-05] MEDS: VANCOMYCIN IV 1,500 MG in SODIUM CHLORIDE 0.9% 500ML 500 ML IV SCH ×2 (01:42→21:38)
[2018-06-05] MEDS: HYDROCORTISONE IV 50 MG in SYRINGE 0 ML IV SCH ×3 (01:42→13:46)
[2018-06-05] MEDS: INSULIN ASPART 100 UNITS/ML 3 ML PEN SC SCH ×6 (04:44→21:25)
[2018-06-05] MEDS: LEVOTHYROXINE 125 MCG TAB PO SCH (05:55)
[2018-06-05 07:18] LABS: BASO % 0.3 %; BASO ABS # 0.01 K/uL (0-0.2); EOS % 0.3 %; EOS ABS # 0.01 K/uL (0-0.5); HEMATOCRIT 32.8 % (37-47); HEMOGLOBIN 10.2 g/dL (12.0-16.0); IG# 0.03 K/uL (0.00-0.02); LYMPH % 8.8 %; LYMPH ABS # 0.33 K/uL (1.2-3.4); MEAN CELL VOLUME 87.5 fL (80-100); MEAN CORPUSCULAR HEMOGLOBIN 27.2 pg (25-34); MEAN CORPUSCULAR HGB CONC 31.1 g/dl (32-36); MEAN PLATELET VOLUME 10.2 fL (7.4-10.4); MONO % 5.6 %; MONO ABS # 0.21 K/uL (0.11-0.59); NEUT % 84.2 %; NEUT ABS # 3.15 K/uL (1.4-6.5); PLATELET COUNT 129 K/uL (130-400); RED CELL DISTRIBUTION WIDTH CV 15.7 % (11.5-14.5); RED CELL DISTRIBUTION WIDTH SD 50.1 fL (36.4-46.3); WHITE BLOOD COUNT 3.74 K/uL (4.8-10.8)
[2018-06-05 07:43] LABS: CALCIUM 7.9 mg/dl (8.5-10.1); CREATININE 1.08 mg/dl (0.60-1.20); POTASSIUM 3.7 mmol/L (3.5-5.1)
[2018-06-05] MEDS: FERROUS SULFATE 325 MG TAB PO SCH ×2 (08:11→21:17)
[2018-06-05] MEDS: METOPROLOL TARTRATE 25 MG TAB PO SCH ×3 (08:12→21:00)
[2018-06-05] MEDS: ASPIRIN 81 MG ECTAB PO SCH (08:13)
[2018-06-05] MEDS: PANTOprazole SOD 40 MG TAB PO SCH (08:13)
[2018-06-05] MEDS: CITALOPRAM 20 MG TAB PO SCH (08:13)
[2018-06-05] MEDS: INSULIN GLARGINE SOLOSTAR 100 UNITS/ML 3 ML PEN SC SCH ×2 (08:19→21:26)
--- NOTE | 2018-06-05 08:53 | Progress Note ---
Medicine Progress Note Date & Time of Visit: Jun 05, 2018 at 08:52. Subjective Seen resting in bed, comfortable, not in distress States she feels better today Denies abdominal pain but did have some right-sided flank pain No hematuria or other urinary symptoms No fevers or chills Denies dizziness, shortness of breath, chest pain No other symptoms Objective Last 8 Hrs Date Time Temp Pulse Resp B/P (MAP) Pulse Ox O2 Delivery O2 Flow Rate FiO2 06/05/18 07:13 36.9 59 18 120/61 (80) 97 Room Air 06/05/18 04:26 37.1 67 20 119/66 (83) 96 Room Air Physical Exam: General-oriented 3, not in distress, speaking sentences Eyes-anicteric Neck- supple, no JVD Lungs- clear breath sounds bilaterally Heart- regular rhythm; no murmur, normal rate Abdomen- normal bowel sounds, soft, nontender Extremities- no pretibial edema, no calf tenderness; peripheral pulses intact Neuro- alert, oriented x 3; no gross focal neurologic deficits Skin- warm & dry Laboratory Results: Last 24 Hours Test 06/04/18 09:58 06/04/18 11:23 06/04/18 16:41 06/04/18 20:05 Lactic Acid Level 2.4 mmol/L Bedside Glucose 244 mg/dl 301 mg/dl 361 mg/dl Test 06/04/18 20:06 06/04/18 20:10 06/05/18 00:08 06/05/18 04:28 Bedside Glucose 381 mg/dl 122 mg/dl 240 mg/dl Lactic Acid Level 2.4 mmol/L Test 06/05/18 06:50 06/05/18 07:28 White Blood Count 3.74 K/uL Red Blood Count 3.75 M/uL Hemoglobin 10.2 g/dL Hematocrit 32.8 % Mean Corpuscular Volume 87.5 fL Mean Corpuscular Hemoglobin 27.2 pg Mean Corpuscular Hemoglobin Concent 31.1 g/dl Platelet Count 129 K/uL Mean Platelet Volume 10.2 fL Neutrophils (%) (Auto) 84.2 % Lymphocytes (%) (Auto) 8.8 % Monocytes (%) (Auto) 5.6 % Eosinophils (%) (Auto) 0.3 % Basophils (%) (Auto) 0.3 % Neutrophils # (Auto) 3.15 K/uL Lymphocytes # (Auto) 0.33 K/uL Monocytes # (Auto) 0.21 K/uL Eosinophils # (Auto) 0.01 K/uL Basophils # (Auto) 0.01 K/uL RDW Standard Deviation 50.1 fL RDW Coefficient of Variation 15.7 % Immature Granulocyte % (Auto) 0.8 % Immature Granulocyte # (Auto) 0.03 K/uL Sodium Level 137 mmol/L Potassium Level 3.7 mmol/L Chloride Level 104 mmol/L Carbon Dioxide Level 27 mmol/L Anion Gap 6.0 mmol/L Blood Urea Nitrogen 15 mg/dl Creatinine 1.08 mg/dl Est Creatinine Clear Calc Drug Dose 50.9 ml/min Estimated GFR () 59.0 Estimated GFR (Non- 50.9 BUN/Creatinine Ratio 13.6 Random Glucose 250 mg/dl Lactic Acid Level 1.7 mmol/L Calcium Level 7.9 mg/dl Bedside Glucose 251 mg/dl Assessment & Plan ASSESSMENT AND PLAN: This is a 72-year-old female who presents with possible sepsis from a urinary tract infection. 1. Possible sepsis from urinary tract infection, presents with tachycardia, temperature spike, and elevated point of care lactic acid of 3.2, urinalysis positive for leukocyte esterase. -Afebrile BP improving Lactic acidosis resolved -Urine cultures positive for E. coli sensitivities pending Blood cultures no growth so far -Continue empiric vancomycin and Zosyn Intravenous NSS Started on stress dose hydrocortisone IV, will start to taper, hydrocortisone IV 20 mg every 6 hours then transitioned to P.o. hydrocortisone 20 mg 3 times daily, thin 20 mg twice daily then resume usual 20 mg in the morning 10 mg at bedtime 2. History of pituitary adenoma, status post surgery, on Cortef. Hold p.o. Cortef Transition to stress dose IV hydrocortisone Glycemic control consult Tapering of hydrocortisone as outlined above 3. History of diabetes, hold metformin and glimepiride. Glycemic control consult placed as patient will be on IV hydrocortisone 4. History of hypertension BP in the lower side Monitor while on metoprolol 5. History of leukocytoclastic vasculitis, stable. 6. History of iron deficiency anemia, iron pills. 7. History of hypothyroidism, on Synthroid. 8. History of paroxysmal atrial fibrillation, on Lopressor, we will continue withholding parameters. 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 Follow up with GI. 10. Depression, on Celexa. 11. Deep venous thrombosis prophylaxis, SCDs for now. 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 Disposition: Anticipate discharge to home when medically stable Current Inpatient Medications: Current Inpatient Medications Medications (Trade) Dose Ordered Sig/Gerald Route Start Time Stop Time Status Last Admin Dose Admin Sodium Chloride 1,000 ml @ 0 mls/hr [id number] IV 06/04/18 05:00 06/04/18 03:53 80 MLS/HR Acetaminophen (Tylenol Tab) 650 mg Q4H PRN PO 06/04/18 02:00 07/04/18 01:59 06/04/18 21:53 650 MG Al Hydrox/Mg Hydrox/Simethicone (Maalox Max Susp) 15 ml Q4H PRN PO 06/04/18 02:00 07/04/18 01:59 Ondansetron HCl (Zofran Inj) 4 mg Q6H PRN IV 06/04/18 02:00 07/04/18 01:59 Nitroglycerin (Nitrostat Tab) 0.4 mg UD PRN SL 06/04/18 02:00 07/04/18 01:59 Polyethylene (Miralax Powder Packet) 17 gm DAILY PRN PO 06/04/18 02:00 07/04/18 01:59 Aspirin (Ecotrin Tab) 81 mg DAILY PO 06/04/18 09:00 07/04/18 08:59 06/05/18 08:13 81 MG Atorvastatin Calcium (Lipitor Tab) 20 mg HS PO 06/04/18 21:00 07/04/18 20:59 06/04/18 21:11 20 MG Citalopram Hydrobromide (celeXA TAB) 20 mg QAM PO 06/04/18 09:00 07/04/18 08:59 06/05/18 08:13 20 MG Latanoprost (Xalatan Oph Soln) 1 drops HS OPB 06/04/18 21:00 07/04/18 20:59 06/04/18 21:11 1 DROPS Levothyroxine Sodium (Synthroid Tab) 125 mcg DAILYBB PO 06/04/18 06:30 8/27/18 06:29 06/05/18 05:55 125 MCG Metoprolol Tartrate (Lopressor Tab) 25 mg TID PO 06/04/18 09:00 07/04/18 08:59 06/05/18 08:12 25 MG Pantoprazole Sodium (Protonix Tab) 40 mg DAILY PO 06/04/18 09:00 07/04/18 08:59 06/05/18 08:13 40 MG Ferrous Sulfate (Feosol Tab) 325 mg BID PO 06/04/18 09:00 07/04/18 08:59 06/05/18 08:11 325 MG Miscellaneous Information (Consult) 1 ea UD PRN N/A 06/04/18 02:00 07/04/18 01:59 Insulin Aspart (novoLOG ASPART) SLIDING SCALE G... ACHS SC 06/04/18 06:30 07/04/18 06:59 06/05/18 08:18 20 UNITS Glucose (Glucose 40% Gel) 15-30 GRAMS 15 GRAMS... UD PRN PO 06/04/18 03:30 07/04/18 03:29 Glucose (Glucose Chew Tab) 4-8 Tablets 4 Tabl... UD PRN PO 06/04/18 03:30 07/04/18 03:29 Dextrose (Dextrose 50% 50ML Syringe) 25-50ML 25ML FOR ... UD PRN IV 06/04/18 03:30 07/04/18 03:29 Glucagon (Glucagon Inj) 1 mg UD PRN IM 06/04/18 03:30 07/04/18 03:29 Carbohydrates (Carbohydrates For Hypoglycemia) 15-30 GRAMS 15 grams if BSG 54-69... UD PRN PO 06/04/18 03:30 07/04/18 03:29 Piperacillin Sod/ Tazobactam Sod 3.375 gm/Dextrose 115 ml @ 28.75 mls/ hr Q8H IV 06/04/18 10:00 06/14/18 09:59 06/05/18 01:42 28.75 MLS/HR Vancomycin HCl (Consult) 1 ea UD PRN N/A 06/04/18 05:30 07/04/18 05:29 Vancomycin HCl 1500 mg/Sodium Chloride 530 ml @ 200 mls/hr Q20H IV 06/05/18 02:00 06/15/18 01:59 06/05/18 01:42 200 MLS/HR Hydrocortisone Sodium Succinate 50 mg/Syringe 1 ml @ 4 mls/min Q6H IV 06/04/18 14:00 07/04/18 13:59 06/05/18 08:11 4 MLS/MIN Miscellaneous Information (Consult Glycemic Management Pharmacy) 1 ea UD N/A 06/04/18 08:56 07/04/18 08:55 Sodium Chloride 1,000 ml @ 80 mls/hr [id number] IV 06/04/18 08:30 07/04/18 08:29 06/04/18 21:11 80 MLS/HR Insulin Aspart (novoLOG ASPART) SLIDING SCALE G... 0000,0400 NM 06/05/18 00:00 07/05/18 00:00 06/05/18 04:44 5 UNITS Insulin Glargine (Lantus Solostar Pen) SEE PROTOCOL BID NM 06/04/18 21:00 07/04/18 20:59 06/05/18 08:19 25 UNITS
--- NOTE | 2018-06-05 09:36 | DIAGNOSTIC IMAGING REPORT ---
ABD/PELVIS NO IV OR ORAL CONT CT DOSE: 1545.69 mGy.cm HISTORY: Flank pain r/o nephrolithiasis TECHNIQUE: Multiaxial CT images of the abdomen and pelvis were performed without contrast. A dose lowering technique was utilized adhering to the principles of ALARA. COMPARISON STUDY: 02/06/2018 FINDINGS: Minimal dependent basilar atelectasis. Mild hepatic cirrhosis. Mildly contracted gallbladder with small contained calcification. Mild splenomegaly. Kidneys are considered negative for hydronephrosis. Trace amount of free fluid within the right and to lesser extent left paracolic cutters. There is possibly of a mild nonspecific a sending colitis. Normal appendix. No evidence for abscess collection or obstruction. Nonobstructive bowel pattern. Small ventral hernia containing fat exclusively. No evidence of bowel containment. Mild chronic infiltrative change of the subcutaneous fat in the abdominal flanks. No evidence for ascites compared to the prior study. IMPRESSION: 1. Mild wall thickening and pericolonic infiltrative change of the a sending colon. 2. This is suggestive of a low-grade colitis. 3. No evidence for abscess collection or obstruction. 4. Mild hepatic cirrhosis. 5. No significant abdominal or pelvic ascites. The above report was generated using voice recognition software. It may contain grammatical, syntax or spelling errors. Electronically signed by: Clovis Jett M.D. 06/05/2018 9:34 AM Dictated Date/Time: 06/05/2018 9:31 AM
--- NOTE | 2018-06-05 10:48 | Pharmacy Progress Note ---
Pharmacy Glycemic Short Note 2 Date of Service Jun 05, 2018. OUTPATIENT ANTIDIABETIC REGIMEN: * Glimepiride 1mg PO Daily * Metformin 1000mg PO BID * A1c = 5.4 % 03/15/18 Test 06/04/18 11:23 06/04/18 16:41 06/04/18 20:05 06/04/18 20:06 Bedside Glucose 244 mg/dl (70-90) 301 mg/dl (70-90) 361 mg/dl (70-90) 381 mg/dl (70-90) Test 06/05/18 00:08 06/05/18 04:28 06/05/18 06:50 06/05/18 07:28 Bedside Glucose 122 mg/dl (70-90) 240 mg/dl (70-90) 251 mg/dl (70-90) Random Glucose 250 mg/dl (70-99) ASSESSMENT: * Blood sugars much higher than goal, will tighten CF and CR and increase Lantus * Patient remains on HCT 50mg IV Q6H * UTI Sepsis, still on IV Vancomycin and Zosyn PLAN FOR INPATIENT GLYCEMIC CONTROL: * Hold outpatient oral diabetes medications * Basal insulin - INCREASE * Lantus SQ BID * 20 units for BSG < 180mg/dl * 25 units for BSG 180mg/dl or greater * Bolus insulin * NovoLog per scale ACHS or Q6hrs while NPO and overnight at 0000 and 0400 * Goal Range: Low 110 mg/dL - High 140 mg/dL * TIGHTEN: Correction Factor: 12 mg/dL/unit * TIGHTEN: Nutritional / Prandial insulin per carb ratio of 1 unit per 3 grams CHO consumed PLAN FOR DISCHARGE: * I am very surprised patient's A1c = 5.4%, perhaps patient has a high glycosylated hemoglobin, resulting in a lower A1c, which would not correlate with actual blood sugar, recommend SMBG at different times during the day to see if blood sugars actually reflect A1c. Would recommend starting Lantus daily if blood sugar elevated at home.
[2018-06-05] MEDS: HYDROCORTISONE IV 25 MG in SYRINGE 0 ML IV SCH (19:44)
[2018-06-05] MEDS: ATORVASTATIN 20 MG TAB PO SCH (21:17)
[2018-06-05] MEDS: LATANOPROST 0.005% OP SOLN 2.5 ML BTL OPB SCH (21:17)
[2018-06-06] VITALS (9 sets, daily range): BP systolic 123–147; BP diastolic 56–73; PULSE 40–52; TEMP 36.4–36.8; O2SAT 97–99
[2018-06-06] MEDS: INSULIN ASPART 100 UNITS/ML 3 ML PEN SC SCH ×6 (00:13→20:32)
[2018-06-06] MEDS: HYDROCORTISONE IV 25 MG in SYRINGE 0 ML IV SCH ×4 (00:21→20:04)
[2018-06-06] MEDS: PIPERACILL/TAZOBAC IV 3.375 GM in D5W 100ML IV SCH ×2 (00:22→10:01)
[2018-06-06] MEDS: LEVOTHYROXINE 125 MCG TAB PO SCH (05:11)
[2018-06-06 05:52] LABS: BASO % 0.3 %; BASO ABS # 0.01 K/uL (0-0.2); EOS % 0.3 %; EOS ABS # 0.01 K/uL (0-0.5); HEMATOCRIT 31.7 % (37-47); HEMOGLOBIN 10.1 g/dL (12.0-16.0); IG# 0.04 K/uL (0.00-0.02); LYMPH % 14.3 %; LYMPH ABS # 0.56 K/uL (1.2-3.4); MEAN CELL VOLUME 86.6 fL (80-100); MEAN CORPUSCULAR HEMOGLOBIN 27.6 pg (25-34); MEAN CORPUSCULAR HGB CONC 31.9 g/dl (32-36); MEAN PLATELET VOLUME 10.2 fL (7.4-10.4); MONO % 7.4 %; MONO ABS # 0.29 K/uL (0.11-0.59); NEUT % 76.7 %; NEUT ABS # 3.01 K/uL (1.4-6.5); PLATELET COUNT 117 K/uL (130-400); RED CELL DISTRIBUTION WIDTH CV 15.4 % (11.5-14.5); RED CELL DISTRIBUTION WIDTH SD 49.2 fL (36.4-46.3); WHITE BLOOD COUNT 3.92 K/uL (4.8-10.8)
[2018-06-06 06:24] LABS: CALCIUM 8.1 mg/dl (8.5-10.1); CREATININE 1.06 mg/dl (0.60-1.20); POTASSIUM 3.5 mmol/L (3.5-5.1)
[2018-06-06] MEDS: METOPROLOL TARTRATE 25 MG TAB PO SCH ×2 (08:15→13:02)
[2018-06-06] MEDS: CITALOPRAM 20 MG TAB PO SCH (08:16)
[2018-06-06] MEDS: ASPIRIN 81 MG ECTAB PO SCH (08:16)
[2018-06-06] MEDS: FERROUS SULFATE 325 MG TAB PO SCH ×2 (08:16→20:33)
[2018-06-06] MEDS: PANTOprazole SOD 40 MG TAB PO SCH (08:16)
[2018-06-06] MEDS: INSULIN GLARGINE SOLOSTAR 100 UNITS/ML 3 ML PEN SC SCH ×2 (08:24→20:37)
--- NOTE | 2018-06-06 13:15 | Pharmacy Progress Note ---
Pharmacy Glycemic Short Note 2 Date of Service Jun 06, 2018. OUTPATIENT ANTIDIABETIC REGIMEN: * Glimepiride 1mg PO Daily * Metformin 1000mg PO BID * A1c = 5.4 % 03/15/18 Test 06/05/18 16:45 06/05/18 19:45 06/05/18 23:54 06/06/18 04:07 Bedside Glucose 174 mg/dl (70-90) 248 mg/dl (70-90) 148 mg/dl (70-90) 173 mg/dl (70-90) Test 06/06/18 05:32 06/06/18 07:08 06/06/18 11:24 Random Glucose 166 mg/dl (70-99) Bedside Glucose 161 mg/dl (70-90) 175 mg/dl (70-90) ASSESSMENT: 06/06/18 * Ms. Rivera received 135 units of insulin yesterday * Hydrocortisone dose has decreased to 25 mg IV q6h * Will plan to keep insulin regimen the same since BSGs were still elevated yesterday on the higher dose of hydrocortisone, anticipating that they should be in range today with a reduced steroid dose 06/05/18 * Blood sugars much higher than goal, will tighten CF and CR and increase Lantus * Patient remains on HCT 50mg IV Q6H * UTI Sepsis, still on IV Vancomycin and Zosyn PLAN FOR INPATIENT GLYCEMIC CONTROL: * Continue to hold outpatient oral diabetes medications * Basal insulin - no change * Lantus SQ BID * 20 units for BSG < 180mg/dl * 25 units for BSG 180mg/dl or greater * Bolus insulin - no change * NovoLog per scale ACHS or Q6hrs while NPO * Goal Range: Low 110 mg/dL - High 140 mg/dL * Correction Factor: 12 mg/dL/unit * Nutritional / Prandial insulin per carb ratio of 1 unit per 3 grams CHO consumed PLAN FOR DISCHARGE: From 06/05 note: * I am very surprised patient's A1c = 5.4%, perhaps patient has a high glycosylated hemoglobin, resulting in a lower A1c, which would not correlate with actual blood sugar, recommend SMBG at different times during the day to see if blood sugars actually reflect A1c. Would recommend starting Lantus daily if blood sugar elevated at home.
--- NOTE | 2018-06-06 13:55 | Progress Note ---
Medicine Progress Note Date & Time of Visit: Jun 06, 2018 at 13:42. Subjective seen resting in bedside chair alert, comfortable states she doesn't feel as good today had 2-3 diarrhea episodes since yesterday no abdominal pain ,nausea, chills no chest pain, dyspnea roof of mouth feels sore no other symptoms Objective Last 8 Hrs Date Time Temp Pulse Resp B/P (MAP) Pulse Ox O2 Delivery O2 Flow Rate FiO2 06/06/18 11:39 36.8 45 18 123/56 (78) 98 06/06/18 08:00 Room Air 06/06/18 07:30 36.4 48 20 144/73 (96) 98 06/06/18 06:24 40 Physical Exam: General-oriented 3, not in distress, speaking sentences Oral- (+) mild thrush Eyes-anicteric Neck- supple, no JVD Lungs- clear breath sounds bilaterally no rales, no wheezes Heart- bradycardic 50s, regular rhythm; no murmur, normal rate Abdomen- normal bowel sounds, soft, nontender, non distended Extremities- no pretibial edema, no calf tenderness Neuro- alert, oriented x 3; no gross focal neurologic deficits Skin- warm & dry Laboratory Results: Last 24 Hours Test 06/05/18 16:45 06/05/18 19:45 06/05/18 23:54 06/06/18 04:07 Bedside Glucose 174 mg/dl 248 mg/dl 148 mg/dl 173 mg/dl Test 06/06/18 05:32 06/06/18 07:08 06/06/18 11:24 White Blood Count 3.92 K/uL Red Blood Count 3.66 M/uL Hemoglobin 10.1 g/dL Hematocrit 31.7 % Mean Corpuscular Volume 86.6 fL Mean Corpuscular Hemoglobin 27.6 pg Mean Corpuscular Hemoglobin Concent 31.9 g/dl Platelet Count 117 K/uL Mean Platelet Volume 10.2 fL Neutrophils (%) (Auto) 76.7 % Lymphocytes (%) (Auto) 14.3 % Monocytes (%) (Auto) 7.4 % Eosinophils (%) (Auto) 0.3 % Basophils (%) (Auto) 0.3 % Neutrophils # (Auto) 3.01 K/uL Lymphocytes # (Auto) 0.56 K/uL Monocytes # (Auto) 0.29 K/uL Eosinophils # (Auto) 0.01 K/uL Basophils # (Auto) 0.01 K/uL RDW Standard Deviation 49.2 fL RDW Coefficient of Variation 15.4 % Immature Granulocyte % (Auto) 1.0 % Immature Granulocyte # (Auto) 0.04 K/uL Sodium Level 141 mmol/L Potassium Level 3.5 mmol/L Chloride Level 107 mmol/L Carbon Dioxide Level 28 mmol/L Anion Gap 7.0 mmol/L Blood Urea Nitrogen 18 mg/dl Creatinine 1.06 mg/dl Est Creatinine Clear Calc Drug Dose 51.9 ml/min Estimated GFR () 60.3 Estimated GFR (Non- 52.0 BUN/Creatinine Ratio 16.8 Random Glucose 166 mg/dl Calcium Level 8.1 mg/dl Bedside Glucose 161 mg/dl 175 mg/dl Assessment & Plan ASSESSMENT AND PLAN: This is a 72-year-old female who presents with possible sepsis from a urinary tract infection. 1. Possible sepsis from urinary tract infection E coli - presents with tachycardia, temperature spike, and elevated point of care lactic acid of 3.2, urinalysis positive for leukocyte esterase. -Afebrile BP improving Lactic acidosis resolved -Urine cultures positive for E. coli resistant to ampicillin Blood cultures no growth so far -empiric vancomycin and Zosyn--> change to Ceftri Intravenous NSS Started on stress dose hydrocortisone IV, will start to taper, hydrocortisone IV 20 mg every 6 hours then transitioned to P.o. hydrocortisone 20 mg 3 times daily, thin 20 mg twice daily then resume usual 20 mg in the morning 10 mg at bedtime 2. History of pituitary adenoma, status post surgery, on Cortef. Hold p.o. Cortef Transitioned to stress dose IV hydrocortisone Glycemic control consult Tapering of hydrocortisone as outlined above 3. History of diabetes hold metformin and glimepiride. Glycemic control consult placed as patient will be on IV hydrocortisone 4. History of hypertension BP in the lower side 5. History of leukocytoclastic vasculitis, stable. 6. History of iron deficiency anemia, iron pills. 7. History of hypothyroidism, on Synthroid. 8. History of paroxysmal atrial fibrillation - bradycardic hold metoprolol - monitor Coumadin was stopped because of liver cirrhosis Diarrhea - check c diff and stool cultures - resume IV fluids 9 Mccracken cirrhosis. Follow up with GI. 10. Depression, on Celexa. 11. Deep venous thrombosis prophylaxis, SCDs for now. 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 Disposition: Anticipate discharge to home when medically stable Current Inpatient Medications: Current Inpatient Medications Medications (Trade) Dose Ordered Sig/Gerald Route Start Time Stop Time Status Last Admin Dose Admin Sodium Chloride 1,000 ml @ 0 mls/hr [id number] IV 06/04/18 05:00 06/04/18 03:53 80 MLS/HR Acetaminophen (Tylenol Tab) 650 mg Q4H PRN PO 06/04/18 02:00 07/04/18 01:59 06/04/18 21:53 650 MG Al Hydrox/Mg Hydrox/Simethicone (Maalox Max Susp) 15 ml Q4H PRN PO 06/04/18 02:00 07/04/18 01:59 Ondansetron HCl (Zofran Inj) 4 mg Q6H PRN IV 06/04/18 02:00 07/04/18 01:59 Nitroglycerin (Nitrostat Tab) 0.4 mg UD PRN SL 06/04/18 02:00 07/04/18 01:59 Polyethylene (Miralax Powder Packet) 17 gm DAILY PRN PO 06/04/18 02:00 07/04/18 01:59 Aspirin (Ecotrin Tab) 81 mg DAILY PO 06/04/18 09:00 07/04/18 08:59 06/06/18 08:16 81 MG Atorvastatin Calcium (Lipitor Tab) 20 mg HS PO 06/04/18 21:00 07/04/18 20:59 06/05/18 21:17 20 MG Citalopram Hydrobromide (celeXA TAB) 20 mg QAM PO 06/04/18 09:00 07/04/18 08:59 06/06/18 08:16 20 MG Latanoprost (Xalatan Oph Soln) 1 drops HS OPB 06/04/18 21:00 07/04/18 20:59 06/05/18 21:17 1 DROPS Levothyroxine Sodium (Synthroid Tab) 125 mcg DAILYBB PO 06/04/18 06:30 07/04/18 06:29 06/06/18 05:11 125 MCG Pantoprazole Sodium (Protonix Tab) 40 mg DAILY PO 06/04/18 09:00 07/04/18 08:59 06/06/18 08:16 40 MG Ferrous Sulfate (Feosol Tab) 325 mg BID PO 06/04/18 09:00 07/04/18 08:59 06/06/18 08:16 325 MG Insulin Aspart (novoLOG ASPART) SLIDING SCALE G... ACHS SC 06/04/18 06:30 07/04/18 06:59 06/06/18 12:26 22 UNITS Glucose (Glucose 40% Gel) 15-30 GRAMS 15 GRAMS... UD PRN PO 06/04/18 03:30 07/04/18 03:29 Glucose (Glucose Chew Tab) 4-8 Tablets 4 Tabl... UD PRN PO 06/04/18 03:30 07/04/18 03:29 Dextrose (Dextrose 50% 50ML Syringe) 25-50ML 25ML FOR ... UD PRN IV 06/04/18 03:30 07/04/18 03:29 Glucagon (Glucagon Inj) 1 mg UD PRN IM 06/04/18 03:30 07/04/18 03:29 Carbohydrates (Carbohydrates For Hypoglycemia) 15-30 GRAMS 15 grams if BSG 54-69... UD PRN PO 06/04/18 03:30 07/04/18 03:29 Miscellaneous Information (Consult Glycemic Management Pharmacy) 1 ea UD N/A 06/04/18 08:56 07/04/18 08:55 Insulin Glargine (Lantus Solostar Pen) SEE PROTOCOL BID SC 06/04/18 21:00 07/04/18 20:59 06/06/18 08:24 20 UNITS Hydrocortisone Sodium Succinate 25 mg/Syringe 0.5 ml @ 4 mls/min Q6H IV 06/05/18 20:00 06/06/18 20:00 06/06/18 08:16 4 MLS/MIN Ceftriaxone Sodium 1 gm/ Dextrose 50 ml @ 100 mls/hr Q24H IV 06/06/18 13:30 06/16/18 13:29 UNV
[2018-06-06] MEDS: NSS + 20MEQ KCL 1000ML 1,000 ML IV SCH (14:06)
[2018-06-06] MEDS: NYSTATIN SUSP 500,000 U/5 ML UDC PO SCH ×2 (17:15→20:33)
[2018-06-06] MEDS: CEFTRIAXONE SOD INJ 1 GM in DEXTROSE 5% ADD-VANTAGE 50ML 50 ML IV SCH (17:27)
[2018-06-06] MEDS ORDERED: VANCOMYCIN TROUGH ONE (17:30)
[2018-06-06] MEDS: LATANOPROST 0.005% OP SOLN 2.5 ML BTL OPB SCH (20:34)
[2018-06-07] VITALS (8 sets, daily range): BP systolic 109–149; BP diastolic 52–71; PULSE 50–63; TEMP 36.6–37.5; O2SAT 96–99
[2018-06-07] MEDS: NSS + 20MEQ KCL 1000ML 1,000 ML IV SCH ×2 (03:16→16:48)
[2018-06-07] MEDS: LEVOTHYROXINE 125 MCG TAB PO SCH (06:24)
[2018-06-07 06:34] LABS: BASO % 0.4 %; BASO ABS # 0.02 K/uL (0-0.2); EOS % 1.1 %; EOS ABS # 0.05 K/uL (0-0.5); HEMATOCRIT 31.9 % (37-47); HEMOGLOBIN 10.1 g/dL (12.0-16.0); IG# 0.05 K/uL (0.00-0.02); LYMPH % 18.5 %; LYMPH ABS # 0.85 K/uL (1.2-3.4); MEAN CELL VOLUME 87.2 fL (80-100); MEAN CORPUSCULAR HEMOGLOBIN 27.6 pg (25-34); MEAN CORPUSCULAR HGB CONC 31.7 g/dl (32-36); MEAN PLATELET VOLUME 9.9 fL (7.4-10.4); MONO % 10.2 %; MONO ABS # 0.47 K/uL (0.11-0.59); NEUT % 68.7 %; NEUT ABS # 3.15 K/uL (1.4-6.5); PLATELET COUNT 128 K/uL (130-400); RED CELL DISTRIBUTION WIDTH CV 15.6 % (11.5-14.5); RED CELL DISTRIBUTION WIDTH SD 49.5 fL (36.4-46.3); WHITE BLOOD COUNT 4.59 K/uL (4.8-10.8)
[2018-06-07 07:04] LABS: CALCIUM 8.3 mg/dl (8.5-10.1); POTASSIUM 3.7 mmol/L (3.5-5.1)
[2018-06-07] MEDS: FERROUS SULFATE 325 MG TAB PO SCH ×2 (07:53→21:33)
[2018-06-07] MEDS: PANTOprazole SOD 40 MG TAB PO SCH (07:54)
[2018-06-07] MEDS: ASPIRIN 81 MG ECTAB PO SCH (07:54)
[2018-06-07] MEDS: NYSTATIN SUSP 500,000 U/5 ML UDC PO SCH ×4 (07:54→21:34)
[2018-06-07] MEDS: INSULIN ASPART 100 UNITS/ML 3 ML PEN SC SCH ×4 (08:03→21:00)
[2018-06-07] MEDS: INSULIN GLARGINE SOLOSTAR 100 UNITS/ML 3 ML PEN SC SCH ×2 (08:04→21:49)
[2018-06-07] MEDS: CITALOPRAM 20 MG TAB PO SCH (08:09)
[2018-06-07] MEDS: HYDROCORTISONE 10 MG TAB PO SCH ×3 (12:00→21:35)
[2018-06-07] MEDS ORDERED: METOPROLOL TARTRATE 25 MG TAB PO ONE (13:50)
[2018-06-07] MEDS ORDERED: POTASSIUM CHLORIDE 20 MEQ TABCR PO ONE (14:00)
[2018-06-07] MEDS ORDERED: LOPERAMIDE HCL 2 MG CAP PO PRN (14:00)
--- NOTE | 2018-06-07 14:15 | Pharmacy Progress Note ---
Pharmacy Glycemic Short Note 2 Date of Service Jun 07, 2018. OUTPATIENT ANTIDIABETIC REGIMEN: * Glimepiride 1mg PO Daily * Metformin 1000mg PO BID * A1c = 5.4 % 03/15/18 Test 06/06/18 16:16 06/06/18 20:29 06/06/18 23:12 06/07/18 06:18 Bedside Glucose 127 mg/dl (70-90) 139 mg/dl (70-90) 128 mg/dl (70-90) Random Glucose 108 mg/dl (70-99) Test 06/07/18 07:16 06/07/18 11:07 Bedside Glucose 95 mg/dl (70-90) 117 mg/dl (70-90) ASSESSMENT: 06/07/18 * Patient received 106 units of insulin yesterday * Hydrocortisone IV was d/c'd after dose last evening but taper was resumed late this AM - current dose for today is 20 mg TID * Anticipate insulin needs to decrease further today, estimating ~70-80 units as TDD. Note that patient required 50-60 units/day when on hydrocortisone 15 mg /day on a previous admission. * Current basal dose is reasonable to continue - will receive 40 units today as long as BSGs not too elevated * I loosened the CF/CR late this AM, anticipating a low after tightened parameters this AM and no AM hydrocortisone, but she was surprisingly at 117 mg/ dL at lunch. Will tighten again but not as aggressive as the previous CF 12, CR 3 06/06/18 * Ms. Rivera received 135 units of insulin yesterday * Hydrocortisone dose has decreased to 25 mg IV q6h * Will plan to keep insulin regimen the same since BSGs were still elevated yesterday on the higher dose of hydrocortisone, anticipating that they should be in range today with a reduced steroid dose 06/05/18 * Blood sugars much higher than goal, will tighten CF and CR and increase Lantus * Patient remains on HCT 50mg IV Q6H * UTI Sepsis, still on IV Vancomycin and Zosyn PLAN FOR INPATIENT GLYCEMIC CONTROL: * Continue to hold outpatient oral diabetes medications * Basal insulin - no change * Lantus SQ BID * 20 units for BSG < 180mg/dl * 25 units for BSG 180mg/dl or greater * Bolus insulin - loosen parameters slightly * NovoLog per scale ACHS or Q6hrs while NPO * Goal Range: Low 110 mg/dL - High 140 mg/dL * Correction Factor: 15 mg/dL/unit * Nutritional / Prandial insulin per carb ratio of 1 unit per 4 grams CHO consumed PLAN FOR DISCHARGE: From 06/05 note: * I am very surprised patient's A1c = 5.4%, perhaps patient has a high glycosylated hemoglobin, resulting in a lower A1c, which would not correlate with actual blood sugar, recommend SMBG at different times during the day to see if blood sugars actually reflect A1c. Would recommend starting Lantus daily if blood sugar elevated at home.
[2018-06-07] MEDS: CEFTRIAXONE SOD INJ 1 GM in DEXTROSE 5% ADD-VANTAGE 50ML 50 ML IV SCH (17:32)
[2018-06-07] MEDS: METOPROLOL TARTRATE 25 MG TAB PO SCH (21:00)
[2018-06-07] MEDS: LATANOPROST 0.005% OP SOLN 2.5 ML BTL OPB SCH (21:33)
--- NOTE | 2018-06-07 21:56 | Progress Note ---
Medicine Progress Note Date & Time of Visit: Jun 07, 2018 at 21:53. Subjective Seen resting bed, comfortable, in good spirits Was having episodes of A. fib with RVR up to 120s, asymptomatic Otherwise feels improved compared to yesterday No diarrhea today, no abdominal pain no nausea Denies of the symptoms Objective Last 8 Hrs Date Time Temp Pulse Resp B/P (MAP) Pulse Ox O2 Delivery O2 Flow Rate FiO2 06/07/18 21:31 51 119/67 (84) 06/07/18 20:15 36.9 54 18 109/52 (71) 96 Room Air 06/07/18 16:05 37.5 59 18 110/54 (72) 96 Room Air 06/07/18 16:00 98 Room Air 06/07/18 14:26 63 Physical Exam: General-oriented 3, not in distress, speaking sentences Oral- (+) mild thrush-improving Eyes-anicteric Neck- no JVD Lungs- clear breath sounds bilaterally no rales, no wheezes Heart- bradycardic 50s, regular rhythm; no murmur, normal rate Abdomen- normal bowel sounds, soft, nontender, non distended Extremities- no pretibial edema, no calf tenderness Neuro- alert, oriented x 3; no gross focal neurologic deficits Skin- warm & dry Laboratory Results: Last 24 Hours Test 06/06/18 23:12 06/07/18 06:18 06/07/18 07:16 06/07/18 11:07 Bedside Glucose 128 mg/dl 95 mg/dl 117 mg/dl White Blood Count 4.59 K/uL Red Blood Count 3.66 M/uL Hemoglobin 10.1 g/dL Hematocrit 31.9 % Mean Corpuscular Volume 87.2 fL Mean Corpuscular Hemoglobin 27.6 pg Mean Corpuscular Hemoglobin Concent 31.7 g/dl Platelet Count 128 K/uL Mean Platelet Volume 9.9 fL Neutrophils (%) (Auto) 68.7 % Lymphocytes (%) (Auto) 18.5 % Monocytes (%) (Auto) 10.2 % Eosinophils (%) (Auto) 1.1 % Basophils (%) (Auto) 0.4 % Neutrophils # (Auto) 3.15 K/uL Lymphocytes # (Auto) 0.85 K/uL Monocytes # (Auto) 0.47 K/uL Eosinophils # (Auto) 0.05 K/uL Basophils # (Auto) 0.02 K/uL RDW Standard Deviation 49.5 fL RDW Coefficient of Variation 15.6 % Immature Granulocyte % (Auto) 1.1 % Immature Granulocyte # (Auto) 0.05 K/uL Sodium Level 144 mmol/L Potassium Level 3.7 mmol/L Chloride Level 110 mmol/L Carbon Dioxide Level 29 mmol/L Anion Gap 5.0 mmol/L Blood Urea Nitrogen 22 mg/dl Creatinine 1.00 mg/dl Est Creatinine Clear Calc Drug Dose 55.6 ml/min Estimated GFR () 64.7 Estimated GFR (Non- 55.8 BUN/Creatinine Ratio 21.5 Random Glucose 108 mg/dl Calcium Level 8.3 mg/dl Test 06/07/18 16:41 06/07/18 20:32 Bedside Glucose 100 mg/dl 130 mg/dl Assessment & Plan ASSESSMENT AND PLAN: This is a 72-year-old female who presents with possible sepsis from a urinary tract infection. 1. Possible sepsis from urinary tract infection E coli - presents with tachycardia, temperature spike, and elevated point of care lactic acid of 3.2, urinalysis positive for leukocyte esterase. -Afebrile BP improving Lactic acidosis resolved -Urine cultures positive for E. coli resistant to ampicillin Blood cultures no growth so far -empiric vancomycin and Zosyn--> change to Ceftri Intravenous NSS Started on stress dose hydrocortisone IV, will start to taper, hydrocortisone IV 20 mg every 6 hours then transitioned to P.o. hydrocortisone 20 mg 3 times daily, thin 20 mg twice daily then resume usual 20 mg in the morning 10 mg at bedtime 2. History of pituitary adenoma, status post surgery, on Cortef. Hold p.o. Cortef Transitioned to stress dose IV hydrocortisone Glycemic control consult Tapering of hydrocortisone as outlined above 3. History of diabetes hold metformin and glimepiride. Glycemic control consult placed as patient will be on IV hydrocortisone 4. History of hypertension BP in the lower side 5. History of leukocytoclastic vasculitis, stable. 6. History of iron deficiency anemia, iron pills. 7. History of hypothyroidism, on Synthroid. 8. History of paroxysmal atrial fibrillation -Was bradycardic, metoprolol held -No episodes of A. fib and RVR -Usual metoprolol 25 mg p.o. twice daily resumed - monitor Coumadin was stopped because of liver cirrhosis Diarrhea - check c diff and stool cultures negative -IV fluids 9 Mccracken cirrhosis. Follow up with GI. 10. Depression, on Celexa. 11. Deep venous thrombosis prophylaxis, SCDs for now. 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 Disposition: Anticipate discharge to home when medically stable Current Inpatient Medications: Current Inpatient Medications Medications (Trade) Dose Ordered Sig/Gerald Route Start Time Stop Time Status Last Admin Dose Admin Sodium Chloride 1,000 ml @ 0 mls/hr [id number] IV 06/04/18 05:00 06/04/18 03:53 80 MLS/HR Acetaminophen (Tylenol Tab) 650 mg Q4H PRN PO 06/04/18 02:00 07/04/18 01:59 06/04/18 21:53 650 MG Al Hydrox/Mg Hydrox/Simethicone (Maalox Max Susp) 15 ml Q4H PRN PO 06/04/18 02:00 07/04/18 01:59 Ondansetron HCl (Zofran Inj) 4 mg Q6H PRN IV 06/04/18 02:00 07/04/18 01:59 Nitroglycerin (Nitrostat Tab) 0.4 mg UD PRN SL 06/04/18 02:00 07/04/18 01:59 Polyethylene (Miralax Powder Packet) 17 gm DAILY PRN PO 06/04/18 02:00 07/04/18 01:59 Aspirin (Ecotrin Tab) 81 mg DAILY PO 06/04/18 09:00 07/04/18 08:59 06/07/18 07:54 81 MG Citalopram Hydrobromide (celeXA TAB) 20 mg QAM PO 06/04/18 09:00 07/04/18 08:59 06/07/18 08:09 20 MG Latanoprost (Xalatan Oph Soln) 1 drops HS OPB 06/04/18 21:00 07/04/18 20:59 06/07/18 21:33 1 DROPS Levothyroxine Sodium (Synthroid Tab) 125 mcg DAILYBB PO 06/04/18 06:30 07/04/18 06:29 06/07/18 06:24 125 MCG Pantoprazole Sodium (Protonix Tab) 40 mg DAILY PO 06/04/18 09:00 07/04/18 08:59 06/07/18 07:54 40 MG Ferrous Sulfate (Feosol Tab) 325 mg BID PO 06/04/18 09:00 07/04/18 08:59 06/07/18 21:33 325 MG Insulin Aspart (novoLOG ASPART) SLIDING SCALE G... ACHS SC 06/04/18 06:30 07/04/18 06:59 06/07/18 17:41 10 UNITS Glucose (Glucose 40% Gel) 15-30 GRAMS 15 GRAMS... UD PRN PO 06/04/18 03:30 07/04/18 03:29 Glucose (Glucose Chew Tab) 4-8 Tablets 4 Tabl... UD PRN PO 06/04/18 03:30 07/04/18 03:29 Dextrose (Dextrose 50% 50ML Syringe) 25-50ML 25ML FOR ... UD PRN IV 06/04/18 03:30 07/04/18 03:29 Glucagon (Glucagon Inj) 1 mg UD PRN IM 06/04/18 03:30 07/04/18 03:29 Carbohydrates (Carbohydrates For Hypoglycemia) 15-30 GRAMS 15 grams if BSG 54-69... UD PRN PO 06/04/18 03:30 07/04/18 03:29 Miscellaneous Information (Consult Glycemic Management Pharmacy) 1 ea UD N/A 06/04/18 08:56 07/04/18 08:55 Insulin Glargine (Lantus Solostar Pen) SEE PROTOCOL BID SC 06/04/18 21:00 07/04/18 20:59 06/07/18 21:49 20 UNITS Ceftriaxone Sodium 1 gm/ Dextrose 50 ml @ 100 mls/hr Q24H IV 06/06/18 18:00 06/16/18 17:59 06/07/18 17:32 100 MLS/HR Nystatin (Mycostatin Susp) 5 ml QID PO 06/06/18 17:00 06/16/18 16:59 06/07/18 21:34 5 ML Potassium Chloride/Sodium Chloride 1,000 ml @ 75 mls/hr [id number] IV 06/06/18 14:00 07/06/18 13:59 06/07/18 16:48 75 MLS/HR Hydrocortisone (Cortef Tab) 20 mg BID PO 06/08/18 09:00 06/08/18 21:01 Hydrocortisone (Cortef Tab) 20 mg QAM PO 06/09/18 09:00 07/09/18 08:59 Hydrocortisone (Cortef Tab) 10 mg HS PO 06/09/18 21:00 07/09/18 20:59 Metoprolol Tartrate (Lopressor Tab) 25 mg BID PO 06/07/18 21:00 07/07/18 20:59 Loperamide HCl (Imodium Cap) 2 mg UD PRN PO 06/07/18 14:00 07/07/18 13:59 06/07/18 14:25 2 MG
[2018-06-08] VITALS (7 sets, daily range): BP systolic 122–155; BP diastolic 56–75; PULSE 45–54; TEMP 36.4–36.8; O2SAT 94–98
[2018-06-08 06:19] LABS: BASO % 0.8 %; BASO ABS # 0.03 K/uL (0-0.2); EOS % 0.8 %; EOS ABS # 0.03 K/uL (0-0.5); HEMATOCRIT 31.7 % (37-47); IG# 0.11 K/uL (0.00-0.02); LYMPH % 19.2 %; MEAN CELL VOLUME 87.3 fL (80-100); MEAN CORPUSCULAR HEMOGLOBIN 27.5 pg (25-34); MEAN CORPUSCULAR HGB CONC 31.5 g/dl (32-36); MONO % 9.3 %; MONO ABS # 0.34 K/uL (0.11-0.59); NEUT % 66.9 %; NEUT ABS # 2.43 K/uL (1.4-6.5); NUCLEATED RED BLOOD CELL ABS 0.03 K/uL (0-0); PLATELET COUNT 136 K/uL (130-400); RED CELL DISTRIBUTION WIDTH CV 15.8 % (11.5-14.5); RED CELL DISTRIBUTION WIDTH SD 51.1 fL (36.4-46.3); WHITE BLOOD COUNT 3.64 K/uL (4.8-10.8)
[2018-06-08] MEDS: LEVOTHYROXINE 125 MCG TAB PO SCH (06:21)
[2018-06-08] MEDS: NSS + 20MEQ KCL 1000ML 1,000 ML IV SCH (06:24)
[2018-06-08 07:27] LABS: CALCIUM 8.2 mg/dl (8.5-10.1); POTASSIUM 4.4 mmol/L (3.5-5.1)
[2018-06-08] MEDS: METOPROLOL TARTRATE 25 MG TAB PO SCH (08:22)
[2018-06-08] MEDS: PANTOprazole SOD 40 MG TAB PO SCH (08:23)
[2018-06-08] MEDS: ASPIRIN 81 MG ECTAB PO SCH (08:23)
[2018-06-08] MEDS: CITALOPRAM 20 MG TAB PO SCH (08:23)
[2018-06-08] MEDS: HYDROCORTISONE 10 MG TAB PO SCH ×3 (08:23→14:00)
[2018-06-08] MEDS: NYSTATIN SUSP 500,000 U/5 ML UDC PO SCH ×4 (08:24→21:01)
[2018-06-08] MEDS: FERROUS SULFATE 325 MG TAB PO SCH ×2 (08:24→20:38)
[2018-06-08] MEDS: INSULIN ASPART 100 UNITS/ML 3 ML PEN SC SCH ×4 (08:28→20:56)
[2018-06-08] MEDS: INSULIN GLARGINE SOLOSTAR 100 UNITS/ML 3 ML PEN SC SCH ×2 (08:29→21:01)
--- NOTE | 2018-06-08 10:22 | Pharmacy Progress Note ---
Pharmacy Glycemic Short Note 2 Date of Service Jun 08, 2018. OUTPATIENT ANTIDIABETIC REGIMEN: * Glimepiride 1mg PO Daily * Metformin 1000mg PO BID * A1c = 5.4 % 03/15/18 Test 06/07/18 11:07 06/07/18 16:41 06/07/18 20:32 06/08/18 05:39 Bedside Glucose 117 mg/dl (70-90) 100 mg/dl (70-90) 130 mg/dl (70-90) Random Glucose 100 mg/dl (70-99) Test 06/08/18 07:44 Bedside Glucose 91 mg/dl (70-90) ASSESSMENT: 06/08/18 * Ms. Rivera received 79 units of insulin yesterday, similar to what I anticipated while on hydrocortisone 20 mg TID * Today, hydrocortisone is tapered to 20 mg BID. Anticipating insulin requirements to be ~60-70 units for today. * Will adjust basal/bolus regimen accordingly to reflect this 06/07/18 * Patient received 106 units of insulin yesterday * Hydrocortisone IV was d/c'd after dose last evening but taper was resumed late this AM - current dose for today is 20 mg TID * Anticipate insulin needs to decrease further today, estimating ~70-80 units as TDD. Note that patient required 50-60 units/day when on hydrocortisone 15 mg /day on a previous admission. * Current basal dose is reasonable to continue - will receive 40 units today as long as BSGs not too elevated * I loosened the CF/CR late this AM, anticipating a low after tightened parameters this AM and no AM hydrocortisone, but she was surprisingly at 117 mg/ dL at lunch. Will tighten again but not as aggressive as the previous CF 12, CR 3 06/06/18 * Ms. Rivera received 135 units of insulin yesterday * Hydrocortisone dose has decreased to 25 mg IV q6h * Will plan to keep insulin regimen the same since BSGs were still elevated yesterday on the higher dose of hydrocortisone, anticipating that they should be in range today with a reduced steroid dose 06/05/18 * Blood sugars much higher than goal, will tighten CF and CR and increase Lantus * Patient remains on HCT 50mg IV Q6H * UTI Sepsis, still on IV Vancomycin and Zosyn PLAN FOR INPATIENT GLYCEMIC CONTROL: * Continue to hold outpatient oral diabetes medications * Basal insulin - decrease * Lantus SQ BID * 17 units for BSG < 180mg/dl * 20 units for BSG 180mg/dl or greater * Bolus insulin - loosen parameters * NovoLog per scale ACHS or Q6hrs while NPO * Goal Range: Low 110 mg/dL - High 140 mg/dL * Correction Factor: 18 mg/dL/unit * Nutritional / Prandial insulin per carb ratio of 1 unit per 6 grams CHO consumed PLAN FOR DISCHARGE: From 06/05 note: * I am very surprised patient's A1c = 5.4%, perhaps patient has a high glycosylated hemoglobin, resulting in a lower A1c, which would not correlate with actual blood sugar, recommend SMBG at different times during the day to see if blood sugars actually reflect A1c. Would recommend starting Lantus daily if blood sugar elevated at home.
[2018-06-08] MEDS ORDERED: FUROSEMIDE 20 MG TAB PO ONE ×2 (11:45→12:00)
[2018-06-08] MEDS ORDERED: NURSING VERBAL MED ORDER ONE (11:45)
--- NOTE | 2018-06-08 11:58 | Progress Note ---
Medicine Progress Note Date & Time of Visit: Jun 08, 2018 at 11:45. Subjective seen resting in bedside chair, in good spirits, comfortable had another episode of A fib with RVR this morning, patient reports palpitations but no chest pain, dyspnea, dizziness also reports mild abdominal distention and leg swelling, no pain no other symptoms Objective Last 8 Hrs Date Time Temp Pulse Resp B/P (MAP) Pulse Ox O2 Delivery O2 Flow Rate FiO2 06/08/18 11:28 36.8 54 18 150/70 (96) 97 06/08/18 08:00 Room Air 06/08/18 07:30 36.4 47 18 136/64 (88) 95 06/08/18 04:00 36.6 45 20 129/67 (87) 97 CPAP Physical Exam: General-oriented 3, not in distress, speaking sentences Oral- (+) mild thrush-improving Eyes-anicteric Neck- no JVD Lungs- clear breath sounds bilaterally, no wheezing no crackles no rales, no wheezes Heart- bradycardic 50s, regular rhythm; no murmurs Abdomen- normal bowel sounds, soft, nontender, mildly distended Extremities- grade 1 lower leg edema, no calf tenderness/erythema/warmth Neuro- alert, oriented x 3; no gross focal neurologic deficits Skin- warm & dry Laboratory Results: Last 24 Hours Test 06/07/18 16:41 06/07/18 20:32 06/08/18 05:39 06/08/18 07:44 Bedside Glucose 100 mg/dl 130 mg/dl 91 mg/dl White Blood Count 3.64 K/uL Red Blood Count 3.63 M/uL Hemoglobin 10.0 g/dL Hematocrit 31.7 % Mean Corpuscular Volume 87.3 fL Mean Corpuscular Hemoglobin 27.5 pg Mean Corpuscular Hemoglobin Concent 31.5 g/dl Platelet Count 136 K/uL Mean Platelet Volume 10.0 fL Neutrophils (%) (Auto) 66.9 % Lymphocytes (%) (Auto) 19.2 % Monocytes (%) (Auto) 9.3 % Eosinophils (%) (Auto) 0.8 % Basophils (%) (Auto) 0.8 % Neutrophils # (Auto) 2.43 K/uL Lymphocytes # (Auto) 0.70 K/uL Monocytes # (Auto) 0.34 K/uL Eosinophils # (Auto) 0.03 K/uL Basophils # (Auto) 0.03 K/uL RDW Standard Deviation 51.1 fL RDW Coefficient of Variation 15.8 % Immature Granulocyte % (Auto) 3.0 % Immature Granulocyte # (Auto) 0.11 K/uL Nucleated RBC Absolute Count (auto) 0.03 K/uL Nucleated Red Blood Cells % 0.8 % Sodium Level 143 mmol/L Potassium Level 4.4 mmol/L Chloride Level 110 mmol/L Carbon Dioxide Level 27 mmol/L Anion Gap 5.0 mmol/L Blood Urea Nitrogen 21 mg/dl Creatinine 1.00 mg/dl Est Creatinine Clear Calc Drug Dose 56.5 ml/min Estimated GFR () 64.7 Estimated GFR (Non- 55.8 BUN/Creatinine Ratio 21.2 Random Glucose 100 mg/dl Calcium Level 8.2 mg/dl Assessment & Plan ASSESSMENT AND PLAN: This is a 72-year-old female who presents with possible sepsis from a urinary tract infection. Possible sepsis from urinary tract infection E coli - presents with tachycardia, temperature spike, and elevated point of care lactic acid of 3.2, urinalysis positive for leukocyte esterase. -Afebrile BP improved Lactic acidosis resolved -Urine cultures positive for E. coli resistant to ampicillin Blood cultures no growth so far -empiric vancomycin and Zosyn--> change to Ceftriaxone IV Day 5 Intravenous NSS--> d/c today Started on stress dose hydrocortisone IV, will start to taper, hydrocortisone IV 20 mg every 6 hours then transitioned to P.o. hydrocortisone 20 mg 3 times daily, thin 20 mg twice daily then resume usual 20 mg in the morning 10 mg at bedtime History of pituitary adenoma, status post surgery, on Cortef. Hold p.o. Cortef Transitioned to stress dose IV hydrocortisone Glycemic control consult Tapering of hydrocortisone as outlined above History of paroxysmal atrial fibrillation - was on Metoprolol 25mg BID, recently increased to TID Coumadin was stopped as outpatient because of liver cirrhosis, GI bleeding, gastric antral vascular ectasia - while admitted, noted to be bradycardic 40s-50s asymptomatic, metoprolol held for 1 and 1/2 day - then patient developed episodes of a fib in RVR HR 120s, with palpitations -Usual metoprolol 25 mg p.o. twice daily resumed - received 1 dose of Metoprolol 25mg yesterday, since then, HR 50s - Cardiology consulted- Dr. Jessie Mccracken cirrhosis - required paracentesis during recent admission - received IV fluids (+) mild abdominal distention - will order Lasix 20mg po daily monitor volume status - check Leg Doppler US History of diabetes hold metformin and glimepiride. Glycemic control consult placed as patient will be on IV hydrocortisone History of hypertension monitor History of leukocytoclastic vasculitis, stable. History of iron deficiency anemia, iron pills. History of hypothyroidism, on Synthroid. Diarrhea - c diff negative - resolved Depression, on Celexa. Deep venous thrombosis prophylaxis, SCDs Anticoagulation contraindicated as patient was found to have vascular ectasia in the gastric antrum and also a history of GI bleed Disposition: Anticipate discharge to home when medically stable needs home health Current Inpatient Medications: Current Inpatient Medications Medications (Trade) Dose Ordered Sig/Gerald Route Start Time Stop Time Status Last Admin Dose Admin Sodium Chloride 1,000 ml @ 0 mls/hr [id number] IV 06/04/18 05:00 06/04/18 03:53 80 MLS/HR Acetaminophen (Tylenol Tab) 650 mg Q4H PRN PO 06/04/18 02:00 07/04/18 01:59 06/04/18 21:53 650 MG Al Hydrox/Mg Hydrox/Simethicone (Maalox Max Susp) 15 ml Q4H PRN PO 06/04/18 02:00 07/04/18 01:59 Ondansetron HCl (Zofran Inj) 4 mg Q6H PRN IV 06/04/18 02:00 07/04/18 01:59 Nitroglycerin (Nitrostat Tab) 0.4 mg UD PRN SL 06/04/18 02:00 07/04/18 01:59 Polyethylene (Miralax Powder Packet) 17 gm DAILY PRN PO 06/04/18 02:00 07/04/18 01:59 Aspirin (Ecotrin Tab) 81 mg DAILY PO 06/04/18 09:00 07/04/18 08:59 06/08/18 08:23 81 MG Citalopram Hydrobromide (celeXA TAB) 20 mg QAM PO 06/04/18 09:00 07/04/18 08:59 06/08/18 08:23 20 MG Latanoprost (Xalatan Oph Soln) 1 drops HS OPB 06/04/18 21:00 07/04/18 20:59 06/07/18 21:33 1 DROPS Levothyroxine Sodium (Synthroid Tab) 125 mcg DAILYBB PO 06/04/18 06:30 07/04/18 06:29 06/08/18 06:21 125 MCG Pantoprazole Sodium (Protonix Tab) 40 mg DAILY PO 06/04/18 09:00 07/04/18 08:59 06/08/18 08:23 40 MG Ferrous Sulfate (Feosol Tab) 325 mg BID PO 06/04/18 09:00 07/04/18 08:59 06/08/18 08:24 325 MG Insulin Aspart (novoLOG ASPART) SLIDING SCALE G... ACHS SC 06/04/18 06:30 07/04/18 06:59 06/08/18 08:28 12 UNITS Glucose (Glucose 40% Gel) 15-30 GRAMS 15 GRAMS... UD PRN PO 06/04/18 03:30 07/04/18 03:29 Glucose (Glucose Chew Tab) 4-8 Tablets 4 Tabl... UD PRN PO 06/04/18 03:30 07/04/18 03:29 Dextrose (Dextrose 50% 50ML Syringe) 25-50ML 25ML FOR ... UD PRN IV 06/04/18 03:30 07/04/18 03:29 Glucagon (Glucagon Inj) 1 mg UD PRN IM 06/04/18 03:30 07/04/18 03:29 Carbohydrates (Carbohydrates For Hypoglycemia) 15-30 GRAMS 15 grams if BSG 54-69... UD PRN PO 06/04/18 03:30 07/04/18 03:29 Miscellaneous Information (Consult Glycemic Management Pharmacy) 1 ea UD N/A 06/04/18 08:56 07/04/18 08:55 Insulin Glargine (Lantus Solostar Pen) SEE PROTOCOL BID SC 06/04/18 21:00 07/04/18 20:59 06/08/18 08:29 20 UNITS Ceftriaxone Sodium 1 gm/ Dextrose 50 ml @ 100 mls/hr Q24H IV 06/06/18 18:00 06/16/18 17:59 06/07/18 17:32 100 MLS/HR Nystatin (Mycostatin Susp) 5 ml QID PO 06/06/18 17:00 06/16/18 16:59 06/08/18 08:24 5 ML Hydrocortisone (Cortef Tab) 20 mg BID PO 06/08/18 09:00 06/08/18 21:01 06/08/18 08:23 20 MG Hydrocortisone (Cortef Tab) 20 mg QAM PO 06/09/18 09:00 07/09/18 08:59 Hydrocortisone (Cortef Tab) 10 mg HS PO 06/09/18 21:00 07/09/18 20:59 Metoprolol Tartrate (Lopressor Tab) 25 mg BID PO 06/07/18 21:00 07/07/18 20:59 Loperamide HCl (Imodium Cap) 2 mg UD PRN PO 06/07/18 14:00 07/07/18 13:59 06/07/18 14:25 2 MG Furosemide (Lasix Tab) 20 mg QAM PO 06/09/18 09:00 07/09/18 08:59 UNV Furosemide (Lasix Tab) 20 mg 1134 ONCE PO 06/08/18 11:45 06/08/18 11:46 Miscellaneous Information (Nursing Verbal Med Order) 1 ea ONE ONCE N/A 06/08/18 11:45 06/08/18 11:46 UNV
--- NOTE | 2018-06-08 14:19 | DIAGNOSTIC IMAGING REPORT ---
ULTRASOUND BILATERAL LOWER EXTREMITY VENOUS CLINICAL HISTORY: Clinical concern for deep venous thrombosis. COMPARISON STUDY: Bilateral lower extremity venous ultrasound dated 04/06/2015. TECHNIQUE: Real-time, grayscale, and color Doppler sonography of the deep veins of the right and left lower extremity was performed from the inguinal crease to the calf. Compression and augmentation were utilized. FINDINGS: There is no sonographic evidence of deep venous thrombosis identified in the right or left lower extremity. The common femoral, superficial femoral, and popliteal veins are patent and normally compressible bilaterally. The greater saphenous vein and the profunda femoris vein at the junction with the common femoral vein are clear in both legs. The visualized calf veins are patent bilaterally. IMPRESSION: There is no sonographic evidence of deep venous thrombosis identified in the right or left lower extremity. Electronically signed by: Ang Giraldo M.D. 06/08/2018 2:17 PM Dictated Date/Time: 06/08/2018 2:17 PM
--- NOTE | 2018-06-08 17:15 | Cardiology Consultation ---
Cardiology Consultation Date of Consultation: Jun 08, 2018 History of Present Illness Aubree Rivera is a 72-year-old female seen in cardiology consultation per the request of Dr. Ramirez for the evaluation of atrial fibrillation, tachycardia bradycardia syndrome. The patient is well-known to the undersigned as I have cared for her on a past inpatient admission and have followed with her on a cardiology basis as an outpatient in the meantime for the last few months. About 2 weeks ago the patient started experiencing a sensation of feeling her heart race at home similar to her past atrial fibrillation episodes. She was taking metoprolol tartrate 25 mg twice daily(she had 50 mg tablets which she was cutting in half and taking twice a day for a total of 25 mg 2 times per day) . I had recommended that she increase her metoprolol dose to 25 mg 3 times per day. We are in the process of scheduling an outpatient follow-up, but in the meantime last Wednesday she started experiencing a fever. She therefore presented to the emergency room here at [facility]. Her initial EKG on 06/03/18 revealed normal sinus rhythm at 64 bpm with right bundle branch block. She however developed recurrent atrial fibrillation, including an episode captured on EKG 06/07/18 at 1349 revealing atrial fibrillation at 124 bpm. She is been treated for an E. coli urinary tract infection with Rocephin. She notes her fever has improved. At present, her palpitations have completely resolved. She however has been found to have sinus bradycardia with rates down into the 40 bpm range while she is sitting in a chair. This is prompted her metoprolol to be held. She denies any lightheadedness or dizziness. She has had no recent symptoms suggestive of bradycardia in the hospital or at home. She watches her heart rate at home closely and she states her home blood pressure monitor reveals a heart rate of 60 bpm for the most part. History Past Medical History: 1. History of pituitary adenoma for which she underwent endoscopic endonasal pituitary resection on 12/11/2011 at [facility] with postoperative atrial fibrillation noted. 2. She developed ITP and apparent intracranial bleeding around the time for initial pituitary surgery and was treated with corticosteroids for ITP with normalization of her platelet count. 3. When she had initially been assessed therefore for the atrial fibrillation at [facility] in 2011 anticoagulation was not initiated due to her low platelets and intracranial bleeding, but subsequently on follow-up it was initiated and she was placed on Coumadin. 4. She was later treated with the antiarrhythmic flecainide which she remained on from 2011 until November 2017 5. Presented to [facility] November 2017 with acute chest pressure in the setting of a febrile illness. She was seen by the undersigned and during that admission she was diagnosed with sepsis due to methicillin sensitive staph aureus bacteremia from skin ulcerations, she had a mild troponin elevation consistent with a non-STEMI, as well as paroxysmal atrial fibrillation. 6. Discharged 12/13/17 on medications including metoprolol tartrate 50 mg twice daily and amiodarone 200 mg twice daily. Flecainide was discontinued due to concerns of suspected underlying structural heart disease. 7. In February 2018 the patient was readmitted with findings of volume overload consistent with cirrhosis. She underwent abdominal paracentesis. She is reassessed by cardiology and was noted to have profound sinus bradycardia in the 40 bpm range prompting complete discontinuation of her metoprolol tartrate and amiodarone at that time. Coumadin was also discontinued due to profound anemia. She was discharged on aspirin 81 mg daily 8. At time of post hospital follow-up with me her heart rates have normalized and she was placed back on metoprolol tartrate 25 twice daily 9. Her history is otherwise notable for type 2 diabetes 10. Hypothyroidism 11. Dyslipidemia Past Surgical History: endoscopic endonasal pituitary resection on 12/11/2011 at [facility] Social History: Patient is , she lives with her spouse who accompanies her at the bedside Review Of Systems 10 point review of systems is reviewed and is negative with the exception of the above Allergies Coded Allergies: Iodinated Diagnostic Agents (Verified Allergy, Intermediate, RASH, 03/16/18) Sulfa Antibiotics (Verified Allergy, Intermediate, HIVES, 03/16/18) Ciprofloxacin (Verified Adverse Reaction, Mild, VOMITING, 03/16/18) Medications Reported Home Medications Medications Dose Route/Sig Max Daily Dose Days Date Category Dose Instructions Protonix (Pantoprazole Sodium) 40 Mg Tab 40 Mg PO DAILY 06/03/18 Reported TAKE THIS MEDICATION ONCE DAILY 30 MINUTES BEFORE FIRST MEAL OF THE DAY Cortef (Hydrocortisone) 5 Mg Tab 10 Mg PEG QD@1500 06/03/18 Reported Cortef (Hydrocortisone) 5 Mg Tab 20 Mg PO QAM 06/03/18 Reported Ferrous Sulfate 325 Mg Tab 325 Mg PO BID 06/03/18 Reported Lopressor (Metoprolol Tartrate) 50 Mg Tab 25 Mg PO TID 03/16/18 Reported Glimepiride 1 Mg Tab 1 Mg PO DAILY 03/16/18 Reported Lipitor (Atorvastatin Calcium) 20 Mg Tab 20 Mg PO HS 02/06/18 Reported Aspirin Ec (Aspirin) 81 Mg Tab 81 Mg PO DAILY 02/06/18 Reported Latanoprost 37 Drops/2.5 Ml Soln 1 Drop OPB HS 12/05/17 Reported Levothyroxine Sodium 125 Mcg Tab 125 Mcg PO QAM 12/05/17 Reported Glucophage (Metformin Hcl) 500 Mg Tab 1,000 Mg PO BID 10/03/15 Reported Citalopram Hydrobromide (Citalopram) 20 Mg Tab 20 Mg PO QAM 02/22/15 Reported Physical Exam Vital Signs (Last 8hrs): Last 8 Hrs Date Time Temp Pulse Resp B/P (MAP) Pulse Ox O2 Delivery O2 Flow Rate FiO2 06/08/18 15:32 36.6 50 18 138/56 (83) 96 Room Air 06/08/18 11:28 36.8 54 18 150/70 (96) 97 General Appearance: Alert and Oriented x3. NAD. Head: Normocephalic Atraumatic. Eyes: PERRLA, EOMI, conjunctiva and sclera clear Neck: Supple. No carotid bruits noted. No JVD. No HJD. Respiratory: Breath sounds clear to auscultation bilaterally. No w/r/r. Cardiovascular: Reg rate and rhythm. S1 and S2 noted. No murmurs, rubs, gallops. PMI non displace. Abdomen: Normal bowel sounds, soft nontender. no abdominal bruits. Extremities: No edema, no clubbing or cyanosis. distal pulses 2/4 bilaterally. Neuro: No focal deficits. Psychiatric: Normal affect. Data Last Resulted 06/08/18 05:39 Red Blood Count 3.63, Mean Corpuscular Volume 87.3, Mean Corpuscular Hemoglobin 27.5, Mean Corpuscular Hemoglobin Concent 31.5, Mean Platelet Volume 10.0, Neutrophils (%) (Auto) 66.9, Lymphocytes (%) (Auto) 19.2, Monocytes (%) (Auto) 9.3, Eosinophils (%) (Auto) 0.8, Basophils (%) (Auto) 0.8, Neutrophils # (Auto) 2.43, Lymphocytes # (Auto) 0.70, Monocytes # (Auto) 0.34, Eosinophils # (Auto) 0.03, Basophils # (Auto) 0.03 Last Resulted 06/08/18 05:39 EKG tracing as outlined above. Assessment & Plan Impression: 72-year-old female 1. Paroxysmal atrial fibrillation, with recent episode associated with fevers, E. coli UTI. Findings consistent with tachycardia-bradycardia syndrome. 2. Hepatic cirrhosis and anemia, prompting discontinuation of Coumadin in February Discussion/recommendations: The patient has had 2 recent atrial fibrillation episodes in November, and again this admission that were both in the setting of acute febrile illnesses, in November, it was felt that she had a staph aureus cellulitis with bacteremia and this time an E. coli UTI. From February until a few weeks ago her atrial fibrillation symptoms were quiescent with no subjective palpitations and she is tolerating metoprolol tartrate 25 mg twice daily. As noted above, previously amiodarone had been added and metoprolol dose was increased when she had an episode of atrial fibrillation in November but these were both discontinued due to profound bradycardia in the setting of anemia, and volume overload, new cirrhosis in February 2018. At present, the patient is recovered from her recent UTI on Rocephin and she is not septic. We discussed options of proceeding with a permanent pacemaker for heart rate support and either increasing her metoprolol or adding a rhythm control agent such as sotalol or dofetilide. Amiodarone is a poor choice for her given her underlying cirrhosis. The patient states that she feels well. Despite the fact that her metoprolol was held this morning due to heart rates in the 40s, she has no symptoms of bradycardia. She has a history of being very cautious regarding procedures. She had declined cardiac catheterization when I met her in November 2017. She also declined follow-up stress testing. She describes herself as having a lot of anxiety. I had a long conversation with the patient, her was in the room as well as an additional family member. I counseled him that I do not think we have to worry about this in emergency, but pacemaker would be a potential option in the future. She has not had any symptoms suggestive bradycardia thus far In terms of stroke prophylaxis, recommend continued aspirin therapy. She is not a candidate for anticoagulation. I do not think she is a candidate for a left atrial appendage occlusion device because I do not think she would tolerate even short-term anticoagulation. Patient to be reassessed tomorrow. I have resumed metoprolol at a lower dose 2.5 mg p.o. twice daily.
[2018-06-08] MEDS: CEFTRIAXONE SOD INJ 1 GM in DEXTROSE 5% ADD-VANTAGE 50ML 50 ML IV SCH (17:33)
[2018-06-08] MEDS: LATANOPROST 0.005% OP SOLN 2.5 ML BTL OPB SCH (20:38)
[2018-06-09 04:19] VITALS: BP 154/70; PULSE 45; TEMP 36.1; O2SAT 98
[2018-06-09] MEDS: LEVOTHYROXINE 125 MCG TAB PO SCH (05:41)
[2018-06-09 05:49] LABS: BASO ABS # 0.04 K/uL (0-0.2); EOS % 1.7 %; EOS ABS # 0.07 K/uL (0-0.5); HEMATOCRIT 32.6 % (37-47); HEMOGLOBIN 10.3 g/dL (12.0-16.0); LYMPH % 21.6 %; LYMPH ABS # 0.87 K/uL (1.2-3.4); MEAN CELL VOLUME 87.2 fL (80-100); MEAN CORPUSCULAR HEMOGLOBIN 27.5 pg (25-34); MEAN CORPUSCULAR HGB CONC 31.6 g/dl (32-36); MEAN PLATELET VOLUME 9.9 fL (7.4-10.4); MONO ABS # 0.36 K/uL (0.11-0.59); NEUT % 61.7 %; NEUT ABS # 2.48 K/uL (1.4-6.5); NUCLEATED RED BLOOD CELL ABS 0.03 K/uL (0-0); PLATELET COUNT 126 K/uL (130-400); RED CELL DISTRIBUTION WIDTH CV 15.5 % (11.5-14.5); RED CELL DISTRIBUTION WIDTH SD 49.7 fL (36.4-46.3); WHITE BLOOD COUNT 4.02 K/uL (4.8-10.8)
[2018-06-09] MEDS ORDERED: HYDROCORTISONE 10 MG TAB PO SCH ×4 (06:00→21:00)
[2018-06-09 06:23] LABS: CALCIUM 8.4 mg/dl (8.5-10.1); CREATININE 0.94 mg/dl (0.60-1.20); POTASSIUM 3.7 mmol/L (3.5-5.1)
[2018-06-09 07:23] VITALS: BP 146/72; PULSE 50; TEMP 36.6; O2SAT 98
[2018-06-09] MEDS: ASPIRIN 81 MG ECTAB PO SCH (08:07)
[2018-06-09] MEDS: NYSTATIN SUSP 500,000 U/5 ML UDC PO SCH ×2 (08:07→12:09)
[2018-06-09] MEDS: CITALOPRAM 20 MG TAB PO SCH (08:07)
[2018-06-09] MEDS: FERROUS SULFATE 325 MG TAB PO SCH (08:07)
[2018-06-09] MEDS: INSULIN GLARGINE SOLOSTAR 100 UNITS/ML 3 ML PEN SC SCH (08:08)
[2018-06-09] MEDS: PANTOprazole SOD 40 MG TAB PO SCH (08:09)
[2018-06-09 08:15] VITALS: PULSE 58
[2018-06-09] MEDS: INSULIN ASPART 100 UNITS/ML 3 ML PEN SC SCH ×2 (08:33→12:11)
[2018-06-09] MEDS ORDERED: METOPROLOL TARTRATE 25 MG TAB PO SCH (09:00)
[2018-06-09] MEDS ORDERED: FUROSEMIDE 20 MG TAB PO SCH (09:00)
--- NOTE | 2018-06-09 09:19 | Cardiology Follow-Up ---
Subjective General Date of Service: Jun 09, 2018. Chief Complaint: follow up PAF, sinsus bradycardia Pt evaluation today including: conversation w/ patient, physical exam History of Present Illness The patient is a 72 year old female seen in follow up. Patient feels well. Sinus bradycardia noted on telemetry without recurrent atrial fibrillation yesterday overnight, or this morning. At present, sinus bradycardia 55 bpm is noted on telemetry. She just received 12.5 mg of oral metoprolol tartrate. Allergies Coded Allergies: Iodinated Diagnostic Agents (Verified Allergy, Intermediate, RASH, 03/16/18) Sulfa Antibiotics (Verified Allergy, Intermediate, HIVES, 03/16/18) Ciprofloxacin (Verified Adverse Reaction, Mild, VOMITING, 03/16/18) Social History Smoking Status: Never Smoker Hx Tobacco Use In Past Year?: No Hx Alcohol Use - Type And Amou: No Hx Substance Use - Type And Am: No Problem List Medical Problems: (1) ACS (acute coronary syndrome) Status: Acute (2) Anemia Status: Acute (3) Anemia Status: Acute (4) Ascites Status: Acute (5) Hypotension Status: Acute (6) Orthostatic hypotension Status: Acute (7) Portal hypertension Status: Acute (8) Supratherapeutic INR Status: Acute (9) Vomiting and diarrhea Status: Acute Physical Exam Vital Signs Last Vital Signs Documentation Date Time Temp Pulse Resp B/P (MAP) Pulse Ox O2 Delivery O2 Flow Rate FiO2 06/09/18 08:15 58 06/09/18 07:23 36.6 20 146/72 (96) 98 Room Air Physical Exam Constitutional: Level of Distress: NAD Head: normocephalic ENMT: TMs normal, pharynx normal Neck: supple Lungs: Auscultation: no wheezing, no rales/crackles Cardiovascular: Heart Auscultation: RRR, no murmurs, no rubs Abdomen: Inspection & Palpation: soft, non-distended Extremities: no edema Neurologic: Gait & Station: pertinent finding (No focal deficits) Assessment and Plan Assessment and Plan Impression: 72-year-old female 1. Paroxysmal atrial fibrillation, with recent episode associated with fevers, E. coli UTI. Findings consistent with tachycardia-bradycardia syndrome, however patient is asymptomatic from a bradycardia standpoint. Her only subjective symptoms are occasional short-lived palpitations that correlate with episodes of paroxysmal atrial fibrillation in the range of 100 2130 bpm 2. Hepatic cirrhosis and anemia, prompting discontinuation of Coumadin in February Discussion/recommendations: The patient's most recent prolonged episodes of atrial fibrillation in November 2017 and again this admission correlated with febrile illnesses. In November, she was admitted with methicillin sensitive bacteremia from a skin source and this time she was found to have an E. coli UTI. On both occasions her episodes of atrial fibrillation seemed to correlate with onset of her febrile illnesses. The patient is noted to have sinus bradycardia at rest down to the 40 bpm range in bed. Her metoprolol and amiodarone had been discontinued in February 2018 due to concerns of cirrhosis and bradycardia however when I had seen her in office follow-up I have placed her back on metoprolol tartrate 25 twice daily 3 months ago due to concerns of recurrent brief PAF symptoms. The patient describes herself as having a lot of anxiety. She is very high risk adverse in terms of procedures. When she had a non-ST segment elevation myocardial infarction in November 2017 she had elected against having a cardiac catheterization, and she ultimately elected not to undergo a pharmacologic nuclear stress test in our office due to concerns that she may have complications. She has concerns regarding pacemaker. I spent approximately 30 minutes answering the patient and her family's questions yesterday, and another 15 minutes today. She had 6 questions written down. At this time, I think the bradycardia concerns are simply that which we have found on telemetry. She has had no symptoms of bradycardia we have merely found that she does have sinus bradycardia. At home she describes herself as being active. 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 She has had no lightheadedness to dizziness. She does note tachypalpitations occasionally, but these are short-lived. At this time, I think it is completely reasonable for the patient to continue conservative therapy. I would recommend that she is discharged on her prior to hospital dose of metoprolol tartrate 25 mg by mouth 2 times per day. I have counseled her that should she have onset of elevated heart rates and palpitations consistent with her atrial fibrillation, and her heart rate is above 100, she may take an extra dose of 25 mg of metoprolol tartrate on an as- needed basis. Future considerations include follow-up with consideration of outpatient pacemaker if she has ongoing symptoms. She was counseled regarding the symptoms of symptomatic bradycardia in terms of what to watch for. If she has ongoing symptoms regarding her atrial fibrillation, pacemaker implantation would allow more aggressive treatment with metoprolol, or even possible transition to an antiarrhythmic medication such as sotalol for rhythm control strategy. As noted, she is on aspirin monotherapy as her anticoagulation was stopped due to profound anemia in the setting of newly diagnosed cirrhosis. I do not think she is a candidate for anticoagulation or for left atrial appendage occlusion device. I will arrange outpatient follow-up within the next few weeks. Patient stable for discharge from my standpoint. Laboratory Results Last 24 Hours Test 06/08/18 11:13 06/08/18 16:58 06/08/18 20:47 06/09/18 05:24 Bedside Glucose 127 mg/dl 114 mg/dl 140 mg/dl White Blood Count 4.02 K/uL Red Blood Count 3.74 M/uL Hemoglobin 10.3 g/dL Hematocrit 32.6 % Mean Corpuscular Volume 87.2 fL Mean Corpuscular Hemoglobin 27.5 pg Mean Corpuscular Hemoglobin Concent 31.6 g/dl Platelet Count 126 K/uL Mean Platelet Volume 9.9 fL Neutrophils (%) (Auto) 61.7 % Lymphocytes (%) (Auto) 21.6 % Monocytes (%) (Auto) 9.0 % Eosinophils (%) (Auto) 1.7 % Basophils (%) (Auto) 1.0 % Neutrophils # (Auto) 2.48 K/uL Lymphocytes # (Auto) 0.87 K/uL Monocytes # (Auto) 0.36 K/uL Eosinophils # (Auto) 0.07 K/uL Basophils # (Auto) 0.04 K/uL RDW Standard Deviation 49.7 fL RDW Coefficient of Variation 15.5 % Immature Granulocyte % (Auto) 5.0 % Immature Granulocyte # (Auto) 0.20 K/uL Nucleated RBC Absolute Count (auto) 0.03 K/uL Nucleated Red Blood Cells % 0.8 % Sodium Level 143 mmol/L Potassium Level 3.7 mmol/L Chloride Level 109 mmol/L Carbon Dioxide Level 28 mmol/L Anion Gap 6.0 mmol/L Blood Urea Nitrogen 24 mg/dl Creatinine 0.94 mg/dl Est Creatinine Clear Calc Drug Dose 59.7 ml/min Estimated GFR () 69.8 Estimated GFR (Non- 60.2 BUN/Creatinine Ratio 25.5 Random Glucose 84 mg/dl Calcium Level 8.4 mg/dl Test 06/09/18 07:31 Bedside Glucose 83 mg/dl
--- NOTE | 2018-06-09 09:56 | Pharmacy Progress Note ---
Pharmacy Glycemic Short Note 2 Date of Service Jun 09, 2018. OUTPATIENT ANTIDIABETIC REGIMEN: * Glimepiride 1mg PO Daily * Metformin 1000mg PO BID * A1c = 5.4 % 03/15/18 Test 06/08/18 11:13 06/08/18 16:58 06/08/18 20:47 06/09/18 05:24 Bedside Glucose 127 mg/dl (70-90) 114 mg/dl (70-90) 140 mg/dl (70-90) Random Glucose 84 mg/dl (70-99) Test 06/09/18 07:31 Bedside Glucose 83 mg/dl (70-90) ASSESSMENT: 06/09/18 * Ms. Rivera received 68 units of insulin yesterday * Hydrocortisone will be tapered back to outpatient dosing today (20 mg qAM, 10 mg in the afternoon) * Anticipating TDD ~55-60 units. Will adjust insulin regimen to reflect this 06/08/18 * Ms. Rivera received 79 units of insulin yesterday, similar to what I anticipated while on hydrocortisone 20 mg TID * Today, hydrocortisone is tapered to 20 mg BID. Anticipating insulin requirements to be ~60-70 units for today. * Will adjust basal/bolus regimen accordingly to reflect this 06/07/18 * Patient received 106 units of insulin yesterday * Hydrocortisone IV was d/c'd after dose last evening but taper was resumed late this AM - current dose for today is 20 mg TID * Anticipate insulin needs to decrease further today, estimating ~70-80 units as TDD. Note that patient required 50-60 units/day when on hydrocortisone 15 mg /day on a previous admission. * Current basal dose is reasonable to continue - will receive 40 units today as long as BSGs not too elevated * I loosened the CF/CR late this AM, anticipating a low after tightened parameters this AM and no AM hydrocortisone, but she was surprisingly at 117 mg/ dL at lunch. Will tighten again but not as aggressive as the previous CF 12, CR 3 06/06/18 * Ms. Rivera received 135 units of insulin yesterday * Hydrocortisone dose has decreased to 25 mg IV q6h * Will plan to keep insulin regimen the same since BSGs were still elevated yesterday on the higher dose of hydrocortisone, anticipating that they should be in range today with a reduced steroid dose 06/05/18 * Blood sugars much higher than goal, will tighten CF and CR and increase Lantus * Patient remains on HCT 50mg IV Q6H * UTI Sepsis, still on IV Vancomycin and Zosyn PLAN FOR INPATIENT GLYCEMIC CONTROL: * Continue to hold outpatient oral diabetes medications * Basal insulin - decrease * Lantus SQ BID * 14 units for BSG < 180mg/dl * 18 units for BSG 180mg/dl or greater * Bolus insulin - loosen parameters * NovoLog per scale ACHS or Q6hrs while NPO * Goal Range: Low 110 mg/dL - High 140 mg/dL * Correction Factor: 25 mg/dL/unit * Nutritional / Prandial insulin per carb ratio of 1 unit per 8 grams CHO consumed PLAN FOR DISCHARGE: From 06/05 note: * I am very surprised patient's A1c = 5.4%, perhaps patient has a high glycosylated hemoglobin, resulting in a lower A1c, which would not correlate with actual blood sugar, recommend SMBG at different times during the day to see if blood sugars actually reflect A1c. Would recommend starting Lantus daily if blood sugar elevated at home.
--- NOTE | 2018-06-09 10:09 | Progress Note ---
Subjective Date of Service: Jun 09, 2018. Subjective Pt evaluation today including: conversation w/ patient, physical exam, lab review, review of studies, review of inpatient medication list Saw/examined the patient in room 279 No problems/issues to note today Eager to go home Denies chest pain/palpitations/shortness of breath Problem List Medical Problems: (1) ACS (acute coronary syndrome) Status: Acute (2) Anemia Status: Acute (3) Anemia Status: Acute (4) Ascites Status: Acute (5) Hypotension Status: Acute (6) Orthostatic hypotension Status: Acute (7) Portal hypertension Status: Acute (8) Supratherapeutic INR Status: Acute (9) Vomiting and diarrhea Status: Acute Review of Systems Constitutional: No fever, No chills Respiratory: No cough, No sputum, No shortness of breath Cardiac: No chest pain, No edema, No palpitations Abdomen: No pain, No nausea, No vomiting, No diarrhea Medications Current Inpatient Medications Medications (Trade) Dose Ordered Sig/Gerald Route Start Time Stop Time Status Last Admin Dose Admin Sodium Chloride 1,000 ml @ 0 mls/hr [id number] IV 06/04/18 05:00 06/04/18 03:53 80 MLS/HR Acetaminophen (Tylenol Tab) 650 mg Q4H PRN PO 06/04/18 02:00 07/04/18 01:59 06/04/18 21:53 650 MG Al Hydrox/Mg Hydrox/Simethicone (Maalox Max Susp) 15 ml Q4H PRN PO 06/04/18 02:00 07/04/18 01:59 Ondansetron HCl (Zofran Inj) 4 mg Q6H PRN IV 06/04/18 02:00 07/04/18 01:59 Nitroglycerin (Nitrostat Tab) 0.4 mg UD PRN SL 06/04/18 02:00 07/04/18 01:59 Polyethylene (Miralax Powder Packet) 17 gm DAILY PRN PO 06/04/18 02:00 07/04/18 01:59 Aspirin (Ecotrin Tab) 81 mg DAILY PO 06/04/18 09:00 07/04/18 08:59 06/09/18 08:07 81 MG Citalopram Hydrobromide (celeXA TAB) 20 mg QAM PO 06/04/18 09:00 07/04/18 08:59 06/09/18 08:07 20 MG Latanoprost (Xalatan Oph Soln) 1 drops HS OPB 06/04/18 21:00 07/04/18 20:59 06/08/18 20:38 1 DROPS Levothyroxine Sodium (Synthroid Tab) 125 mcg DAILYBB PO 06/04/18 06:30 07/04/18 06:29 06/09/18 05:41 125 MCG Pantoprazole Sodium (Protonix Tab) 40 mg DAILY PO 06/04/18 09:00 07/04/18 08:59 06/09/18 08:09 40 MG Ferrous Sulfate (Feosol Tab) 325 mg BID PO 06/04/18 09:00 07/04/18 08:59 06/09/18 08:07 325 MG Insulin Aspart (novoLOG ASPART) SLIDING SCALE G... ACHS SC 06/04/18 06:30 07/04/18 06:59 06/09/18 08:33 7 UNITS Glucose (Glucose 40% Gel) 15-30 GRAMS 15 GRAMS... UD PRN PO 06/04/18 03:30 07/04/18 03:29 Glucose (Glucose Chew Tab) 4-8 Tablets 4 Tabl... UD PRN PO 06/04/18 03:30 07/04/18 03:29 Dextrose (Dextrose 50% 50ML Syringe) 25-50ML 25ML FOR ... UD PRN IV 06/04/18 03:30 07/04/18 03:29 Glucagon (Glucagon Inj) 1 mg UD PRN IM 06/04/18 03:30 07/04/18 03:29 Carbohydrates (Carbohydrates For Hypoglycemia) 15-30 GRAMS 15 grams if BSG 54-69... UD PRN PO 06/04/18 03:30 07/04/18 03:29 Miscellaneous Information (Consult Glycemic Management Pharmacy) 1 ea UD N/A 06/04/18 08:56 07/04/18 08:55 Insulin Glargine (Lantus Solostar Pen) SEE PROTOCOL BID SC 06/04/18 21:00 07/04/18 20:59 06/08/18 21:01 17 UNITS Ceftriaxone Sodium 1 gm/ Dextrose 50 ml @ 100 mls/hr Q24H IV 06/06/18 18:00 06/16/18 17:59 06/08/18 17:33 100 MLS/HR Nystatin (Mycostatin Susp) 5 ml QID PO 06/06/18 17:00 06/16/18 16:59 06/09/18 08:07 5 ML Loperamide HCl (Imodium Cap) 2 mg UD PRN PO 06/07/18 14:00 07/07/18 13:59 06/07/18 14:25 2 MG Furosemide (Lasix Tab) 20 mg QAM PO 06/09/18 09:00 07/09/18 08:59 06/09/18 08:07 20 MG Hydrocortisone (Cortef Tab) 10 mg DAILY@1400 PO 06/09/18 14:00 07/09/18 13:59 Hydrocortisone (Cortef Tab) 20 mg DAILY@0600 PO 06/09/18 06:00 07/09/18 05:59 06/09/18 05:42 20 MG Metoprolol Tartrate (Lopressor Tab) 12.5 mg BID PO 06/09/18 09:00 07/09/18 08:59 06/09/18 08:07 12.5 MG Objective Vital Signs Date Time Temp Pulse Resp B/P (MAP) Pulse Ox O2 Delivery O2 Flow Rate FiO2 06/09/18 08:15 58 06/09/18 08:00 Room Air 06/09/18 07:23 36.6 50 20 146/72 (96) 98 Room Air 06/09/18 04:19 36.1 45 20 154/70 (98) 98 BiPAP 06/09/18 00:00 Room Air 06/08/18 23:46 36.5 48 18 149/63 (91) 98 Room Air 06/08/18 20:00 Room Air 06/08/18 19:44 36.7 46 18 155/75 (101) 94 Room Air 06/08/18 15:32 36.6 50 18 138/56 (83) 96 Room Air 06/08/18 11:28 36.8 54 18 150/70 (96) 97 Physical Exam General Appearance: no apparent distress Respiratory/Chest: lungs clear, normal breath sounds, no respiratory distress, no accessory muscle use Cardiovascular: no edema, no murmur, + bradycardia Extremities: normal inspection, no pedal edema Neurologic/Psychiatric: no motor/sensory deficits, alert, normal mood/affect Laboratory Results Last 24 Hours Test 06/08/18 11:13 06/08/18 16:58 06/08/18 20:47 06/09/18 05:24 Bedside Glucose 127 mg/dl 114 mg/dl 140 mg/dl White Blood Count 4.02 K/uL Red Blood Count 3.74 M/uL Hemoglobin 10.3 g/dL Hematocrit 32.6 % Mean Corpuscular Volume 87.2 fL Mean Corpuscular Hemoglobin 27.5 pg Mean Corpuscular Hemoglobin Concent 31.6 g/dl Platelet Count 126 K/uL Mean Platelet Volume 9.9 fL Neutrophils (%) (Auto) 61.7 % Lymphocytes (%) (Auto) 21.6 % Monocytes (%) (Auto) 9.0 % Eosinophils (%) (Auto) 1.7 % Basophils (%) (Auto) 1.0 % Neutrophils # (Auto) 2.48 K/uL Lymphocytes # (Auto) 0.87 K/uL Monocytes # (Auto) 0.36 K/uL Eosinophils # (Auto) 0.07 K/uL Basophils # (Auto) 0.04 K/uL RDW Standard Deviation 49.7 fL RDW Coefficient of Variation 15.5 % Immature Granulocyte % (Auto) 5.0 % Immature Granulocyte # (Auto) 0.20 K/uL Nucleated RBC Absolute Count (auto) 0.03 K/uL Nucleated Red Blood Cells % 0.8 % Sodium Level 143 mmol/L Potassium Level 3.7 mmol/L Chloride Level 109 mmol/L Carbon Dioxide Level 28 mmol/L Anion Gap 6.0 mmol/L Blood Urea Nitrogen 24 mg/dl Creatinine 0.94 mg/dl Est Creatinine Clear Calc Drug Dose 59.7 ml/min Estimated GFR () 69.8 Estimated GFR (Non- 60.2 BUN/Creatinine Ratio 25.5 Random Glucose 84 mg/dl Calcium Level 8.4 mg/dl Test 06/09/18 07:31 Bedside Glucose 83 mg/dl Assessment and Plan This is a 72 year old female with a past medical history of paroxysmal atrial fibrillation, DIAZ cirrhosis, tachy-cyril syndrome, hx. of pituitary tumor s/p resection, DM2, hypothyroidism - presents with sepsis secondary to a UTI Sepsis secondary to UTI - E. coli UTI - now afebrile, lactic acidosis resolved - presents with tachycardia, temperature spike, and elevated point of care lactic acid of 3.2, urinalysis positive for leukocyte esterase. - will d/c with Ceftin for UTI (sensitivity to cephalosporins) Paroxysmal Atrial Fibrillation Tachy-Cyril Syndrome - appreciate cardiology input - will restart metoprolol - allow bradycardia as she is not symptomatic - outpatient consideration for pacemaker and Sotalol - no anticoagulation due to DIAZ cirrhosis and bleed risk Hx. of Pituitary Adenoma - s/p resection, hypopituitarism - now on chronic steroids DM2 - hold oral agents, sliding scale - restart oral agents on discharge HTN - continue metoprolol and low dose Lasix Hypothyroidism - continue Synthroid Depression - stable, continue Celexa DVT ppx - SCDs FULL CODE
[2018-06-09] MEDS ORDERED: LPR25 PO (10:11)
--- NOTE | 2018-06-09 10:13 | Discharge Instructions ---
Discharge Instructions Date of Service Jun 09, 2018. Admission Reason for Admission: Sepsis, Uti Discharge Discharge Diagnosis / Problem: Sepsis, UTI, Atrial Fibrillation Discharge Goals Goal(s): Decrease discomfort, Improve function, Diagnostic testing, Therapeutic intervention Activity Recommendations Activity Limitations: resume your previous activity . Instructions / Follow-Up Instructions / Follow-Up Please follow-up with Dr. Murphy as scheduled on June 13 * Continue taking metoprolol 25mg twice daily * Outpatient follow-up with cardiology * You can take an extra dose of metoprolol if you feel palpitations Current Hospital Diet Patient's current hospital diet: AHA Diet (Heart Healthy), Diabetes Type 2 Diet Discharge Diet Recommended Diet: AHA Diet (Heart Healthy), Diabetes Type 2 Diet Pending Studies Studies pending at discharge: no Laboratory Results Hemoglobin A1c Test 03/15/18 00:00 Range/Units Estimated Average Glucose 108 mg/dl Hemoglobin A1c 5.4 4.5-5.6 % Medical Emergencies . Who to Call and When: Medical Emergencies: If at any time you feel your situation is an emergency, please call 911 immediately. . Non-Emergent Contact Non-Emergency issues call your: Primary Care Provider, [employer] . . "Provider Documentation" section prepared by Ayaan Hassan. .
--- NOTE | 2018-06-09 10:16 | Discharge Summary ---
Discharge Summary Date of Service Jun 09, 2018. Discharge Summary Admission Date: Jun 04, 2018 at 02:04 Discharge Date: Jun 09, 2018 Discharge Disposition: Home with services Principal Diagnosis: Sepsis secondary to UTI Paroxysmal Atrial Fibrillation Tachy-Cyril Syndrome Hx. of Pituitary Adenoma DM2 HTN Hypothyroidism Depression Medication Reconciliation New Medications: Metoprolol Tartrate (Lopressor) 25 Mg Tab 25 MG PO BID for 30 Days, #60 TAB Continued Medications: Aspirin (Aspirin Ec) 81 Mg Tab 81 MG PO DAILY Atorvastatin (Lipitor) 20 Mg Tab 20 MG PO HS, TAB Citalopram (Citalopram Hydrobromide) 20 Mg Tab 20 MG PO QAM Ferrous Sulfate (Ferrous Sulfate) 325 Mg Tab 325 MG PO BID Glimepiride (Glimepiride) 1 Mg Tab 1 MG PO DAILY, TAB Hydrocortisone (Cortef) 5 Mg Tab 20 MG PO QAM, TAB Hydrocortisone (Cortef) 5 Mg Tab 10 MG PO QD@1500, TAB Latanoprost (Latanoprost) 37 Drops/2.5 Ml Soln 1 DROP OPB HS Levothyroxine Sodium (Levothyroxine Sodium) 125 Mcg Tab 125 MCG PO QAM Metformin Hcl (Glucophage) 500 Mg Tab 1000 MG PO BID Pantoprazole (Protonix) 40 Mg Tab 40 MG PO DAILY, TAB TAKE THIS MEDICATION ONCE DAILY 30 MINUTES BEFORE FIRST MEAL OF THE DAY Discontinued Medications: Metoprolol Tartrate (Lopressor) (Lopressor) 50 Mg Tab 25 MG PO TID, TAB Admission Information HPI (per Admitting provider): DATE OF ADMISSION: 06/04/2018 CHIEF COMPLAINT: Not feeling well, fever. HISTORY OF PRESENT ILLNESS: This is a 72-year-old female with past medical history significant for iron deficiency anemia, paroxysmal atrial fibrillation, no longer on Coumadin because of liver cirrhosis, diabetes, hypothyroidism, history of pituitary tumor status post surgery, DIAZ cirrhosis, portal hypertension, chronic kidney disease stage II, history of leukocytoclastic vasculitis, right bundle branch block, history of ITP, presents with not feeling well, nauseous, temp spikes, and increased frequency of urination since yesterday. In the ER, she has had temp spikes and her point of care lactic acid is 3.2 and also blood pressure on the lower side, so we were called for admission. Currently resting comfortably, hemodynamically stable. Denies any headaches, no blurred vision, no earache, no runny nose, no sore throat, no difficulty swallowing. No cough, no chest pain, no shortness of breath, no abdominal pain. Normal bowel and bladder movements. Last couple of days, she was sleeping at home most of the time . ALLERGIES: CIPROFLOXACIN, IODINATED DIAGNOSTIC AGENTS, SULFA ANTIBIOTICS. PAST MEDICAL HISTORY: As mentioned above. PAST SURGICAL HISTORY: Status post hysterectomy, pituitary surgery, history of cataract surgery, repair of nasal septum, EGDs, exploration of sphenoid sinus. MEDICATIONS: Patient is on Lopressor 25 mg p.o. t.i.d., glimepiride 1 mg p.o. daily, Colace 50 mg p.o. b.i.d., ferrous sulfate 325 mg p.o. b.i.d., Protonix 20 mg p.o. daily, Cortef 20 mg in the a.m. and 10 mg at 3:30 p.m., Lipitor 20 mg p.o. daily, aspirin 81 mg p.o. daily, levothyroxine 25 mcg p.o. daily, citalopram 20 mg p.o. daily, metformin 2000 mg p.o. b.i.d. FAMILY HISTORY: Significant for father has heart disorder. Sister has glaucoma. Mother has asthma. SOCIAL HISTORY: . No smoking history, no alcohol history, no drug abuse. REVIEW OF SYMPTOMS: As per HPI. Rest of review of systems negative. PHYSICAL EXAMINATION: GENERAL: The patient is of moderate build, not in distress. VITAL SIGNS: Temperature 39, pulse 66, respiratory rate 18, blood pressure 96/49, oxygen 96% room air. HEENT: No pallor, no icterus. Pupils equal, round, and reactive to light. NECK: No JVD, no neck masses, no carotid bruits. CARDIOVASCULAR: S1, S2 heard. Regular rate and rhythm, no murmur, no gallop. RESPIRATORY SYSTEM: Clear to auscultation bilaterally. No wheezing, no crackles. ABDOMEN: Soft, bowel sounds present. Nontender. No distention. CENTRAL NERVOUS SYSTEM: Cranial nerves II through XII grossly intact, nonfocal. EXTREMITIES: No edema, no erythema. LABORATORY DATA: WBC 5.8, hemoglobin 12.4, hematocrit 38.9, platelets 158. Sodium 137, potassium 4, chloride 100, bicarbonate 28, BUN 14, creatinine 1.09, serum glucose 111. Point of care lactic acid 3.2, calcium 9.3, total bilirubin 0.5, AST 36, ALT 37, alkaline phosphatase is 123. PT is 11.8, INR 1.1, APTT 26.6. Urinalysis positive for leukocyte esterase. Chest x-ray, no acute process seen. EKG: Normal sinus rhythm at a rate of 64, right bundle branch block seen. No significant changes from previous EKG. ASSESSMENT AND PLAN: This is a 72-year-old female who presents with possible sepsis from a urinary tract infection. 1. Possible sepsis from urinary tract infection, presents with tachycardia, temperature spike, and elevated point of care lactic acid of 3.2, urinalysis positive for leukocyte esterase. We will follow the repeat lactic acid. Will empirically started her on Zosyn and vancomycin. Follow the urine culture and blood cultures. We will monitor hemodynamics. Monitor on the tele floor. 2. History of pituitary adenoma, status post surgery, on Cortef. 3. History of diabetes, hold metformin and glimepiride. Will place on Lantus insulin sliding scale. Follow the blood sugars. 4. History of hypertension, continue Lopressor. 5. History of leukocytoclastic vasculitis, stable. 6. History of iron deficiency anemia, iron pills. 7. History of hypothyroidism, on Synthroid. 8. History of paroxysmal atrial fibrillation, on Lopressor, we will continue withholding parameters. Coumadin was stopped because of liver cirrhosis 9 Diaz cirrhosis. Follow up with GI. 10. Depression, on Celexa. 11. Deep venous thrombosis prophylaxis, SCDs for now. 12. Disposition: Admit to tele floor. Expect to discharge home and follow with family doctor. Level 1 full code. Hospital Course This is a 72 year old female with a past medical history of paroxysmal atrial fibrillation, DIAZ cirrhosis, tachy-cyril syndrome, hx. of pituitary tumor s/p resection, DM2, hypothyroidism - presents with sepsis secondary to a UTI Sepsis secondary to UTI - E. coli UTI - now afebrile, lactic acidosis resolved - presents with tachycardia, temperature spike, and elevated point of care lactic acid of 3.2, urinalysis positive for leukocyte esterase. - will d/c with Ceftin for UTI (sensitivity to cephalosporins) Paroxysmal Atrial Fibrillation Tachy-Cyril Syndrome - appreciate cardiology input - will restart metoprolol - allow bradycardia as she is not symptomatic - outpatient consideration for pacemaker and Sotalol - no anticoagulation due to DIAZ cirrhosis and bleed risk Hx. of Pituitary Adenoma - s/p resection, hypopituitarism - now on chronic steroids DM2 - hold oral agents, sliding scale - restart oral agents on discharge HTN - continue metoprolol and low dose Lasix Hypothyroidism - continue Synthroid Depression - stable, continue Celexa DVT ppx - SCDs FULL CODE Total time spent on discharge = 50 minutes This includes examination of the patient, discharge planning, medication reconciliation, and communication with other providers. Discharge Instructions Please follow-up with Dr. Murphy as scheduled on June 13 * Continue taking metoprolol 25mg twice daily * Outpatient follow-up with cardiology
[2018-06-09] MEDS ORDERED: FURO20TA PO (10:49)
[2018-06-09 11:01] VITALS: BP 146/72; PULSE 58; TEMP 36.6; O2SAT 98
[2018-06-09 11:11] VITALS: BP 131/66; PULSE 49; TEMP 36.9; O2SAT 97
[2018-06-09 14:51] VITALS: BP 136/83; PULSE 123; TEMP 36.7; O2SAT 97
[2018-06-09] MEDS ORDERED: NURSING DECISION MEDICATION ORDER SCH (15:00)
[2018-06-09] MEDS ORDERED: METOPROLOL TARTRATE 25 MG TAB PO ONE (15:15)
[2018-06-09] MEDS ORDERED: NURSING VERBAL MED ORDER ONE (15:15)
== END 2018-06-09 15:23 | disposition home health service (06) | DRG 872 ==
LOC: C.EDB 21:41 → C.MED 06-04 02:04 → ENRESERV 06-04 02:17
PROVIDERS: ADMIT Internal Medicine; ATTEND Family Medicine
DX: A41.9 Sepsis, unspecified organism (principal); N39.0 Urinary tract infection, site not specified; B96.20 Unspecified Escherichia coli [E. coli] as the cause of diseases classified elsewhere; R19.7 Diarrhea, unspecified; I49.5 Sick sinus syndrome; I48.0 Paroxysmal atrial fibrillation; E11.22 Type 2 diabetes mellitus with diabetic chronic kidney disease; I12.9 Hypertensive chronic kidney disease with stage 1 through stage 4 chronic kidney disease, or unspecified chronic kidney disease; N18.2 Chronic kidney disease, stage 2 (mild); I45.10 Unspecified right bundle-branch block; D50.9 Iron deficiency anemia, unspecified; E03.9 Hypothyroidism, unspecified; K75.81 Nonalcoholic steatohepatitis (NASH); K74.60 Unspecified cirrhosis of liver; F32.9 Major depressive disorder, single episode, unspecified; Z86.39 Personal history of other endocrine, nutritional and metabolic disease; Z98.890 Other specified postprocedural states; Z86.79 Personal history of other diseases of the circulatory system; Z86.2 Personal history of diseases of the blood and blood-forming organs and certain disorders involving the immune mechanism; Z79.52 Long term (current) use of systemic steroids; Z79.82 Long term (current) use of aspirin; Z79.84 Long term (current) use of oral hypoglycemic drugs; Z79.899 Other long term (current) drug therapy; Z91.041 Radiographic dye allergy status; Z88.1 Allergy status to other antibiotic agents; Z88.2 Allergy status to sulfonamides

== ENCOUNTER → 2018-06-14 | Outpatient (CLI) | payer OTHER ==
[~2018-06-14] MED LIST changes: -CLR10 PO; -DOCU50CA10 PO; +FERR1TAB62 PO; -FRRS300 PO; +FURO20TA PO; -HYDR5TAB PO; +HYDR5TAB57 PO; +LEVO125T5 PO; +LPR25 PO; -METO50TA16 PO; -PANT1TAB3 PO; +PANT40TA PO; +XLTOPS OPB
== END | disposition home or self-care (01) ==
LOC: C.LABSPEC 17:45
PROVIDERS: ATTEND Family Medicine
DX: N39.0 Urinary tract infection, site not specified (principal)

== ENCOUNTER → 2018-06-16 | Outpatient (CLI) | payer OTHER ==
[2018-06-16 18:14] LABS: HEMATOCRIT 38.7 % (37-47); HEMOGLOBIN 11.7 g/dL (12.0-16.0); MEAN CELL VOLUME 89.6 fL (80-100); MEAN CORPUSCULAR HEMOGLOBIN 27.1 pg (25-34); MEAN CORPUSCULAR HGB CONC 30.2 g/dl (32-36); MEAN PLATELET VOLUME 10.2 fL (7.4-10.4); PLATELET COUNT 151 K/uL (130-400); RED CELL DISTRIBUTION WIDTH CV 15.7 % (11.5-14.5); RED CELL DISTRIBUTION WIDTH SD 51.4 fL (36.4-46.3); WHITE BLOOD COUNT 8.74 K/uL (4.8-10.8)
[2018-06-16 18:26] LABS: ALBUMIN 3.5 gm/dl (3.4-5.0); ALKALINE PHOSPHATASE 125 U/L (45-117); ALT/SGPT 25 U/L (12-78); AST/SGOT 20 U/L (15-37); BLOOD UREA NITROGEN 21 mg/dl (7-18); CALCIUM 9.7 mg/dl (8.5-10.1); CARBON DIOXIDE 30 mmol/L (21-32); CHOLESTEROL 142 mg/dl (0-200); GLUCOSE 60 mg/dl (70-99); LDL CHOLESTEROL CALCULATED 52 mg/dl; POTASSIUM 4.5 mmol/L (3.5-5.1); SODIUM 137 mmol/L (136-145); TOTAL PROTEIN 7.4 gm/dl (6.4-8.2)
[2018-06-16 18:34] LABS: T3 FREE 1.83 pg/ml (2.30-4.20)
[2018-06-16 18:51] LABS: CREATININE RANDOM URINE 95.6 mg/dl
[2018-06-17 05:37] LABS: HEMOGLOBIN A1C 7.2 % (4.5-5.6)
== END | disposition home or self-care (01) ==
LOC: C.LABMFLN 14:06
PROVIDERS: ATTEND Internal Medicine Endocrinology, Diabetes & Metabolism
DX: E03.8 Other specified hypothyroidism (principal); E11.9 Type 2 diabetes mellitus without complications

== ENCOUNTER 2018-11-08 04:21 | Inpatient (IN) ==
[2018-11-08 05:53] LABS: Basophils # (auto) 0.02 K/uL (0-0.2); Basophils % (auto) 0.2 %; Eosinophils # (auto) 0.15 K/uL (0-0.5); Eosinophils % (auto) 1.8 %; Hematocrit (blood only) 40.7 % (37-47); Immature Granulocytes # (auto) 0.07 K/uL (0.00-0.02); Immature Granulocytes % (auto) 0.9 %; Lymphocytes # (auto) 0.47 K/uL (1.2-3.4); Lymphocytes % (auto) 5.7 %; Mean Corpuscular Hgb Conc 31.9 g/dL (32-36); Mean Corpuscular Volume 88.7 fL (80-100); Mean Platelet Volume 11.3 fL (7.4-10.4); Monocytes # (auto) 0.26 K/uL (0.11-0.59); Monocytes % (auto) 3.2 %; Neutrophils # (auto) 7.25 K/uL (1.4-6.5); Neutrophils % (auto) 88.2 %; Platelet Count 197 K/uL (130-400); RDW Coefficient of Variation 15.1 % (11.5-14.5); RDW Standard Deviation 48.1 fL (36.4-46.3); Red Blood Count 4.59 M/uL (4.2-5.4); White Blood Count 8.22 K/uL (4.8-10.8)
[2018-11-08 06:08] LABS: Alanine Aminotransferase 48 U/L (12-78); Albumin Level 3.4 gm/dl (3.4-5.0); Aspartate Aminotransferase 43 U/L (15-37); Blood Urea Nitrogen 16 mg/dl (7-18); Calcium 9.2 mg/dl (8.5-10.1); Carbon Dioxide 27 mmol/L (21-32); Chloride 103 mmol/L (98-107); Creatinine Clr Calc Pharmacy 52.5 ml/min; Est GFR (African American) 61.3; Est GFR (Non-African American) 52.9; Glucose 210 mg/dl (70-99); Potassium 3.6 mmol/L (3.5-5.1); Sodium 137 mmol/L (136-145)
[2018-11-08 06:10] LABS: INR 1.1 (0.9-1.1); Partial Thromboplastin Ratio 0.9; Partial Thromboplastin Time 23.8 Seconds (21.0-31.0); Prothrombin Time 11.1 Seconds (9.0-12.0)
[2018-11-08 06:13] LABS: Albumin Globulin Ratio 0.9 (0.9-2); Alkaline Phosphatase 168 U/L (45-117); Bilirubin,Total 0.5 mg/dl (0.2-1); Globulin 3.9 gm/dl (2.5-4.0); Total Protein 7.3 gm/dl (6.4-8.2); Troponin I < 0.015 ng/ml (0-0.045)
[2018-11-08] MEDS ORDERED: SODIUM CHLORIDE 0.9% 1000ML 1,000 ML IV SCH ×2 (06:30→06:45)
[2018-11-08] MEDS ORDERED: ONDANSETRON INJ 2 MG/ML 2 ML VIAL IV STA (06:30)
[2018-11-08] MEDS ORDERED: IMIPENEM/CILASTATIN SODIUM 500 MG in DEXTROSE 5% 100 ML IV STA (06:42)
[2018-11-08] MEDS ORDERED: DAPTOmycin 500 MG in SYRINGE 0 ML IV STA (06:42)
--- NOTE | 2018-11-08 06:55 | XRay Report ---
XR chest 1V portable CLINICAL HISTORY: Sepsis. COMPARISON STUDY: Chest radiograph August 17, 2018. FINDINGS: Dual-lead left subclavian pacemaker is unchanged in position. Moderate cardiomegaly is note d without evidence for pulmonary edema. There is no pneumothorax or pleural effusion. There is no con solidation to suggest pneumonia. IMPRESSION: No acute cardiopulmonary findings. No change in appearance of the chest. Electronically signed by: Vishal Nj M.D. 11/08/2018 6:54 AM
[2018-11-08] MEDS ORDERED: HYDROCORTISONE 10 MG TAB PO SCH (08:30)
[2018-11-08] MEDS ORDERED: CONSULT PHARMACY STA (09:01)
--- NOTE | 2018-11-08 09:12 | History & Physical Report ---
Date of Service November 08, 2018 Assessment & Plan (1) Sepsis: Febrile on arrival to the ER, she has a normal white count but reports being on antibiotics prior to arrival. She is ill-appearing on presentation. 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 Possible sources include but not limited to urine , GI illness, SBP. She denies any recent URI symptoms or cough. She denies any recent sick contacts or travel. Flu antigen was negative, no respiratory symptoms, normal chest x-ray. Continue empiric antibiotics with daptomycin and imipenem started in the ER pending clinical improvement and negative blood and urine cultures. Urine is still to be collected, however patient frequently gets these and is been hospitalized multiple times in the past for them. She is also reporting her urinary urgency and frequency making urine the likely source of her illness. Will provide stress dose hydrocortisone in the setting of chronic adrenal insufficiency. Will perform limited abdominal ultrasound to look for ascites in the setting of cirrhosis with recent belly swelling as of yesterday per patient. Will perform stool studies and support GI symptoms as needed. Continue IV fluids for hemodynamic support. Monitor on telemetry. (2) T2DM (type 2 diabetes mellitus): The patient has been self titrating Levemir at home and reports numbers "all over the place." Will utilize Levemir and NovoLog while in the hospital and on IV hydrocortisone. Pharmacy consult for assistance. A1c in a.m. (3) Adrenal insufficiency: Holding p.o. Cortef, administer hydrocortisone at stress dose IV for next couple of days until clinical improvement. (4) UTI (urinary tract infection): Patient with symptoms of urinary tract infection. She has had many of these before. She began antibiotics prior to arrival. Urinalysis with culture is pending. Cover with broad-spectrum antibiotics pending clinical improvement and culture results. 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 She is not on diuretics and was recently seen by GI in the clinic 2 weeks ago. She is up-to-date on screening and is not on a transplant list. Ultrasound of the abdomen to look for ascites as above. (6) Depression: Continue daily citalopram per home regimen (7) Hypothyroidism: Continue Synthroid replacement (8) DVT prophylaxis: Lovenox Full code as confirmed with patient and her on admission Disposition-PCU telemetry DO [facility] Hospitalist History of Present Illness Chief Complaint: I do not feel well Primary Care Provider: Laron Murphy 73-year-old female with history of recurrent UTI, reporting several hospitalizations this year for urinary tract infections, reports not feeling well. She reports diarrhea for 2 days that has resolved with the last bowel movement last evening. She then felt a lower back pain that felt like a pressure and went down through to the bottom of her buttocks. The ache was across her back and she felt this was related to her bladder. She called her physician who called in an antibiotic, however this is not documented in the outpatient record and it is uncertain which antibiotic she started yesterday. She reports chills but denies fever. She reports some vomiting in the ER this morning. She reports urgency and increased frequency of urination but denies any burning with urination or hematuria. She does have a history of kidney stones and does not feel this is consistent with that feeling she has had in the past. She has a history of Mccracken cirrhosis that is compensated but states that her abdomen started to swell yesterday. She does have some residual abdominal cramping that is minor. She denies any headache, cough, sick contacts or recent travel. She states she walks independently and lives at home with her . She has overall generalized weakness. At this time her nausea is resolved after Zosyn. In the ER she received empiric daptomycin and imipenem as well as 2 L of normal saline. She denies any other cold symptoms. Allergies Allergy/AdvReac Type Severity Reaction Status Date / Time Iodinated Contrast- Oral and Allergy Intermediate RASH Verified 11/08/18 05:56 IV Dye Sulfa (Sulfonamide Allergy Intermediate HIVES Verified 11/08/18 05:56 Antibiotics) Cipro AdvReac Mild VOMITING Verified 03/16/18 08:59 ciprofloxacin AdvReac Mild VOMITING Verified 11/08/18 05:56 Home Medications Home Medications Medication Instructions Recorded Confirmed Type aspirin 81 mg PO DAILY 07/30/18 11/08/18 History atorvastatin 20 mg PO HS 07/30/18 11/08/18 History citalopram 20 mg PO QAM 07/30/18 11/08/18 History ferrous sulfate 325 mg PO BID 07/30/18 11/08/18 History furosemide 20 mg PO DAILY PRN 07/30/18 11/08/18 History hydrocortisone [Cortef] See Label Instructions .ROUTE 07/30/18 11/08/18 History .COMPLEX latanoprost 1 drp OPB HS 07/30/18 11/08/18 History levothyroxine 125 mcg PO DAILY 07/30/18 11/08/18 History metformin 1,000 mg PO BID 07/30/18 11/08/18 History pantoprazole 40 mg PO DAILY 07/30/18 11/08/18 History levothyroxine [Synthroid] 125 mcg PO DAILYBB #30 tab 08/03/18 11/08/18 Rx diltiazem HCl 120 mg PO QAM #30 cap 08/19/18 11/08/18 Rx sotalol 120 mg PO BID #60 tab 08/19/18 11/08/18 Rx citalopram 10 mg PO QAM 11/08/18 11/08/18 History insulin detemir U-100 [Levemir 90 unit SUBCUT QAM 11/08/18 11/08/18 History U-100 Insulin] Past Med/Surg History Medical History PAF (paroxysmal atrial fibrillation) (Chronic) continue sotalol ideally we will increase it to 120mg BID after we get the ECG from today to ensure QTc is good-if so will give extra 80g today. NO AC due to ITP and h/o cirrohosis Hypothyroidism (Chronic) Tachy-cyril syndrome (Chronic) s/p ppm continue sotalol ideally we will increase it to 120mg BID after we get the ECG from today to ensure QTc is good-if so will give extra 80g today. 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 SERENA on CPAP Osteoarthritis of both knees Pituitary adenoma RBBB Recurrent urticaria Anticoagulated on Coumadin (Resolved) Dehydration (Resolved) Flu-like symptoms (Resolved) Gastroenteritis (Resolved 09/06/13) Pituitary apoplexy Volume overload Surgical History S/P cardiac pacemaker procedure S/P selective transsphenoidal pituitary adenomectomy Family History Other No significant family history Social History Current Living Situation: Spouse Other Information That Helps Us Care for You: No Feels Safe at Home: Yes Safety Concerns: Feels Safe At This Time Smoking Status: Never smoker Do You Dip or Chew Tobacco: No Second Hand Exposure: No Tobacco Cessation Education Requested by Patient: No Hx Alcohol Use: No Hx Substance Use: No Beliefs That Will Affect Care: None Preferred Language: Azeri Communication Ability: Effective Etcher Photoengraving Required: No Review of Systems At least ten systems were reviewed and negative except as indicated in HPI above. Physical Exam 2 Vital Signs (Past 24 Hours): Last Vital Signs Temp 36.8 C 11/08/18 07:24 Pulse 75 11/08/18 08:49 Resp 19 11/08/18 08:49 BP 110/56 L 11/08/18 08:49 Pulse Ox 93 11/08/18 08:49 CONSTITUTIONAL: obese, vitals as above, generally ill-appearing with weakness and fatigue. EYES: PERRL, normal conjuctivae, no scleral icterus ENT: MM dry NECK: trachea midline RESPIRATORY: clear to auscultation bilaterally, no crackles, rales or wheezes, normal respiratory effort CARDIOVASCULAR: regular rate and rhythm, S1 and 2 heard without murmurs, gallops or rubs, no peripheral edema CHEST: inspection of chest revealed well-healed scar from recent pacemaker insertion GASTROINTESTINAL: large protuberant abdomen, normal bowel sounds, soft, nontender, nondistended, no guarding, +CVA tenderness MUSCULOSKELETAL: strength 5/5 throughout, head is normocephalic and atraumatic SKIN: warm and dry NEUROLOGIC: No facial palsy, no dysarthria. CN 2-12 grossly intact, normal cognition, normal speech PSYCHIATRIC: alert cooperative and oriented to person, place and time. Euthymic mood, makes good eye contact, Results & Data Laboratory Results Short CBC 11/08/18 Range/Units 05:30 WBC 8.22 (4.8-10.8) K/uL Hgb 13.0 (12.0-16.0) g/dL Hct 40.7 (37-47) % Plt Count 197 (130-400) K/uL BMP 11/08/18 05:30 Sodium 137 Potassium 3.6 Chloride 103 Carbon Dioxide 27 BUN 16 Creatinine 1.04 Glucose 210 H Calcium 9.2 Cardiac Enzymes 11/08/18 Range/Units 05:30 Troponin I < 0.015 (0-0.045) ng/ml Liver Function 11/08/18 Range/Units 05:30 Total Bilirubin 0.5 (0.2-1) mg/dl AST 43 H (15-37) U/L ALT 48 (12-78) U/L Alkaline Phosphatase 168 H (45-117) U/L Albumin 3.4 (3.4-5.0) gm/dl Code Status & VTE Plan Code Status Full Code VTE Prophylaxis Plan VTE Prophylaxis will be ordered: Yes Critical Care Time Critical Care Time: No
[2018-11-08] MEDS ORDERED: HYDROCORTISONE SOD SUCCINATE 100 MG/2 ML VIAL IV SCH (09:15)
[2018-11-08] MEDS ORDERED: PROMETHAZINE HCL 25 MG TAB PO PRN (10:03)
[2018-11-08] MEDS ORDERED: ACETAMINOPHEN 325 MG TAB PO PRN (10:03)
[2018-11-08] MEDS ORDERED: CARBOHYDRATES FOR HYPOGLYCEMIA PO PRN (10:03)
[2018-11-08] MEDS ORDERED: GLUCAGON FOR INJ 1 MG VIAL SQ PRN (10:03)
[2018-11-08] MEDS ORDERED: GLUCOSE 40% GEL 15 GM TUBE PO PRN (10:03)
[2018-11-08] MEDS ORDERED: GLUCOSE 10 TABS/TUBE PO PRN (10:03)
[2018-11-08] MEDS ORDERED: INSULIN GLARGINE SOLOSTAR 100 UNITS/ML 3 ML PEN SC SCH (10:03)
[2018-11-08] MEDS ORDERED: DEXTROSE 50% 50 ML SYRINGE IV PRN (10:03)
[2018-11-08] MEDS ORDERED: PHARMACY GLYCEMIC MGMT CONSULT SCH (10:09)
[2018-11-08] MEDS: LACTATED RINGER'S 1,000 ML IV SCH ×2 (10:34→19:39)
[2018-11-08] MEDS ORDERED: DAPTOMYCIN CONSULT ACTIVE PRN (10:59)
[2018-11-08] MEDS ORDERED: IMIPENEM/CILASTATIN CONSULT ACTIVE PRN (11:00)
[2018-11-08] MEDS ORDERED: INSULIN DETEMIR FLEXPEN/FLEX TOUCH 100 UNITS/ML 3ML SC SCH (11:15)
[2018-11-08] MEDS: dilTIAZem HCL 120 MG CAPCR PO SCH (11:26)
[2018-11-08] MEDS: SOTALOL HCL 80 MG TAB PO SCH ×2 (11:26→21:14)
[2018-11-08] MEDS: ASPIRIN 81 MG ECTAB PO SCH (11:27)
[2018-11-08] MEDS: CITALOPRAM 20 MG TAB PO SCH ×2 (11:27)
[2018-11-08] MEDS: HYDROCORTISONE SOD 50 MG in SYRINGE 0 ML IV SCH ×3 (11:28→22:41)
[2018-11-08] MEDS: PANTOprazole 40 MG TAB PO SCH (11:28)
[2018-11-08] MEDS: FERROUS SULFATE 325 MG TAB PO SCH ×2 (11:28→21:14)
[2018-11-08] MEDS: ENOXAPARIN INJ 40 MG/0.4 ML SYR SQ SCH (11:28)
[2018-11-08] MEDS: LEVOTHYROXINE SODIUM 125 MCG TABLET PO SCH (11:29)
[2018-11-08] MEDS: INSULIN ASPART 100 UNITS/ML 3 ML PEN SC SCH ×3 (11:47→21:17)
[2018-11-08] MEDS ORDERED: TRAMADOL HCL 50 MG TABLET PO PRN (12:03)
--- NOTE | 2018-11-08 12:59 | Ultrasound Report ---
ABDOMINAL ULTRASOUND, RIGHT UPPER QUADRANT HISTORY: ascites?, h/o cirrhosis, +abd pain, thx. COMPARISON: CT of the abdomen and pelvis May 26, 2018. FINDINGS: No ascites is identified within the 4 quadrants. The liver is cirrhotic. Sensitivity for de tection of hepatic lesions is diminished on this exam given suboptimal penetration but none are ident ified. Splenomegaly indicates portal hypertension. This is similar to CT of June 05, 2018. IMPRESSION: 1. No ascites. 2. Cirrhosis with splenomegaly indicative of portal hypertension. Electronically signed by: Vishal Nj M.D. 11/08/2018 12:57 PM
[2018-11-08] MEDS: IMIPENEM/CILASTATIN SODIUM 500 MG in DEXTROSE 5% 100 ML IV SCH ×2 (13:39→19:37)
[2018-11-08 15:46] LABS: Appearance Urine Clear (Clear); Bacteria Urine Automated Negative (Negative); Bilirubin Urine Negative (Negative); Color Urine Orange; Glucose Urine UA Negative (Negative); Ketones Urine Trace (Negative); Leukocyte Esterase Urine Trace (Negative); Nitrite Urine Negative (Negative); Protein Urine Negative (Negative); Specific Gravity Urine 1.016 (1.000-1.030); Urobilinogen Urine Negative (Negative)
--- NOTE | 2018-11-08 18:55 | Emergency Department Note ---
Entered by Nayan Rojas acting as a scribe for History of Present Illness General Chief complaint: Illness Stated complaint: uti Time Seen by Provider: 11/08/18 05:25 Source: patient History of Present Illness Provider complaint: Vomiting Onset (ago): day(s) 2 Location: abdomen Radiation: non-radiation Pain Consistency: + intermittent Maximum Pain Intensity: 5 Quality: + aching Exacerbated By: + eating Associated symptoms: + fever/chills (No fever), + nausea/vomiting and + other ( Body aches, diarrhea) The patient is a 73 year old female who presents to the Emergency Room with complaints of intermittent nausea, diarrhea and vomiting for the past 2 days. She also is experiencing body aches and chills. Eating makes her symptoms worse and she can not seem to hold any real food down. She is currently on an antibiotic for a UTI that she diagnosed herself with a home test. Just a few days ago she had an ultrasound done of her abdomen because she has cirrhosis of the liver due to chronic medication intake. She did received the flu vaccination this year. Home Medications Home Medications Medication Instructions Recorded Confirmed Type aspirin 81 mg PO DAILY 07/30/18 11/08/18 History atorvastatin 20 mg PO HS 07/30/18 11/08/18 History citalopram 20 mg PO QAM 07/30/18 11/08/18 History ferrous sulfate 325 mg PO BID 07/30/18 11/08/18 History furosemide 20 mg PO DAILY PRN 07/30/18 11/08/18 History hydrocortisone [Cortef] See Label Instructions .ROUTE 07/30/18 11/08/18 History .COMPLEX latanoprost 1 drp OPB 07/30/18 11/08/18 History levothyroxine 125 mcg PO DAILY 07/30/18 11/08/18 History metformin 1,000 mg PO BID 07/30/18 11/08/18 History pantoprazole 40 mg PO DAILY 07/30/18 11/08/18 History levothyroxine [Synthroid] 125 mcg PO DAILYBB #30 tab 08/03/18 11/08/18 Rx diltiazem HCl 120 mg PO QAM #30 cap 08/19/18 11/08/18 Rx sotalol 120 mg PO BID #60 tab 08/19/18 11/08/18 Rx citalopram 10 mg PO QAM 11/08/18 11/08/18 History insulin detemir U-100 [Levemir 90 unit SUBCUT QAM 11/08/18 11/08/18 History U-100 Insulin] Allergies Allergy/AdvReac Type Severity Reaction Status Date / Time Iodinated Contrast- Oral and Allergy Intermediate RASH Verified 11/08/18 05:56 IV Dye Sulfa (Sulfonamide Allergy Intermediate HIVES Verified 11/08/18 05:56 Antibiotics) Cipro AdvReac Mild VOMITING Verified 03/16/18 08:59 ciprofloxacin AdvReac Mild VOMITING Verified 11/08/18 05:56 Past Med/Surg History Medical History PAF (paroxysmal atrial fibrillation) (Chronic) continue sotalol ideally we will increase it to 120mg BID after we get the ECG from today to ensure QTc is good-if so will give extra 80g today. NO AC due to ITP and h/o cirrohosis Hypothyroidism (Chronic) Tachy-cyril syndrome (Chronic) s/p ppm continue sotalol ideally we will increase it to 120mg BID after we get the ECG from today to ensure QTc is good-if so will give extra 80g today. T2DM (type 2 diabetes mellitus) (Chronic) Hypertension (Chronic) Chronic steroid use (Chronic) Kidney stone (Resolved) Ureteral calculus, right (Resolved) Renal colic (Resolved) UTI (urinary tract infection) (Resolved) Sepsis (Resolved) Petechial rash (Resolved) NSTEMI (non-ST elevated myocardial infarction) (Chronic) Cirrhosis of liver (Chronic) Chronic ITP (idiopathic thrombocytopenia) Intracerebral hemorrhage Leukocytoclastic vasculitis 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 SERENA on CPAP Osteoarthritis of both knees Pituitary adenoma RBBB Recurrent urticaria Anticoagulated on Coumadin (Resolved) Dehydration (Resolved) Flu-like symptoms (Resolved) Gastroenteritis (Resolved 09/06/13) Pituitary apoplexy Volume overload Surgical History S/P cardiac pacemaker procedure S/P selective transsphenoidal pituitary adenomectomy Family History Other No significant family history Social History Current Living Situation: Spouse Other Information That Helps Us Care for You: No Feels Safe at Home: Yes Safety Concerns: Feels Safe At This Time Smoking Status: Never smoker Do You Dip or Chew Tobacco: No Second Hand Exposure: No Tobacco Cessation Education Requested by Patient: No Hx Alcohol Use: No Hx Substance Use: No Beliefs That Will Affect Care: None Preferred Language: Danish Communication Ability: Effective Windows Technical Specialist Required: No Review of Systems See HPI for pertinent positives & negatives. and A total of 10 systems reviewed and were otherwise negative Physical Exam Vital Signs Vital Signs - 24 hr 11/08/18 04:25 11/08/18 05:40 11/08/18 07:24 Temperature 37.8 C H 36.8 C Temperature Source Oral Oral Sepsis Recent Fever Within 48 Hours No Sepsis Action Taken by Nursing No Action Required Pulse Rate 80 Pulse Rate [Left] 74 Pulse Rhythm [Left] Regular Pulse Strength [Left] Normal Respiratory Rate 18 20 Respiratory Effort / Characteristics Non-Labored Non-Labored Spontaneous Respiratory Depth Normal Normal Respiratory Pattern Regular Regular Blood Pressure 106/54 L Blood Pressure [Left Arm] Blood Pressure [Right Arm] 95/49 L Blood Pressure Mean 71 Blood Pressure Mean [Left Arm] Blood Pressure Mean [Right Arm] 64 Blood Pressure Position [Left Arm] Blood Pressure Position [Right Arm] Lying Pulse Oximetry 94 94 Pulse Oximetry [Left Index Finger] Oxygen Delivery Method Room Air Room Air Room Air Oxygen Delivery Method [Left Index Finger] 11/08/18 08:11 11/08/18 08:49 11/08/18 10:03 Temperature Temperature Source Sepsis Recent Fever Within 48 Hours Sepsis Action Taken by Nursing Pulse Rate Pulse Rate [Left] 75 Pulse Rhythm [Left] Pulse Strength [Left] Respiratory Rate 19 Respiratory Effort / Characteristics Spontaneous Respiratory Depth Respiratory Pattern Blood Pressure Blood Pressure [Left Arm] Blood Pressure [Right Arm] 110/56 L Blood Pressure Mean Blood Pressure Mean [Left Arm] Blood Pressure Mean [Right Arm] 74 Blood Pressure Position [Left Arm] Blood Pressure Position [Right Arm] Lying Pulse Oximetry 93 Pulse Oximetry [Left Index Finger] 94 Oxygen Delivery Method Room Air Room Air Oxygen Delivery Method [Left Index Finger] Room Air 11/08/18 10:05 11/08/18 10:06 11/08/18 13:48 Temperature 37.4 C 37.1 C Temperature Source Oral Oral Sepsis Recent Fever Within 48 Hours Sepsis Action Taken by Nursing Pulse Rate 75 Pulse Rate [Left] 75 65 Pulse Rhythm [Left] Pulse Strength [Left] Normal Respiratory Rate 16 18 Respiratory Effort / Characteristics Non-Labored Spontaneous Non-Labored Spontaneous Non-Labored Spontaneous Respiratory Depth Normal Normal Normal Respiratory Pattern Regular Regular Regular Blood Pressure Blood Pressure [Left Arm] 102/62 Blood Pressure [Right Arm] 114/70 96/60 L Blood Pressure Mean Blood Pressure Mean [Left Arm] 75 Blood Pressure Mean [Right Arm] 84 72 Blood Pressure Position [Left Arm] Lying Blood Pressure Position [Right Arm] Lying Pulse Oximetry 94 95 Pulse Oximetry [Left Index Finger] Oxygen Delivery Method Room Air Room Air Room Air Oxygen Delivery Method [Left Index Finger] 11/08/18 15:30 11/08/18 16:00 Temperature 37.2 C Temperature Source Oral Sepsis Recent Fever Within 48 Hours Sepsis Action Taken by Nursing Pulse Rate 68 Pulse Rate [Left] 67 Pulse Rhythm [Left] Pulse Strength [Left] Respiratory Rate 18 Respiratory Effort / Characteristics Non-Labored Spontaneous Respiratory Depth Respiratory Pattern Blood Pressure Blood Pressure [Left Arm] 102/61 Blood Pressure [Right Arm] Blood Pressure Mean Blood Pressure Mean [Left Arm] 74 Blood Pressure Mean [Right Arm] Blood Pressure Position [Left Arm] Lying Blood Pressure Position [Right Arm] Pulse Oximetry 94 Pulse Oximetry [Left Index Finger] Oxygen Delivery Method Room Air Oxygen Delivery Method [Left Index Finger] HEENT: Head - normocephalic and atraumatic Pupils are equal, round, and reactive to light. Extraocular eye muscles are intact, and sclera are anicteric. Nose - moist nasal mucosa without discharge. Mouth - moist buccal mucosa. Oropharynx is nonerythematous and there is no tonsillar exudate or edema noted. Neck: Supple; no JVD, nuchal rigidity, cervical lymphadenopathy, or auscultated bruits. Heart: Regular rate and rhythm. There is a normal S1 and S2 with no murmurs, clicks, or gallops appreciated. Lungs: Clear to auscultation bilaterally with no wheezes, rales, or rhonchi. Abdomen: Soft, nondistended, with good bowel sounds. There are no palpable pulsatile masses but there is some palpable splenomegaly. There is no guarding , rigidity, or rebound noted. Mild suprapubic abdominal pain with palpation. Extremities: No evidence of cyanosis, or clubbing. There are easily palpable peripheral pulses. Trace pedal edema bilaterally. Skin: Hot and pale, dry with good turgor and no rashes. Course 0531: Past medical records reviewed. The patient was evaluated in room B05, and a complete history and physical examination were performed. A septic protocol was performed. 0630: Sodium Chloride 1000mls @ 999mls/hr IV, Ondansetron 4mg IV 0642: The patient had a significantly elevated lactic but normal white blood cell count. I ordered imipenem/Cilastatin Sodium 500mg in dextrose 110mls @ 100mls/hr IV, Daptomycin 500mg in Syringe 10mls @ 5mls/min IV 0645: The patient had become hypotensive. I ordered sodium Chloride 1000mls @ 999mls/hr IV 0655: I reevaluated the patient and she is stable. Her blood pressure has come up nicely. I updated her on the results from the lab and imaging tests. We also discussed the plan of treatment. 0735: I spoke to Dr. Earle Santillan about the patients case and she is going to accept her for further evaluation. Consultations Consultation #1: I spoke to Dr. Earle Santillan about the patients case and she is going to accept her for further evaluation. Time: 07:35 Administered Medications Acetaminophen (Tylenol) 650 mg PO Q4H PRN PRN Reason: Pain or Fever Stop: 12/08/18 10:02 Last Admin: 11/08/18 10:49 Dose: 650 mg Aspirin (Ecotrin) 81 mg PO DAILY [facility] Stop: 12/08/18 08:59 Last Admin: 11/08/18 11:27 Dose: 81 mg Citalopram Hydrobromide (Celexa) 20 mg PO QAM [facility] Stop: 12/08/18 08:59 Last Admin: 11/08/18 11:27 Dose: 20 mg Citalopram Hydrobromide (Celexa) 10 mg PO QAM [facility] Stop: 12/08/18 08:59 Last Admin: 11/08/18 11:27 Dose: 10 mg Diltiazem HCl (Cardizem Cd) 120 mg PO QAM [facility] Stop: 12/08/18 08:59 Last Admin: 11/08/18 11:26 Dose: 120 mg Enoxaparin Sodium (Lovenox) 40 mg SQ QAM [facility] Stop: 12/08/18 10:02 Last Admin: 11/08/18 11:28 Dose: 40 mg Ferrous Sulfate (Feosol) 325 mg PO BID [facility] Stop: 12/08/18 08:59 Last Admin: 11/08/18 11:28 Dose: 325 mg Lactated Ringer's (Lr) 1,000 mls @ 125 mls/hr IV .Q8H [facility] Stop: 12/08/18 10:29 Last Admin: 11/08/18 10:34 Dose: 125 mls/hr Hydrocortisone Sodium (Succinate 50 mg/ Syringe) 1 mls @ 4 mls/min IV Q6H [facility] Stop: 12/08/18 10:59 Last Admin: 11/08/18 17:22 Dose: 4 mls/min Admin: 11/08/18 11:28 Dose: 4 mls/min Imipenem/Cilastatin Sodium 500 (mg/ Dextrose) 110 mls @ 110 mls/hr IV Q6H [facility]; Protocol Stop: 11/22/18 13:59 Last Infusion: 11/08/18 14:47 Dose: 0 mls/hr Admin: 11/08/18 13:39 Dose: 110 mls/hr Insulin Aspart (Novolog Flexpen) 0 units SC ACHS [facility]; Protocol Stop: 12/08/18 11:29 Last Admin: 11/08/18 17:20 Dose: 20 units Admin: 11/08/18 11:47 Dose: 9 units [facility]: 12/09/18 06:29 Last Admin: 11/08/18 11:29 Dose: 125 mcg Pantoprazole Sodium (Protonix) 40 mg PO DAILY [facility] Stop: 12/08/18 08:59 Last Admin: 11/08/18 11:28 Dose: 40 mg Promethazine HCl (Phenergan) 25 mg PO Q6H PRN PRN Reason: Nausea And Vomiting Stop: 12/08/18 10:02 Last Admin: 11/08/18 10:50 Dose: 25 mg Sotalol HCl (Betapace) 120 mg PO BID [facility] Stop: 12/08/18 08:59 Last Admin: 11/08/18 11:26 Dose: 120 mg Discontinued Medications Sodium Chloride (Nss 1000ml) 1,000 mls @ 999 mls/hr IV .Q1H1M [facility] Stop: 11/08/18 07:30 Last Infusion: 11/08/18 07:50 Dose: 0 mls/hr Admin: 11/08/18 06:33 Dose: 999 mls/hr Imipenem/Cilastatin Sodium 500 (mg/ Dextrose) 110 mls @ 100 mls/hr IV NOW STA Stop: 11/08/18 07:47 Last Infusion: 11/08/18 08:50 Dose: 0 mls/hr Admin: 11/08/18 07:23 Dose: 100 mls/hr Daptomycin 500 mg/ Syringe 10 mls @ 5 mls/min IV NOW STA Stop: 11/08/18 06:43 Last Admin: 11/08/18 07:23 Dose: 5 mls/min Sodium Chloride (Nss 1000ml) 1,000 mls @ 999 mls/hr IV .Q1H1M [facility] Stop: 11/08/18 07:45 Last Infusion: 11/08/18 07:50 Dose: 0 mls/hr Admin: 11/08/18 06:45 Dose: 999 mls/hr Insulin Detemir (Levemir Flextouch) 45 units SC BID [facility]; Protocol Stop: 12/08/18 11:14 Last Admin: 11/08/18 11:45 Dose: 45 units Ondansetron HCl (Zofran) 4 mg IV NOW STA Stop: 11/08/18 06:31 Last Admin: 11/08/18 06:45 Dose: 4 mg Medical Decision Making Differential Diagnosis The patient is a 73 year old female who presents to the Emergency Room with complaints of intermittent nausea, diarrhea and vomiting for the past 2 days. Differential diagnosis includes sepsis, UTI, dehydration, colitis, gastroenteritis, and influenza. Medical Records Attestation: I reviewed the patient's medical records. Home Medications Current Medication List: was personally reviewed by me Laboratory Data Attestation: I reviewed the patient's lab results. Result diagrams: 11/08/18 05:30 11/08/18 05:30 Lab Results 11/08/18 11/08/18 11/08/18 Range/Units 05:30 05:30 05:30 WBC 8.22 (4.8-10.8) K/uL RBC 4.59 (4.2-5.4) M/uL Hgb 13.0 (12.0-16.0) g/dL Hct 40.7 (37-47) % MCV 88.7 (80-100) fL MCH 28.3 (25-34) pg MCHC 31.9 L (32-36) g/dL RDW Std Deviation 48.1 H (36.4-46.3) fL RDW Coeff of Eran 15.1 H (11.5-14.5) % Plt Count 197 (130-400) K/uL MPV 11.3 H (7.4-10.4) fL Immature Gran % (Auto) 0.9 % Neut % (Auto) 88.2 % Lymph % (Auto) 5.7 % [place] % (Auto) 3.2 % Eos % (Auto) 1.8 % Baso % (Auto) 0.2 % Immature Gran # (Auto) 0.07 H (0.00-0.02) K/uL Neut # (Auto) 7.25 H (1.4-6.5) K/uL Lymph # (Auto) 0.47 L (1.2-3.4) K/uL [place] # (Auto) 0.26 (0.11-0.59) K/uL Eos # (Auto) 0.15 (0-0.5) K/uL Baso # (Auto) 0.02 (0-0.2) K/uL PT 11.1 (9.0-12.0) Seconds INR 1.1 (0.9-1.1) APTT 23.8 (21.0-31.0) Seconds PTT Ratio 0.9 Sodium 137 (136-145) mmol/L Potassium 3.6 (3.5-5.1) mmol/L Chloride 103 (98-107) mmol/L Carbon Dioxide 27 (21-32) mmol/L Anion Gap 7.0 (3-11) BUN 16 (7-18) mg/dl Creatinine 1.04 (0.6-1.2) mg/dl Est Cr Clr Drug Dosing 52.5 ml/min Est GFR ( Amer) 61.3 Est GFR (Non-Af Amer) 52.9 BUN/Creatinine Ratio 15.0 (10-20) Glucose 210 H (70-99) mg/dl POC Glucose (70-99) Lactate (0.4-2.0) mmol/L Calcium 9.2 (8.5-10.1) mg/dl Total Bilirubin 0.5 (0.2-1) mg/dl AST 43 H (15-37) U/L ALT 48 (12-78) U/L Alkaline Phosphatase 168 H (45-117) U/L Troponin I < 0.015 (0-0.045) ng/ml Total Protein 7.3 (6.4-8.2) gm/dl Albumin 3.4 (3.4-5.0) gm/dl Globulin 3.9 (2.5-4.0) gm/dl Albumin/Globulin Ratio 0.9 (0.9-2) Urine Color Urine Appearance (Clear) Urine pH (4.5-7.5) Ur Specific [place] (1.000-1.030) Urine Protein (Negative) Urine Glucose (UA) (Negative) Urine Ketones (Negative) Urine Blood (Negative) Urine Nitrite (Negative) Urine Bilirubin (Negative) Urine Urobilinogen (Negative) Ur Leukocyte Esterase (Negative) Urine WBC (Auto) (0-5) /hpf Urine RBC (Auto) (0-4) /hpf U Hyaline Cast (Auto) (0-5) /lpf U Epithel Cells (Auto) (0-5) /lpf Urine Bacteria (Auto) (Negative) Influenza Type A Ag (Neg) Influenza Type B Ag (Neg) 11/08/18 11/08/18 11/08/18 Range/Units 05:52 05:57 11:35 WBC (4.8-10.8) K/uL RBC (4.2-5.4) M/uL Hgb (12.0-16.0) g/dL Hct (37-47) % MCV (80-100) fL MCH (25-34) pg MCHC (32-36) g/dL RDW Std Deviation (36.4-46.3) fL RDW Coeff of Eran (11.5-14.5) % Plt Count (130-400) K/uL MPV (7.4-10.4) fL Immature Gran % (Auto) % Neut % (Auto) % Lymph % (Auto) % [place] % (Auto) % Eos % (Auto) % Baso % (Auto) % Immature Gran # (Auto) (0.00-0.02) K/uL Neut # (Auto) (1.4-6.5) K/uL Lymph # (Auto) (1.2-3.4) K/uL [place] # (Auto) (0.11-0.59) K/uL Eos # (Auto) (0-0.5) K/uL Baso # (Auto) (0-0.2) K/uL PT (9.0-12.0) Seconds INR (0.9-1.1) APTT (21.0-31.0) Seconds PTT Ratio Sodium (136-145) mmol/L Potassium (3.5-5.1) mmol/L Chloride (98-107) mmol/L Carbon Dioxide (21-32) mmol/L Anion Gap (3-11) BUN (7-18) mg/dl Creatinine (0.6-1.2) mg/dl Est Cr Clr Drug Dosing ml/min Est GFR ( Amer) Est GFR (Non-Af Amer) BUN/Creatinine Ratio (10-20) Glucose (70-99) mg/dl POC Glucose 237 H (70-99) Lactate 3.7 H* (0.4-2.0) mmol/L Calcium (8.5-10.1) mg/dl Total Bilirubin (0.2-1) mg/dl AST (15-37) U/L ALT (12-78) U/L Alkaline Phosphatase (45-117) U/L Troponin I (0-0.045) ng/ml Total Protein (6.4-8.2) gm/dl Albumin (3.4-5.0) gm/dl Globulin (2.5-4.0) gm/dl Albumin/Globulin Ratio (0.9-2) Urine Color Urine Appearance (Clear) Urine pH (4.5-7.5) Ur Specific [place] (1.000-1.030) Urine Protein (Negative) Urine Glucose (UA) (Negative) Urine Ketones (Negative) Urine Blood (Negative) Urine Nitrite (Negative) Urine Bilirubin (Negative) Urine Urobilinogen (Negative) Ur Leukocyte Esterase (Negative) Urine WBC (Auto) (0-5) /hpf Urine RBC (Auto) (0-4) /hpf U Hyaline Cast (Auto) (0-5) /lpf U Epithel Cells (Auto) (0-5) /lpf Urine Bacteria (Auto) (Negative) Influenza Type A Ag Neg for Influ A (Neg) Influenza Type B Ag Neg for Influ B (Neg) 11/08/18 11/08/18 11/08/18 Range/Units 15:20 15:33 16:32 WBC (4.8-10.8) K/uL RBC (4.2-5.4) M/uL Hgb (12.0-16.0) g/dL Hct (37-47) % MCV (80-100) fL MCH (25-34) pg MCHC (32-36) g/dL RDW Std Deviation (36.4-46.3) fL RDW Coeff of Eran (11.5-14.5) % Plt Count (130-400) K/uL MPV (7.4-10.4) fL Immature Gran % (Auto) % Neut % (Auto) % Lymph % (Auto) % [place] % (Auto) % Eos % (Auto) % Baso % (Auto) % Immature Gran # (Auto) (0.00-0.02) K/uL Neut # (Auto) (1.4-6.5) K/uL Lymph # (Auto) (1.2-3.4) K/uL [place] # (Auto) (0.11-0.59) K/uL Eos # (Auto) (0-0.5) K/uL Baso # (Auto) (0-0.2) K/uL PT (9.0-12.0) Seconds INR (0.9-1.1) APTT (21.0-31.0) Seconds PTT Ratio Sodium (136-145) mmol/L Potassium (3.5-5.1) mmol/L Chloride (98-107) mmol/L Carbon Dioxide (21-32) mmol/L Anion Gap (3-11) BUN (7-18) mg/dl Creatinine (0.6-1.2) mg/dl Est Cr Clr Drug Dosing ml/min Est GFR ( Amer) Est GFR (Non-Af Amer) BUN/Creatinine Ratio (10-20) Glucose (70-99) mg/dl POC Glucose 262 H (70-99) Lactate 2.4 H* (0.4-2.0) mmol/L Calcium (8.5-10.1) mg/dl Total Bilirubin (0.2-1) mg/dl AST (15-37) U/L ALT (12-78) U/L Alkaline Phosphatase (45-117) U/L Troponin I (0-0.045) ng/ml Total Protein (6.4-8.2) gm/dl Albumin (3.4-5.0) gm/dl Globulin (2.5-4.0) gm/dl Albumin/Globulin Ratio (0.9-2) Urine Color [place] Urine Appearance Clear (Clear) Urine pH 5.0 (4.5-7.5) Ur Specific [place] 1.016 (1.000-1.030) Urine Protein Negative (Negative) Urine Glucose (UA) Negative (Negative) Urine Ketones Trace H (Negative) Urine Blood Negative (Negative) Urine Nitrite Negative (Negative) Urine Bilirubin Negative (Negative) Urine Urobilinogen Negative (Negative) Ur Leukocyte Esterase Trace H (Negative) Urine WBC (Auto) 1-5 (0-5) /hpf Urine RBC (Auto) 0-4 (0-4) /hpf U Hyaline Cast (Auto) 1-5 (0-5) /lpf U Epithel Cells (Auto) 10-20 H (0-5) /lpf Urine Bacteria (Auto) Negative (Negative) Influenza Type A Ag (Neg) Influenza Type B Ag (Neg) Imaging Data Radiologist's Impression: Radiology results as stated below per my review and the radiologist's interpretation: XR chest 1V portable CLINICAL HISTORY: Sepsis. COMPARISON STUDY: Chest radiograph August 17, 2018. FINDINGS: Dual-lead left subclavian pacemaker is unchanged in position. Moderate cardiomegaly is noted without evidence for pulmonary edema. There is no pneumothorax or pleural effusion. There is no consolidation to suggest pneumonia. IMPRESSION: No acute cardiopulmonary findings. No change in appearance of the chest. Electronically signed by: Vishal Nj M.D. 11/08/2018 6:54 AM ECG Data Attestation: I personally reviewed and interpreted this ECG as follows: Indication: vomiting Rate (beats per minute): 80 Rhythm: other (AV paced) Findings: no PAC, no PVC and no acute ischemic change Blood Pressure Blood Pressure Findings: Normal blood pressure Blood Pressure Disposition: further management by hospitalist AMOS Del Real The patient is a 73 year old female who presents to the Emergency Room with complaints of urinary symptoms, intermittent nausea, diarrhea and vomiting for the past 2 days. The patient has a long history of health problems. She has had multiple previous episodes of sepsis secondary to urinary tract infections. The patient thought she was developing a urinary tract infection and was started on antibiotics by her primary care physician. Despite starting the meds, the patient began to feel worse with nausea and diarrhea. Upon presentation, the patient did have a low-grade fever. A septic workup was performed and revealed a significant elevation to her lactate. I believe she has a partially treated urinary tract infection. Patient became somewhat hypotensive concerning for septic shock. She was bolused with 2.5 L of normal saline solution which improved her blood pressure. She was treated with IV antibiotics. She is hemodynamically stable at the time of admission. I did review the patient's ultrasound she had done as an outpatient. This did show cirrhosis with some splenomegaly. There are no other significant acute findings. I discussed the case with the hospitalist and they will evaluate for further management. Impression & Plan Septic shock, Acute UTI Critical Care Time I have personally spent greater than 30 minutes of critical care time in the direct management of this patient. This includes bedside care, interpretation of diagnostic studies, and testing, discussion with consultants, patient, and family members, and other required patient management activities. This 30 minutes is in excess of all separately billable procedures. Critical Care Time: Yes (30) Total Critical Care Time: 30 Discharge Plan Visit Data *Final* Discharge Date/Time: 11/08/18 09:40 Chief Complaint: Illness Stated Complaint: uti ED Provider: Niecy Miranda Discharge Problem: Septic shock, Acute UTI Patient Disposition: Admitted As Inpatient Discharge Instructions Interventions: ED Discharge Assessment Last Done: 11/08/18 09:40 The scribe's documentation has been prepared under my direction and personally reviewed by me in its entirety. I confirm that the note above accurately reflects all work, treatment, procedures, and medical decision making performed by me.
[2018-11-08] MEDS: ATORVASTATIN 20 MG TAB PO SCH (21:14)
[2018-11-08] MEDS: INSULIN DETEMIR FLEXPEN/FLEX TOUCH 100 UNITS/ML 3ML SC SCH (21:16)
[2018-11-08] MEDS: LATANOPROST 0.005% OP SOLN 2.5 ML BTL OPB SCH (22:06)
[2018-11-09] MEDS ORDERED: INSULIN ASPART 100 UNITS/ML 3 ML PEN SC SCH
[2018-11-09] MEDS: IMIPENEM/CILASTATIN SODIUM 500 MG in DEXTROSE 5% 100 ML IV SCH ×2 (01:24→08:09)
[2018-11-09] MEDS: HYDROCORTISONE SOD 50 MG in SYRINGE 0 ML IV SCH ×2 (05:03→10:22)
[2018-11-09 05:52] LABS: Basophils # (auto) 0.01 K/uL (0-0.2); Basophils % (auto) 0.3 %; Eosinophils # (auto) 0.03 K/uL (0-0.5); Eosinophils % (auto) 0.9 %; Hematocrit (blood only) 32.7 % (37-47); Hemoglobin 10.3 g/dL (12.0-16.0); Immature Granulocytes # (auto) 0.01 K/uL (0.00-0.02); Immature Granulocytes % (auto) 0.3 %; Lymphocytes # (auto) 0.58 K/uL (1.2-3.4); Lymphocytes % (auto) 17.9 %; Mean Corpuscular Hgb Conc 31.5 g/dL (32-36); Mean Corpuscular Volume 89.3 fL (80-100); Mean Platelet Volume 10.3 fL (7.4-10.4); Monocytes # (auto) 0.18 K/uL (0.11-0.59); Monocytes % (auto) 5.6 %; Neutrophils # (auto) 2.43 K/uL (1.4-6.5); Platelet Count 124 K/uL (130-400); Red Blood Count 3.66 M/uL (4.2-5.4); White Blood Count 3.24 K/uL (4.8-10.8)
[2018-11-09] MEDS: LEVOTHYROXINE SODIUM 125 MCG TABLET PO SCH (06:00)
[2018-11-09 06:10] LABS: BUN Creatinine Ratio 16.2 (10-20); Calcium 8.5 mg/dl (8.5-10.1); Creatinine Clr Calc Pharmacy 66.6 ml/min; Est GFR (African American) 80.5; Est GFR (Non-African American) 69.5; Potassium 3.7 mmol/L (3.5-5.1)
[2018-11-09 06:11] LABS: Estimated Average Glucose 214 mg/dl
[2018-11-09] MEDS: PANTOprazole 40 MG TAB PO SCH (07:59)
[2018-11-09] MEDS: SOTALOL HCL 80 MG TAB PO SCH ×2 (07:59→20:45)
[2018-11-09] MEDS: dilTIAZem HCL 120 MG CAPCR PO SCH (08:00)
[2018-11-09] MEDS: CITALOPRAM 20 MG TAB PO SCH ×2 (08:00→08:01)
[2018-11-09] MEDS: ASPIRIN 81 MG ECTAB PO SCH (08:00)
[2018-11-09] MEDS: ENOXAPARIN INJ 40 MG/0.4 ML SYR SQ SCH ×2 (08:01→08:31)
[2018-11-09] MEDS: FERROUS SULFATE 325 MG TAB PO SCH ×2 (08:01→20:45)
[2018-11-09] MEDS: INSULIN DETEMIR FLEXPEN/FLEX TOUCH 100 UNITS/ML 3ML SC SCH ×2 (08:02→20:46)
[2018-11-09] MEDS: INSULIN ASPART 100 UNITS/ML 3 ML PEN SC SCH ×4 (08:04→20:46)
[2018-11-09] MEDS ORDERED: DAPTOmycin 425 MG in SYRINGE 0 ML IV SCH (09:00)
--- NOTE | 2018-11-09 10:33 | Pharmacy Report ---
Glycemic Control Consultation - Date of Service November 09, 2018 - Scope Scope: Glycemic Pharmacist consulted by Dr. Og on 11/08/18 for glycemic control and to write orders per [facility] inpatient glycemic control protocol - Objective Weight: 95.4 kg Accuchecks BSG (last 24hrs): 11/08/18 11/08/18 11/08/18 11:35 16:32 20:59 Glucose POC Glucose 237 H 262 H 279 H 11/08/18 11/09/18 11/09/18 23:55 05:16 07:31 Glucose 186 H POC Glucose 177 H 193 H Laboratory Data (last 24hrs): 11/09/18 05:16 Potassium 3.7 Carbon Dioxide 27 Anion Gap 6.0 Creatinine 0.83 Est Cr Clr Drug Dosing 66.6 HbA1c: Hemoglobin A1c 9.1 % (4.5-5.6) H 11/09/18 05:16 - Recent Pertinent Medications Outpatient Anti-diabetic Regimen: * Levemir 90 units SQ qAM, metformin 1000 mg PO BID * A1c = 8.3 % Jul 2018 Risk Factors for Insulin Resistance: * Steroids: HC 50 mg IV q6h * Infection: sepsis * Diet: T2DM - Assessment & Plan Assessment & Plan: ASSESSMENT: * 73 yr old T2DM female admitted for sepsis. Patient with h/o of adrenal insufficiency. She is currently on stress dose hydrocortisone; 50 mg IV q6h. * Aubree received a total of 140 units of SQ insulin yesterday (95 units of basal/45 units of novolog). Of note, the patients AM Lantus dose was given late yesterday (~1200). Her home dose of Lantus 90 units qAM was split BID for easier titration, therefore she was basal deficient yesterday. Fasting BSG of 193 mg/dL is not surprising. * Post prandial BSGs are elevated despite tight Novolog control. Will further tighten parameters while on stress dose hydrocortisone. PLAN FOR INPATIENT GLYCEMIC CONTROL: * Holding outpatient oral diabetes medications * Basal insulin * Levemir per scale SQ BID * 40 units for BSG < 120 * 45 units for BSG 120 - 180 * 50 units for BSG > 180 * Bolus insulin - tighten * NovoLog per scale ACHS or Q6hrs while NPO * Goal Range: Low 110 mg/dL - High 140 mg/dL * Correction Factor: 10 mg/dL/unit * Nutritional / Prandial insulin per carb ratio of 1 unit per 3 grams CHO consumed * Please note that the plan above was derived based on current level of insulin resistance and hospital stress. These recommendations are appropriate for inpatient admission only. Plan of care upon discharge will need to be reassessed to avoid potential outpatient hypo/hyperglycemia. Thank you.
[2018-11-09] MEDS ORDERED: INSULIN DETEMIR FLEXPEN/FLEX TOUCH 100 UNITS/ML 3ML SC ONE (12:30)
[2018-11-09] MEDS: CEFDINIR 300 MG CAP PO SCH (13:45)
--- NOTE | 2018-11-09 15:05 | Hospitalist Progress Note ---
Date of Service November 09, 2018 Assessment & Plan (1) UTI (urinary tract infection): Patient with symptoms of urinary tract infection. She has had many of these before. She began antibiotics prior to arrival. Urinalysis with culture are negative.Broad spectrum abx switched to cefdinir. Monitor overnight. (2) Sepsis: Sepsis was avoided during this hospitalization. She certainly appeared to be developing this initially, however, with abx and resuscitation efforts, this was avoided. Blood cultures are negative and she is clinically improved today. (3) T2DM (type 2 diabetes mellitus): The patient has been self titrating Levemir at home and reports numbers "all over the place." Will utilize Levemir and NovoLog while in the hospital and on IV hydrocortisone. Pharmacy consult for assistance. A1C is >9 reflecting poor control. (4) Adrenal insufficiency: clinically improved. Switch IV hydrocortisone back to PO Cortef. 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 Cont outpatient GI monitoring. (6) Depression: Continue daily citalopram per home regimen (7) Hypothyroidism: Continue Synthroid replacement (8) DVT prophylaxis: Lovenox Full code as confirmed with patient and her on admission Disposition-med/surg [facility] Hospital[facility] Subjective Clinically improved, afebrile, dysuri and urgency gone. Physical Exam 2 Vital Signs (Past 24 Hours): Last Vital Signs Temp 36.9 C 11/09/18 14:13 Pulse 64 11/09/18 14:13 Resp 18 11/09/18 14:13 BP 119/73 11/09/18 14:13 Pulse Ox 93 11/09/18 14:13 CONSTITUTIONAL: obese, vitals as above, clinically improved, well-appearing. EYES: normal conjuctivae, no scleral icterus ENT: MM moist NECK: trachea midline RESPIRATORY: clear to auscultation bilaterally, no crackles, rales or wheezes, normal respiratory effort CARDIOVASCULAR: regular rate and rhythm, S1 and 2 heard without murmurs, gallops or rubs, no peripheral edema CHEST: inspection of chest revealed well-healed scar from recent pacemaker insertion GASTROINTESTINAL: large protuberant abdomen, normal bowel sounds, soft, nontender, nondistended, no guarding, no CVA tenderness (accidental report of + CVA TTP yesterday, this was incorrect. CVA tenderness not present this entire admission) MUSCULOSKELETAL: strength 5/5 throughout, head is normocephalic and atraumatic SKIN: warm and dry NEUROLOGIC: No facial palsy, no dysarthria. CN 2-12 grossly intact, normal cognition, normal speech PSYCHIATRIC: alert cooperative and oriented to person, place and time. Euthymic mood, makes good eye contact Results & Data Medications Administered Current Inpatient Medications Acetaminophen (Tylenol) 650 mg PO Q4H PRN PRN Reason: Pain or Fever Stop: 12/08/18 10:02 Last Admin: 11/08/18 10:49 Dose: 650 mg Aspirin (Ecotrin) 81 mg PO DAILY [facility] Stop: 12/08/18 08:59 Last Admin: 11/09/18 08:00 Dose: 81 mg Atorvastatin Calcium (Lipitor) 20 mg PO HS [facility] Stop: 12/08/18 20:59 Last Admin: 11/09/18 20:46 Dose: 20 mg Cefdinir (Omnicef) 300 mg PO Q12H [facility] Stop: 11/14/18 12:59 Last Admin: 11/10/18 00:14 Dose: 300 mg Citalopram Hydrobromide (Celexa) 20 mg PO QAM [facility] Stop: 12/08/18 08:59 Last Admin: 11/09/18 08:00 Dose: 20 mg Citalopram Hydrobromide (Celexa) 10 mg PO QAM [facility] Stop: 12/08/18 08:59 Last Admin: 11/09/18 08:01 Dose: 10 mg Dextrose (Dextrose 50%) 25 - 50 ml IV UD PRN; Protocol PRN Reason: Hypoglycemia Protocol Stop: 12/08/18 10:02 Diltiazem HCl (Cardizem Cd) 120 mg PO QAM [facility] Stop: 12/08/18 08:59 Last Admin: 11/09/18 08:00 Dose: 120 mg Enoxaparin Sodium (Lovenox) 40 mg SQ QAM [facility] Stop: 12/08/18 10:02 Last Admin: 11/09/18 08:31 Dose: Not Given Ferrous Sulfate (Feosol) 325 mg PO BID [facility] Stop: 12/08/18 08:59 Last Admin: 11/09/18 20:45 Dose: 325 mg Glucagon (Glucagen) 1 mg SQ UD PRN; Protocol PRN Reason: Hypoglycemia Protocol Stop: 12/08/18 10:02 Glucose (Glucose 40%) 15 - 30 gm PO UD PRN; Protocol PRN Reason: Hypoglycemia Protocol Stop: 12/08/18 10:02 Glucose (Dex4 Glucose) 4 - 8 tabs PO UD PRN; Protocol PRN Reason: Hypoglycemia Protocol Stop: 12/08/18 10:02 Hydrocortisone (Cortef) 20 mg PO QAM [facility] Stop: 12/10/18 08:59 Hydrocortisone (Cortef) 10 mg PO DAILY@16 [facility] Stop: 12/09/18 15:59 Last Admin: 11/09/18 16:59 Dose: 10 mg Insulin Aspart (Novolog Flexpen) 0 units SC ACHS [facility]; Protocol Stop: 12/08/18 11:29 Last Admin: 11/09/18 20:46 Dose: 7 units Insulin Detemir (Levemir Flextouch) 0 units SC BID [facility]; Protocol Stop: 12/08/18 20:59 Last Admin: 11/09/18 20:46 Dose: 50 units Latanoprost (Xalatan Oph) 1 drops OPB HS [facility] Stop: 12/08/18 20:59 Last Admin: 11/09/18 20:46 Dose: 1 drops Levothyroxine Sodium (Synthroid) 125 mcg PO DAILYBB [facility] Stop: 12/09/18 06:29 Last Admin: 11/10/18 05:45 Dose: 125 mcg Miscellaneous (Carbohydrates For Hypoglycemia) 15 - 30 gm PO UD PRN PRN Reason: Hypoglycemia Treatment Stop: 12/08/18 10:02 Miscellaneous Information (Consult Glycemic Management Pharmacy) 1 ea N/A UD [facility]; Protocol Stop: 12/08/18 10:08 Pantoprazole Sodium (Protonix) 40 mg PO DAILY [facility] Stop: 12/08/18 08:59 Last Admin: 11/09/18 07:59 Dose: 40 mg Promethazine HCl (Phenergan) 25 mg PO Q6H PRN PRN Reason: Nausea And Vomiting Stop: 12/08/18 10:02 Last Admin: 11/08/18 10:50 Dose: 25 mg Sotalol HCl (Betapace) 120 mg PO BID [facility] Stop: 12/08/18 08:59 Last Admin: 11/09/18 20:45 Dose: 120 mg Tramadol HCl (Ultram) 50 mg PO Q6H PRN PRN Reason: Pain Stop: 01/31/19 12:02 _ (1) Sepsis Sepsis type:
[2018-11-09] MEDS ORDERED: HYDROCORTISONE 10 MG TAB PO SCH (16:00)
[2018-11-09] MEDS: LATANOPROST 0.005% OP SOLN 2.5 ML BTL OPB SCH (20:46)
[2018-11-09] MEDS: ATORVASTATIN 20 MG TAB PO SCH (20:46)
[2018-11-10] MEDS: CEFDINIR 300 MG CAP PO SCH ×2 (00:14→12:42)
[2018-11-10] MEDS: LEVOTHYROXINE SODIUM 125 MCG TABLET PO SCH (05:45)
[2018-11-10] MEDS: ASPIRIN 81 MG ECTAB PO SCH (07:49)
[2018-11-10 07:50] VITALS: PULSE 100; TEMP 98.4; O2SAT 97
[2018-11-10] MEDS: FERROUS SULFATE 325 MG TAB PO SCH (07:50)
[2018-11-10] MEDS: PANTOprazole 40 MG TAB PO SCH (07:50)
[2018-11-10] MEDS: dilTIAZem HCL 120 MG CAPCR PO SCH (07:50)
[2018-11-10] MEDS: CITALOPRAM 20 MG TAB PO SCH ×2 (07:50→07:52)
[2018-11-10] MEDS: ENOXAPARIN INJ 40 MG/0.4 ML SYR SQ SCH ×2 (07:51→07:56)
[2018-11-10] MEDS: SOTALOL HCL 80 MG TAB PO SCH (08:19)
[2018-11-10] MEDS: INSULIN ASPART 100 UNITS/ML 3 ML PEN SC SCH ×2 (08:47→12:44)
[2018-11-10] MEDS ORDERED: HYDROCORTISONE 10 MG TAB PO SCH (09:00)
[2018-11-10] MEDS ORDERED: INSULIN DETEMIR FLEXPEN/FLEX TOUCH 100 UNITS/ML 3ML SC ONE (09:30)
[2018-11-10 09:43] LABS: Hematocrit (blood only) 38.8 % (37-47); Hemoglobin 12.7 g/dL (12.0-16.0); Mean Corpuscular Hgb Conc 32.7 g/dL (32-36); Mean Corpuscular Volume 89.8 fL (80-100); Mean Platelet Volume 10.5 fL (7.4-10.4); Platelet Count 229 K/uL (130-400); RDW Standard Deviation 49.1 fL (36.4-46.3); Red Blood Count 4.32 M/uL (4.2-5.4); White Blood Count 6.83 K/uL (4.8-10.8)
[2018-11-10 10:17] LABS: BUN Creatinine Ratio 16.6 (10-20); Creatinine Clr Calc Pharmacy 60.8 ml/min; Est GFR (Non-African American) 62.2; Potassium 3.2 mmol/L (3.5-5.1)
[2018-11-10] MEDS ORDERED: INSULIN GLARGINE SOLOSTAR 100 UNITS/ML 3 ML PEN SC SCH (10:30)
[2018-11-10] MEDS ORDERED: POTASSIUM CHLORIDE 20 MEQ TABCR PO STA (11:00)
--- NOTE | 2018-11-10 13:37 | Pharmacy Report ---
Pharmacy Glycemic Short Note 2 - Date of Service November 10, 2018 - Glycemic Short BSG Results (Last 24 hours): 11/09/18 11/09/18 11/10/18 17:10 20:28 07:23 Glucose POC Glucose 234 H 222 H 78 11/10/18 11/10/18 11/10/18 08:46 09:33 11:32 Glucose 172 H POC Glucose 162 H 152 H ASSESSMENT: * Ms. Loves BSGs over the previous 24hrs have mostly been >200mg/dL. FBS today was 78mg/dL and lunch 152mg/dL. She typically requires 100units/D while at home and has been requiring significantly more while inpt. I start to worry about hypoglycemia given the drop in FBS today and increased utilization of daily insulin * I reduced this AM's lantus dose to 30units (she gets 90 while at home) and moved it to 1000. PLAN FOR INPATIENT GLYCEMIC CONTROL: * Basal insulin - loosening * Lantus scale SQ BID * give 30units for BSGs <140mg/dL * give 35 units for BSGs 140-200mg/dL * give 40 units for BSGs>200mg/dL * Bolus insulin - loosening * NovoLog per scale ACHS or Q6hrs while NPO * Goal Range: Low 110 mg/dL - High 140 mg/dL * Correction Factor: 15 mg/dL/unit * Nutritional / Prandial insulin per carb ratio of 1 unit per 6 grams CHO consumed
[2018-11-10 13:53] VITALS: BP 107/70
--- NOTE | 2018-11-17 13:45 | Discharge Summary ---
Date of Service November 17, 2018 Admission HPI Per Admitting Provider 73-year-old female with history of recurrent UTI, reporting several hospitalizations this year for urinary tract infections, reports not feeling well. She reports diarrhea for 2 days that has resolved with the last bowel movement last evening. She then felt a lower back pain that felt like a pressure and went down through to the bottom of her buttocks. The ache was across her back and she felt this was related to her bladder. She called her physician who called in an antibiotic, however this is not documented in the outpatient record and it is uncertain which antibiotic she started yesterday. She reports chills but denies fever. She reports some vomiting in the ER this morning. She reports urgency and increased frequency of urination but denies any burning with urination or hematuria. She does have a history of kidney stones and does not feel this is consistent with that feeling she has had in the past. She has a history of Mccracken cirrhosis that is compensated but states that her abdomen started to swell yesterday. She does have some residual abdominal cramping that is minor. She denies any headache, cough, sick contacts or recent travel. She states she walks independently and lives at home with her . She has overall generalized weakness. At this time her nausea is resolved after Zosyn. In the ER she received empiric daptomycin and imipenem as well as 2 L of normal saline. She denies any other cold symptoms. Admission Exam Per Admitting Provider CONSTITUTIONAL: obese, vitals as above, generally ill-appearing with weakness and fatigue. EYES: PERRL, normal conjuctivae, no scleral icterus ENT: MM dry NECK: trachea midline RESPIRATORY: clear to auscultation bilaterally, no crackles, rales or wheezes, normal respiratory effort CARDIOVASCULAR: regular rate and rhythm, S1 and 2 heard without murmurs, gallops or rubs, no peripheral edema CHEST: inspection of chest revealed well-healed scar from recent pacemaker insertion GASTROINTESTINAL: large protuberant abdomen, normal bowel sounds, soft, nontender, nondistended, no guarding, +CVA tenderness MUSCULOSKELETAL: strength 5/5 throughout, head is normocephalic and atraumatic SKIN: warm and dry NEUROLOGIC: No facial palsy, no dysarthria. CN 2-12 grossly intact, normal cognition, normal speech PSYCHIATRIC: alert cooperative and oriented to person, place and time. Euthymic mood, makes good eye contact, Principal Diagnosis UTI Uncontrolled DMII Discharge Exam CONSTITUTIONAL: obese, vitals as above, clinically improved, well-appearing. EYES: normal conjuctivae, no scleral icterus ENT: MM moist NECK: trachea midline RESPIRATORY: clear to auscultation bilaterally, no crackles, rales or wheezes, normal respiratory effort CARDIOVASCULAR: regular rate and rhythm, S1 and 2 heard without murmurs, gallops or rubs, no peripheral edema CHEST: inspection of chest revealed well-healed scar from recent pacemaker insertion GASTROINTESTINAL: large protuberant abdomen, normal bowel sounds, soft, nontender, nondistended, no guarding, no CVA tenderness (accidental report of + CVA TTP yesterday, this was incorrect. CVA tenderness not present this entire admission) MUSCULOSKELETAL: strength 5/5 throughout, head is normocephalic and atraumatic SKIN: warm and dry NEUROLOGIC: No facial palsy, no dysarthria. CN 2-12 grossly intact, normal cognition, normal speech PSYCHIATRIC: alert cooperative and oriented to person, place and time. Euthymic mood, makes good eye contact Discharge Data Allergies Allergy/AdvReac Type Severity Reaction Status Date / Time Iodinated Contrast- Oral and Allergy Intermediate RASH Verified 11/08/18 05:56 IV Dye Sulfa (Sulfonamide Allergy Intermediate HIVES Verified 11/08/18 05:56 Antibiotics) Cipro AdvReac Mild VOMITING Verified 03/16/18 08:59 ciprofloxacin AdvReac Mild VOMITING Verified 11/08/18 05:56 Consultations 11/08/18 08:46 ED Decision to Admit Stat 11/08/18 10:03 Consult Case Management - Discharge Planning Routine Ordered Studies 11/08/18 10:03 US abdomen limited Urgent Hospital Course (1) UTI (urinary tract infection): (2) Sepsis: (3) T2DM (type 2 diabetes mellitus): The patient has been self titrating Levemir at home and reports numbers "all over the place." Will (4) Adrenal insufficiency: (5) Liver cirrhosis secondary to MCCRACKEN: (6) Depression: (7) Hypothyroidism: 73-year-old diabetic female presented with urinary tract infection which is recurrent for her. She has been experiencing body aches and chills and fevers at home. She reported some nausea and vomiting. She appeared to have developing sepsis although did not meet Sirs criteria initially on admission. She was covered with broad-spectrum antibiotics including imipenem and daptomycin and was given IV fluids with an elevated lactate level. Lab work was initially unremarkable. The patient notably had Marino been on antibiotics as an outpatient and therefore, urinalysis results were negative. Another reason for this was the urine sample was not collected until several hours after antibiotics were started. However, with the patient having frequent urinary tract infections, and this episode consistent with prior symptoms, this was considered recurrent acute cystitis. She improved overnight and broad- spectrum antibiotics were switched to Ceftin ear. She notably had been self titrating Levemir at home and reported numbers "all over the place". Additionally in the setting of adrenal insufficiency and infection she was placed on IV hydrocortisone which also caused uncontrolled sugars. A1c was greater than 9 reflecting the poor control. She was discharged without much change in her Levemir regimen as she had close endocrine follow-up with the next week. She did have liver cirrhosis secondary to Mccracken however she was compensated with no ascites. After clinical improvement she was discharged in stable condition with close PCP follow-up. Total Time Total Time Spent Total Time Spent (In Minutes): 60 Total Time Includes: Examination of the Patient, Discharge Planning, Medication Reconciliation and Communication With Other Providers Discharge Plan Discharge Items Patient Disposition: Home - Self-Care Reason For Visit: SEPSIS Discharge Diagnosis: UTI Uncontrolled DMII Condition: Good Discharge Goals: Decrease discomfort Activity: Resume your previous activity Non-emergency contact: Primary Care Provider Call non-emergency contact if: you have any medication questions, your symptoms worsen, your pain is not controlled, your pain is unusual for you and you have a fever Follow-up/Referrals: Laron Murphy DO [Primary Care Provider] - Diet: Carb Consistent or DM2 and Heart Healthy Addtl Provider Instructions: Please take all medications as instructed on discharge list. Please follow-up with your PCP within one week of discharge, and follow with Dr. Albarado as discussed. It was a pleasure taking care of you! Please call if you have any questions or problems. You can reach a [facility] hospitalist on duty at [facility] 24 hours a day by calling [phone]. Take care of yourself. Vanessa Og DO [facility] Hospitalist Prescriptions: Continue citalopram 10 mg Tablet 10 mg PO QAM RF: 0 insulin detemir U-100 [Levemir U-100 Insulin] 100 unit/mL Solution 90 unit SUBCUT QAM RF: 0 atorvastatin 20 mg tablet 20 mg PO HS RF: 0 aspirin 81 mg tablet,delayed release (DR/EC) 81 mg PO DAILY RF: 0 latanoprost 0.005 % drops 1 drp OPB HS RF: 0 ferrous sulfate 325 mg (65 mg iron) tablet,delayed release (DR/EC) 325 mg PO BID RF: 0 pantoprazole 40 mg tablet,delayed release (DR/EC) 40 mg PO DAILY RF: 0 metformin 1,000 mg Tablet 1,000 mg PO BID RF: 0 furosemide 20 mg tablet 20 mg PO DAILY PRN (Reason: Edema) RF: 0 levothyroxine 112 mcg tablet 125 mcg PO DAILY RF: 0 hydrocortisone [Cortef] 5 mg Tablet See Label Instructions .ROUTE .COMPLEX RF: 0 citalopram 20 mg Tablet 20 mg PO QAM RF: 0 levothyroxine [Synthroid] 125 mcg Tablet 125 mcg PO DAILYBB Qty: 30 RF: 0 sotalol 80 mg Tablet 120 mg PO BID Qty: 60 RF: 5 diltiazem HCl 120 mg Capsule,Extended Release 24hr 120 mg PO QAM Qty: 30 RF: 5 Visit Report Forms: My [facility] Portal Stand-Alone Forms: [facility] Discharge Orders: Discharge Order (Routine); Ordered 11/10/18 Ordered By: Vanessa Og Admission Data Admit Date/Time: 11/09/18 12:38 Attending Provider: Vanessa Og Admit Provider: Vanessa Og Primary Care Provider: Laron Murphy Service: Medical Other Interventions: Discharge Summary Assessment (RN) Last Done: 11/10/18 13:52 DC Date/Time DO NOT enter until pt leaves facility: 11/10/18 15:00
== END 2018-11-10 15:00 | disposition home or self-care (01) | DRG 690 ==
LOC: ED 04:21 → 2S 04:21 → 4E 11-09 14:02
DX: K74.69 Other cirrhosis of liver; K75.81 Nonalcoholic steatohepatitis (NASH); Z79.4 Long term (current) use of insulin; Z87.440 Personal history of urinary (tract) infections; Z79.52 Long term (current) use of systemic steroids; E11.9 Type 2 diabetes mellitus without complications; Z79.82 Long term (current) use of aspirin; Z88.2 Allergy status to sulfonamides; Z91.041 Radiographic dye allergy status; Z79.899 Other long term (current) drug therapy; E03.9 Hypothyroidism, unspecified; E27.40 Unspecified adrenocortical insufficiency; N39.0 Urinary tract infection, site not specified; F32.9 Major depressive disorder, single episode, unspecified; Z88.1 Allergy status to other antibiotic agents; Z87.442 Personal history of urinary calculi

== ENCOUNTER 2018-11-21 08:34 | Observation (INO) ==
[2018-11-21] MEDS ORDERED: SODIUM CHLORIDE 0.9% 1000ML 500 ML IV ONE (08:52)
[2018-11-21 09:23] LABS: Basophils # (auto) 0.02 K/uL (0-0.2); Basophils % (auto) 0.2 %; Eosinophils # (auto) 0.11 K/uL (0-0.5); Hematocrit (blood only) 39.5 % (37-47); Hemoglobin 12.6 g/dL (12.0-16.0); Immature Granulocytes # (auto) 0.05 K/uL (0.00-0.02); Immature Granulocytes % (auto) 0.5 %; Lymphocytes # (auto) 0.43 K/uL (1.2-3.4); Lymphocytes % (auto) 4.1 %; Mean Corpuscular Hgb Conc 31.9 g/dL (32-36); Mean Platelet Volume 10.1 fL (7.4-10.4); Monocytes # (auto) 0.45 K/uL (0.11-0.59); Monocytes % (auto) 4.2 %; Neutrophils # (auto) 9.55 K/uL (1.4-6.5); Platelet Count 211 K/uL (130-400); RDW Coefficient of Variation 14.8 % (11.5-14.5); RDW Standard Deviation 47.9 fL (36.4-46.3); Red Blood Count 4.44 M/uL (4.2-5.4); White Blood Count 10.61 K/uL (4.8-10.8)
[2018-11-21 09:27] LABS: Influenza B virus by PCR Neg for Influ B (Neg)
--- NOTE | 2018-11-21 09:30 | XRay Report ---
XR chest 1V portable CLINICAL HISTORY: Sepsis COMPARISON STUDY: Chest radiograph November 08, 2018. FINDINGS: A dual lead left subclavian pacemaker is unchanged in position. There is no pneumothorax or pleural effusion. Cardiomegaly is unchanged. Pulmonary vascularity is normal. There is been interval development of left medial basilar opacity. Right lung is clear. IMPRESSION: Interval development of left medial basilar opacity which may reflect pneumonia. Post tr eatment radiographs to ensure resolution are recommended. Electronically signed by: Vishal Nj M.D. 11/21/2018 9:28 AM
[2018-11-21 09:31] LABS: INR 1.1 (0.9-1.1); Partial Thromboplastin Time 27.1 Seconds (21.0-31.0); Prothrombin Time 11.2 Seconds (9.0-12.0)
[2018-11-21] MEDS ORDERED: cefTRIAXone SODIUM 1,000 MG/50 ML BAG IV STA (09:36)
[2018-11-21 09:40] LABS: Alanine Aminotransferase 43 U/L (12-78); Albumin Level 2.9 gm/dl (3.4-5.0); Aspartate Aminotransferase 29 U/L (15-37); BUN Creatinine Ratio 13.9 (10-20); Blood Urea Nitrogen 15 mg/dl (7-18); Calcium 9.2 mg/dl (8.5-10.1); Carbon Dioxide 26 mmol/L (21-32); Chloride 97 mmol/L (98-107); Creatinine Clr Calc Pharmacy 50.2 ml/min; Est GFR (African American) 59.2; Est GFR (Non-African American) 51.1; Glucose 138 mg/dl (70-99); Potassium 3.6 mmol/L (3.5-5.1); Sodium 134 mmol/L (136-145)
[2018-11-21 09:47] LABS: Albumin Globulin Ratio 0.6 (0.9-2); Alkaline Phosphatase 224 U/L (45-117); Bilirubin,Total 1.1 mg/dl (0.2-1); Globulin 4.9 gm/dl (2.5-4.0); Total Protein 7.8 gm/dl (6.4-8.2); Troponin I < 0.015 ng/ml (0-0.045)
[2018-11-21] MEDS ORDERED: OSELTAMIVIR PHOSPHATE 75 MG CAP PO STA (09:50)
[2018-11-21] MEDS ORDERED: SODIUM CHLORIDE 0.9% 1000ML 1,000 ML IV ONE (10:26)
--- NOTE | 2018-11-21 10:39 | Emergency Department Note ---
Entered by Karen Napier acting as a scribe for History of Present Illness General Chief complaint: Flu Like Symptoms Stated complaint: fever,vomiting,weakness Time Seen by Provider: 11/21/18 08:47 Source: patient History of Present Illness Provider complaint: flu-like symptoms Onset (ago): day(s) (over the last several days) Location: left and right Quality: + other (flu-like symptoms) Associated symptoms: + chest pain, + cough, + fever/chills, + nausea/vomiting ( gagging), + shortness of breath and + other (left shoulder, neck pain, diarrhea) Treatments prior to arrival: other (Tylenol and Motrin) The patient is a 73 year old female who presents to the Emergency Room with complaints of flu-like symptoms over the last several days. The patient reports having left shoulder and neck pain but states that this has subsided. She reports that she has been febrile today. The patient also reports having chest pain and shortness of breath earlier but none currently. The patient states that she has had diarrhea over the last several days and also reports having a runny nose. She states that she has been taking Tylenol and Motrin. The patient reports a history of a pacemaker placement, pituitary tumors, and frequent UTIs. She states that she was told to come to the ED if she gets a temperature above 100. She states that she saw her urologist, family doctor, and her deliverer pharmacy this last week, but reports that she was not sick when she saw these doctors. Home Medications Home Medications Medication Instructions Recorded Confirmed Type aspirin 81 mg PO QAM 07/30/18 11/21/18 History atorvastatin 20 mg PO 07/30/18 11/21/18 History citalopram 20 mg PO QAM 07/30/18 11/21/18 History ferrous sulfate 325 mg PO BID 07/30/18 11/21/18 History furosemide 20 mg PO DAILY PRN 07/30/18 11/21/18 History hydrocortisone [Cortef] See Label Instructions .ROUTE 07/30/18 11/21/18 History .COMPLEX latanoprost 1 drp OPB 07/30/18 11/21/18 History metformin 1,000 mg PO BID 07/30/18 11/21/18 History pantoprazole 40 mg PO DAILYBB 07/30/18 11/21/18 History levothyroxine [Synthroid] 125 mcg PO DAILYBB #30 tab 08/03/18 11/21/18 Rx diltiazem HCl 120 mg PO QAM #30 cap 08/19/18 11/21/18 Rx sotalol 120 mg PO BID #60 tab 08/19/18 11/21/18 Rx citalopram 10 mg PO QAM 11/08/18 11/21/18 History insulin detemir U-100 [Levemir 90 unit SUBCUT DAILYBB 11/08/18 11/21/18 History U-100 Insulin] nitrofurantoin macrocrystal 100 mg PO DAILY 11/21/18 11/21/18 History Allergies Allergy/AdvReac Type Severity Reaction Status Date / Time Iodinated Contrast- Oral and Allergy Intermediate RASH Verified 11/21/18 09:35 IV Dye Sulfa (Sulfonamide Allergy Intermediate HIVES Verified 11/21/18 09:35 Antibiotics) Cipro AdvReac Mild VOMITING Verified 03/16/18 08:59 ciprofloxacin AdvReac Mild VOMITING Verified 11/21/18 09:35 nickel AdvReac Rash Verified 11/21/18 12:22 Past Med/Surg History Medical History SERENA on CPAP (Chronic) Intracerebral hemorrhage (Resolved) RBBB (Chronic) Leukocytoclastic vasculitis (Chronic) CKD (chronic kidney disease), stage III (Chronic) Recurrent UTI (Chronic) Pacemaker (Chronic) Adenoma of pituitary (Chronic) History of ITP (Chronic) Adrenal insufficiency (Chronic) Depression (Chronic) 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) RBBB (right bundle branch block) (Chronic) PAF (paroxysmal atrial fibrillation) (Chronic) NO AC due to ITP and h/o cirrohosis Hypothyroidism (Chronic) Tachy-cyril syndrome (Chronic) T2DM (type 2 diabetes mellitus) (Chronic) Hypertension (Chronic) Chronic steroid use (Chronic) Kidney stone (Resolved) NSTEMI (non-ST elevated myocardial infarction) (Chronic) Anticoagulated on Coumadin (Resolved) Dehydration (Resolved) Flu-like symptoms (Resolved) Gastroenteritis (Resolved 09/06/13) Cirrhosis of liver (Inactive) Petechial rash (Inactive) Renal colic (Inactive) Sepsis (Inactive) UTI (urinary tract infection) (Inactive) Ureteral calculus, right (Inactive) Pituitary apoplexy Volume overload Surgical History History of cataract surgery (Chronic) H/O sinus surgery (Chronic) S/P selective transsphenoidal pituitary adenomectomy Family History Mother Cancer Sister Diabetes Social History Current Living Situation: Spouse Other Information That Helps Us Care for You: No Feels Safe at Home: Yes Safety Concerns: Feels Safe At This Time Smoking Status: Never smoker Do You Dip or Chew Tobacco: No Second Hand Exposure: No Tobacco Cessation Education Requested by Patient: No Hx Alcohol Use: No Hx Substance Use: No Beliefs That Will Affect Care: None Preferred Language: Hungarian Communication Ability: Effective 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 and A total of 10 systems reviewed and were otherwise negative Physical Exam Vital Signs Vital Signs - 24 hr 11/21/18 08:37 11/21/18 08:51 11/21/18 09:16 Temperature 37.7 C H Temperature Source Oral Sepsis Recent Fever Within 48 Hours Yes Sepsis New/Unexplained Change in Mental Status No Sepsis Action Taken by Nursing No Action Required Pulse Rate 80 76 75 Pulse Rate [Right] Pulse Rhythm [Right] Pulse Strength [Right] Respiratory Rate 16 20 27 H Respiratory Effort / Characteristics Respiratory Depth Respiratory Pattern Blood Pressure 103/67 Blood Pressure [Right Arm] Blood Pressure Mean 79 Blood Pressure Mean [Right Arm] Blood Pressure Position [Right Arm] Pulse Oximetry 95 95 94 Oxygen Delivery Method Room Air Room Air 11/21/18 09:30 11/21/18 09:47 11/21/18 10:00 Temperature Temperature Source Sepsis Recent Fever Within 48 Hours Sepsis New/Unexplained Change in Mental Status Sepsis Action Taken by Nursing Pulse Rate 71 82 73 Pulse Rate [Right] Pulse Rhythm [Right] Pulse Strength [Right] Respiratory Rate 21 22 21 Respiratory Effort / Characteristics Respiratory Depth Respiratory Pattern Blood Pressure 117/58 L Blood Pressure [Right Arm] Blood Pressure Mean 77 Blood Pressure Mean [Right Arm] Blood Pressure Position [Right Arm] Pulse Oximetry 95 95 93 Oxygen Delivery Method 11/21/18 10:30 11/21/18 11:00 11/21/18 11:27 Temperature Temperature Source Sepsis Recent Fever Within 48 Hours Sepsis New/Unexplained Change in Mental Status Sepsis Action Taken by Nursing Pulse Rate 102 H 124 H 108 H Pulse Rate [Right] Pulse Rhythm [Right] Pulse Strength [Right] Respiratory Rate 17 29 H 21 Respiratory Effort / Characteristics Respiratory Depth Respiratory Pattern Blood Pressure 117/71 Blood Pressure [Right Arm] Blood Pressure Mean 86 Blood Pressure Mean [Right Arm] Blood Pressure Position [Right Arm] Pulse Oximetry 94 95 96 Oxygen Delivery Method 11/21/18 11:30 11/21/18 12:08 11/21/18 12:20 Temperature Temperature Source Sepsis Recent Fever Within 48 Hours Sepsis New/Unexplained Change in Mental Status Sepsis Action Taken by Nursing Pulse Rate 105 H Pulse Rate [Right] 101 H Pulse Rhythm [Right] Pulse Strength [Right] Respiratory Rate 22 21 Respiratory Effort / Characteristics Spontaneous Respiratory Depth Normal Respiratory Pattern Blood Pressure Blood Pressure [Right Arm] 119/67 Blood Pressure Mean Blood Pressure Mean [Right Arm] 84 Blood Pressure Position [Right Arm] Pulse Oximetry 96 96 Oxygen Delivery Method Room Air Room Air 11/21/18 12:23 11/21/18 15:00 11/21/18 16:00 Temperature 37.0 C 37.0 C Temperature Source Oral Oral Sepsis Recent Fever Within 48 Hours Sepsis New/Unexplained Change in Mental Status Sepsis Action Taken by Nursing Pulse Rate Pulse Rate [Right] 115 H 72 Pulse Rhythm [Right] Regular Pulse Strength [Right] Normal Respiratory Rate 18 18 Respiratory Effort / Characteristics Non-Labored Spontaneous Non-Labored Respiratory Depth Normal Respiratory Pattern Regular Blood Pressure Blood Pressure [Right Arm] 109/66 100/59 L Blood Pressure Mean Blood Pressure Mean [Right Arm] 80 72 Blood Pressure Position [Right Arm] Sitting Sitting Pulse Oximetry 93 95 Oxygen Delivery Method Room Air Room Air Room Air 11/21/18 19:24 11/21/18 23:10 11/21/18 23:35 Temperature 37.2 C 36.8 C Temperature Source Oral Oral Sepsis Recent Fever Within 48 Hours Sepsis New/Unexplained Change in Mental Status Sepsis Action Taken by Nursing Pulse Rate 76 Pulse Rate [Right] 68 73 Pulse Rhythm [Right] Pulse Strength [Right] Respiratory Rate 20 16 18 Respiratory Effort / Characteristics Non-Labored Spontaneous Respiratory Depth Normal Respiratory Pattern Regular Blood Pressure Blood Pressure [Right Arm] 115/61 106/69 Blood Pressure Mean Blood Pressure Mean [Right Arm] 79 81 Blood Pressure Position [Right Arm] Lying Pulse Oximetry 95 96 95 Oxygen Delivery Method CPAP 11/22/18 04:23 Temperature 37.0 C Temperature Source Oral Sepsis Recent Fever Within 48 Hours Sepsis New/Unexplained Change in Mental Status Sepsis Action Taken by Nursing Pulse Rate Pulse Rate [Right] 102 H Pulse Rhythm [Right] Pulse Strength [Right] Respiratory Rate 20 Respiratory Effort / Characteristics Respiratory Depth Respiratory Pattern Blood Pressure Blood Pressure [Right Arm] 113/74 Blood Pressure Mean Blood Pressure Mean [Right Arm] 87 Blood Pressure Position [Right Arm] Pulse Oximetry 95 Oxygen Delivery Method Room Air GENERAL: Patient is awake, alert, and in no acute distress.Patient is resting comfortably and showing no signs of anxiety EYES: The conjunctivae are clear. The pupils are round and reactive. EARS, NOSE, MOUTH AND THROAT: The nose is without any evidence of any deformity. Mucous membranes are moist.Tongue is midline. There was clear rhinorrhea noted bilaterally. NECK: The neck is nontender and supple. RESPIRATORY: Scattered rhonchi. No tachypnea or conversational dyspnea. CARDIOVASCULAR: Regular rate and rhythm noted. There no murmurs rubs or gallops normal S1 normal S2 GASTROINTESTINAL: The abdomen is soft. Bowel sounds are present in all quadrants. Abdomen is nontender. MUSCULOSKELETAL/EXTREMITIES: There is no evidence of gross deformity. Full range of motion is noted in the hips and shoulders. SKIN: There is no obvious evidence of any rash. There are no petechiae, pallor or cyanosis noted. NEUROLOGIC: Patient is awake alert and oriented x3. Strength is symmetric. Patellar reflexes are 2+ bilaterally. Course 0849: Past medical records reviewed. The patient was evaluated in room C9, and a complete history and physical examination were performed. 1024: I updated the patient who verbalized agreement and understanding of the treatment plan. 1033: I discussed the patient's case with Marti Delacruz who will evaluate the patient for further managment. Consultations Consultation #1: Marti Delacruz Time: 10:33 Administered Medications Atorvastatin Calcium (Lipitor) 20 mg PO HS [facility] Stop: 12/21/18 20:59 Last Admin: 11/21/18 20:25 Dose: 20 mg Citalopram Hydrobromide (Celexa) 20 mg PO QAM [facility] Stop: 12/21/18 12:59 Last Admin: 11/21/18 13:30 Dose: 20 mg Citalopram Hydrobromide (Celexa) 10 mg PO QAM [facility] Stop: 12/21/18 12:59 Last Admin: 11/21/18 13:30 Dose: 10 mg Diltiazem HCl (Cardizem Cd) 120 mg PO QAM [facility] Stop: 12/21/18 12:39 Last Admin: 11/21/18 13:30 Dose: 120 mg Ferrous Sulfate (Feosol) 325 mg PO BID [facility] Stop: 12/21/18 20:59 Last Admin: 11/21/18 20:24 Dose: 325 mg Heparin Sodium (Porcine) (Heparin Sodium (Porcine)) 5,000 units SQ Q8 [facility] Stop: 12/21/18 13:59 Last Admin: 11/22/18 04:51 Dose: Not Given Admin: 11/21/18 21:28 Dose: Not Given Admin: 11/21/18 13:34 Dose: Not Given Sodium Chloride (Nss 1000ml) 1,000 mls @ 100 mls/hr IV .Q10H [facility] Stop: 12/21/18 11:29 Last Admin: 11/21/18 20:36 Dose: 100 mls/hr Infusion: 11/21/18 20:36 Dose: 100 mls/hr Admin: 11/21/18 13:31 Dose: 100 mls/hr Hydrocortisone Sodium (Succinate 50 mg/ Syringe) 1 mls @ 4 mls/min IV Q8 [facility] Stop: 12/21/18 13:59 Last Admin: 11/21/18 21:28 Dose: 4 mls/min Admin: 11/21/18 14:03 Dose: 4 mls/min Piperacillin Sod/Tazobactam (Sod 3.375 gm/ Dextrose) 115 mls @ 28.75 mls/hr IV Q8H [facility]; Protocol Stop: 11/28/18 19:59 Last Admin: 11/22/18 04:50 Dose: 28.8 mls/hr Infusion: 11/22/18 00:24 Dose: 0 mls/hr Admin: 11/21/18 20:18 Dose: 28.8 mls/hr Insulin Aspart (Novolog Flexpen) 0 units SC ACHS [facility] Stop: 12/21/18 16:29 Last Admin: 11/21/18 20:31 Dose: 13 units Admin: 11/21/18 17:42 Dose: 10 units Latanoprost (Xalatan Oph) 1 drops OPB HS [facility] Stop: 12/21/18 20:59 Last Admin: 11/21/18 21:28 Dose: 1 drops Menthol (Nice) 1 jose d BUCCAL PRN PRN PRN Reason: Cough Stop: 12/21/18 15:05 Last Admin: 11/21/18 17:48 Dose: 24 jose d Oseltamivir Phosphate (Tamiflu) 30 mg PO BID [facility]; Protocol Stop: 11/26/18 20:59 Last Admin: 11/21/18 20:35 Dose: 30 mg Sotalol HCl (Betapace) 120 mg PO BID [facility] Stop: 12/21/18 12:39 Last Admin: 11/21/18 20:23 Dose: 120 mg Admin: 11/21/18 13:30 Dose: 120 mg Discontinued Medications Sodium Chloride (Nss 1000ml) 500 mls @ 999 mls/hr IV .Q31M ONE Stop: 11/21/18 09:22 Last Infusion: 11/21/18 09:55 Dose: Admin: 11/21/18 09:19 Dose: 999 mls/hr Ceftriaxone Sodium (Rocephin) 1,000 mg in 50 mls @ 100 mls/hr IV NOW STA Stop: 11/21/18 10:05 Last Infusion: 11/21/18 09:59 Dose: Admin: 11/21/18 09:46 Dose: 100 mls/hr Sodium Chloride (Nss 1000ml) 1,000 mls @ 999 mls/hr IV .Q1H1M ONE Stop: 11/21/18 11:26 Last Infusion: 11/21/18 11:40 Dose: Admin: 11/21/18 10:37 Dose: 999 mls/hr Piperacillin Sod/Tazobactam (Sod 3.375 gm/ Dextrose) 115 mls @ 230 mls/hr IV NOW ONE; Protocol Stop: 11/21/18 13:29 Last Infusion: 11/21/18 14:08 Dose: 0 mls/hr Admin: 11/21/18 13:30 Dose: 230 mls/hr Oseltamivir Phosphate (Tamiflu) 75 mg PO NOW STA Stop: 11/21/18 09:51 Last Admin: 11/21/18 09:59 Dose: 75 mg Medical Decision Making Differential Diagnosis Differential diagnosis: Etiologies such as viral syndrome, otitis, pharyngitis, pneumonia, influenza, meningitis, urinary tract infection, septic arthritis, soft tissue infectious process, intra-abdominal process, sepsis, bacteremia, as well as others were entertained. Medical Records Attestation: I reviewed the patient's medical records. Home Medications Current Medication List: was personally reviewed by me Laboratory Data Attestation: I reviewed the patient's lab results. Result diagrams: 11/22/18 05:41 11/21/18 09:05 Lab Results 11/21/18 11/21/18 11/21/18 Range/Units 08:45 09:05 09:05 WBC 10.61 (4.8-10.8) K/uL RBC 4.44 (4.2-5.4) M/uL Hgb 12.6 (12.0-16.0) g/dL Hct 39.5 (37-47) % MCV 89.0 (80-100) fL MCH 28.4 (25-34) pg MCHC 31.9 L (32-36) g/dL RDW Std Deviation 47.9 H (36.4-46.3) fL RDW Coeff of Eran 14.8 H (11.5-14.5) % Plt Count 211 (130-400) K/uL MPV 10.1 (7.4-10.4) fL Immature Gran % (Auto) 0.5 % Neut % (Auto) 90.0 % Lymph % (Auto) 4.1 % Clark % (Auto) 4.2 % Eos % (Auto) 1.0 % Baso % (Auto) 0.2 % Immature Gran # (Auto) 0.05 H (0.00-0.02) K/uL Neut # (Auto) 9.55 H (1.4-6.5) K/uL Lymph # (Auto) 0.43 L (1.2-3.4) K/uL Clark # (Auto) 0.45 (0.11-0.59) K/uL Eos # (Auto) 0.11 (0-0.5) K/uL Baso # (Auto) 0.02 (0-0.2) K/uL ESR (0-21) mm/hr PT 11.2 (9.0-12.0) Seconds INR 1.1 (0.9-1.1) APTT 27.1 (21.0-31.0) Seconds PTT Ratio 1.0 Sodium (136-145) mmol/L Potassium (3.5-5.1) mmol/L Chloride (98-107) mmol/L Carbon Dioxide (21-32) mmol/L Anion Gap (3-11) BUN (7-18) mg/dl Creatinine (0.6-1.2) mg/dl Est Cr Clr Drug Dosing ml/min Est GFR ( Amer) Est GFR (Non-Af Amer) BUN/Creatinine Ratio (10-20) Glucose (70-99) mg/dl POC Glucose (70-99) Lactate (0.4-2.0) mmol/L Calcium (8.5-10.1) mg/dl Total Bilirubin (0.2-1) mg/dl AST (15-37) U/L ALT (12-78) U/L Alkaline Phosphatase (45-117) U/L Troponin I (0-0.045) ng/ml C-Reactive Protein (0-0.29) mg/dl Total Protein (6.4-8.2) gm/dl Albumin (3.4-5.0) gm/dl Globulin (2.5-4.0) gm/dl Albumin/Globulin Ratio (0.9-2) Random Cortisol mcg/dl Nasal Screen MRSA (PCR) (Negative) Influenza Type A (PCR) Pos for Influ A A* (Neg) Influenza Type B (PCR) Neg for Influ B (Neg) 11/21/18 11/21/18 11/21/18 Range/Units 09:05 09:05 09:05 WBC (4.8-10.8) K/uL RBC (4.2-5.4) M/uL Hgb (12.0-16.0) g/dL Hct (37-47) % MCV (80-100) fL MCH (25-34) pg MCHC (32-36) g/dL RDW Std Deviation (36.4-46.3) fL RDW Coeff of Eran (11.5-14.5) % Plt Count (130-400) K/uL MPV (7.4-10.4) fL Immature Gran % (Auto) % Neut % (Auto) % Lymph % (Auto) % Clark % (Auto) % Eos % (Auto) % Baso % (Auto) % Immature Gran # (Auto) (0.00-0.02) K/uL Neut # (Auto) (1.4-6.5) K/uL Lymph # (Auto) (1.2-3.4) K/uL Clark # (Auto) (0.11-0.59) K/uL Eos # (Auto) (0-0.5) K/uL Baso # (Auto) (0-0.2) K/uL ESR > 90 H (0-21) mm/hr PT (9.0-12.0) Seconds INR (0.9-1.1) APTT (21.0-31.0) Seconds PTT Ratio Sodium 134 L (136-145) mmol/L Potassium 3.6 (3.5-5.1) mmol/L Chloride 97 L (98-107) mmol/L Carbon Dioxide 26 (21-32) mmol/L Anion Gap 11.0 (3-11) BUN 15 (7-18) mg/dl Creatinine 1.07 (0.6-1.2) mg/dl Est Cr Clr Drug Dosing 50.2 ml/min Est GFR ( Amer) 59.2 Est GFR (Non-Af Amer) 51.1 BUN/Creatinine Ratio 13.9 (10-20) Glucose 138 H (70-99) mg/dl POC Glucose (70-99) Lactate 2.3 H* (0.4-2.0) mmol/L Calcium 9.2 (8.5-10.1) mg/dl Total Bilirubin 1.1 H (0.2-1) mg/dl AST 29 (15-37) U/L ALT 43 (12-78) U/L Alkaline Phosphatase 224 H (45-117) U/L Troponin I < 0.015 (0-0.045) ng/ml C-Reactive Protein 25.00 H (0-0.29) mg/dl Total Protein 7.8 (6.4-8.2) gm/dl Albumin 2.9 L (3.4-5.0) gm/dl Globulin 4.9 H (2.5-4.0) gm/dl Albumin/Globulin Ratio 0.6 L (0.9-2) Random Cortisol mcg/dl Nasal Screen MRSA (PCR) (Negative) Influenza Type A (PCR) (Neg) Influenza Type B (PCR) (Neg) 11/21/18 11/21/18 11/21/18 Range/Units 09:05 09:14 11:35 WBC (4.8-10.8) K/uL RBC (4.2-5.4) M/uL Hgb (12.0-16.0) g/dL Hct (37-47) % MCV (80-100) fL MCH (25-34) pg MCHC (32-36) g/dL RDW Std Deviation (36.4-46.3) fL RDW Coeff of Eran (11.5-14.5) % Plt Count (130-400) K/uL MPV (7.4-10.4) fL Immature Gran % (Auto) % Neut % (Auto) % Lymph % (Auto) % Clark % (Auto) % Eos % (Auto) % Baso % (Auto) % Immature Gran # (Auto) (0.00-0.02) K/uL Neut # (Auto) (1.4-6.5) K/uL Lymph # (Auto) (1.2-3.4) K/uL Clark # (Auto) (0.11-0.59) K/uL Eos # (Auto) (0-0.5) K/uL Baso # (Auto) (0-0.2) K/uL ESR (0-21) mm/hr PT (9.0-12.0) Seconds INR (0.9-1.1) APTT (21.0-31.0) Seconds PTT Ratio Sodium (136-145) mmol/L Potassium (3.5-5.1) mmol/L Chloride (98-107) mmol/L Carbon Dioxide (21-32) mmol/L Anion Gap (3-11) BUN (7-18) mg/dl Creatinine (0.6-1.2) mg/dl Est Cr Clr Drug Dosing ml/min Est GFR ( Amer) Est GFR (Non-Af Amer) BUN/Creatinine Ratio (10-20) Glucose (70-99) mg/dl POC Glucose 153 H (70-99) Lactate (0.4-2.0) mmol/L Calcium (8.5-10.1) mg/dl Total Bilirubin (0.2-1) mg/dl AST (15-37) U/L ALT (12-78) U/L Alkaline Phosphatase (45-117) U/L Troponin I (0-0.045) ng/ml C-Reactive Protein (0-0.29) mg/dl Total Protein (6.4-8.2) gm/dl Albumin (3.4-5.0) gm/dl Globulin (2.5-4.0) gm/dl Albumin/Globulin Ratio (0.9-2) Random Cortisol 38.81 mcg/dl Nasal Screen MRSA (PCR) Negative (Negative) Influenza Type A (PCR) (Neg) Influenza Type B (PCR) (Neg) 11/21/18 11/21/18 11/21/18 Range/Units 13:11 13:11 16:31 WBC (4.8-10.8) K/uL RBC (4.2-5.4) M/uL Hgb (12.0-16.0) g/dL Hct (37-47) % MCV (80-100) fL MCH (25-34) pg MCHC (32-36) g/dL RDW Std Deviation (36.4-46.3) fL RDW Coeff of Eran (11.5-14.5) % Plt Count (130-400) K/uL MPV (7.4-10.4) fL Immature Gran % (Auto) % Neut % (Auto) % Lymph % (Auto) % Clark % (Auto) % Eos % (Auto) % Baso % (Auto) % Immature Gran # (Auto) (0.00-0.02) K/uL Neut # (Auto) (1.4-6.5) K/uL Lymph # (Auto) (1.2-3.4) K/uL Clark # (Auto) (0.11-0.59) K/uL Eos # (Auto) (0-0.5) K/uL Baso # (Auto) (0-0.2) K/uL ESR (0-21) mm/hr PT (9.0-12.0) Seconds INR (0.9-1.1) APTT (21.0-31.0) Seconds PTT Ratio Sodium (136-145) mmol/L Potassium (3.5-5.1) mmol/L Chloride (98-107) mmol/L Carbon Dioxide (21-32) mmol/L Anion Gap (3-11) BUN (7-18) mg/dl Creatinine (0.6-1.2) mg/dl Est Cr Clr Drug Dosing ml/min Est GFR ( Amer) Est GFR (Non-Af Amer) BUN/Creatinine Ratio (10-20) Glucose (70-99) mg/dl POC Glucose 211 H (70-99) Lactate 1.8 (0.4-2.0) mmol/L Calcium (8.5-10.1) mg/dl Total Bilirubin (0.2-1) mg/dl AST (15-37) U/L ALT (12-78) U/L Alkaline Phosphatase (45-117) U/L Troponin I < 0.015 (0-0.045) ng/ml C-Reactive Protein (0-0.29) mg/dl Total Protein (6.4-8.2) gm/dl Albumin (3.4-5.0) gm/dl Globulin (2.5-4.0) gm/dl Albumin/Globulin Ratio (0.9-2) Random Cortisol mcg/dl Nasal Screen MRSA (PCR) (Negative) Influenza Type A (PCR) (Neg) Influenza Type B (PCR) (Neg) 11/21/18 11/21/18 11/22/18 Range/Units 18:52 20:28 05:41 WBC 4.89 D (4.8-10.8) K/uL RBC 3.80 L (4.2-5.4) M/uL Hgb 10.7 L (12.0-16.0) g/dL Hct 33.7 L (37-47) % MCV 88.7 (80-100) fL MCH 28.2 (25-34) pg MCHC 31.8 L (32-36) g/dL RDW Std Deviation 47.4 H (36.4-46.3) fL RDW Coeff of Eran 14.6 H (11.5-14.5) % Plt Count 185 (130-400) K/uL MPV 9.8 (7.4-10.4) fL Immature Gran % (Auto) % Neut % (Auto) % Lymph % (Auto) % Clark % (Auto) % Eos % (Auto) % Baso % (Auto) % Immature Gran # (Auto) (0.00-0.02) K/uL Neut # (Auto) (1.4-6.5) K/uL Lymph # (Auto) (1.2-3.4) K/uL Clark # (Auto) (0.11-0.59) K/uL Eos # (Auto) (0-0.5) K/uL Baso # (Auto) (0-0.2) K/uL ESR (0-21) mm/hr PT (9.0-12.0) Seconds INR (0.9-1.1) APTT (21.0-31.0) Seconds PTT Ratio Sodium (136-145) mmol/L Potassium (3.5-5.1) mmol/L Chloride (98-107) mmol/L Carbon Dioxide (21-32) mmol/L Anion Gap (3-11) BUN (7-18) mg/dl Creatinine (0.6-1.2) mg/dl Est Cr Clr Drug Dosing ml/min Est GFR ( Amer) Est GFR (Non-Af Amer) BUN/Creatinine Ratio (10-20) Glucose (70-99) mg/dl POC Glucose 246 H (70-99) Lactate (0.4-2.0) mmol/L Calcium (8.5-10.1) mg/dl Total Bilirubin (0.2-1) mg/dl AST (15-37) U/L ALT (12-78) U/L Alkaline Phosphatase (45-117) U/L Troponin I < 0.015 (0-0.045) ng/ml C-Reactive Protein (0-0.29) mg/dl Total Protein (6.4-8.2) gm/dl Albumin (3.4-5.0) gm/dl Globulin (2.5-4.0) gm/dl Albumin/Globulin Ratio (0.9-2) Random Cortisol mcg/dl Nasal Screen MRSA (PCR) (Negative) Influenza Type A (PCR) (Neg) Influenza Type B (PCR) (Neg) Imaging Data Radiologist's Impression: Radiology results as stated below per my review and the radiologist's interpretation: XR chest 1V portable CLINICAL HISTORY: Sepsis COMPARISON STUDY: Chest radiograph November 08, 2018. FINDINGS: A dual lead left subclavian pacemaker is unchanged in position. There is no pneumothorax or pleural effusion. Cardiomegaly is unchanged. Pulmonary vascularity is normal. There is been interval development of left medial basilar opacity. Right lung is clear. IMPRESSION: Interval development of left medial basilar opacity which may reflect pneumonia. Post treatment radiographs to ensure resolution are recommended. Electronically signed by: Vishal Nj M.D. 11/21/2018 9:28 AM ECG Data Attestation: I personally reviewed and interpreted this ECG as follows: Indication: weakness Rate (beats per minute): 73 Rhythm: sinus rhythm Findings: + RBBB; no PAC, no PVC and no ectopy Comparison ECG Date: from (11/08/18) Change: no significant change Blood Pressure Blood Pressure Findings: Normal blood pressure MDM Narrative The patient is a 73-year-old female who presented to the emergency department for cough and body aches. She also noticed fevers. The patient has a history of adrenal insufficiency because of a previous pituitary mass. The patient states that she started stress dosing her steroids yesterday because she knew she was not feeling well. She also complains of left shoulder pain which is worsened with inspiration. She states that that pain is significantly improved. I discussed the patient's laboratory and radiographic studies with her. She was treated with IV fluids and IV antibiotics. She was reevaluated multiple times. At this time the patient does have signs of a parenchymal infiltrate on her chest x-ray. She also has a positive flu swab. I am very concerned given the patient's past medical history as well as her other findings that this could represent early sepsis. The patient has had sepsis in the past. For this reason I discussed her case with the on-call [facility] hospitalist group. They have agreed to evaluate the patient in the emergency department for further management and disposition. Impression & Plan PNA (pneumonia), Adrenal insufficiency, Influenza Discharge Plan Visit Data *Final* Discharge Date/Time: 11/21/18 12:20 Chief Complaint: Flu Like Symptoms Stated Complaint: fever,vomiting,weakness ED Provider: Jt Contreras Discharge Problem: PNA (pneumonia), Adrenal insufficiency, Influenza Patient Disposition: Admitted As Inpatient Discharge Instructions Interventions: ED Discharge Assessment Last Done: 11/21/18 12:20 The scribe's documentation has been prepared under my direction and personally reviewed by me in its entirety. I confirm that the note above accurately reflects all work, treatment, procedures, and medical decision making performed by me.
[2018-11-21] MEDS ORDERED: PIPERACILL/TAZOBAC CONSULT ACTIVE PRN (11:21)
--- NOTE | 2018-11-21 12:09 | History & Physical Report ---
Date of Service November 21, 2018 Assessment & Plan (1) Pneumonia: (2) Influenza: -Admit to [facility] with telemetry -Patient presenting from home with reports of left shoulder pain with inspiration, fever, cough -In the ED, tested positive for influenza A and CXR showing left basilar opacity suggestive of pneumonia -On presentation, low-grade fever of 37.7, mildly tachycardic (however patient did not take home cardiac meds), lactic acid 2.3, WBC 10K, BP stable -S/P IVF, IV ceftriaxone, Tamiflu in the ED -Continue IVF, trend lactic acid -Given recent hospitalization, will continue with Zosyn; check MRSA nasal swab and a positive we will add vancomycin -Continue Tamiflu, renally adjusted -Left shoulder pain likely referred pain from left basilar pneumonia; initial troponin negative, EKG without acute ST changes, will continue to cycle cardiac enzymes (3) Adrenal insufficiency: -Due to acute illness, will place patient on stress dose steroids hydrocortisone 50 mg every 8 hours -BP currently stable (4) T2DM (type 2 diabetes mellitus): -Recent Hgb A1c 9.1 -Hold oral agents and utilize Lantus and NovoLog per protocol while hospitalized -pharmacy glycemic consult -Patient reports her wedding consultant recently changed her to 70/30 insulin however she has not made the change yet (5) Hypertension: -BP controlled, continue diltiazem (6) CKD (chronic kidney disease), stage III: - baseline creat ~ 0.8-1.0 - creat noted to be 1.0 today - continue to monitor, avoid nephrotoxic agents when able (7) Pacemaker: (8) PAF (paroxysmal atrial fibrillation): (9) Tachy-cyril syndrome: -No acute issues with pacemaker -Rate controlled on diltiazem and rhythm controlled on sotalol -No anticoagulation secondary to history of DIAZ and ITP (10) Hypothyroidism: -Continue levothyroxine (11) Recurrent UTI: -Recently placed on chronic suppression with Macrobid -will hold Macrobid for now while receiving IV Zosyn for pneumonia (12) History of ITP: -Stable -Platelet count 211K today (13) 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 Patient was recently admitted to [facility] 11/08 through 11/10 for recurrent UTI. At discharge, patient was placed on cefdinir. She recently saw her urologist in follow-up who placed her on Macrobid daily. Patient reports that a few days ago she developed some left shoulder pain that was worse with a deep breath. She also then developed a harsh cough that was productive for clear sputum. She has had fevers as high as 102.3. Given her underlying adrenal insufficiency, patient presented to the ED today for further evaluation. Patient denies chest pain shortness of breath. No lightheadedness, dizziness, diaphoresis, syncopal events. She denies abdominal pain, nausea, vomiting, diarrhea. She denies any urinary symptoms. In the ED, patient tested positive for influenza A. CXR showing a left basilar opacity suggesting pneumonia. She has had low-grade fever at 37.7 , otherwise hemodynamically stable. Labs show WBC 10K and lactic acid 2.3. She was given IVF, IV ceftriaxone, and Tamiflu. Allergies Allergy/AdvReac Type Severity Reaction Status Date / Time Iodinated Contrast- Oral and Allergy Intermediate RASH Verified 11/21/18 09:35 IV Dye Sulfa (Sulfonamide Allergy Intermediate HIVES Verified 11/21/18 09:35 Antibiotics) Cipro AdvReac Mild VOMITING Verified 03/16/18 08:59 ciprofloxacin AdvReac Mild VOMITING Verified 11/21/18 09:35 nickel AdvReac Rash Verified 11/21/18 12:22 Home Medications Home Medications Medication Instructions Recorded Confirmed Type aspirin 81 mg PO QAM 07/30/18 11/21/18 History atorvastatin 20 mg PO HS 07/30/18 11/21/18 History citalopram 20 mg PO QAM 07/30/18 11/21/18 History ferrous sulfate 325 mg PO BID 07/30/18 11/21/18 History furosemide 20 mg PO DAILY PRN 07/30/18 11/21/18 History hydrocortisone [Cortef] See Label Instructions .ROUTE 07/30/18 11/21/18 History .COMPLEX latanoprost 1 drp OPB HS 07/30/18 11/21/18 History metformin 1,000 mg PO BID 07/30/18 11/21/18 History pantoprazole 40 mg PO DAILYBB 07/30/18 11/21/18 History levothyroxine [Synthroid] 125 mcg PO DAILYBB #30 tab 08/03/18 11/21/18 Rx diltiazem HCl 120 mg PO QAM #30 cap 08/19/18 11/21/18 Rx sotalol 120 mg PO BID #60 tab 08/19/18 11/21/18 Rx citalopram 10 mg PO QAM 11/08/18 11/21/18 History insulin detemir U-100 [Levemir 90 unit SUBCUT DAILYBB 11/08/18 11/21/18 History U-100 Insulin] nitrofurantoin macrocrystal 100 mg PO DAILY 11/21/18 11/21/18 History Past Med/Surg History Medical History SERENA on CPAP (Chronic) Intracerebral hemorrhage (Resolved) RBBB (Chronic) Leukocytoclastic vasculitis (Chronic) CKD (chronic kidney disease), stage III (Chronic) Recurrent UTI (Chronic) Pacemaker (Chronic) Adenoma of pituitary (Chronic) History of ITP (Chronic) Adrenal insufficiency (Chronic) Depression (Chronic) 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) RBBB (right bundle branch block) (Chronic) PAF (paroxysmal atrial fibrillation) (Chronic) NO AC due to ITP and h/o cirrohosis Hypothyroidism (Chronic) Tachy-cyril syndrome (Chronic) T2DM (type 2 diabetes mellitus) (Chronic) Hypertension (Chronic) Chronic steroid use (Chronic) Kidney stone (Resolved) NSTEMI (non-ST elevated myocardial infarction) (Chronic) Anticoagulated on Coumadin (Resolved) Dehydration (Resolved) Flu-like symptoms (Resolved) Gastroenteritis (Resolved 09/06/13) Cirrhosis of liver (Inactive) Petechial rash (Inactive) Renal colic (Inactive) Sepsis (Inactive) UTI (urinary tract infection) (Inactive) Ureteral calculus, right (Inactive) Pituitary apoplexy Volume overload Surgical History History of cataract surgery (Chronic) H/O sinus surgery (Chronic) S/P selective transsphenoidal pituitary adenomectomy Family History Mother Cancer Sister Diabetes Social History Current Living Situation: Spouse Other Information That Helps Us Care for You: No Feels Safe at Home: Yes Safety Concerns: Feels Safe At This Time Smoking Status: Never smoker Do You Dip or Chew Tobacco: No Second Hand Exposure: No Tobacco Cessation Education Requested by Patient: No Hx Alcohol Use: No Hx Substance Use: No Beliefs That Will Affect Care: None Preferred Language: [place] Communication Ability: Effective Design Technician Required: No Review of Systems ROS per HPI, all other systems reviewed and negative Physical Exam 2 Vital Signs (Past 24 Hours): Last Vital Signs Temp 37.7 C H 11/21/18 08:37 Pulse 105 H 11/21/18 11:30 Resp 22 11/21/18 11:30 BP 117/71 11/21/18 11:27 Pulse Ox 96 11/21/18 11:30 Constitutional: WD/WN, vitals as above Eyes: PERRL, conjunctivae normal, anicteric sclerae ENMT: external ear and nose normal, oropharynx normal Respiratory: normal respiratory effort; no respiratory distress Auscultation: + crackles (Faint, left base) Cardiovascular: Rate/Rhythm: regular rhythm; + abnormal rate (Heart rate 110s ) Vessels: normal peripheral pulses Extremities: no edema Gastrointestinal (Abdomen): normal bowel sounds, soft, nontender, no hepatosplenomegaly Musculoskeletal: no cyanosis or clubbing, extremities motor strength 5/5 Skin: no rashes, warm and dry Neurologic: PERRL, EOMI, accommodation nl, no face palsy, no dysarthria Psychiatric: A+Ox3, euthymic affect Results & Data Laboratory Results Laboratory Last Values WBC 10.61 K/uL (4.8-10.8) 11/21/18 09:05 RBC 4.44 M/uL (4.2-5.4) 11/21/18 09:05 Hgb 12.6 g/dL (12.0-16.0) 11/21/18 09:05 Hct 39.5 % (37-47) 11/21/18 09:05 MCV 89.0 fL (80-100) 11/21/18 09:05 MCH 28.4 pg (25-34) 11/21/18 09:05 MCHC 31.9 g/dL (32-36) L 11/21/18 09:05 RDW Std Deviation 47.9 fL (36.4-46.3) H 11/21/18 09:05 RDW Coeff of Eran 14.8 % (11.5-14.5) H 11/21/18 09:05 Plt Count 211 K/uL (130-400) 11/21/18 09:05 MPV 10.1 fL (7.4-10.4) 11/21/18 09:05 Immature Gran % (Auto) 0.5 % 11/21/18 09:05 Neut % (Auto) 90.0 % 11/21/18 09:05 Lymph % (Auto) 4.1 % 11/21/18 09:05 Campbell % (Auto) 4.2 % 11/21/18 09:05 Eos % (Auto) 1.0 % 11/21/18 09:05 Baso % (Auto) 0.2 % 11/21/18 09:05 Immature Gran # (Auto) 0.05 K/uL (0.00-0.02) H 11/21/18 09:05 Neut # (Auto) 9.55 K/uL (1.4-6.5) H 11/21/18 09:05 Lymph # (Auto) 0.43 K/uL (1.2-3.4) L 11/21/18 09:05 Campbell # (Auto) 0.45 K/uL (0.11-0.59) 11/21/18 09:05 Eos # (Auto) 0.11 K/uL (0-0.5) 11/21/18 09:05 Baso # (Auto) 0.02 K/uL (0-0.2) 11/21/18 09:05 ESR > 90 mm/hr (0-21) H 11/21/18 09:05 PT 11.2 Seconds (9.0-12.0) 11/21/18 09:05 INR 1.1 (0.9-1.1) 11/21/18 09:05 APTT 27.1 Seconds (21.0-31.0) 11/21/18 09:05 PTT Ratio 1.0 11/21/18 09:05 Sodium 134 mmol/L (136-145) L 11/21/18 09:05 Potassium 3.6 mmol/L (3.5-5.1) 11/21/18 09:05 Chloride 97 mmol/L (98-107) L 11/21/18 09:05 Carbon Dioxide 26 mmol/L (21-32) 11/21/18 09:05 Anion Gap 11.0 (3-11) 11/21/18 09:05 BUN 15 mg/dl (7-18) 11/21/18 09:05 Creatinine 1.07 mg/dl (0.6-1.2) 11/21/18 09:05 Est Cr Clr Drug Dosing 50.2 ml/min 11/21/18 09:05 Est GFR ( Amer) 59.2 11/21/18 09:05 Est GFR (Non-Af Amer) 51.1 11/21/18 09:05 BUN/Creatinine Ratio 13.9 (10-20) 11/21/18 09:05 Glucose 138 mg/dl (70-99) H 11/21/18 09:05 POC Glucose 153 (70-99) H 11/21/18 09:14 Lactate 2.3 mmol/L (0.4-2.0) H* 11/21/18 09:05 Calcium 9.2 mg/dl (8.5-10.1) 11/21/18 09:05 Total Bilirubin 1.1 mg/dl (0.2-1) H 11/21/18 09:05 AST 29 U/L (15-37) 11/21/18 09:05 ALT 43 U/L (12-78) 11/21/18 09:05 Alkaline Phosphatase 224 U/L (45-117) H 11/21/18 09:05 Troponin I < 0.015 ng/ml (0-0.045) 11/21/18 09:05 C-Reactive Protein 25.00 mg/dl (0-0.29) H 11/21/18 09:05 Total Protein 7.8 gm/dl (6.4-8.2) 11/21/18 09:05 Albumin 2.9 gm/dl (3.4-5.0) L 11/21/18 09:05 Globulin 4.9 gm/dl (2.5-4.0) H 11/21/18 09:05 Albumin/Globulin Ratio 0.6 (0.9-2) L 11/21/18 09:05 Random Cortisol 38.81 mcg/dl 11/21/18 09:05 Influenza Type A (PCR) Pos for Influ A (Neg) A* 11/21/18 08:45 Influenza Type B (PCR) Neg for Influ B (Neg) 11/21/18 08:45 Diagnostic Findings CXR IMPRESSION: Interval development of left medial basilar opacity which may reflect pneumonia. Post treatment radiographs to ensure resolution are recommended. Code Status & VTE Plan VTE Prophylaxis Plan VTE Prophylaxis will be ordered: Yes Supervising Physician Co-Signing Physician Notes I saw this patient with the Nurse Practioner, I participated in the history, physical, review of systems, and physical exam. I reviewed the medications with the patient and the Nurse Practioner and helped reconcile the medications. I helped take a detailed family and social history as well. I formulated the assessment and plan personally with the Nurse Practioner went over it with the patient. _ (1) Hypertension Hypertension type: essential hypertension Qualified Code(s): I10 - Essential (primary) hypertension
[2018-11-21] MEDS ORDERED: GLUCOSE 10 TABS/TUBE PO PRN (12:40)
[2018-11-21] MEDS ORDERED: GLUCOSE 40% GEL 15 GM TUBE PO PRN (12:40)
[2018-11-21] MEDS ORDERED: CARBOHYDRATES FOR HYPOGLYCEMIA PO PRN (12:40)
[2018-11-21] MEDS ORDERED: ACETAMINOPHEN 325 MG TAB PO PRN (12:40)
[2018-11-21] MEDS ORDERED: GLUCAGON FOR INJ 1 MG VIAL SQ PRN (12:40)
[2018-11-21] MEDS ORDERED: DEXTROSE 50% 50 ML SYRINGE IV PRN (12:40)
[2018-11-21] MEDS ORDERED: HYDROCORTISONE SOD SUCCINATE 100 MG/2 ML VIAL IV SCH (12:40)
[2018-11-21] MEDS ORDERED: PHARMACY GLYCEMIC MGMT CONSULT PRN (12:50)
[2018-11-21] MEDS ORDERED: PIPERACILLIN/TAZOBACTAM 3.375 GM in DEXTROSE 5% 100 ML IV ONE (13:00)
[2018-11-21] MEDS: SOTALOL HCL 80 MG TAB PO SCH ×2 (13:30→20:23)
[2018-11-21] MEDS: CITALOPRAM 20 MG TAB PO SCH ×2 (13:30)
[2018-11-21] MEDS: dilTIAZem HCL 120 MG CAPCR PO SCH (13:30)
[2018-11-21] MEDS: SODIUM CHLORIDE 0.9% 1000ML 1,000 ML IV SCH ×2 (13:31→20:36)
[2018-11-21] MEDS: HEPARIN SOD 5,000 UNIT/0.5 ML VIAL SQ SCH ×2 (13:34→21:28)
[2018-11-21] MEDS: HYDROCORTISONE SOD 50 MG in SYRINGE 0 ML IV SCH ×2 (14:03→21:28)
--- NOTE | 2018-11-21 14:31 | Pharmacy Report ---
Pharmacy Glycemic Short Note 2 - Date of Service November 21, 2018 - Glycemic Short BSG Results (Last 24 hours): 11/21/18 11/21/18 09:05 09:14 Glucose 138 H POC Glucose 153 H OUTPATIENT ANTIDIABETIC REGIMEN: * Levemir 90 units SQ qAM * Metformin 1gm PO BID * HbA1c: 9.1% (11/09/18) ASSESSMENT: * Ms Rivera is a 73yo diabetic female admitted with pneumonia/influenza. She was recently admitted and is known to pharmacy's glycemic management service. * Patient was ordered Hydrocortisone 50mg IV q8h, which may contribute to steroid-induced hyperglycemia. * Patient is receiving Zosyn and Tamiflu as well as NS @ 100mL/hr. * Per [facility], patient took her dose of Levemir this morning DIE GRINDER. * Ms Rivera is ordered a type 2 diabetic diet. PLAN FOR INPATIENT GLYCEMIC CONTROL: * Hold outpatient oral diabetes medications * Basal insulin * Levemir 30 units SQ BID, starting tomorrow morning * Bolus insulin * NovoLog per scale ACHS or Q6hrs while NPO * Goal Range: Low 110 mg/dL - High 140 mg/dL * Correction Factor: 15 mg/dL/unit * Nutritional / Prandial insulin per carb ratio of 1 unit per 5 grams CHO consumed PLAN FOR DISCHARGE: * Patient's A1c (9.1%) is significantly elevated and will require prompt f/u with PCP after discharge to modify regimen in order to optimize glycemic control.
[2018-11-21] MEDS ORDERED: Nursing to Pharmacy Communication ONE (15:00)
[2018-11-21] MEDS ORDERED: COUGH DROP (SUGAR FREE) LOZ 24 LOZ/1 BOX BUCCAL PRN (15:06)
[2018-11-21] MEDS: INSULIN ASPART 100 UNITS/ML 3 ML PEN SC SCH ×2 (17:42→20:31)
[2018-11-21] MEDS: PIPERACILLIN/TAZOBACTAM 3.375 GM in DEXTROSE 5% 100 ML IV SCH (20:18)
[2018-11-21] MEDS: FERROUS SULFATE 325 MG TAB PO SCH (20:24)
[2018-11-21] MEDS: OSELTAMIVIR PHOSPHATE SUSP 30 MG/5 ML UDP PO SCH (20:35)
[2018-11-21] MEDS ORDERED: ATORVASTATIN 20 MG TAB PO SCH (21:00)
[2018-11-21] MEDS ORDERED: LATANOPROST 0.005% OP SOLN 2.5 ML BTL OPB SCH (21:00)
[2018-11-22] MEDS: PIPERACILLIN/TAZOBACTAM 3.375 GM in DEXTROSE 5% 100 ML IV SCH ×2 (04:50→12:48)
[2018-11-22] MEDS: HEPARIN SOD 5,000 UNIT/0.5 ML VIAL SQ SCH (04:51)
[2018-11-22 06:21] LABS: Hematocrit (blood only) 33.7 % (37-47); Hemoglobin 10.7 g/dL (12.0-16.0); Mean Corpuscular Hgb Conc 31.8 g/dL (32-36); Mean Corpuscular Volume 88.7 fL (80-100); Mean Platelet Volume 9.8 fL (7.4-10.4); Platelet Count 185 K/uL (130-400); RDW Coefficient of Variation 14.6 % (11.5-14.5); RDW Standard Deviation 47.4 fL (36.4-46.3); White Blood Count 4.89 K/uL (4.8-10.8)
[2018-11-22] MEDS ORDERED: LEVOTHYROXINE SODIUM 125 MCG TABLET PO SCH (06:30)
[2018-11-22] MEDS ORDERED: PANTOprazole 40 MG TAB PO SCH (06:30)
[2018-11-22 06:41] LABS: BUN Creatinine Ratio 16.5 (10-20); Calcium 8.2 mg/dl (8.5-10.1); Est GFR (African American) 70.2; Est GFR (Non-African American) 60.5; Potassium 3.5 mmol/L (3.5-5.1)
[2018-11-22] MEDS: SODIUM CHLORIDE 0.9% 1000ML 1,000 ML IV SCH (06:49)
[2018-11-22] MEDS: HYDROCORTISONE SOD 50 MG in SYRINGE 0 ML IV SCH (06:51)
[2018-11-22] MEDS: CITALOPRAM 20 MG TAB PO SCH ×2 (07:37→07:41)
[2018-11-22] MEDS: dilTIAZem HCL 120 MG CAPCR PO SCH (07:42)
[2018-11-22] MEDS: SOTALOL HCL 80 MG TAB PO SCH (07:42)
[2018-11-22] MEDS: FERROUS SULFATE 325 MG TAB PO SCH (07:43)
[2018-11-22] MEDS ORDERED: INSULIN DETEMIR SC SCH ×2 (09:00)
[2018-11-22] MEDS ORDERED: ASPIRIN 81 MG ECTAB PO SCH (09:00)
[2018-11-22] MEDS: INSULIN ASPART 100 UNITS/ML 3 ML PEN SC SCH ×2 (09:13→13:03)
[2018-11-22] MEDS: OSELTAMIVIR PHOSPHATE SUSP 30 MG/5 ML UDP PO SCH (09:17)
[2018-11-22 09:22] LABS: Appearance Urine Cloudy (Clear); Bacteria Urine Automated Negative (Negative); Bilirubin Urine Negative (Negative); Cast Urine Automated 0 /lpf (0-5); Color Urine Yellow; Glucose Urine UA Negative (Negative); Ketones Urine Negative (Negative); Leukocyte Esterase Urine Negative (Negative); Nitrite Urine Negative (Negative); Protein Urine Negative (Negative); Specific Gravity Urine 1.013 (1.000-1.030); Urobilinogen Urine Negative (Negative)
--- NOTE | 2018-11-22 09:51 | Discharge Summary ---
Date of Service November 22, 2018 Admission HPI Per Admitting Provider 73-year-old female who presents the ED with fever. Patient was recently admitted to [facility] 11/08 through 11/10 for recurrent UTI. At discharge, patient was placed on cefdinir. She recently saw her urologist in follow-up who placed her on Macrobid daily. Patient reports that a few days ago she developed some left shoulder pain that was worse with a deep breath. She also then developed a harsh cough that was productive for clear sputum. She has had fevers as high as 102.3. Given her underlying adrenal insufficiency, patient presented to the ED today for further evaluation. Patient denies chest pain shortness of breath. No lightheadedness, dizziness, diaphoresis, syncopal events. She denies abdominal pain, nausea, vomiting, diarrhea. She denies any urinary symptoms. In the ED, patient tested positive for influenza A. CXR showing a left basilar opacity suggesting pneumonia. She has had low-grade fever at 37.7 , otherwise hemodynamically stable. Labs show WBC 10K and lactic acid 2.3. She was given IVF, IV ceftriaxone, and Tamiflu. Admission Exam Per Admitting Provider Constitutional: WD/WN, vitals as above Eyes: PERRL, conjunctivae normal, anicteric sclerae ENMT: external ear and nose normal, oropharynx normal Respiratory: normal respiratory effort; no respiratory distress Auscultation: + crackles (Faint, left base) Cardiovascular: Rate/Rhythm: regular rhythm; + abnormal rate (Heart rate 110s) Vessels: normal peripheral pulses Extremities: no edema Gastrointestinal (Abdomen): normal bowel sounds, soft, nontender, no hepatosplenomegaly Musculoskeletal: no cyanosis or clubbing, extremities motor strength 5/5 Skin: no rashes, warm and dry Neurologic: PERRL, EOMI, accommodation nl, no face palsy, no dysarthria Psychiatric: A+Ox3, euthymic affect Principal Diagnosis Influenza A Left lower lobe pneumonia Obesity with a BMI of 36 Sleep apnea History of stroke Right bundle branch block History of leukocytoclastic vasculitis Recurrent UTIs CKD Pacemaker Adrenal insufficiency History of ITP Depression Nonalcoholic steatohepatitis with cirrhosis History of A. fib Hypothyroidism Tachybradycardia syndrome Type 2 diabetes Hypertension Chronic steroid use Coronary artery disease with a history of a non-STEMI Discharge Exam ROS-No Headache, No Visual Changes, No Fever, No Chills, No Neck Pain or Stiffness, No Chest Pain, No Palpitations, No SOB, No ALVARENGA, + Cough, No Sputum, No Wheezing, No Abdominal Pain, No Diarrhea, No Hematemesis, No Hemoptysis, No Unexpected Weight Loss, No Flank pain, No Melena, No Hematochezia, No Frequency , No Urgency, No Burning, No Hematuria, No Rashes, No Diaphoresis. Appetite is Normal Shoulder pain gone Physical Exam Gen-AAO x 3, NAD, Afebrile Head-NCAT, EOMI, PERRLA, Anicteric Sclera, No Posterior Pharyngeal Erythema Neck-Supple, No JVD, No Thyromegaly, No Masses, No LAD, No Bruits Lungs-Clear to Auscultation Bilaterally, No Rales, No Rhonchi, Mild Wheezing, No Crepitus Chest-No S4, +S1, +S2, No S3, No Murmurs, No Rubs, No Gallops, No Ectopy Abdomen-Soft, Bowel Sounds Present, Non Tender, Non Distended, No Hepatomegaly, No Splenomegaly, No Palpable Masses, No Rebound, No Rigidity, No Guarding Musculoskeletal-Full Range of Motion Bilaterally, No CVAT Extremities-No Cyanosis, No Clubbing, No Edema Nuero-Cranial Nerves II-XII grossly intact, Motor WNL, DTRs WNL, Strength WNL, No Focal Psych-Normal Mood Discharge Data Allergies Allergy/AdvReac Type Severity Reaction Status Date / Time Iodinated Contrast- Oral and Allergy Intermediate RASH Verified 11/21/18 09:35 IV Dye Sulfa (Sulfonamide Allergy Intermediate HIVES Verified 11/21/18 09:35 Antibiotics) Cipro AdvReac Mild VOMITING Verified 03/16/18 08:59 ciprofloxacin AdvReac Mild VOMITING Verified 11/21/18 09:35 nickel AdvReac Rash Verified 11/21/18 12:22 Consultations 11/21/18 10:33 ED Decision to Admit Stat Current Diagnoses Hypothyroidism, unspecified (11/21/18) Type 2 diabetes mellitus without complications (11/21/18) Unspecified adrenocortical insufficiency (11/21/18) Major depressive disorder, single episode, unspecified (11/21/18) Obstructive sleep apnea (adult) (pediatric) (11/21/18) Essential (primary) hypertension (11/21/18) Paroxysmal atrial fibrillation (11/21/18) Sick sinus syndrome (11/21/18) Influenza due to unidentified influenza virus with other respiratory manifestations (11/21/18) Pneumonia, unspecified organism (11/21/18) Unspecified cirrhosis of liver (11/21/18) Nonalcoholic steatohepatitis (DIAZ) (11/21/18) Chronic kidney disease, stage 3 (moderate) (11/21/18) Urinary tract infection, site not specified (11/21/18) Personal history of diseases of the blood and blood-forming organs and certain disorders involving the immune mechanism (11/21/18) Presence of cardiac pacemaker (11/21/18) Dependence on other enabling machines and devices (11/21/18) Allergies Iodinated Contrast- Oral and IV Dye Allergy (Intermediate, Verified 11/21/18 09: 35) RASH Sulfa (Sulfonamide Antibiotics) Allergy (Intermediate, Verified 11/21/18 09:35) HIVES Cipro Adverse Reaction (Mild, Verified 03/16/18 08:59) VOMITING ciprofloxacin Adverse Reaction (Mild, Verified 11/21/18 09:35) VOMITING nickel Adverse Reaction (Verified 11/21/18 12:22) Rash Height/Weight/Isolation Height 5 ft 4 in Weight 94 kg Isolation Type Droplet Precautions CBC 11/21/18 11/21/18 11/21/18 08:45 09:05 09:05 WBC 10.61 RBC 4.44 Hgb 12.6 Hct 39.5 MCV 89.0 MCH 28.4 MCHC 31.9 L RDW Std Deviation 47.9 H RDW Coeff of Eran 14.8 H Plt Count 211 MPV 10.1 Immature Gran % (Auto) 0.5 Neut % (Auto) 90.0 Lymph % (Auto) 4.1 Parke % (Auto) 4.2 Eos % (Auto) 1.0 Baso % (Auto) 0.2 Immature Gran # (Auto) 0.05 H Neut # (Auto) 9.55 H Lymph # (Auto) 0.43 L Parke # (Auto) 0.45 Eos # (Auto) 0.11 Baso # (Auto) 0.02 ESR PT 11.2 INR 1.1 APTT 27.1 PTT Ratio 1.0 Sodium Potassium Chloride Carbon Dioxide Anion Gap BUN Creatinine Est Cr Clr Drug Dosing Est GFR ( Amer) Est GFR (Non-Af Amer) BUN/Creatinine Ratio Glucose POC Glucose Lactate Calcium Total Bilirubin AST ALT Alkaline Phosphatase Troponin I C-Reactive Protein Total Protein Albumin Globulin Albumin/Globulin Ratio Random Cortisol Urine Color Urine Appearance Urine pH Ur Specific [place] Urine Protein Urine Glucose (UA) Urine Ketones Urine Blood Urine Nitrite Urine Bilirubin Urine Urobilinogen Ur Leukocyte Esterase Urine WBC (Auto) Urine RBC (Auto) U Hyaline Cast (Auto) U Epithel Cells (Auto) Urine Bacteria (Auto) Nasal Screen MRSA (PCR) Influenza Type A (PCR) Pos for Influ A A* Influenza Type B (PCR) Neg for Influ B 11/21/18 11/21/18 11/21/18 09:05 09:05 09:05 WBC RBC Hgb Hct MCV MCH MCHC RDW Std Deviation RDW Coeff of Eran Plt Count MPV Immature Gran % (Auto) Neut % (Auto) Lymph % (Auto) Parke % (Auto) Eos % (Auto) Baso % (Auto) Immature Gran # (Auto) Neut # (Auto) Lymph # (Auto) Parke # (Auto) Eos # (Auto) Baso # (Auto) ESR > 90 H PT INR APTT PTT Ratio Sodium 134 L Potassium 3.6 Chloride 97 L Carbon Dioxide 26 Anion Gap 11.0 BUN 15 Creatinine 1.07 Est Cr Clr Drug Dosing 50.2 Est GFR ( Amer) 59.2 Est GFR (Non-Af Amer) 51.1 BUN/Creatinine Ratio 13.9 Glucose 138 H POC Glucose Lactate 2.3 H* Calcium 9.2 Total Bilirubin 1.1 H AST 29 ALT 43 Alkaline Phosphatase 224 H Troponin I < 0.015 C-Reactive Protein 25.00 H Total Protein 7.8 Albumin 2.9 L Globulin 4.9 H Albumin/Globulin Ratio 0.6 L Random Cortisol Urine Color Urine Appearance Urine pH Ur Specific [place] Urine Protein Urine Glucose (UA) Urine Ketones Urine Blood Urine Nitrite Urine Bilirubin Urine Urobilinogen Ur Leukocyte Esterase Urine WBC (Auto) Urine RBC (Auto) U Hyaline Cast (Auto) U Epithel Cells (Auto) Urine Bacteria (Auto) Nasal Screen MRSA (PCR) Influenza Type A (PCR) Influenza Type B (PCR) 11/21/18 11/21/18 11/21/18 09:05 09:14 11:35 WBC RBC Hgb Hct MCV MCH MCHC RDW Std Deviation RDW Coeff of Eran Plt Count MPV Immature Gran % (Auto) Neut % (Auto) Lymph % (Auto) Parke % (Auto) Eos % (Auto) Baso % (Auto) Immature Gran # (Auto) Neut # (Auto) Lymph # (Auto) Parke # (Auto) Eos # (Auto) Baso # (Auto) ESR PT INR APTT PTT Ratio Sodium Potassium Chloride Carbon Dioxide Anion Gap BUN Creatinine Est Cr Clr Drug Dosing Est GFR ( Amer) Est GFR (Non-Af Amer) BUN/Creatinine Ratio Glucose POC Glucose 153 H Lactate Calcium Total Bilirubin AST ALT Alkaline Phosphatase Troponin I C-Reactive Protein Total Protein Albumin Globulin Albumin/Globulin Ratio Random Cortisol 38.81 Urine Color Urine Appearance Urine pH Ur Specific [place] Urine Protein Urine Glucose (UA) Urine Ketones Urine Blood Urine Nitrite Urine Bilirubin Urine Urobilinogen Ur Leukocyte Esterase Urine WBC (Auto) Urine RBC (Auto) U Hyaline Cast (Auto) U Epithel Cells (Auto) Urine Bacteria (Auto) Nasal Screen MRSA (PCR) Negative Influenza Type A (PCR) Influenza Type B (PCR) 11/21/18 11/21/18 11/21/18 13:11 13:11 16:31 WBC RBC Hgb Hct MCV MCH MCHC RDW Std Deviation RDW Coeff of Eran Plt Count MPV Immature Gran % (Auto) Neut % (Auto) Lymph % (Auto) Parke % (Auto) Eos % (Auto) Baso % (Auto) Immature Gran # (Auto) Neut # (Auto) Lymph # (Auto) Parke # (Auto) Eos # (Auto) Baso # (Auto) ESR PT INR APTT PTT Ratio Sodium Potassium Chloride Carbon Dioxide Anion Gap BUN Creatinine Est Cr Clr Drug Dosing Est GFR ( Amer) Est GFR (Non-Af Amer) BUN/Creatinine Ratio Glucose POC Glucose 211 H Lactate 1.8 Calcium Total Bilirubin AST ALT Alkaline Phosphatase Troponin I < 0.015 C-Reactive Protein Total Protein Albumin Globulin Albumin/Globulin Ratio Random Cortisol Urine Color Urine Appearance Urine pH Ur Specific [place] Urine Protein Urine Glucose (UA) Urine Ketones Urine Blood Urine Nitrite Urine Bilirubin Urine Urobilinogen Ur Leukocyte Esterase Urine WBC (Auto) Urine RBC (Auto) U Hyaline Cast (Auto) U Epithel Cells (Auto) Urine Bacteria (Auto) Nasal Screen MRSA (PCR) Influenza Type A (PCR) Influenza Type B (PCR) 11/21/18 11/21/18 11/22/18 18:52 20:28 05:41 WBC 4.89 D RBC 3.80 L Hgb 10.7 L Hct 33.7 L MCV 88.7 MCH 28.2 MCHC 31.8 L RDW Std Deviation 47.4 H RDW Coeff of Eran 14.6 H Plt Count 185 MPV 9.8 Immature Gran % (Auto) Neut % (Auto) Lymph % (Auto) Parke % (Auto) Eos % (Auto) Baso % (Auto) Immature Gran # (Auto) Neut # (Auto) Lymph # (Auto) Parke # (Auto) Eos # (Auto) Baso # (Auto) ESR PT INR APTT PTT Ratio Sodium Potassium Chloride Carbon Dioxide Anion Gap BUN Creatinine Est Cr Clr Drug Dosing Est GFR ( Amer) Est GFR (Non-Af Amer) BUN/Creatinine Ratio Glucose POC Glucose 246 H Lactate Calcium Total Bilirubin AST ALT Alkaline Phosphatase Troponin I < 0.015 C-Reactive Protein Total Protein Albumin Globulin Albumin/Globulin Ratio Random Cortisol Urine Color Urine Appearance Urine pH Ur Specific [place] Urine Protein Urine Glucose (UA) Urine Ketones Urine Blood Urine Nitrite Urine Bilirubin Urine Urobilinogen Ur Leukocyte Esterase Urine WBC (Auto) Urine RBC (Auto) U Hyaline Cast (Auto) U Epithel Cells (Auto) Urine Bacteria (Auto) Nasal Screen MRSA (PCR) Influenza Type A (PCR) Influenza Type B (PCR) 11/22/18 11/22/18 11/22/18 05:41 07:33 08:30 WBC RBC Hgb Hct MCV MCH MCHC RDW Std Deviation RDW Coeff of Eran Plt Count MPV Immature Gran % (Auto) Neut % (Auto) Lymph % (Auto) Parke % (Auto) Eos % (Auto) Baso % (Auto) Immature Gran # (Auto) Neut # (Auto) Lymph # (Auto) Parke # (Auto) Eos # (Auto) Baso # (Auto) ESR PT INR APTT PTT Ratio Sodium 137 Potassium 3.5 Chloride 102 Carbon Dioxide 26 Anion Gap 9.0 BUN 15 Creatinine 0.93 Est Cr Clr Drug Dosing 59.0 Est GFR ( Amer) 70.2 Est GFR (Non-Af Amer) 60.5 BUN/Creatinine Ratio 16.5 Glucose 183 H POC Glucose 166 H Lactate Calcium 8.2 L Total Bilirubin AST ALT Alkaline Phosphatase Troponin I C-Reactive Protein Total Protein Albumin Globulin Albumin/Globulin Ratio Random Cortisol Urine Color Yellow Urine Appearance Cloudy H Urine pH 5.0 Ur Specific [place] 1.013 Urine Protein Negative Urine Glucose (UA) Negative Urine Ketones Negative Urine Blood Trace H Urine Nitrite Negative Urine Bilirubin Negative Urine Urobilinogen Negative Ur Leukocyte Esterase Negative Urine WBC (Auto) 1-5 Urine RBC (Auto) 0-4 U Hyaline Cast (Auto) 0 U Epithel Cells (Auto) 5-10 H Urine Bacteria (Auto) Negative Nasal Screen MRSA (PCR) Influenza Type A (PCR) Influenza Type B (PCR) Chemistry 11/21/18 11/22/18 09:05 05:41 Sodium 134 L 137 Potassium 3.6 3.5 Chloride 97 L 102 Carbon Dioxide 26 26 Anion Gap 11.0 9.0 BUN 15 15 Creatinine 1.07 0.93 Glucose 138 H 183 H Urinalysis 11/22/18 08:30 Urine Color Yellow Urine Appearance Cloudy H Urine pH 5.0 Ur Specific [place] 1.013 Urine Protein Negative Urine Glucose (UA) Negative Urine Ketones Negative Urine Blood Trace H Urine Nitrite Negative Urine Bilirubin Negative Microbiology 11/21/18 09:35 Blood Blood Culture - Pending 11/21/18 09:05 Blood Blood Culture - Pending Hospital Course (1) Pneumonia: (2) Influenza: -Admit to [facility] with telemetry -Patient presenting from home with reports of left shoulder pain with inspiration, fever, cough, she still has the cough, but the shoulder pain is greatly reduced most likely referred pain from the left lower lobe pneumonia. -In the ED, tested positive for influenza A and CXR showing left basilar opacity suggestive of pneumonia -On presentation, low-grade fever of 37.7, mildly tachycardic (however patient did not take home cardiac meds), lactic acid 2.3 repeat lactic acid down to 1.8 , WBC 10K, BP stable -S/P IVF, IV ceftriaxone, Tamiflu in the ED, will be DC'd on Augmentin and Zithromax -Given recent hospitalization, we put her on Zosyn -Continue Tamiflu, 3 more days -Left shoulder pain likely referred pain from left basilar pneumonia; initial troponin negative, EKG without acute ST changes, will continue to cycle cardiac enzymes (3) Adrenal insufficiency: -Due to acute illness, will place patient on stress dose steroids hydrocortisone back to normal dose in 10 days (4) T2DM (type 2 diabetes mellitus): Resume home regimen -Patient reports her stable hand recently changed her to 70/30 insulin however she has not made the change yet (5) Hypertension: -BP controlled, continue diltiazem (6) CKD (chronic kidney disease), stage III: Stable during admission (7) Pacemaker: (8) PAF (paroxysmal atrial fibrillation): (9) Tachy-cyril syndrome: -No acute issues with pacemaker -Rate controlled on diltiazem and rhythm controlled on sotalol -No anticoagulation secondary to history of DIAZ and ITP (10) Hypothyroidism: -Continue levothyroxine (11) Recurrent UTI: -Recently placed on chronic suppression with Macrobid -will hold Macrobid until finished with Augmentin and Zithromax (12) History of ITP: No issues (13) 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: -Stable, no acute issues (14) Depression: -Continue citalopram (15) SERENA on CPAP: -Continue CPAP as per home settings (16) DVT prophylaxis: -SQ heparin in the hospital Total Time Total Time Spent Total Time Spent (In Minutes): 45 minutes Total Time Includes: Examination of the Patient, Discharge Planning, Medication Reconciliation and Communication With Other Providers Discharge Plan Discharge Items Patient Disposition: Home - Self-Care Reason For Visit: FLU, PNEUMONIA Discharge Diagnosis: Influenza A Left lower lobe pneumonia Obesity with a BMI of 36 Sleep apnea History of stroke Right bundle branch block History of leukocytoclastic vasculitis Recurrent UTIs CKD Pacemaker Adrenal insufficiency History of ITP Depression Nonalcoholic steatohepatitis with cirrhosis History of A. fib Hypothyroidism Tachybradycardia syndrome Type 2 diabetes Hypertension Chronic steroid use Coronary artery disease with a history of a non-STEMI Discharge Goals: Improve disease control and Increase independence Activity: Resume your previous activity Lifting: Gradually increase as tolerated Bathing: No limitations Sexual Activity: When tolerated Exercise/Sports: Gradually increase as tolerated Driving/Machine Use: Resume 3 days after discharge Weightbearing: Left weightbearing and Right weightbearing Non-emergency contact: Primary Care Provider Call non-emergency contact if: your symptoms worsen Diet: Carb Consistent or DM2 and Heart Healthy Fluids: 1200ml (5 cups) Addtl Provider Instructions: Chest x-ray in 8-12 weeks to make sure her pneumonia resolves to full resolution. Prescriptions: New oseltamivir [Tamiflu] 30 mg capsule 30 mg PO BID Qty: 6 RF: 0 acetaminophen [Mapap (acetaminophen)] 325 mg Tablet 650 mg PO Q4H PRN (Reason: fever or pain) Qty: 100 RF: 0 hydrocortisone [Cortef] 5 mg tablet 5 mg PO BID Qty: 60 RF: 0 amoxicillin-pot clavulanate 500-125 mg tablet 1 tab PO Q8H Qty: 30 RF: 0 azithromycin [Zithromax TRI-THERESA] 500 mg tablet 500 mg PO DAILY 5 Days Qty: 5 RF: 0 albuterol sulfate [ProAir HFA] 90 mcg/actuation HFA aerosol inhaler 2 inha INH Q6H PRN (Reason: shortness of breath or wheezing) Qty: 8 RF: 0 Continue citalopram 10 mg Tablet 10 mg PO QAM RF: 0 insulin detemir U-100 [Levemir U-100 Insulin] 100 unit/mL Solution 90 unit SUBCUT DAILYBB RF: 0 atorvastatin 20 mg tablet 20 mg PO HS RF: 0 aspirin 81 mg tablet,delayed release (DR/EC) 81 mg PO QAM RF: 0 latanoprost 0.005 % drops 1 drp OPB HS RF: 0 ferrous sulfate 325 mg (65 mg iron) tablet,delayed release (DR/EC) 325 mg PO BID RF: 0 pantoprazole 40 mg tablet,delayed release (DR/EC) 40 mg PO DAILYBB RF: 0 metformin 1,000 mg Tablet 1,000 mg PO BID RF: 0 furosemide 20 mg tablet 20 mg PO DAILY PRN (Reason: Edema) RF: 0 citalopram 20 mg Tablet 20 mg PO QAM RF: 0 levothyroxine [Synthroid] 125 mcg Tablet 125 mcg PO DAILYBB Qty: 30 RF: 0 sotalol 80 mg Tablet 120 mg PO BID Qty: 60 RF: 5 diltiazem HCl 120 mg Capsule,Extended Release 24hr 120 mg PO QAM Qty: 30 RF: 5 Stand-Alone Forms: [facility] Discharge Orders: Discharge Order (Routine); Ordered 11/22/18 Ordered By: Anjel Lewis Admission Data Admit Date/Time: 11/21/18 11:32 Attending Provider: Anjel Lewis Admit Provider: Anjel Lewis Primary Care Provider: Laron Murphy Other Providers: Anjel Lewis Service: Medical
== END 2018-11-22 13:30 | disposition home or self-care (01) ==
LOC: ED 08:34 → 2W 08:34